=== PATIENT | male | born 1960 | race Caucasian/White ===

== ENCOUNTER 2017-06-19 16:55 | Emergency (ER) | payer MEDICAID ==
[~2017-06-19] VITALS: Ht 188 cm; Wt 127.0 kg
[~2017-06-19 16:55] MED LIST: AMLO10TA PO; GLUC-150 PO; HCTZ25T PO; IBUP-1986 PO; LISI40TA4 PO; METF500T4 PO; MULT-955 PO
[2017-06-19 17:34] LABS: BASOPHILS % (AUTO) 0.2 % (0-1); EOSINOPHILS # (AUTO) 0.4 X10'3 (0-0.9); HEMATOCRIT 41.1 % (42.0-52.0); HEMOGLOBIN 14.1 g/dl (14.0-17.9); LYMPHOCYTES # (AUTO) 1.2 X10'3 (1.1-4.8); LYMPHOCYTES % (AUTO) 13.3 % (21-51); MEAN CORPUSCULAR HEMOGLOBIN 29.7 PG (27.0-31.0); MEAN CORPUSCULAR HGB CONC 34.4 % (33.0-36.5); MEAN CORPUSCULAR VOLUME 86.4 FL (78-98); MONOCYTES # (AUTO) 0.7 X10'3 (0-0.9); MONOCYTES % (AUTO) 7.9 % (2-12); NEUTROPHILS # (AUTO) 6.8 X10'3 (1.8-7.7); NEUTROPHILS % (AUTO) 74.6 % (42-75); PLATELET COUNT 261 X10'3 (140-440); RED BLOOD COUNT 4.75 X10'6 (4.70-6.10); RED CELL DISTRIBUTION WIDTH 13.3 % (11.5-14.5); WHITE BLOOD COUNT 9.2 X10'3 (4.5-11.0)
[2017-06-19] MEDS ORDERED: HYDROcodone/acetaminophen 10/325mg tab PO ONE (17:35)
[2017-06-19 17:45] LABS: PARTIAL THROMBOPLASTIN TIME 26 SECONDS (22-32); PROTHROMBIN TIME 10.2 SECONDS (9.0-12.0)
[2017-06-19 17:51] LABS: ALANINE AMINOTRANSFERASE 41 U/L (12-78); ALBUMIN 3.6 G/DL (3.4-5.0); ALKALINE PHOSPHATASE 93 IU/L (46-116); ANION GAP 9 (8-16); ASPARTATE AMINO TRANSFERASE 28 U/L (10-37); BILIRUBIN,TOTAL 0.4 MG/DL (0.1-1.0); BLOOD UREA NITROGEN 23 MG/DL (7-18); BUN/CREATININE RATIO 23.7 (5.4-32.0); CALCIUM 9.1 MG/DL (8.5-10.1); CHLORIDE 105 MMOL/L (99-107); CREATININE 0.97 MG/DL (0.60-1.10); GLUCOSE 107 MG/DL (70-104); POTASSIUM 4.1 MMOL/L (3.5-5.1); SODIUM 142 MMOL/L (135-145); TOTAL CARBON DIOXIDE 28.3 MMOL/L (24-32); TOTAL PROTEIN 7.2 G/DL (6.4-8.2); eGFR 80 ML/MIN
[2017-06-19 18:50] VITALS: BP 140/85
[2017-06-19] MEDS ORDERED: HYDR-569 PO (19:19)
== END 2017-06-19 19:28 | disposition home or self-care (01) ==
LOC: ER 16:56
DX: S20.219A Contusion of unspecified front wall of thorax, initial encounter (principal); I10 Essential (primary) hypertension; Z86.14 Personal history of Methicillin resistant Staphylococcus aureus infection; Z88.0 Allergy status to penicillin; Z79.84 Long term (current) use of oral hypoglycemic drugs; Z79.899 Other long term (current) drug therapy; V49.9XXA Car occupant (driver) (passenger) injured in unspecified traffic accident, initial encounter; W22.11XA Striking against or struck by driver side automobile airbag, initial encounter; Y93.89 Activity, other specified; Y92.410 Unspecified street and highway as the place of occurrence of the external cause; Y99.8 Other external cause status
CPT/HCPCS: 36415; 71045; 71250; 74176; 80053; 84484; 85025; 85610; 85730; 93005; 99291

== ENCOUNTER 2018-12-05 18:14 | Emergency (ER) | payer MEDICAID, OTHER ==
[~2018-12-05] VITALS: Ht 188 cm; Wt 132.0 kg
[~2018-12-05 18:14] MED LIST changes: +HYDR-4383 PO; +METF-436 PO; -METF500T4 PO
[2018-12-05] MEDS ORDERED: normal saline 1000ML IV soln IVB ONE (21:15)
[2018-12-05 21:50] LABS: BASOPHILS % (AUTO) 0.1 % (0-1); EOSINOPHILS # (AUTO) 0.1 X10'3 (0-0.9); EOSINOPHILS % (AUTO) 0.9 % (0-6); HEMATOCRIT 34.1 % (42.0-52.0); HEMOGLOBIN 11.6 g/dl (14.0-17.9); LYMPHOCYTES % (AUTO) 8.7 % (21-51); MEAN CORPUSCULAR HEMOGLOBIN 29.9 PG (27.0-31.0); MEAN CORPUSCULAR HGB CONC 34.1 g/dL (33.0-36.5); MEAN CORPUSCULAR VOLUME 87.8 FL (78-98); MEAN PLATELET VOLUME 9.5 FL (7.4-10.4); MONOCYTES # (AUTO) 0.9 X10'3 (0-0.9); MONOCYTES % (AUTO) 7.4 % (2-12); NEUTROPHILS # (AUTO) 9.8 X10'3 (1.8-7.7); NEUTROPHILS % (AUTO) 82.9 % (42-75); RED BLOOD COUNT 3.88 X10'6 (4.70-6.10); RED CELL DISTRIBUTION WIDTH 13.9 % (11.5-14.5); WHITE BLOOD COUNT 11.8 X10'3 (4.5-11.0)
[2018-12-05 22:05] LABS: ALANINE AMINOTRANSFERASE 29 U/L (12-78); ALBUMIN 2.8 G/DL (3.4-5.0); ALBUMIN/GLOBULIN RATIO 0.8 (1.1-1.5); ALKALINE PHOSPHATASE 71 IU/L (46-116); ANION GAP 12 (8-16); ASPARTATE AMINO TRANSFERASE 22 U/L (10-37); BLOOD UREA NITROGEN 43 MG/DL (7-18); BUN/CREATININE RATIO 28.3 (5.4-32.0); CALCIUM 8.3 MG/DL (8.5-10.1); CHLORIDE 103 MMOL/L (99-107); CREATININE 1.52 MG/DL (0.60-1.10); GLUCOSE 122 MG/DL (70-104); PLATELET COUNT 95 X10'3 (140-440); SODIUM 138 MMOL/L (135-145); TOTAL CARBON DIOXIDE 22.6 MMOL/L (24-32); TOTAL PROTEIN 6.1 G/DL (6.4-8.2); eGFR 48 ML/MIN
[2018-12-05 22:10] LABS: POTASSIUM 2.9 MMOL/L (3.5-5.1)
[2018-12-05] MEDS ORDERED: potassium Cl 20 mEq SR tablet PO STA (22:16)
[2018-12-05] MEDS ORDERED: normal saline 1000ml 1,000 ML IVB ONE (22:18)
[2018-12-05] MEDS ORDERED: phenazopyridine 100mg tablet PO ONE (23:40)
[2018-12-05] MEDS ORDERED: CefTRIAXone 2gm/D5W 50ml 50 ML IV ONE (23:40)
[2018-12-06 00:11] LABS: BACTERIA,URINE FEW /HPF (Neg); CLARITY,URINE CLEAR (Clear); COLOR,URINE AMBER (Yellow); GLUCOSE, URINE NEGATIVE (Neg); KETONES,URINE TRACE mg/dl (Neg); LEUKOCYTE ESTERASE ,URINE MODERATE (Neg); MUCUS STRANDS NONE SEEN /LPF (Neg); NITRITES, URINE NEGATIVE (Neg); OCCULT BLOOD,URINE MODERATE (Neg); PH,URINE 5.5 (4.8-8.0); PROTEIN,URINE 30 mg/dl (Neg); RBC,URINE 0-2 /HPF (0-2); RENAL CELLS, URINE FEW /HPF; SQUAMOUS EPITHELIAL CELL,UR FEW /LPF (FEW); UA COLLECTION TYPE URINAL
--- NOTE | 2018-12-06 00:51 | NUR ---
AFTER 2 L FLUID, PT HAS 125 ML URINE IN BLADDER PER BLADDER SCANNER, WAS ABLE TO VOID APPROX 10 ML URINE
[2018-12-06] MEDS ORDERED: PHEN-786 PO (01:00)
[2018-12-06] MEDS ORDERED: FLO0.4C PO (01:00)
[2018-12-06] MEDS ORDERED: CEPH500C5 PO (01:00)
[2018-12-06 01:24] VITALS: BP 112/63
== END 2018-12-06 01:26 | disposition home or self-care (01) ==
LOC: ER 18:15
DX: N39.0 Urinary tract infection, site not specified (principal); I48.91 Unspecified atrial fibrillation; I10 Essential (primary) hypertension; Z86.14 Personal history of Methicillin resistant Staphylococcus aureus infection; Z98.890 Other specified postprocedural states; Z88.0 Allergy status to penicillin; Z79.2 Long term (current) use of antibiotics; Z79.84 Long term (current) use of oral hypoglycemic drugs; Z79.899 Other long term (current) drug therapy
CPT/HCPCS: 80053; 81001; 85025; 87077; 87088; 87186; 96365; 99284; J0696; J7030; 81003

== ENCOUNTER 2018-12-14 20:47 | Emergency (ER) | payer MEDICAID ==
[~2018-12-14] VITALS: Ht 188 cm; Wt 132.7 kg
[~2018-12-14 20:47] MED LIST changes: +CEPH500C5 PO; +FLO0.4C PO; +PHEN-786 PO
[2018-12-14 21:40] LABS: CLARITY,URINE SLIGHTLY CLOUDY (Clear); COLOR,URINE YELLOW (Yellow); GLUCOSE, URINE 100 mg/dl (Neg); KETONES,URINE TRACE mg/dl (Neg); LEUKOCYTE ESTERASE ,URINE NEGATIVE (Neg); OCCULT BLOOD,URINE LARGE (Neg); PROTEIN,URINE 100 mg/dl (Neg)
[2018-12-14 21:46] LABS: NITRITES, URINE NEGATIVE (Neg); UA COLLECTION TYPE CLN CATCH MIDSTREAM
[2018-12-14 21:47] LABS: BACTERIA,URINE FEW /HPF (Neg); RBC,URINE 50-100 /HPF (0-2); SQUAMOUS EPITHELIAL CELL,UR FEW /LPF (FEW); WBC,URINE 0-4 /HPF (0-4)
--- NOTE | 2018-12-14 22:35 | NUR ---
Dr. Morel at bedside to re-eval pt.
[2018-12-14] MEDS ORDERED: FLO0.4C PO (22:41)
[2018-12-14 22:56] VITALS: BP 142/71
== END 2018-12-14 22:53 | disposition home or self-care (01) ==
LOC: ER 20:48
DX: R31.9 Hematuria, unspecified (principal); R30.0 Dysuria; I48.91 Unspecified atrial fibrillation; I10 Essential (primary) hypertension; Z86.14 Personal history of Methicillin resistant Staphylococcus aureus infection; Z98.890 Other specified postprocedural states; Z88.0 Allergy status to penicillin; Z79.899 Other long term (current) drug therapy
CPT/HCPCS: 81001; 99284

== ENCOUNTER 2018-12-19 09:47 | Day surgery (SDC) | payer MEDICAID ==
[2018-12-17 12:07] LABS: BASOPHILS % (AUTO) 0.6 % (0-1); EOSINOPHILS # (AUTO) 0.1 X10'3 (0-0.9); EOSINOPHILS % (AUTO) 0.9 % (0-6); HEMATOCRIT 40.8 % (42.0-52.0); HEMOGLOBIN 13.8 g/dl (14.0-17.9); LYMPHOCYTES # (AUTO) 2.1 X10'3 (1.1-4.8); MEAN CORPUSCULAR HEMOGLOBIN 30.2 PG (27.0-31.0); MEAN CORPUSCULAR HGB CONC 33.8 g/dL (33.0-36.5); MEAN CORPUSCULAR VOLUME 89.3 FL (78-98); MEAN PLATELET VOLUME 8.4 FL (7.4-10.4); MONOCYTES # (AUTO) 0.6 X10'3 (0-0.9); MONOCYTES % (AUTO) 7.8 % (2-12); NEUTROPHILS % (AUTO) 63.7 % (42-75); PLATELET COUNT 437 X10'3 (140-440); RED BLOOD COUNT 4.57 X10'6 (4.70-6.10); RED CELL DISTRIBUTION WIDTH 14.1 % (11.5-14.5); WHITE BLOOD COUNT 7.8 X10'3 (4.5-11.0)
[2018-12-17 12:08] LABS: PARTIAL THROMBOPLASTIN TIME 31 SECONDS (22-32)
[2018-12-17 12:12] LABS: ALANINE AMINOTRANSFERASE 34 U/L (12-78); ALBUMIN 3.7 G/DL (3.4-5.0); ALBUMIN/GLOBULIN RATIO 0.9 (1.1-1.5); ALKALINE PHOSPHATASE 81 IU/L (46-116); ANION GAP 14 (8-16); ASPARTATE AMINO TRANSFERASE 19 U/L (10-37); BILIRUBIN,TOTAL 0.7 MG/DL (0.1-1.0); BLOOD UREA NITROGEN 13 MG/DL (7-18); BUN/CREATININE RATIO 13.1 (5.4-32.0); CALCIUM 9.4 MG/DL (8.5-10.1); CHLORIDE 105 MMOL/L (99-107); CREATININE 0.99 MG/DL (0.60-1.10); GLUCOSE 85 MG/DL (70-104); POTASSIUM 3.9 MMOL/L (3.5-5.1); SODIUM 142 MMOL/L (135-145); TOTAL CARBON DIOXIDE 23.2 MMOL/L (24-32); TOTAL PROTEIN 7.6 G/DL (6.4-8.2); eGFR 78 ML/MIN
[2018-12-19] VITALS (15 sets, daily range): BP systolic 97–181; BP diastolic 50–124
[~2018-12-19] VITALS: Ht 188 cm; Wt 132.5 kg
[2018-12-19] MEDS ORDERED: diphenhydrAMINE 25mg capsule PO PRN ×2 (10:20→10:55)
[2018-12-19] MEDS ORDERED: normal saline 1,000 ML IV SCH ×2 (10:20→10:55)
[2018-12-19] MEDS ORDERED: LORazepam 0.5 MG tablet PO PRN ×2 (10:20→10:55)
[2018-12-19] MEDS ORDERED: nitroGLYCERIN 0.4mg SUBLingual tab SL PRN (10:55)
[2018-12-19] MEDS ORDERED: fentaNYL/PF 50MCG/1 ML 2ML syringe ONE ×2 (12:30→13:36)
[2018-12-19] MEDS ORDERED: morphine 2 MG/ML inj. syringe ONE (12:32)
[2018-12-19] MEDS ORDERED: HYDROmorphone 1 mg/ml syringe ONE ×2 (12:35→12:44)
[2018-12-19] MEDS ORDERED: iohexol 350 MG/ML 50ML vial IV ONE ×2 (12:47→13:32)
[2018-12-19] MEDS ORDERED: nitroGLYCERIN-Tridil 50MG/D5W 250 ML IV ONE (12:54)
[2018-12-19] MEDS ORDERED: enalaprilat dihydrate 2.5mg/2ml vial IV ONE (12:55)
[2018-12-19] MEDS ORDERED: metoprolol tartrate 1mg/ml inj IV ONE (12:55)
[2018-12-19] MEDS ORDERED: proCHLORperazine 10 MG/2 ml inj ONE (12:58)
[2018-12-19] MEDS ORDERED: HYDROcodone/acetaminophen 5mg/325mg tablet PO PRN (13:30)
[2018-12-19] MEDS ORDERED: OXAZEpam 15mg capsule PO PRN (13:30)
[2018-12-19] MEDS ORDERED: ondansetron/PF 4mg/2ml inj IV PRN (13:30)
[2018-12-19] MEDS ORDERED: HYDROcodone/acetaminophen 10/325mg tab PO PRN (13:30)
[2018-12-19] MEDS ORDERED: proCHLORperazine 10 MG/2 ml inj IV PRN (13:30)
[2018-12-19] MEDS ORDERED: iohexol 350MG/ML 100ml bottle IV ONE (13:32)
[2018-12-19] MEDS ORDERED: LIDOcaine 1% (10mg/ml)w/preservative injection 20ml MDV ONE (13:33)
[2018-12-19] MEDS ORDERED: midazolam 2 mg/2 ml injection ONE (13:36)
[2018-12-19] MEDS ORDERED: HYDROmorphone 1 mg/ml syringe IV PRN (16:00)
[2019-01-07] MEDS ORDERED: CLIN150C2 PO (13:30)
[2019-01-07] MEDS ORDERED: MULT-1085 PO (13:30)
[2019-01-08] MEDS ORDERED: CEPH500C5 PO (10:24)
[2019-01-08] MEDS ORDERED: CLIN300C53 PO (10:28)
== END 2018-12-19 18:55 | disposition home or self-care (01) ==
LOC: SSTAY O 09:47
PROVIDERS: ATTEND Internal Medicine Cardiovascular Disease
DX: R94.39 Abnormal result of other cardiovascular function study (principal); I25.10 Atherosclerotic heart disease of native coronary artery without angina pectoris; I10 Essential (primary) hypertension; E78.5 Hyperlipidemia, unspecified; E11.9 Type 2 diabetes mellitus without complications; I48.20 Chronic atrial fibrillation, unspecified; E66.01 Morbid (severe) obesity due to excess calories; Z68.41 Body mass index [BMI] 40.0-44.9, adult; Z96.643 Presence of artificial hip joint, bilateral; Z96.653 Presence of artificial knee joint, bilateral; Z88.0 Allergy status to penicillin; Z79.84 Long term (current) use of oral hypoglycemic drugs; Z79.899 Other long term (current) drug therapy; Z87.442 Personal history of urinary calculi; Z87.440 Personal history of urinary (tract) infections; Z98.49 Cataract extraction status, unspecified eye; Z72.89 Other problems related to lifestyle; Z87.891 Personal history of nicotine dependence
CPT/HCPCS: 36415; 71046; 80053; 85025; 85610; 85730; 93459; 93567; 99152; 99153; C1769; J0780; J1170; J1644; J2001; J2250; J2270; J3010; J7030; Q0163; Q9967; 93458; A4620; A6258; C1760; J3490

== ENCOUNTER 2019-01-09 07:30 | Inpatient (IN) | payer MEDICAID ==
[2019-01-07 14:48] LABS: BASOPHILS % (AUTO) 0.5 % (0-1); EOSINOPHILS # (AUTO) 0.1 X10'3 (0-0.9); EOSINOPHILS % (AUTO) 1.2 % (0-6); LYMPHOCYTES # (AUTO) 1.8 X10'3 (1.1-4.8); LYMPHOCYTES % (AUTO) 26.6 % (21-51); MEAN CORPUSCULAR HEMOGLOBIN 30.8 PG (27.0-31.0); MEAN CORPUSCULAR HGB CONC 34.7 g/dL (33.0-36.5); MEAN CORPUSCULAR VOLUME 88.8 FL (78-98); MEAN PLATELET VOLUME 8.7 FL (7.4-10.4); MONOCYTES # (AUTO) 0.5 X10'3 (0-0.9); MONOCYTES % (AUTO) 7.2 % (2-12); NEUTROPHILS # (AUTO) 4.3 X10'3 (1.8-7.7); NEUTROPHILS % (AUTO) 64.5 % (42-75); PRE OP HEMATOCRIT 41.7 % (42.0-52.0); PRE OP HEMOGLOBIN 14.5 g/dL (14.0-17.9); PRE OP PLATELET COUNT 254 X10'3 (140-440); RED CELL DISTRIBUTION WIDTH 14.1 % (11.5-14.5)
[2019-01-07 14:58] LABS: PRE OP PROTIME 10.6 SECONDS (9.0-12.0)
[2019-01-07 14:59] LABS: ALBUMIN 3.7 G/DL (3.4-5.0); ALBUMIN/GLOBULIN RATIO 0.9 (1.1-1.5); ALKALINE PHOSPHATASE 84 IU/L (46-116); BLOOD UREA NITROGEN 19 MG/DL (7-18); BUN/CREATININE RATIO 22.9 (5.4-32.0); CALCIUM 9.4 MG/DL (8.5-10.1); CHLORIDE 106 MMOL/L (99-107); CREATININE 0.83 MG/DL (0.60-1.10); PRE OP ALT 23 U/L (30-65); PRE OP ANION GAP 14 (8-16); PRE OP AST 22 U/L (10-37); PRE OP BILIRUB, TOTAL 0.4 MG/DL (0.0-1.0); PRE OP GLUCOSE 84 MG/DL (70-104); PRE OP POTASSIUM 3.9 MMOL/L (3.4-5.1); PRE OP SODIUM 144 MMOL/L (135-145); TOTAL CARBON DIOXIDE 24.4 MMOL/L (24-32); TOTAL PROTEIN 7.6 G/DL (6.4-8.2); eGFR > 90 ML/MIN
[2019-01-07 15:07] LABS: HEMOGLOBIN A1C 5.3 % (4.5-6.2)
[2019-01-08 09:21] LABS: ABG BASE EXCESS -1.1 mmol/L (-2.0-3.0); ABG HCO3 22.5 mmol/L (22.0-26.0); ABG OXYGEN SATURATION 96.7 % (95-98); ABG PCO2 (T) 34.5 mmHg (35.0-45.0); ABG PH (T) 7.433 (7.350-7.450); ABG PO2 (T) 86.5 mmHg (83-108); ALLEN'S TEST Positive; FO2Hb 96.7 % (94-100); RESPIRATORY RATE (OBSERVED) 20 b/min; TOTAL HEMOGLOBIN 13.8 G/dl (14.0-17.9)
--- NOTE | 2019-01-08 11:15 | NUR ---
DR HYATT CALLED [facility] 01/08/19 TO GIVE VERBAL CLEARANCE FOR SURGERY. FRANCE AT DR COBB'S OFFICE AWARE.
[2019-01-09] VITALS (9 sets, daily range): BP systolic 101–151; BP diastolic 49–96
[~2019-01-09] VITALS: Ht 188 cm; Wt 137.0 kg
[2019-01-09] MEDS: insulin regular, human 100 UNIT in normal saline 100ml IV soln 99 ML IV SCH ×2 (06:00)
[~2019-01-09 07:30] MED LIST changes: -CEPH500C5 PO; +CLIN150C2 PO; -FLO0.4C PO; -GLUC-150 PO; -HYDR-4383 PO; +LIDOcaine 2% (20 mg/ml) 5ml cardiac syringe ONE; +LORazepam 2 mg/ml vial IV ONE; +MALTODEXTRIN/FRUCTOSE 0.68 KCAL/ML LIQUID 296ML BOTTLE PO ONE; -METF-436 PO; +MULT-1085 PO; -MULT-955 PO; -PHEN-786 PO; +ROPIVAcaine 0.5% (5mg/ml) 30ml vial ONE; +albumin (human) 25% 100 ML IV solution IV ONE; +aminocaproic acid 250 MG/1 ML inj. ONE; +calcium chloride 100 MG/1 ML inj IV ONE; +ceFAZolin/D5W- 1GM premix 50 ML IV ONE; +cefazolin/dext.iso 2gm/50ml 50 ML IV ONE; +famotidine 20mg tablet PO ONE; +gabapentin 400mg capsule PO ONE; +heparin 1,000 units/ml 10ml inj ONE; +heparin 10,000 units/1 ML INJ ONE; +magnesium sulf 1 GM/2 ML ONE; +methylPREDNISolone sod. succ. 500mg inj ONE; +metoprolol tartrate 12.5mg (1/2 tablet) PO ONE; +mupirocin 2% nasal ointment 1gm UD NS ONE; +phenylephrine 10mg/ml inj. ONE; +potassium Cl 2 mEq/ml inj IV ONE; +ringers solution, lacted 1,000 ML IV SCH; +sodium bicarbonate (8.4%) 1 mEq/ml syringe ONE; +vancomycin inj 1,500 MG in normal saline 300ml IV soln IV ONE
[2019-01-09 11:11] LABS: CLARITY,URINE CLEAR (Clear); COLOR,URINE YELLOW (Yellow); GLUCOSE, URINE NEGATIVE (Neg); KETONES,URINE NEGATIVE (Neg); LEUKOCYTE ESTERASE ,URINE TRACE (Neg); NITRITES, URINE NEGATIVE (Neg); OCCULT BLOOD,URINE NEGATIVE (Neg); PROTEIN,URINE NEGATIVE (Neg); UROBILINOGEN,URINE 0.2 E.U/dL (0.2-1.0)
[2019-01-09 11:25] LABS: UA COLLECTION TYPE CLN CATCH MIDSTREAM
[2019-01-09 11:26] LABS: BACTERIA,URINE 1+ /HPF (Neg); MUCUS STRANDS FEW /LPF (Neg); RBC,URINE 0-2 /HPF (0-2); SQUAMOUS EPITHELIAL CELL,UR MODERATE /LPF (FEW); WBC,URINE 0-4 /HPF (0-4)
[2019-01-09] MEDS ORDERED: LORazepam 2 mg/ml vial ONE (11:59)
[2019-01-09] MEDS ORDERED: nitroGLYCERIN in D5W 50mg/250ml (Tridil) infusion IV ONE (12:05)
[2019-01-09] MEDS ORDERED: protamine sulf. 10mg/ml inj. IV ONE (12:05)
[2019-01-09] MEDS ORDERED: amiodarone in dextrose, iso-osm 360mg/200ml bag IV ONE (12:05)
[2019-01-09] MEDS ORDERED: aminocaproic acid 250 MG/1 ML inj. ONE (12:05)
[2019-01-09] MEDS ORDERED: NORepinephrine bitartrate 8 MG in NS 250 ML BAG (32 mcg/ml) IV ONE (12:05)
[2019-01-09] MEDS ORDERED: isoflurane 100ml inhalation liquid IH ONE (12:05)
[2019-01-09] MEDS ORDERED: SUFENTANIL CITRATE 50 MCG/ML 2ml ampule IV ONE (12:06)
[2019-01-09] MEDS ORDERED: rocuronium 10mg/ml inj IV ONE ×3 (12:08→16:25)
[2019-01-09] MEDS ORDERED: papaverine 30 mg/ml 2ml inj. ONE (14:00)
[2019-01-09] MEDS ORDERED: heparin 10,000 units/1 ML INJ ONE (14:00)
[2019-01-09 14:01] LABS: ABG HCO3 VENOUS 22.4 mmol/L; ABG PCO2 VENOUS 33.2 mmHg; ABG PO2 VENOUS 411.4 mmHg; CL (ABG) 105 mmol/L (99-107); FCOHb VENOUS 0.5 %; FHHb VENOUS 0.4 %; FO2Hb VENOUS 99.1 %; GLUCOSE (ABG) 112 mg/dl (70-104); IONIZED CA (ABG) 1.15 mmol/L (1.03-1.32); K (ABG) 3.6 mmol/L (3.3-5.1); NA (ABG) 138 mmol/L (135-145); TOTAL HEMOGLOBIN 11.9 G/dl (14.0-17.9)
[2019-01-09 14:20] LABS: ABG BASE EXCESS 0.8 mmol/L (-2.0-3.0); ABG HCO3 24.2 mmol/L (22.0-26.0); ABG PCO2 34.4 mmHg (35.0-45.0); ABG PH 7.466 (7.350-7.450); ABG PO2 354.1 mmHg (60.0-100.0); CL (ABG) 104 mmol/L (99-107); FCOHb 0.3 % (0.5-1.5); FMetHb 0.3 % (0.3-1.12); FO2Hb 98.4 % (94-100); GLUCOSE (ABG) 121 mg/dl (70-104); IONIZED CA (ABG) 1.09 mmol/L (1.03-1.32); K (ABG) 4.4 mmol/L (3.3-5.1); NA (ABG) 137 mmol/L (135-145); TOTAL HEMOGLOBIN 9.9 G/dl (14.0-17.9)
[2019-01-09 14:36] LABS: ABG BASE EXCESS -1.6 mmol/L (-2.0-3.0); ABG HCO3 22.8 mmol/L (22.0-26.0); ABG OXYGEN SATURATION 99.3 % (95-98); ABG PCO2 36.8 mmHg (35.0-45.0); ABG PH 7.409 (7.350-7.450); ABG PO2 316.6 mmHg (60.0-100.0); CL (ABG) 104 mmol/L (99-107); FCOHb 0.2 % (0.5-1.5); FMetHb 0.3 % (0.3-1.12); FO2Hb 98.8 % (94-100); GLUCOSE (ABG) 119 mg/dl (70-104); IONIZED CA (ABG) 1.13 mmol/L (1.03-1.32); K (ABG) 4.7 mmol/L (3.3-5.1); NA (ABG) 138 mmol/L (135-145)
[2019-01-09 15:20] LABS: ABG BASE EXCESS 0.9 mmol/L (-2.0-3.0); ABG HCO3 25.9 mmol/L (22.0-26.0); ABG PCO2 43.1 mmHg (35.0-45.0); ABG PH 7.397 (7.350-7.450); ABG PO2 287.1 mmHg (60.0-100.0); CL (ABG) 104 mmol/L (99-107); FCOHb 0.2 % (0.5-1.5); FMetHb 0.4 % (0.3-1.12); FO2Hb 98.4 % (94-100); GLUCOSE (ABG) 133 mg/dl (70-104); IONIZED CA (ABG) 1.34 mmol/L (1.03-1.32); K (ABG) 4.4 mmol/L (3.3-5.1); NA (ABG) 136 mmol/L (135-145); TOTAL HEMOGLOBIN 9.5 G/dl (14.0-17.9)
[2019-01-09 16:05] LABS: ABG BASE EXCESS -1.4 mmol/L (-2.0-3.0); ABG HCO3 21.8 mmol/L (22.0-26.0); ABG OXYGEN SATURATION 98.9 % (95-98); ABG PCO2 31.5 mmHg (35.0-45.0); ABG PH 7.459 (7.350-7.450); ABG PO2 210.5 mmHg (60.0-100.0); CL (ABG) 105 mmol/L (99-107); FCOHb 0.3 % (0.5-1.5); FMetHb 0.4 % (0.3-1.12); FO2Hb 98.2 % (94-100); GLUCOSE (ABG) 118 mg/dl (70-104); IONIZED CA (ABG) 1.21 mmol/L (1.03-1.32); K (ABG) 3.8 mmol/L (3.3-5.1); NA (ABG) 137 mmol/L (135-145); TOTAL HEMOGLOBIN 10.3 G/dl (14.0-17.9)
[2019-01-09] MEDS ORDERED: normal saline 250ml IV soln 250 ML IV PRN (16:20)
[2019-01-09] MEDS ORDERED: dextrose 50%-water 50ml dispensing syringe IV PRN (16:20)
[2019-01-09] MEDS ORDERED: potassium Cl 20 mEq SR tablet PO PRN (16:20)
[2019-01-09] MEDS ORDERED: acetaminophen 325mg tablet PO PRN ×2 (16:20)
[2019-01-09] MEDS ORDERED: morphine 4 MG/ML inj SYRINge IV PRN (16:20)
[2019-01-09] MEDS ORDERED: ondansetron/PF 4mg/2ml inj IV PRN (16:20)
[2019-01-09] MEDS ORDERED: nitroGLYCERIN-Tridil 50MG/D5W 250 ML IV PRN (16:20)
[2019-01-09] MEDS ORDERED: metoclopramide 5 mg/ml inj IV PRN (16:20)
[2019-01-09] MEDS ORDERED: magnesium 2GM in 50ml NS 50 ML IV PRN (16:20)
[2019-01-09] MEDS ORDERED: niCARDipine-NS 40mg/200ml IVPB 200 ML IV PRN (16:20)
[2019-01-09] MEDS ORDERED: pantoprazole 40 MG vial IV ONE (16:20)
[2019-01-09] MEDS ORDERED: HYDROcodone/acetaminophen 10/325mg tab PO PRN ×2 (16:20)
[2019-01-09] MEDS ORDERED: magnesium 4gm in 100ml NS 100 ML IV PRN (16:20)
[2019-01-09] MEDS ORDERED: insulin regular, human inj. 100 UNITS in normal saline 100ml IV soln 100 ML IV SCH ×2 (16:20)
[2019-01-09] MEDS ORDERED: albumin (Human) 5% 250ml 250 ML IV PRN (16:20)
[2019-01-09] MEDS ORDERED: sodium phosphate inj. 15 MMOL in dextrose 5%-water 150 ML IV PRN (16:20)
[2019-01-09] MEDS ORDERED: sodium chloride 0.45% 1,000 ML IV SCH (16:20)
[2019-01-09] MEDS ORDERED: sodium phosphate inj. 30 MMOL in dextrose 5%-water 250 ML IV PRN (16:20)
[2019-01-09] MEDS ORDERED: DOPamine 400mg/D5W 250ml 250 ML IV PRN (16:20)
[2019-01-09] MEDS ORDERED: Neutra Phos packet PO PRN (16:20)
--- NOTE | 2019-01-09 16:30 | NUR ---
Received to room 2043, accompanied by MDs and surgical crew. Placed on ventilator, to phlebotomist lab assistant, arterial line and PA line pressure monitored. Chest tubes to suction at 20 cm. Smart cath to gravity drainage. Dressings are dry and intact. See assessment record. All vasoactive drugs are infusing via central line.
--- NOTE | 2019-01-09 16:45 | NUR ---
Cxr reviewed Hemodyn stable on low dose tridil and Nipride Min Chest tube output Lungs clear but diminished
--- NOTE | 2019-01-09 16:53 | NUR ---
Nutrition consult: Pt s/p CABG x 3 today. Pt would benefit from nutrition therapy education prior to discharge once stable. Will continue to follow. Addendum: 01/09/19 at [address] Amended: Links added.
[2019-01-09] MEDS ORDERED: propofol inj 20 ML IV ONE (16:54)
[2019-01-09 16:55] LABS: ABG BASE EXCESS -0.6 mmol/L (-2.0-3.0); ABG OXYGEN SATURATION 98.6 % (95-98); ABG PCO2 (T) 38.6 mmHg (35.0-45.0); ABG PH (T) 7.409 (7.350-7.450); ABG PO2 (T) 179.8 mmHg (83-108); FCOHb 0.3 % (0.5-1.5); FMetHb 0.2 % (0.3-1.12); FO2Hb 98.1 % (94-100); MINUTE VOLUME 13 L/min; PATIENT TEMPERATURE 36.6; PEEP 5 cm H2O; RESPIRATORY RATE 12 b/min; TIDAL VOLUME 750 mL; TOTAL HEMOGLOBIN 12.2 G/dl (14.0-17.9)
[2019-01-09 17:08] LABS: BASOPHILS % (AUTO) 0.1 % (0-1); EOSINOPHILS % (AUTO) 0.3 % (0-6); HEMATOCRIT 33.5 % (42.0-52.0); HEMOGLOBIN 11.3 g/dl (14.0-17.9); LYMPHOCYTES # (AUTO) 0.8 X10'3 (1.1-4.8); LYMPHOCYTES % (AUTO) 7.1 % (21-51); MEAN CORPUSCULAR HEMOGLOBIN 30.3 PG (27.0-31.0); MEAN CORPUSCULAR HGB CONC 33.8 g/dL (33.0-36.5); MEAN CORPUSCULAR VOLUME 89.7 FL (78-98); MEAN PLATELET VOLUME 8.1 FL (7.4-10.4); MONOCYTES # (AUTO) 0.5 X10'3 (0-0.9); MONOCYTES % (AUTO) 4.4 % (2-12); NEUTROPHILS # (AUTO) 9.9 X10'3 (1.8-7.7); NEUTROPHILS % (AUTO) 88.1 % (42-75); PLATELET COUNT 154 X10'3 (140-440); RED BLOOD COUNT 3.74 X10'6 (4.70-6.10); RED CELL DISTRIBUTION WIDTH 14.4 % (11.5-14.5); WHITE BLOOD COUNT 11.3 X10'3 (4.5-11.0)
[2019-01-09 17:17] LABS: PARTIAL THROMBOPLASTIN TIME 26 SECONDS (22-32)
[2019-01-09] MEDS: morphine 4 MG/ML inj SYRINge IV PRN ×4 (17:17→23:46)
[2019-01-09 17:18] LABS: ALANINE AMINOTRANSFERASE 23 U/L (12-78); ALBUMIN 3.1 G/DL (3.4-5.0); ALBUMIN/GLOBULIN RATIO 1.2 (1.1-1.5); ALKALINE PHOSPHATASE 62 IU/L (46-116); ANION GAP 7 (8-16); ASPARTATE AMINO TRANSFERASE 25 U/L (10-37); BILIRUBIN,TOTAL 0.8 MG/DL (0.1-1.0); BLOOD UREA NITROGEN 15 MG/DL (7-18); CALCIUM 8.7 MG/DL (8.5-10.1); CHLORIDE 110 MMOL/L (99-107); CREATININE 0.94 MG/DL (0.60-1.10); GLUCOSE 99 MG/DL (70-104); MAGNESIUM 2.8 MG/DL (1.5-2.4); PHOSPHORUS 2.5 MG/DL (2.3-4.5); POTASSIUM 3.8 MMOL/L (3.5-5.1); SODIUM 144 MMOL/L (135-145); TOTAL CARBON DIOXIDE 27.4 MMOL/L (24-32); TOTAL PROTEIN 5.7 G/DL (6.4-8.2); eGFR 83 ML/MIN
--- NOTE | 2019-01-09 17:30 | NUR ---
Assessment [facility] VSS Hemodyn stable on nipride and tridil Pt turned from side to side and reposit Med for pain pre turning laurie well
[2019-01-09] MEDS ORDERED: insulin Lispro (HumaLOG) vial - multi-dose SQ SCH (18:00)
--- NOTE | 2019-01-09 18:00 | NUR ---
Patient in room ICU 2043. I have received report from Carlene PEGUERO and had the opportunity to ask questions and assume patient care.
--- NOTE | 2019-01-09 18:00 | NUR ---
Problems reprioritized. Patient report given, questions answered & plan of care reviewed with Rosette moreland.
[2019-01-09] MEDS: docusate sod 100mg capsule PO SCH (20:00)
[2019-01-09] MEDS: mupirocin 2% nasal ointment 1gm UD NS SCH (20:00)
[2019-01-09] MEDS: vancomycin/NS 1 GM ADD-VANTAGE 250 ML IV SCH (20:20)
[2019-01-09] MEDS: gabapentin 300mg capsule PO SCH (20:21)
[2019-01-09] MEDS: amiodarone/D5 360MG/200ML BAG 200 ML IV SCH (21:10)
[2019-01-09] MEDS: potassium Cl 20mEq/100mL bag 100 ML IV PRN ×2 (21:37→23:18)
[2019-01-09] MEDS: cefazolin/dext.iso 2gm/50ml 50 ML IV SCH (23:33)
[2019-01-09 23:36] LABS: ABG BASE EXCESS -1.9 mmol/L (-2.0-3.0); ABG HCO3 22.3 mmol/L (22.0-26.0); ABG OXYGEN SATURATION 97.9 % (95-98); ABG PCO2 (T) 36.4 mmHg (35.0-45.0); ABG PH (T) 7.405 (7.350-7.450); FCOHb 0.3 % (0.5-1.5); FMetHb 0.1 % (0.3-1.12); FO2Hb 97.5 % (94-100); MINUTE VOLUME 9 L/min; PATIENT TEMPERATURE 37.2; PEEP 5 cm H2O; RESPIRATORY RATE (OBSERVED) 13 b/min; TOTAL HEMOGLOBIN 12.1 G/dl (14.0-17.9)
[2019-01-09 23:44] LABS: BASOPHILS % (AUTO) 0.1 % (0-1); EOSINOPHILS % (AUTO) 0 % (0-6); HEMATOCRIT 32.5 % (42.0-52.0); HEMOGLOBIN 11.2 g/dl (14.0-17.9); LYMPHOCYTES # (AUTO) 0.4 X10'3 (1.1-4.8); LYMPHOCYTES % (AUTO) 4.1 % (21-51); MEAN CORPUSCULAR HGB CONC 34.4 g/dL (33.0-36.5); MEAN CORPUSCULAR VOLUME 90.1 FL (78-98); MEAN PLATELET VOLUME 8.9 FL (7.4-10.4); MONOCYTES # (AUTO) 0.2 X10'3 (0-0.9); MONOCYTES % (AUTO) 2.5 % (2-12); NEUTROPHILS # (AUTO) 8.1 X10'3 (1.8-7.7); NEUTROPHILS % (AUTO) 93.3 % (42-75); PLATELET COUNT 141 X10'3 (140-440); RED BLOOD COUNT 3.61 X10'6 (4.70-6.10); RED CELL DISTRIBUTION WIDTH 14.3 % (11.5-14.5); WHITE BLOOD COUNT 8.7 X10'3 (4.5-11.0)
[2019-01-09 23:48] LABS: ANION GAP 7 (8-16); BLOOD UREA NITROGEN 17 MG/DL (7-18); BUN/CREATININE RATIO 17.7 (5.4-32.0); CALCIUM 8.6 MG/DL (8.5-10.1); CHLORIDE 110 MMOL/L (99-107); CREATININE 0.96 MG/DL (0.60-1.10); GLUCOSE 149 MG/DL (70-104); MAGNESIUM 2.3 MG/DL (1.5-2.4); PHOSPHORUS 3.9 MG/DL (2.3-4.5); POTASSIUM 4.4 MMOL/L (3.5-5.1); SODIUM 143 MMOL/L (135-145); eGFR 81 ML/MIN
[2019-01-10] VITALS (25 sets, daily range): BP systolic 98–141; BP diastolic 50–77
[2019-01-10] MEDS: potassium Cl 20mEq/100mL bag 100 ML IV PRN (00:41)
[2019-01-10] MEDS: amiodarone/D5 360MG/200ML BAG 200 ML IV SCH (02:50)
[2019-01-10 04:29] LABS: BASOPHILS % (AUTO) 0.1 % (0-1); EOSINOPHILS % (AUTO) 0 % (0-6); HEMATOCRIT 32.9 % (42.0-52.0); HEMOGLOBIN 11.3 g/dl (14.0-17.9); LYMPHOCYTES # (AUTO) 0.4 X10'3 (1.1-4.8); LYMPHOCYTES % (AUTO) 4.6 % (21-51); MEAN CORPUSCULAR HEMOGLOBIN 30.7 PG (27.0-31.0); MEAN CORPUSCULAR HGB CONC 34.4 g/dL (33.0-36.5); MEAN PLATELET VOLUME 8.8 FL (7.4-10.4); MONOCYTES # (AUTO) 0.3 X10'3 (0-0.9); MONOCYTES % (AUTO) 3.6 % (2-12); NEUTROPHILS # (AUTO) 8.4 X10'3 (1.8-7.7); NEUTROPHILS % (AUTO) 91.7 % (42-75); PLATELET COUNT 155 X10'3 (140-440); RED CELL DISTRIBUTION WIDTH 14.4 % (11.5-14.5); WHITE BLOOD COUNT 9.2 X10'3 (4.5-11.0)
[2019-01-10 04:38] LABS: PARTIAL THROMBOPLASTIN TIME 28 SECONDS (22-32)
[2019-01-10 05:04] LABS: ALANINE AMINOTRANSFERASE 21 U/L (12-78); ALKALINE PHOSPHATASE 61 IU/L (46-116); ANION GAP 7 (8-16); ASPARTATE AMINO TRANSFERASE 32 U/L (10-37); BILIRUBIN,TOTAL 0.3 MG/DL (0.1-1.0); BLOOD UREA NITROGEN 18 MG/DL (7-18); BUN/CREATININE RATIO 18.4 (5.4-32.0); CALCIUM 8.4 MG/DL (8.5-10.1); CHLORIDE 111 MMOL/L (99-107); CREATININE 0.98 MG/DL (0.60-1.10); GLUCOSE 133 MG/DL (70-104); MAGNESIUM 2.7 MG/DL (1.5-2.4); PHOSPHORUS 4.3 MG/DL (2.3-4.5); POTASSIUM 4.6 MMOL/L (3.5-5.1); SODIUM 143 MMOL/L (135-145); TOTAL PROTEIN 5.9 G/DL (6.4-8.2); eGFR 79 ML/MIN
[2019-01-10] MEDS: insulin regular, human 100 UNIT in normal saline 100ml IV soln 99 ML IV SCH ×2 (06:00)
--- NOTE | 2019-01-10 06:22 | NUR ---
Problems reprioritized. Patient report given, questions answered & plan of care reviewed with Shay PEGUERO.
[2019-01-10] MEDS: cefazolin/dext.iso 2gm/50ml 50 ML IV SCH ×2 (07:39→15:36)
[2019-01-10] MEDS: vancomycin/NS 1 GM ADD-VANTAGE 250 ML IV SCH ×2 (07:40→20:49)
[2019-01-10] MEDS: morphine 4 MG/ML inj SYRINge IV PRN (07:40)
[2019-01-10] MEDS ORDERED: aspirin 325mg tablet, delayed-release (Ecotrin) PO SCH ×2 (08:00)
[2019-01-10] MEDS: ketorolac trometh. 30mg/ml inj. IV SCH ×3 (08:22→20:49)
[2019-01-10] MEDS: gabapentin 300mg capsule PO SCH ×3 (08:22→20:52)
[2019-01-10] MEDS: metoprolol tartrate 12.5mg (1/2 tablet) PO SCH ×2 (08:24→20:00)
[2019-01-10] MEDS: amiodarone 200mg tablet PO SCH ×3 (08:25→20:52)
[2019-01-10] MEDS: multivitamins, therapeutics tablet PO SCH (08:25)
[2019-01-10] MEDS: atorvastatin 10mg tablet PO SCH (08:25)
[2019-01-10] MEDS: docusate sod 100mg capsule PO SCH ×2 (08:26→20:49)
[2019-01-10] MEDS: mupirocin 2% nasal ointment 1gm UD NS SCH ×2 (08:26→20:52)
[2019-01-10] MEDS: aspirin 81mg tablet.DR PO SCH (08:27)
--- NOTE | 2019-01-10 18:30 | NUR ---
Patient in room ICU 2043. I have received report from MARIELENA Day and had the opportunity to ask questions and assume patient care.
[2019-01-11] VITALS (15 sets, daily range): BP systolic 97–148; BP diastolic 55–94
[2019-01-11] MEDS: cefazolin/dext.iso 2gm/50ml 50 ML IV SCH ×2 (00:12→08:47)
[2019-01-11] MEDS: ketorolac trometh. 30mg/ml inj. IV SCH ×2 (02:00→08:48)
[2019-01-11 03:17] LABS: BASOPHILS % (AUTO) 0.1 % (0-1); EOSINOPHILS % (AUTO) 0.1 % (0-6); HEMOGLOBIN 10.5 g/dl (14.0-17.9); LYMPHOCYTES # (AUTO) 0.9 X10'3 (1.1-4.8); LYMPHOCYTES % (AUTO) 7.9 % (21-51); MEAN CORPUSCULAR HEMOGLOBIN 30.7 PG (27.0-31.0); MEAN CORPUSCULAR HGB CONC 33.7 g/dL (33.0-36.5); MEAN CORPUSCULAR VOLUME 90.9 FL (78-98); MEAN PLATELET VOLUME 9.1 FL (7.4-10.4); MONOCYTES # (AUTO) 0.7 X10'3 (0-0.9); MONOCYTES % (AUTO) 6.1 % (2-12); NEUTROPHILS % (AUTO) 85.8 % (42-75); PLATELET COUNT 137 X10'3 (140-440); RED BLOOD COUNT 3.41 X10'6 (4.70-6.10); RED CELL DISTRIBUTION WIDTH 14.4 % (11.5-14.5); WHITE BLOOD COUNT 11.7 X10'3 (4.5-11.0)
[2019-01-11 04:10] LABS: ALBUMIN 2.8 G/DL (3.4-5.0); ANION GAP 7 (8-16); BLOOD UREA NITROGEN 30 MG/DL (7-18); BUN/CREATININE RATIO 26.3 (5.4-32.0); CALCIUM 8.4 MG/DL (8.5-10.1); CHLORIDE 106 MMOL/L (99-107); CREATININE 1.14 MG/DL (0.60-1.10); GLUCOSE 125 MG/DL (70-104); MAGNESIUM 2.2 MG/DL (1.5-2.4); PHOSPHORUS 3.8 MG/DL (2.3-4.5); POTASSIUM 4.2 MMOL/L (3.5-5.1); SODIUM 140 MMOL/L (135-145); TOTAL CARBON DIOXIDE 27.1 MMOL/L (24-32); eGFR 66 ML/MIN
[2019-01-11] MEDS: insulin regular, human 100 UNIT in normal saline 100ml IV soln 99 ML IV SCH ×2 (06:00)
--- NOTE | 2019-01-11 06:39 | NUR ---
Problems reprioritized. Patient report given, questions answered & plan of care reviewed with MARIELENA Olivia.
[2019-01-11] MEDS: mupirocin 2% nasal ointment 1gm UD NS SCH (08:00)
[2019-01-11] MEDS: pantoprazole 40mg Tablet.DR PO SCH (08:37)
[2019-01-11] MEDS: amiodarone 200mg tablet PO SCH ×3 (08:37→20:29)
[2019-01-11] MEDS: metoprolol tartrate 12.5mg (1/2 tablet) PO SCH ×2 (08:38→19:39)
[2019-01-11] MEDS: atorvastatin 10mg tablet PO SCH (08:38)
[2019-01-11] MEDS: multivitamins, therapeutics tablet PO SCH (08:38)
[2019-01-11] MEDS: aspirin 81mg tablet.DR PO SCH (08:38)
[2019-01-11] MEDS: docusate sod 100mg capsule PO SCH ×2 (08:38→19:38)
[2019-01-11] MEDS: gabapentin 300mg capsule PO SCH ×2 (08:38→13:07)
[2019-01-11] MEDS ORDERED: potassium Cl 20 mEq SR tablet PO PRN (10:20)
[2019-01-11] MEDS ORDERED: potassium Cl 20mEq/100mL bag 100 ML IV PRN (10:20)
[2019-01-11] MEDS ORDERED: magnesium 4gm in 100ml NS 100 ML IV PRN (10:20)
--- NOTE | 2019-01-11 11:58 | NUR ---
Received report from Corwin in ICU, patient to go into 307 on [facility].
--- NOTE | 2019-01-11 12:36 | NUR ---
Arrived to unit at this time.
--- NOTE | 2019-01-11 13:11 | NUR ---
[facility].
[2019-01-11] MEDS: ketorolac tromethamine 15mg/ml inj. IV SCH ×2 (14:10→19:42)
--- NOTE | 2019-01-11 17:39 | NUR ---
Patient has "inverted penis". Discussed with patient difficulty of retracting it, patient states it's been that way for a while now. Asked patient if he had told his urologist, patient states he felt like they didn't listen to his complaint, states it feels like a rubber band is tied around the middle of his penis. Noted that the skin is edematous upon attempting to retract it. Patient states that it's been a while since he's been able to have sex with his . Listened to patient and made him aware that nursing staff would do what we could to give attention to this complaint and make MD aware.
--- NOTE | 2019-01-11 18:00 | NUR ---
Patient in room MED 307. I have received report from Loly PEGUERO and had the opportunity to ask questions and assume patient care.
--- NOTE | 2019-01-11 18:30 | NUR ---
Problems reprioritized. Patient report given, questions answered & plan of care reviewed with Roxy PEGUERO and Carrol PEGUERO.
[2019-01-11] MEDS: potassium Cl 20 mEq SR tablet PO SCH (19:38)
[2019-01-11] MEDS: magnesium Cl slow-release 64mg tablet PO SCH (19:38)
[2019-01-11] MEDS: mupirocin 2% ointment 22GM NS SCH (19:49)
[2019-01-11] MEDS: lisinopril 20mg tablet PO SCH (20:29)
[2019-01-12] MEDS: magnesium hydroxide 30ml (MOM) UD suspension PO PRN ×2 (01:23→07:59)
[2019-01-12] MEDS: ketorolac tromethamine 15mg/ml inj. IV SCH ×4 (01:44→20:29)
[2019-01-12 02:00] VITALS: BP 121/65
[2019-01-12 05:44] LABS: BASOPHILS % (AUTO) 0.1 % (0-1); EOSINOPHILS % (AUTO) 0.3 % (0-6); HEMATOCRIT 31.9 % (42.0-52.0); HEMOGLOBIN 10.9 g/dl (14.0-17.9); LYMPHOCYTES # (AUTO) 1.1 X10'3 (1.1-4.8); LYMPHOCYTES % (AUTO) 9.6 % (21-51); MEAN CORPUSCULAR HEMOGLOBIN 30.8 PG (27.0-31.0); MEAN CORPUSCULAR HGB CONC 34.3 g/dL (33.0-36.5); MEAN CORPUSCULAR VOLUME 89.9 FL (78-98); MEAN PLATELET VOLUME 9.5 FL (7.4-10.4); MONOCYTES % (AUTO) 8.7 % (2-12); NEUTROPHILS # (AUTO) 9.5 X10'3 (1.8-7.7); NEUTROPHILS % (AUTO) 81.3 % (42-75); PLATELET COUNT 146 X10'3 (140-440); RED BLOOD COUNT 3.54 X10'6 (4.70-6.10); RED CELL DISTRIBUTION WIDTH 14.3 % (11.5-14.5); WHITE BLOOD COUNT 11.7 X10'3 (4.5-11.0)
--- NOTE | 2019-01-12 06:22 | NUR ---
Problems reprioritized. Patient report given, questions answered & plan of care reviewed with Heydi PEGUERO.
[2019-01-12 06:30] VITALS: BP 132/81
--- NOTE | 2019-01-12 06:30 | NUR ---
Patient in room MED 307. I have received report from Taniya PEGUERO and had the opportunity to ask questions and assume patient care.
[2019-01-12 06:36] LABS: ALBUMIN 2.8 G/DL (3.4-5.0); BLOOD UREA NITROGEN 25 MG/DL (7-18); BUN/CREATININE RATIO 33.8 (5.4-32.0); CALCIUM 8.1 MG/DL (8.5-10.1); CREATININE 0.74 MG/DL (0.60-1.10); GLUCOSE 107 MG/DL (70-104); MAGNESIUM 1.9 MG/DL (1.5-2.4); TOTAL CARBON DIOXIDE 25.7 MMOL/L (24-32); eGFR > 90 ML/MIN
[2019-01-12 06:50] LABS: ANION GAP 6 (8-16); CHLORIDE 105 MMOL/L (99-107); POTASSIUM 3.8 MMOL/L (3.5-5.1); SODIUM 137 MMOL/L (135-145)
[2019-01-12] MEDS: docusate sod 100mg capsule PO SCH ×2 (07:56→20:28)
[2019-01-12] MEDS: metoprolol tartrate 12.5mg (1/2 tablet) PO SCH ×2 (07:56→20:28)
[2019-01-12] MEDS: aspirin 81mg tablet.DR PO SCH (07:56)
[2019-01-12] MEDS: potassium Cl 20 mEq SR tablet PO SCH ×2 (07:56→20:28)
[2019-01-12] MEDS: multivitamins, therapeutics tablet PO SCH (07:56)
[2019-01-12] MEDS: atorvastatin 10mg tablet PO SCH (07:56)
[2019-01-12] MEDS: mupirocin 2% ointment 22GM NS SCH (07:57)
[2019-01-12] MEDS: pantoprazole 40mg Tablet.DR PO SCH (07:57)
[2019-01-12] MEDS: amiodarone 200mg tablet PO SCH ×3 (07:57→20:28)
[2019-01-12] MEDS: magnesium Cl slow-release 64mg tablet PO SCH ×2 (07:57→20:26)
[2019-01-12] MEDS ORDERED: magnesium citrate 296ml oral solution PO ONE (09:30)
[2019-01-12 10:00] VITALS: BP 110/52
--- NOTE | 2019-01-12 13:18 | NUR ---
Initial: Pt/family seen by SUE for written/verbal CABG ed w/ RD contact information provided. Pt reports constipation post-op; LBM 01/09 receiving colace and MoM started today. MD is aware. PO 100% NCS diet at this time and declines additional proteins post-op. Will continue to monitor. Rec: 1. advance diet per MD to heart healthy 2. routine bowel care 3. wt per rx Addendum: 01/12/19 at [address] Amended: Links added.
[2019-01-12 15:00] VITALS: BP 118/67
[2019-01-12] MEDS ORDERED: mineral oil 133ml enema RC PRN (15:05)
[2019-01-12 18:00] VITALS: BP 137/72
--- NOTE | 2019-01-12 18:17 | NUR ---
Problems reprioritized. Patient report given, questions answered & plan of care reviewed with Kaylee PEGUERO.
--- NOTE | 2019-01-12 18:24 | NUR ---
Patient in room MED 307. I have received report from MARIELENA Soliz and had the opportunity to ask questions and assume patient care.
--- NOTE | 2019-01-12 19:17 | NUR ---
Patient received Enema on previous shift. Patient had bowel movement.
[2019-01-12] MEDS: lisinopril 20mg tablet PO SCH (20:28)
[2019-01-12 22:00] VITALS: BP 135/72
[2019-01-13 02:00] VITALS: BP 140/77
[2019-01-13] MEDS: ketorolac tromethamine 15mg/ml inj. IV SCH (02:09)
[2019-01-13 06:00] VITALS: BP 133/80
--- NOTE | 2019-01-13 06:00 | NUR ---
Problems reprioritized. Patient report given, questions answered & plan of care reviewed with MARIELENA Carney AND MARIELENA SCHAEFER.
--- NOTE | 2019-01-13 06:00 | NUR ---
Patient in room MED 307. I have received report from MARIELENA Page and had the opportunity to ask questions and assume patient care.
[2019-01-13 06:07] LABS: BASOPHILS % (AUTO) 0.2 % (0-1); EOSINOPHILS # (AUTO) 0.1 X10'3 (0-0.9); HEMATOCRIT 35.3 % (42.0-52.0); HEMOGLOBIN 12.1 g/dl (14.0-17.9); LYMPHOCYTES # (AUTO) 1.5 X10'3 (1.1-4.8); LYMPHOCYTES % (AUTO) 14.6 % (21-51); MEAN CORPUSCULAR HEMOGLOBIN 30.8 PG (27.0-31.0); MEAN CORPUSCULAR HGB CONC 34.1 g/dL (33.0-36.5); MEAN CORPUSCULAR VOLUME 90.3 FL (78-98); MEAN PLATELET VOLUME 9.1 FL (7.4-10.4); NEUTROPHILS # (AUTO) 7.4 X10'3 (1.8-7.7); NEUTROPHILS % (AUTO) 74.2 % (42-75); PLATELET COUNT 192 X10'3 (140-440); RED BLOOD COUNT 3.91 X10'6 (4.70-6.10); RED CELL DISTRIBUTION WIDTH 14.3 % (11.5-14.5)
--- NOTE | 2019-01-13 06:15 | NUR ---
Patient in room MED 307. I have received report from MARIELENA Escobar and had the opportunity to ask questions and assume patient care. Addendum: 01/13/19 at 0915 by Leyla Fraire RN Huma PEGUERO for report
[2019-01-13 06:38] LABS: ALBUMIN 2.9 G/DL (3.4-5.0); ANION GAP 4 (8-16); BLOOD UREA NITROGEN 21 MG/DL (7-18); BUN/CREATININE RATIO 26.3 (5.4-32.0); CALCIUM 8.5 MG/DL (8.5-10.1); CHLORIDE 106 MMOL/L (99-107); GLUCOSE 101 MG/DL (70-104); POTASSIUM 3.9 MMOL/L (3.5-5.1); SODIUM 140 MMOL/L (135-145); eGFR > 90 ML/MIN
[2019-01-13] MEDS: magnesium Cl slow-release 64mg tablet PO SCH ×2 (08:15→19:20)
[2019-01-13] MEDS: docusate sod 100mg capsule PO SCH ×2 (08:16→19:20)
[2019-01-13] MEDS: atorvastatin 10mg tablet PO SCH (08:16)
[2019-01-13] MEDS: amiodarone 200mg tablet PO SCH ×3 (08:16→20:55)
[2019-01-13] MEDS: multivitamins, therapeutics tablet PO SCH (08:16)
[2019-01-13] MEDS: aspirin 81mg tablet.DR PO SCH (08:16)
[2019-01-13] MEDS: pantoprazole 40mg Tablet.DR PO SCH (08:16)
[2019-01-13] MEDS: metoprolol tartrate 12.5mg (1/2 tablet) PO SCH ×2 (08:16→19:21)
[2019-01-13] MEDS: potassium Cl 20 mEq SR tablet PO SCH ×2 (08:17→19:20)
[2019-01-13 09:10] LABS: MAGNESIUM 1.9 MG/DL (1.5-2.4)
[2019-01-13 09:25] LABS: ACT @ 1.70 U 292 SEC (193-297); ACT @ 2.84 U 462 SEC (260-420); BASELINE ACT 141 SEC (101-148)
[2019-01-13 09:26] LABS: ACTIVATED CLOTTING TIME 131 SEC (101-148)
[2019-01-13 10:15] LABS: ABG BASE EXCESS -0.8 mmol/L (-2.0-3.0); ABG HCO3 22.1 mmol/L (22.0-26.0); ABG OXYGEN SATURATION 99.3 % (95-98); ABG PCO2 31.2 mmHg (35.0-45.0); ABG PH 7.469 (7.350-7.450); ABG PO2 369.1 mmHg (60.0-100.0); CL (ABG) 106 mmol/L (99-107); FCOHb 0.3 % (0.5-1.5); FMetHb 0.3 % (0.3-1.12); FO2Hb 98.7 % (94-100); GLUCOSE (ABG) 99 mg/dl (70-104); IONIZED CA (ABG) 1.16 mmol/L (1.03-1.32); K (ABG) 3.6 mmol/L (3.3-5.1); NA (ABG) 138 mmol/L (135-145); TOTAL HEMOGLOBIN 12.3 G/dl (14.0-17.9)
[2019-01-13 11:00] VITALS: BP 125/71
[2019-01-13 15:00] VITALS: BP 124/62
--- NOTE | 2019-01-13 15:45 | NUR ---
[place] documentation and med administration: I have reviewed and agree with all interventions, assessments performed and documented by Leyla PEGUERO.
[2019-01-13] MEDS: magnesium hydroxide 30ml (MOM) UD suspension PO PRN (16:08)
[2019-01-13 18:00] VITALS: BP 128/64
--- NOTE | 2019-01-13 18:00 | NUR ---
Patient in room MED 307. I have received report from MARIELENA Mayer and had the opportunity to ask questions and assume patient care.
--- NOTE | 2019-01-13 18:15 | NUR ---
Problems reprioritized. Patient report given, questions answered & plan of care reviewed with MARIELENA Page.
[2019-01-13] MEDS: lisinopril 20mg tablet PO SCH (20:55)
[2019-01-13 22:00] VITALS: BP 102/72
[2019-01-14 02:00] VITALS: BP 137/80
[2019-01-14 02:49] LABS: BASOPHILS % (AUTO) 0.3 % (0-1); EOSINOPHILS # (AUTO) 0.2 X10'3 (0-0.9); EOSINOPHILS % (AUTO) 1.7 % (0-6); HEMATOCRIT 32.8 % (42.0-52.0); HEMOGLOBIN 11.2 g/dl (14.0-17.9); LYMPHOCYTES # (AUTO) 1.5 X10'3 (1.1-4.8); MEAN CORPUSCULAR HEMOGLOBIN 30.7 PG (27.0-31.0); MEAN CORPUSCULAR HGB CONC 34.3 g/dL (33.0-36.5); MEAN CORPUSCULAR VOLUME 89.5 FL (78-98); MEAN PLATELET VOLUME 9.1 FL (7.4-10.4); MONOCYTES # (AUTO) 0.8 X10'3 (0-0.9); MONOCYTES % (AUTO) 8.9 % (2-12); NEUTROPHILS # (AUTO) 6.9 X10'3 (1.8-7.7); NEUTROPHILS % (AUTO) 73.1 % (42-75); PLATELET COUNT 185 X10'3 (140-440); RED BLOOD COUNT 3.66 X10'6 (4.70-6.10); RED CELL DISTRIBUTION WIDTH 14.1 % (11.5-14.5); WHITE BLOOD COUNT 9.4 X10'3 (4.5-11.0)
[2019-01-14 02:57] LABS: ALBUMIN 2.6 G/DL (3.4-5.0); ANION GAP 4 (8-16); BLOOD UREA NITROGEN 23 MG/DL (7-18); BUN/CREATININE RATIO 35.4 (5.4-32.0); CALCIUM 8.4 MG/DL (8.5-10.1); CHLORIDE 107 MMOL/L (99-107); CREATININE 0.65 MG/DL (0.60-1.10); GLUCOSE 104 MG/DL (70-104); SODIUM 139 MMOL/L (135-145); TOTAL CARBON DIOXIDE 27.6 MMOL/L (24-32); eGFR > 90 ML/MIN
[2019-01-14 03:14] LABS: MAGNESIUM 2.1 MG/DL (1.5-2.4)
[2019-01-14 06:00] VITALS: BP 132/71
--- NOTE | 2019-01-14 06:20 | NUR ---
Patient in room MED 307. I have received report from MARIELENA Page and had the opportunity to ask questions and assume patient care.
--- NOTE | 2019-01-14 06:22 | NUR ---
Problems reprioritized. Patient report given, questions answered & plan of care reviewed with MARIELENA Mccray and MARIELENA Rodney.
[2019-01-14] MEDS: pantoprazole 40mg Tablet.DR PO SCH (07:25)
[2019-01-14] MEDS: magnesium hydroxide 30ml (MOM) UD suspension PO PRN (07:25)
[2019-01-14] MEDS: potassium Cl 20 mEq SR tablet PO SCH ×2 (07:26→21:05)
[2019-01-14] MEDS: multivitamins, therapeutics tablet PO SCH (07:26)
[2019-01-14] MEDS: atorvastatin 10mg tablet PO SCH (07:26)
[2019-01-14] MEDS: magnesium Cl slow-release 64mg tablet PO SCH ×2 (07:26→21:05)
[2019-01-14] MEDS: amiodarone 200mg tablet PO SCH ×3 (07:28→21:05)
[2019-01-14] MEDS: metoprolol tartrate 12.5mg (1/2 tablet) PO SCH ×2 (07:28→21:04)
[2019-01-14] MEDS: docusate sod 100mg capsule PO SCH ×2 (07:28→21:04)
[2019-01-14] MEDS: aspirin 81mg tablet.DR PO SCH (07:28)
[2019-01-14] MEDS ORDERED: magnesium citrate 296ml oral solution PO ONE (08:50)
[2019-01-14] MEDS ORDERED: mineral oil 133ml enema RC PRN (08:50)
--- NOTE | 2019-01-14 09:00 | NUR ---
Dr. Baez and Tobi Jeffries present at this time. They have been informed of the patients abdominal pain and discomfort, as well as his need to have a BM. Patient states there is flatus present. MD also informed of the patients UA results from 01/08. Will continue to monitor patient.
[2019-01-14] MEDS: sennosides 8.6mg tablet PO SCH ×2 (09:29→21:04)
[2019-01-14 11:00] VITALS: BP 140/75
[2019-01-14 15:00] VITALS: BP 147/81
--- NOTE | 2019-01-14 17:12 | NUR ---
[place] documentation: I have reviewed and agree with all interventions, assessments performed and documented by Shazia PEGUERO. [place] Medication Administration: For this medication-pass time frame, all medication were reviewed, dispensed, administered and documented per hospital policy by Shazia PEGUERO.
[2019-01-14 18:00] VITALS: BP 157/82
--- NOTE | 2019-01-14 18:00 | NUR ---
Patient in room MED 307. I have received report from MARIELENA Mccray and MARIELENA Rodney and had the opportunity to ask questions and assume patient care.
--- NOTE | 2019-01-14 18:15 | NUR ---
Problems reprioritized. Patient report given, questions answered & plan of care reviewed with MARIELENA Yuen.
[2019-01-14] MEDS: lisinopril 20mg tablet PO SCH (21:04)
[2019-01-14 22:00] VITALS: BP 124/74
[2019-01-15 02:00] VITALS: BP 152/83
--- NOTE | 2019-01-15 06:10 | NUR ---
Problems reprioritized. Patient report given, questions answered & plan of care reviewed with MARIELENA Erickson.
--- NOTE | 2019-01-15 06:46 | NUR ---
Patient in room MED 307. I have received report from MARIELENA Kraus and had the opportunity to ask questions and assume patient care.
[2019-01-15 06:47] LABS: ALBUMIN 2.8 G/DL (3.4-5.0); ANION GAP 6 (8-16); BLOOD UREA NITROGEN 21 MG/DL (7-18); BUN/CREATININE RATIO 25.6 (5.4-32.0); CALCIUM 8.8 MG/DL (8.5-10.1); CHLORIDE 104 MMOL/L (99-107); CREATININE 0.82 MG/DL (0.60-1.10); GLUCOSE 104 MG/DL (70-104); SODIUM 139 MMOL/L (135-145); TOTAL CARBON DIOXIDE 28.7 MMOL/L (24-32); eGFR > 90 ML/MIN
[2019-01-15 07:29] LABS: POTASSIUM 4.3 MMOL/L (3.5-5.1)
[2019-01-15 08:00] VITALS: BP 144/78
[2019-01-15] MEDS: atorvastatin 10mg tablet PO SCH (08:16)
[2019-01-15] MEDS: pantoprazole 40mg Tablet.DR PO SCH (08:16)
[2019-01-15] MEDS: amiodarone 200mg tablet PO SCH ×2 (08:17→21:18)
[2019-01-15] MEDS: aspirin 81mg tablet.DR PO SCH (08:17)
[2019-01-15] MEDS: HYDROchlorothiazide 12.5mg capsule PO SCH (08:17)
[2019-01-15] MEDS: multivitamins, therapeutics tablet PO SCH (08:19)
[2019-01-15] MEDS: docusate sod 100mg capsule PO SCH ×2 (08:19→20:00)
[2019-01-15] MEDS: magnesium Cl slow-release 64mg tablet PO SCH ×2 (08:19→21:17)
[2019-01-15] MEDS: sennosides 8.6mg tablet PO SCH ×2 (08:20→20:00)
[2019-01-15] MEDS: potassium Cl 20 mEq SR tablet PO SCH ×2 (08:21→21:18)
[2019-01-15] MEDS: metoprolol tartrate 50mg tablet PO SCH ×2 (08:22→21:23)
[2019-01-15 11:00] VITALS: BP 123/68
[2019-01-15 15:00] VITALS: BP 132/69
--- NOTE | 2019-01-15 18:09 | NUR ---
Problems reprioritized. Patient report given, questions answered & plan of care reviewed with MARIELENA Donovan.
--- NOTE | 2019-01-15 18:11 | NUR ---
Patient in room MED 307. I have received report from Georgina PEGUERO and had the opportunity to ask questions and assume patient care. bedside report completed. assisted to BSC, POTATO LOADER at bedside. will continue to monitor.education provided for sternal precaution and fall risk.
[2019-01-15 18:20] VITALS: BP 124/67
[2019-01-15] MEDS: lisinopril 20mg tablet PO SCH (21:21)
[2019-01-15] MEDS: simethicone 80mg chew tab PO PRN (22:37)
[2019-01-15 22:50] VITALS: BP 123/63
[2019-01-16 02:52] VITALS: BP 140/66
[2019-01-16 05:22] LABS: ALBUMIN 2.6 G/DL (3.4-5.0); ANION GAP 8 (8-16); BLOOD UREA NITROGEN 18 MG/DL (7-18); BUN/CREATININE RATIO 22.5 (5.4-32.0); CALCIUM 8.4 MG/DL (8.5-10.1); CHLORIDE 102 MMOL/L (99-107); GLUCOSE 111 MG/DL (70-104); MAGNESIUM 1.7 MG/DL (1.5-2.4); POTASSIUM 3.4 MMOL/L (3.5-5.1); SODIUM 136 MMOL/L (135-145); eGFR > 90 ML/MIN
[2019-01-16 06:00] VITALS: BP 112/57
--- NOTE | 2019-01-16 06:14 | NUR ---
Problems reprioritized. Patient report given,Georgina PEGUERO questions answered & plan of care reviewed with . endoresed Magnesium and Potassium replacement to day RN
--- NOTE | 2019-01-16 06:31 | NUR ---
Patient in room MED 307. I have received report from MARIELENA Donovan and had the opportunity to ask questions and assume patient care.
[2019-01-16] MEDS: magnesium 2GM in 50ml NS 50 ML IV PRN ×3 (07:20→11:36)
[2019-01-16] MEDS: simethicone 80mg chew tab PO PRN ×2 (07:33→12:16)
[2019-01-16] MEDS: pantoprazole 40mg Tablet.DR PO SCH (07:49)
[2019-01-16] MEDS: HYDROchlorothiazide 12.5mg capsule PO SCH (07:49)
[2019-01-16] MEDS: magnesium Cl slow-release 64mg tablet PO SCH (07:49)
[2019-01-16] MEDS: multivitamins, therapeutics tablet PO SCH (07:50)
[2019-01-16 07:53] VITALS: BP_SYST 119
[2019-01-16] MEDS: metoprolol tartrate 50mg tablet PO SCH (07:53)
[2019-01-16] MEDS: atorvastatin 10mg tablet PO SCH (07:54)
[2019-01-16] MEDS: potassium Cl 20 mEq SR tablet PO SCH (07:54)
[2019-01-16] MEDS: sennosides 8.6mg tablet PO SCH (07:54)
[2019-01-16] MEDS: amiodarone 200mg tablet PO SCH (07:55)
[2019-01-16] MEDS: aspirin 81mg tablet.DR PO SCH (07:55)
[2019-01-16] MEDS: docusate sod 100mg capsule PO SCH (07:55)
[2019-01-16] MEDS ORDERED: potassium Cl 20 mEq SR tablet PO STA (11:05)
--- NOTE | 2019-01-16 13:18 | NUR ---
Problems reprioritized. Patient report given, questions answered & plan of care reviewed with Massimo Warren rn. PENNY dc'd from [facility],site clear,pt medicated with another dose of mylicon prior to transfer sent to [facility] with all belongings,packet given to [employer] cargo transport personnel
== END 2019-01-16 12:45 | DRG 166 ==
LOC: EDSTATUS 07:30 → PAS IN 08:56 → ICU 2S 15:09 → MED 3N 01-11 12:35
PROVIDERS: ADMIT Thoracic Surgery (Cardiothoracic Vascular Surgery); ATTEND Thoracic Surgery (Cardiothoracic Vascular Surgery)
PROC: 5A1221Z Performance of Cardiac Output, Continuous (ICD-10-PCS; 2019-01-09)
PROC: 06BQ4ZZ Excision of Left Saphenous Vein, Percutaneous Endoscopic Approach (ICD-10-PCS; 2019-01-09)
PROC: B24BZZ4 Ultrasonography of Heart with Aorta, Transesophageal (ICD-10-PCS; 2019-01-09)
PROC: 02L70CK Occlusion of Left Atrial Appendage with Extraluminal Device, Open Approach (ICD-10-PCS; 2019-01-09)
PROC: 0T7D8DZ Dilation of Urethra with Intraluminal Device, Via Natural or Artificial Opening Endoscopic (ICD-10-PCS; 2019-01-09)
PROC: 0T9D80Z Drainage of Urethra with Drainage Device, Via Natural or Artificial Opening Endoscopic (ICD-10-PCS; 2019-01-09)
PROC: 02HV33Z Insertion of Infusion Device into Superior Vena Cava, Percutaneous Approach (ICD-10-PCS; 2019-01-09)
PROC: 4A133B3 Monitoring of Arterial Pressure, Pulmonary, Percutaneous Approach (ICD-10-PCS; 2019-01-09)
PROC: 02HP32Z Insertion of Monitoring Device into Pulmonary Trunk, Percutaneous Approach (ICD-10-PCS; 2019-01-09)
PROC: 02100Z9 Bypass Coronary Artery, One Artery from Left Internal Mammary, Open Approach (ICD-10-PCS; principal; 2019-01-09 12:05)
PROC: 021209W Bypass Coronary Artery, Three Arteries from Aorta with Autologous Venous Tissue, Open Approach (ICD-10-PCS; 2019-01-09 12:05)
DX: I25.10 Atherosclerotic heart disease of native coronary artery without angina pectoris (principal); E66.01 Morbid (severe) obesity due to excess calories; E11.9 Type 2 diabetes mellitus without complications; I10 Essential (primary) hypertension; I48.20 Chronic atrial fibrillation, unspecified; K56.7 Ileus, unspecified; M16.0 Bilateral primary osteoarthritis of hip; N35.911 Unspecified urethral stricture, male, meatal; N48.1 Balanitis; Z79.84 Long term (current) use of oral hypoglycemic drugs; Z87.440 Personal history of urinary (tract) infections; Z87.442 Personal history of urinary calculi; Z88.0 Allergy status to penicillin; Z68.38 Body mass index [BMI] 38.0-38.9, adult; Z98.49 Cataract extraction status, unspecified eye; Z56.0 Unemployment, unspecified
CPT/HCPCS: 0232T; 36415; 36600; 71045; 71046; 74022; 74176; 80048; 80053; 81001; 82330; 82435; 82803; 82947; 82948; 83036; 83735; 84100; 84132; 84295; 85018; 85025; 85347; 85384; 85610; 85730; 86885; 86900; 86901; 86920; 87081; 87088; 93005; 93312; 93325; 93880; 93931; 93971; 94002; 94010; 94667; 94668; 94760; 97112; 97116; 97161; 97530; A4618; A6258; A6402; A6446; A6449; A7000; A7048; C1713; C1751; C1769; C9113; G0378; J0690; J1644; J1815; J1885; J2060; J2150; J2270; J2370; J2440; J2704; J2720; J2795; J2930; J3370; J3475; J3480; J3490; J7030; J7040; J7050; J7120; P9047

== ENCOUNTER 2019-01-18 15:43 | Inpatient (IN) | payer MEDICAID ==
[~2019-01-18] VITALS: Ht 188 cm; Wt 135.9 kg
[~2019-01-18 15:43] MED LIST changes: -LIDOcaine 2% (20 mg/ml) 5ml cardiac syringe ONE; -LORazepam 2 mg/ml vial IV ONE; -MALTODEXTRIN/FRUCTOSE 0.68 KCAL/ML LIQUID 296ML BOTTLE PO ONE; -ROPIVAcaine 0.5% (5mg/ml) 30ml vial ONE; -albumin (human) 25% 100 ML IV solution IV ONE; -aminocaproic acid 250 MG/1 ML inj. ONE; -calcium chloride 100 MG/1 ML inj IV ONE; -ceFAZolin/D5W- 1GM premix 50 ML IV ONE; -cefazolin/dext.iso 2gm/50ml 50 ML IV ONE; -famotidine 20mg tablet PO ONE; -gabapentin 400mg capsule PO ONE; -heparin 1,000 units/ml 10ml inj ONE; -heparin 10,000 units/1 ML INJ ONE; -magnesium sulf 1 GM/2 ML ONE; -methylPREDNISolone sod. succ. 500mg inj ONE; -metoprolol tartrate 12.5mg (1/2 tablet) PO ONE; -mupirocin 2% nasal ointment 1gm UD NS ONE; -phenylephrine 10mg/ml inj. ONE; -potassium Cl 2 mEq/ml inj IV ONE; -ringers solution, lacted 1,000 ML IV SCH; -sodium bicarbonate (8.4%) 1 mEq/ml syringe ONE; -vancomycin inj 1,500 MG in normal saline 300ml IV soln IV ONE
[2019-01-18] MEDS ORDERED: normal saline 1000ML IV soln IVB ONE ×2 (16:45→17:40)
[2019-01-18 16:52] LABS: BASOPHILS # (AUTO) 0.1 X10'3 (0-0.2); BASOPHILS % (AUTO) 0.3 % (0-1); EOSINOPHILS % (AUTO) 0 % (0-6); HEMATOCRIT 33.6 % (42.0-52.0); HEMOGLOBIN 11.4 g/dl (14.0-17.9); LYMPHOCYTES # (AUTO) 0.2 X10'3 (1.1-4.8); LYMPHOCYTES % (AUTO) 1.2 % (21-51); MEAN CORPUSCULAR HEMOGLOBIN 30.6 PG (27.0-31.0); MEAN CORPUSCULAR HGB CONC 33.9 g/dL (33.0-36.5); MEAN CORPUSCULAR VOLUME 90.5 FL (78-98); MEAN PLATELET VOLUME 8.8 FL (7.4-10.4); MONOCYTES # (AUTO) 0.8 X10'3 (0-0.9); MONOCYTES % (AUTO) 3.8 % (2-12); NEUTROPHILS # (AUTO) 19.1 X10'3 (1.8-7.7); NEUTROPHILS % (AUTO) 94.7 % (42-75); PLATELET COUNT 377 X10'3 (140-440); RED BLOOD COUNT 3.71 X10'6 (4.70-6.10); RED CELL DISTRIBUTION WIDTH 14.4 % (11.5-14.5); WHITE BLOOD COUNT 20.1 X10'3 (4.5-11.0)
--- NOTE | 2019-01-18 17:12 | NUR ---
Unable to void at this time,urinal within reach.
[2019-01-18 17:15] LABS: ALANINE AMINOTRANSFERASE 170 U/L (12-78); ALBUMIN 2.4 G/DL (3.4-5.0); ALBUMIN/GLOBULIN RATIO 0.6 (1.1-1.5); ALKALINE PHOSPHATASE 80 IU/L (46-116); ANION GAP 10 (8-16); ASPARTATE AMINO TRANSFERASE 162 U/L (10-37); BILIRUBIN,TOTAL 1.4 MG/DL (0.1-1.0); BLOOD UREA NITROGEN 64 MG/DL (7-18); BUN/CREATININE RATIO 14.5 (5.4-32.0); CALCIUM 8.9 MG/DL (8.5-10.1); CHLORIDE 97 MMOL/L (99-107); CREATININE 4.41 MG/DL (0.60-1.10); GLUCOSE 113 MG/DL (70-104); LIPASE < 50 U/L (73-393); POTASSIUM 4.2 MMOL/L (3.5-5.1); SODIUM 130 MMOL/L (135-145); TOTAL CARBON DIOXIDE 22.6 MMOL/L (24-32); TOTAL PROTEIN 6.5 G/DL (6.4-8.2); eGFR 14 ML/MIN
[2019-01-18] MEDS ORDERED: levoFLOXACIN-Levaquin 500mg/D5 100 ML IV ONE (17:40)
[2019-01-18] MEDS ORDERED: metroNIDAZOLE-Flagyl 500mg/NS 100 ML IV ONE (17:40)
--- NOTE | 2019-01-18 17:41 | NUR ---
patient reports feeling nauseas,Dr. Ellis made aware,family at bedside.
--- NOTE | 2019-01-18 17:49 | NUR ---
patient to CT.
[2019-01-18] MEDS ORDERED: ondansetron/PF 4mg/2ml inj IV ONE (17:55)
[2019-01-18 18:16] LABS: MAGNESIUM 2.8 MG/DL (1.5-2.4)
[2019-01-18] MEDS ORDERED: fentaNYL/PF 50MCG/1 ML 2ML syringe IV ONE ×2 (18:50→19:45)
[2019-01-18] MEDS ORDERED: normal saline 1000ML IV soln IV ONE (19:25)
[2019-01-18] MEDS ORDERED: clindamycin phosphate 150mg/ml inj. ONE (20:21)
[2019-01-18] MEDS ORDERED: gentamicin 40 MG/1 ML inj ONE (20:21)
[2019-01-18 20:25] LABS: ABG BASE EXCESS -10.1 mmol/L (-2.0-3.0); ABG OXYGEN SATURATION 88.1 % (95-98); ABG PCO2 (T) 35.7 mmHg (35.0-45.0); ABG PH (T) 7.269 (7.350-7.450); ABG PO2 (T) 60.5 mmHg (83-108); ALLEN'S TEST Positive; FCOHb 0.5 % (0.5-1.5); FLOW 3 L/min; FMetHb 0.2 % (0.3-1.12); FO2Hb 87.5 % (94-100); PATIENT TEMPERATURE 36.6; RESPIRATORY RATE (OBSERVED) 24 b/min; TOTAL HEMOGLOBIN 11.5 G/dl (14.0-17.9)
[2019-01-18] MEDS ORDERED: midazolam 2 mg/2 ml injection ONE (20:36)
[2019-01-18] MEDS ORDERED: fentaNYL /PF 50mcg/ml 5ml ampule ONE (20:36)
[2019-01-18] MEDS ORDERED: ipratropium/albuterol 3ml nebule NEB PRN (21:00)
[2019-01-18] MEDS ORDERED: LIDOcaine 2% (20mg/ml) 5ml vial ONE (21:08)
[2019-01-18] MEDS ORDERED: ePHEDrine 50MG/ML INJ. ONE (21:08)
[2019-01-18] MEDS ORDERED: phenylephrine 10mg/ml inj. ONE (21:08)
[2019-01-18] MEDS ORDERED: etomidate 2mg/ml inj. ONE (21:08)
[2019-01-18] MEDS ORDERED: rocuronium 10mg/ml inj IV ONE (21:08)
[2019-01-18 23:06] LABS: ABG BASE EXCESS -8.7 mmol/L (-2.0-3.0); ABG HCO3 16.4 mmol/L (22.0-26.0); ABG PCO2 (T) 32.7 mmHg (35.0-45.0); ABG PH (T) 7.319 (7.350-7.450); ABG PO2 (T) 119.6 mmHg (83-108); FCOHb 0.3 % (0.5-1.5); FMetHb 0.1 % (0.3-1.12); FO2Hb 97.6 % (94-100); PATIENT TEMPERATURE 37.1; TOTAL HEMOGLOBIN 10.9 G/dl (14.0-17.9)
[2019-01-18 23:06] LABS: ISTAT CREATININE 4.4 mg/dL (0.8-1.3); ISTAT HGB 9.2 g/dl (14.0-18.0); ISTAT IONIZED CALCIUM 1.09 mmol/L (1.03-1.32); ISTAT K 4.2 mmol/L (3.5-5.1)
[2019-01-18 23:54] VITALS: BP 129/35
--- NOTE | 2019-01-18 23:54 | NUR ---
Received from OR via BED accompanied by Anesthesiologist DR ARMENDARIZ and report given by Anesthesiologist. PT INTUBATED BAGGED BY DR ARMENDARIZ, RT HERE ATTACHED TO VENT, PT W/ABDOMINAL DRSG CDI, ALVINO W/S/S DRAINAGE, ROGERS CATHETER W/SCANT AMT OF DARK YELLOW URINE, CXR OBTAINED AND REVIEWED BY DR LANE AND DR ARMENDARIZ, CVL REPLACED BY DR ARMENDARIZ, CXR OBTAINED AND REVIEWED BY DR ARMENDARIZ, LINE W/GOOD PLACEMENT. PT BEGINING TO WAKE UP, ANXIOUS, RESTLESS, VERSED AND FENTANYL DRIPS STARTED. REPORT TO RECEIVING RN. Addendum: 01/19/19 at 0131 by Pilar Arteaga RN Amended: Links added.
[2019-01-18] MEDS ORDERED: Potassium Cl inj 20 MEQ in ringers solution, lacted 1,000 ML IV SCH (23:56)
[2019-01-19] VITALS (36 sets, daily range): BP systolic 99–145; BP diastolic 32–50
[2019-01-19] MEDS ORDERED: albumin (Human) 5% 250ml 500 ML IV ONE (00:09)
[2019-01-19] MEDS ORDERED: sevoflurane 250ml liquid IH ONE (00:22)
[2019-01-19] MEDS ORDERED: rocuronium 10mg/ml inj IV ONE (00:22)
[2019-01-19 00:25] LABS: OXYGEN SATURATION (MIXED VEN) 81.1 % (60-80); PO2 MIXED VENOUS (TEMP COR) 49.5 mmHg (35-46)
[2019-01-19] MEDS ORDERED: midazolam 100mg in NS 100ml 100 ML IV PRN (00:31)
[2019-01-19] MEDS ORDERED: FENTANYL-0.9 % NACL/PF 100 ML IV PRN (00:31)
[2019-01-19 00:35] LABS: ABG BASE EXCESS -10.3 mmol/L (-2.0-3.0); ABG OXYGEN SATURATION 97.9 % (95-98); ABG PH (T) 7.256 (7.350-7.450); ABG PO2 (T) 124.4 mmHg (83-108); FCOHb 0.3 % (0.5-1.5); FMetHb 0.1 % (0.3-1.12); FO2Hb 97.5 % (94-100); MINUTE VOLUME 12 L/min; PATIENT TEMPERATURE 37.1; PEEP 5 cm H2O; RESPIRATORY RATE 18 b/min; RESPIRATORY RATE (OBSERVED) 18 b/min; TIDAL VOLUME 650 mL; TOTAL HEMOGLOBIN 11.3 G/dl (14.0-17.9)
[2019-01-19] MEDS ORDERED: ondansetron/PF 4mg/2ml inj IV PRN (00:35)
[2019-01-19] MEDS ORDERED: ipratropium/albuterol 3ml nebule NEB PRN (00:35)
[2019-01-19] MEDS ORDERED: acetaminophen 650mg rectal suppository RC PRN (00:35)
[2019-01-19] MEDS ORDERED: acetaminophen 325mg tablet PO PRN (00:35)
[2019-01-19 00:59] LABS: ALBUMIN 2.3 G/DL (3.4-5.0); ANION GAP 12 (8-16); BLOOD UREA NITROGEN 62 MG/DL (7-18); BUN/CREATININE RATIO 15.4 (5.4-32.0); CALCIUM 7.4 MG/DL (8.5-10.1); CHLORIDE 104 MMOL/L (99-107); CREATININE 4.02 MG/DL (0.60-1.10); GLUCOSE 101 MG/DL (70-104); POTASSIUM 4.3 MMOL/L (3.5-5.1); SODIUM 134 MMOL/L (135-145); TOTAL CARBON DIOXIDE 17.9 MMOL/L (24-32); eGFR 15 ML/MIN
[2019-01-19 01:03] LABS: BASOPHILS % (AUTO) 0.2 % (0-1); EOSINOPHILS % (AUTO) 0 % (0-6); HEMATOCRIT 30.7 % (42.0-52.0); HEMOGLOBIN 10.5 g/dl (14.0-17.9); LYMPHOCYTES # (AUTO) 0.3 X10'3 (1.1-4.8); LYMPHOCYTES % (AUTO) 2.1 % (21-51); MEAN CORPUSCULAR HEMOGLOBIN 30.7 PG (27.0-31.0); MEAN CORPUSCULAR HGB CONC 34.2 g/dL (33.0-36.5); MEAN CORPUSCULAR VOLUME 89.8 FL (78-98); MEAN PLATELET VOLUME 8.5 FL (7.4-10.4); MONOCYTES # (AUTO) 0.5 X10'3 (0-0.9); MONOCYTES % (AUTO) 3.9 % (2-12); NEUTROPHILS % (AUTO) 93.8 % (42-75); PLATELET COUNT 326 X10'3 (140-440); RED BLOOD COUNT 3.42 X10'6 (4.70-6.10); RED CELL DISTRIBUTION WIDTH 14.7 % (11.5-14.5); WHITE BLOOD COUNT 11.7 X10'3 (4.5-11.0)
--- NOTE | 2019-01-19 01:24 | NUR ---
PT REMAINS SEDATED ON VENT, VSS, REPORT TO RECEIVING RN. Addendum: 01/19/19 at 0132 by Pilar Arteaga RN Amended: Links added.
[2019-01-19] MEDS ORDERED: DOPamine 400mg/D5W 250ml 250 ML IV ONE (01:44)
[2019-01-19] MEDS: NORepinephrine 8mg/ 250ml NS 250 ML IV SCH (01:45)
[2019-01-19] MEDS ORDERED: DOPamine 400mg/D5W 250ml 250 ML IV SCH (01:45)
[2019-01-19] MEDS ORDERED: sodium bicarbonate (8.4%) inj. 75 MEQ in dextrose 5% water 500ml 500 ML IV SCH (01:55)
--- NOTE | 2019-01-19 01:55 | NUR ---
Clari notified of current ABG per Dr. Bundy. Orders received.
[2019-01-19] MEDS: metroNIDAZOLE-Flagyl 500mg/NS 100 ML IV SCH ×4 (02:48→23:45)
[2019-01-19] MEDS ORDERED: albumin (Human) 5% 250ml 250 ML IV ONE (02:55)
[2019-01-19] MEDS ORDERED: ringers solution, lactated 500ml IV solution IV SCH (02:55)
[2019-01-19] MEDS ORDERED: albumin (Human) 5% 250ml 1,000 ML IV ONE (03:01)
[2019-01-19 03:40] LABS: ABG BASE EXCESS -8.1 mmol/L (-2.0-3.0); ABG HCO3 17.4 mmol/L (22.0-26.0); ABG OXYGEN SATURATION 95.8 % (95-98); ABG PCO2 (T) 35.3 mmHg (35.0-45.0); FCOHb 0.3 % (0.5-1.5); FMetHb 0.1 % (0.3-1.12); FO2Hb 95.4 % (94-100); MINUTE VOLUME 12 L/min; PATIENT TEMPERATURE 36.8; PEEP 5 cm H2O; RESPIRATORY RATE 18 b/min; RESPIRATORY RATE (OBSERVED) 18 b/min; TIDAL VOLUME 650 mL; TOTAL HEMOGLOBIN 10.6 G/dl (14.0-17.9)
--- NOTE | 2019-01-19 03:57 | NUR ---
late entry, spoke to Dr. Freitas regarding pts CVP of 9 after 500 ml of 5% albumin,and urine output of less then 10 cc post op, reviewed new orders from dr Packer for dopamine to be started at a fixed rate and the addition of bicarb. orders received to change primary IV fluids to LR at 125 ml/hr, bicarb drip at 50 ml hr and to give 1000 ml of 5% albumin.
[2019-01-19 05:16] LABS: ALANINE AMINOTRANSFERASE 77 U/L (12-78); ALBUMIN 2.5 G/DL (3.4-5.0); ALBUMIN/GLOBULIN RATIO 1.1 (1.1-1.5); ALKALINE PHOSPHATASE 42 IU/L (46-116); ANION GAP 10 (8-16); ASPARTATE AMINO TRANSFERASE 64 U/L (10-37); BILIRUBIN,TOTAL 1.8 MG/DL (0.1-1.0); BLOOD UREA NITROGEN 63 MG/DL (7-18); BUN/CREATININE RATIO 15.7 (5.4-32.0); CALCIUM 7.3 MG/DL (8.5-10.1); CHLORIDE 104 MMOL/L (99-107); CREATININE 4.02 MG/DL (0.60-1.10); GLUCOSE 101 MG/DL (70-104); MAGNESIUM 2.3 MG/DL (1.5-2.4); PHOSPHORUS 5.3 MG/DL (2.3-4.5); POTASSIUM 4.2 MMOL/L (3.5-5.1); SODIUM 134 MMOL/L (135-145); TOTAL PROTEIN 4.8 G/DL (6.4-8.2); eGFR 15 ML/MIN
[2019-01-19 05:25] LABS: BASOPHILS % (AUTO) 0 % (0-1); EOSINOPHILS % (AUTO) 0 % (0-6); HEMATOCRIT 27.3 % (42.0-52.0); HEMOGLOBIN 9.2 g/dl (14.0-17.9); LYMPHOCYTES # (AUTO) 0.2 X10'3 (1.1-4.8); LYMPHOCYTES % (AUTO) 2.4 % (21-51); MEAN CORPUSCULAR HEMOGLOBIN 30.4 PG (27.0-31.0); MEAN CORPUSCULAR HGB CONC 33.8 g/dL (33.0-36.5); MEAN PLATELET VOLUME 8.4 FL (7.4-10.4); MONOCYTES # (AUTO) 0.4 X10'3 (0-0.9); MONOCYTES % (AUTO) 4.1 % (2-12); NEUTROPHILS # (AUTO) 9.2 X10'3 (1.8-7.7); NEUTROPHILS % (AUTO) 93.5 % (42-75); PLATELET COUNT 263 X10'3 (140-440); RED BLOOD COUNT 3.03 X10'6 (4.70-6.10); RED CELL DISTRIBUTION WIDTH 14.5 % (11.5-14.5); WHITE BLOOD COUNT 9.8 X10'3 (4.5-11.0)
[2019-01-19] MEDS: ringers solution, lacted 1,000 ML IV SCH ×3 (06:48→20:11)
[2019-01-19] MEDS: albuterol 2.5 MG/3 ML nebule NEB SCH ×4 (06:58→19:18)
[2019-01-19] MEDS ORDERED: NORepinephrine 1 mg/ml inj IV ONE (08:00)
[2019-01-19] MEDS ORDERED: levoFLOXACIN-Levaquin 750MG/D5 150 ML IV SCH (08:00)
[2019-01-19] MEDS ORDERED: albumin (human) 25% 100 ML IV solution IV ONE (08:00)
[2019-01-19 10:15] LABS: OXYGEN SATURATION (MIXED VEN) 82.8 % (60-80); PO2 MIXED VENOUS (TEMP COR) 47.7 mmHg (35-46)
--- NOTE | 2019-01-19 10:51 | NUR ---
Initial: Pt s/p CT which showed a large amount of free intraperitoneal air, sent to OR for ex lap and found to have a perforated cecum and transverse colon per H&P. Pt now s/p cecal resection and partial transverse colectomy. Pt transferred to ICU post-op and remains intubated at this time. Likely no TF at this time given the nature of patient's recent surgery, however TF recommendations below for if prolonged intubation at to receive TF. Pt also admitted with [place] and hyponatremic, recently discharged from hospital s/p CABG. LB 01/17. Will continue to follow closely. Recommendations: 1) If prolonged intubation and to receive TF, continuous Vital High Protein with goal rate of 90 mL/hr 2) IF above, prealbumin q /; daily weights 3) Diet advancement to heart healthy CHO controlled as medically indicated once extubated Addendum: 01/19/19 at [address] Amended: Links added.
[2019-01-19] MEDS: FENTANYL-0.9 % NACL/PF 100 ML IV PRN ×2 (11:36→21:20)
[2019-01-19 12:26] LABS: BASOPHILS % (AUTO) 0.1 % (0-1); EOSINOPHILS % (AUTO) 0 % (0-6); HEMATOCRIT 28.2 % (42.0-52.0); HEMOGLOBIN 9.4 g/dl (14.0-17.9); LYMPHOCYTES # (AUTO) 0.2 X10'3 (1.1-4.8); MEAN CORPUSCULAR HEMOGLOBIN 29.8 PG (27.0-31.0); MEAN CORPUSCULAR HGB CONC 33.4 g/dL (33.0-36.5); MEAN CORPUSCULAR VOLUME 89.5 FL (78-98); MEAN PLATELET VOLUME 8.4 FL (7.4-10.4); MONOCYTES # (AUTO) 0.5 X10'3 (0-0.9); MONOCYTES % (AUTO) 4.4 % (2-12); NEUTROPHILS # (AUTO) 11.3 X10'3 (1.8-7.7); NEUTROPHILS % (AUTO) 93.5 % (42-75); PLATELET COUNT 327 X10'3 (140-440); RED BLOOD COUNT 3.15 X10'6 (4.70-6.10); RED CELL DISTRIBUTION WIDTH 14.4 % (11.5-14.5); WHITE BLOOD COUNT 12.1 X10'3 (4.5-11.0)
[2019-01-19 12:28] LABS: CLARITY,URINE CLOUDY (Clear); COLOR,URINE YELLOW (Yellow); GLUCOSE, URINE NEGATIVE (Neg); KETONES,URINE TRACE mg/dl (Neg); LEUKOCYTE ESTERASE ,URINE NEGATIVE (Neg); NITRITES, URINE NEGATIVE (Neg); OCCULT BLOOD,URINE MODERATE (Neg); PROTEIN,URINE 30 mg/dl (Neg); UROBILINOGEN,URINE 0.2 E.U/dL (0.2-1.0)
[2019-01-19 12:34] LABS: UA COLLECTION TYPE FOLEY CATH
[2019-01-19 12:38] LABS: RBC,URINE 0-2 /HPF (0-2)
[2019-01-19 12:39] LABS: AMORPHOUS URATES 2+; BACTERIA,URINE NONE SEEN /HPF (Neg); HYALINE CASTS 0-3 /LPF (NEGATIVE); MUCUS STRANDS NONE SEEN /LPF (Neg); SQUAMOUS EPITHELIAL CELL,UR FEW /LPF (FEW)
[2019-01-19 12:41] LABS: ALANINE AMINOTRANSFERASE 66 U/L (12-78); ALBUMIN 2.4 G/DL (3.4-5.0); ALKALINE PHOSPHATASE 44 IU/L (46-116); ANION GAP 12 (8-16); ASPARTATE AMINO TRANSFERASE 62 U/L (10-37); BILIRUBIN,TOTAL 1.8 MG/DL (0.1-1.0); BLOOD UREA NITROGEN 64 MG/DL (7-18); BUN/CREATININE RATIO 14.3 (5.4-32.0); CALCIUM 7.2 MG/DL (8.5-10.1); CHLORIDE 103 MMOL/L (99-107); CREATININE 4.47 MG/DL (0.60-1.10); GLUCOSE 101 MG/DL (70-104); MAGNESIUM 2.3 MG/DL (1.5-2.4); PHOSPHORUS 5.1 MG/DL (2.3-4.5); POTASSIUM 4.2 MMOL/L (3.5-5.1); SODIUM 134 MMOL/L (135-145); TOTAL CARBON DIOXIDE 19.5 MMOL/L (24-32); TOTAL PROTEIN 4.9 G/DL (6.4-8.2); eGFR 14 ML/MIN
[2019-01-19 12:41] LABS: SODIUM,URINE RANDOM < 15 MEQ/L; TOTAL PROTEIN,URINE RANDOM 247.6 MG/DL
[2019-01-19] MEDS ORDERED: albumin (human) 25% 100ml IV 200 ML IV ONE (13:23)
[2019-01-19] MEDS ORDERED: LISI-600 PO (13:59)
[2019-01-19] MEDS ORDERED: BISA10SU60 RC (14:05)
[2019-01-19] MEDS ORDERED: OMEP20CA11 PO (14:05)
[2019-01-19] MEDS ORDERED: METO25TA6 PO (14:05)
[2019-01-19] MEDS ORDERED: POTA10CA44 PO (14:05)
[2019-01-19] MEDS ORDERED: FURO-149 PO (14:05)
[2019-01-19] MEDS ORDERED: ATOR10TA70 PO (14:05)
[2019-01-19] MEDS ORDERED: DOCU-148 PO (14:05)
[2019-01-19] MEDS ORDERED: SENN-162 PO (14:05)
[2019-01-19] MEDS ORDERED: ASPI-416 PO (14:05)
[2019-01-19] MEDS: hydrocortisone sod succ/PF 100mg/2ml inj. IV SCH ×2 (14:35→20:20)
[2019-01-19] MEDS: albumin (human) 25% 100 ML IV solution IV SCH ×2 (14:50→23:40)
[2019-01-19 14:51] LABS: ABG BASE EXCESS -7.3 mmol/L (-2.0-3.0); ABG HCO3 16.5 mmol/L (22.0-26.0); ABG OXYGEN SATURATION 99.3 % (95-98); ABG PCO2 (T) 27.8 mmHg (35.0-45.0); ABG PH (T) 7.392 (7.350-7.450); FCOHb 0.3 % (0.5-1.5); FMetHb 0.2 % (0.3-1.12); FO2Hb 98.8 % (94-100); MINUTE VOLUME 16 L/min; PEEP 8 cm H2O; RESPIRATORY RATE 20 b/min; RESPIRATORY RATE (OBSERVED) 23 b/min; TIDAL VOLUME 650 mL
--- NOTE | 2019-01-19 18:15 | NUR ---
Requested blood bank laboratory technician makes available a bariatric bed for this patient to transfer onto after surgery tomorrow 01/20/2019. Jazmín blood bank laboratory technician will follow up with this request in the am.
[2019-01-19 19:48] LABS: BASOPHILS % (AUTO) 0 % (0-1); EOSINOPHILS % (AUTO) 0 % (0-6); HEMATOCRIT 23.5 % (42.0-52.0); HEMOGLOBIN 8.1 g/dl (14.0-17.9); LYMPHOCYTES # (AUTO) 0.2 X10'3 (1.1-4.8); LYMPHOCYTES % (AUTO) 1.9 % (21-51); MEAN CORPUSCULAR HEMOGLOBIN 30.5 PG (27.0-31.0); MEAN CORPUSCULAR HGB CONC 34.3 g/dL (33.0-36.5); MEAN CORPUSCULAR VOLUME 88.9 FL (78-98); MEAN PLATELET VOLUME 7.9 FL (7.4-10.4); MONOCYTES # (AUTO) 0.5 X10'3 (0-0.9); MONOCYTES % (AUTO) 5.7 % (2-12); NEUTROPHILS # (AUTO) 8.4 X10'3 (1.8-7.7); NEUTROPHILS % (AUTO) 92.4 % (42-75); PLATELET COUNT 255 X10'3 (140-440); RED BLOOD COUNT 2.65 X10'6 (4.70-6.10); RED CELL DISTRIBUTION WIDTH 14.7 % (11.5-14.5); WHITE BLOOD COUNT 9.1 X10'3 (4.5-11.0)
[2019-01-19 20:02] LABS: ALANINE AMINOTRANSFERASE 65 U/L (12-78); ALBUMIN 2.4 G/DL (3.4-5.0); ANION GAP 12 (8-16); ASPARTATE AMINO TRANSFERASE 66 U/L (10-37); BILIRUBIN,TOTAL 1.7 MG/DL (0.1-1.0); BLOOD UREA NITROGEN 67 MG/DL (7-18); BUN/CREATININE RATIO 14.2 (5.4-32.0); CALCIUM 7.5 MG/DL (8.5-10.1); CHLORIDE 104 MMOL/L (99-107); CREATININE 4.73 MG/DL (0.60-1.10); GLUCOSE 115 MG/DL (70-104); MAGNESIUM 2.3 MG/DL (1.5-2.4); PHOSPHORUS 4.8 MG/DL (2.3-4.5); POTASSIUM 3.9 MMOL/L (3.5-5.1); SODIUM 135 MMOL/L (135-145); TOTAL CARBON DIOXIDE 19.2 MMOL/L (24-32); TOTAL PROTEIN 4.8 G/DL (6.4-8.2); eGFR 13 ML/MIN
[2019-01-19 20:03] LABS: ALKALINE PHOSPHATASE 43 IU/L (46-116)
--- NOTE | 2019-01-19 21:44 | NUR ---
patient with continual hiccups for about 30 minutes now. startles patient each time. patient appears uncomfortable related to the continual disturbances. call to Catrachito Martinez NP to address. order given for 1 time dose demerol - see emar
[2019-01-19] MEDS ORDERED: meperidine/PF 25mg/ml syringe IV ONE (21:45)
[2019-01-20] VITALS (33 sets, daily range): BP systolic 111–166; BP diastolic 42–64
[2019-01-20] MEDS ORDERED: mineral oil/petrolatum ophthal oint EACHEYE SCH (02:00)
[2019-01-20 02:09] LABS: BASOPHILS % (AUTO) 0.1 % (0-1); EOSINOPHILS % (AUTO) 0 % (0-6); HEMOGLOBIN 7.4 g/dl (14.0-17.9); LYMPHOCYTES # (AUTO) 0.2 X10'3 (1.1-4.8); LYMPHOCYTES % (AUTO) 3.1 % (21-51); MEAN CORPUSCULAR HEMOGLOBIN 30.6 PG (27.0-31.0); MEAN CORPUSCULAR HGB CONC 34.5 g/dL (33.0-36.5); MEAN CORPUSCULAR VOLUME 88.6 FL (78-98); MEAN PLATELET VOLUME 8.1 FL (7.4-10.4); MONOCYTES # (AUTO) 0.4 X10'3 (0-0.9); MONOCYTES % (AUTO) 6.6 % (2-12); NEUTROPHILS # (AUTO) 5.9 X10'3 (1.8-7.7); NEUTROPHILS % (AUTO) 90.2 % (42-75); PLATELET COUNT 207 X10'3 (140-440); RED BLOOD COUNT 2.43 X10'6 (4.70-6.10); RED CELL DISTRIBUTION WIDTH 14.5 % (11.5-14.5); WHITE BLOOD COUNT 6.6 X10'3 (4.5-11.0)
[2019-01-20 02:16] LABS: HEMATOCRIT 21.6 % (42.0-52.0)
[2019-01-20 02:22] LABS: ALANINE AMINOTRANSFERASE 71 U/L (12-78); ALBUMIN 2.6 G/DL (3.4-5.0); ALBUMIN/GLOBULIN RATIO 1.1 (1.1-1.5); ALKALINE PHOSPHATASE 38 IU/L (46-116); ANION GAP 13 (8-16); ASPARTATE AMINO TRANSFERASE 65 U/L (10-37); BILIRUBIN,TOTAL 1.6 MG/DL (0.1-1.0); BLOOD UREA NITROGEN 70 MG/DL (7-18); BUN/CREATININE RATIO 14.6 (5.4-32.0); CALCIUM 7.6 MG/DL (8.5-10.1); CHLORIDE 104 MMOL/L (99-107); CREATININE 4.81 MG/DL (0.60-1.10); GLUCOSE 120 MG/DL (70-104); MAGNESIUM 2.4 MG/DL (1.5-2.4); POTASSIUM 3.7 MMOL/L (3.5-5.1); SODIUM 135 MMOL/L (135-145); TOTAL PROTEIN 4.9 G/DL (6.4-8.2); eGFR 13 ML/MIN
[2019-01-20] MEDS: midazolam 100mg in NS 100ml 100 ML IV PRN ×2 (02:26→23:36)
[2019-01-20] MEDS: mineral oil/petrolatum ophthal oint EACHEYE SCH ×4 (02:28→22:36)
[2019-01-20] MEDS: hydrocortisone sod succ/PF 100mg/2ml inj. IV SCH ×4 (02:28→22:37)
[2019-01-20 03:26] LABS: ABG BASE EXCESS -7.1 mmol/L (-2.0-3.0); ABG HCO3 16.8 mmol/L (22.0-26.0); ABG OXYGEN SATURATION 98.6 % (95-98); ABG PCO2 (T) 27.6 mmHg (35.0-45.0); ABG PH (T) 7.402 (7.350-7.450); ABG PO2 (T) 150.8 mmHg (83-108); FCOHb 0.3 % (0.5-1.5); FMetHb 0.1 % (0.3-1.12); FO2Hb 98.2 % (94-100); PATIENT TEMPERATURE 36.9; PEEP 8 cm H2O; RESPIRATORY RATE 20 b/min; RESPIRATORY RATE (OBSERVED) 20 b/min; TIDAL VOLUME 650 mL; TOTAL HEMOGLOBIN 8.1 G/dl (14.0-17.9)
[2019-01-20 03:37] LABS: PARTIAL THROMBOPLASTIN TIME 45 SECONDS (22-32)
[2019-01-20] MEDS: FENTANYL-0.9 % NACL/PF 100 ML IV PRN ×4 (04:26→23:33)
[2019-01-20] MEDS: ringers solution, lacted 1,000 ML IV SCH ×4 (05:43→23:53)
[2019-01-20] MEDS: albumin (human) 25% 100 ML IV solution IV SCH ×3 (07:40→23:37)
[2019-01-20] MEDS: metroNIDAZOLE-Flagyl 500mg/NS 100 ML IV SCH ×3 (07:48→23:37)
[2019-01-20] MEDS: pantoprazole 40 MG vial IV SCH (07:50)
[2019-01-20] MEDS: albuterol 2.5 MG/3 ML nebule NEB SCH ×4 (07:55→19:01)
[2019-01-20] MEDS ORDERED: levoFLOXACIN-Levaquin 500mg/D5 100 ML IV SCH (08:00)
[2019-01-20] MEDS: fluconazole-Diflucan 200mg/NS 100 ML IV SCH (11:09)
[2019-01-20 12:21] LABS: BASOPHILS % (AUTO) 0.1 % (0-1); EOSINOPHILS % (AUTO) 0 % (0-6); HEMATOCRIT 22.2 % (42.0-52.0); HEMOGLOBIN 7.6 g/dl (14.0-17.9); LYMPHOCYTES # (AUTO) 0.3 X10'3 (1.1-4.8); MEAN CORPUSCULAR HEMOGLOBIN 30.2 PG (27.0-31.0); MEAN CORPUSCULAR HGB CONC 34.1 g/dL (33.0-36.5); MEAN CORPUSCULAR VOLUME 88.6 FL (78-98); MONOCYTES # (AUTO) 0.3 X10'3 (0-0.9); MONOCYTES % (AUTO) 4.5 % (2-12); NEUTROPHILS # (AUTO) 6.7 X10'3 (1.8-7.7); NEUTROPHILS % (AUTO) 91.4 % (42-75); PLATELET COUNT 198 X10'3 (140-440); RED CELL DISTRIBUTION WIDTH 15.1 % (11.5-14.5); WHITE BLOOD COUNT 7.4 X10'3 (4.5-11.0)
[2019-01-20 12:34] LABS: ALANINE AMINOTRANSFERASE 53 U/L (12-78); ALBUMIN 2.8 G/DL (3.4-5.0); ALBUMIN/GLOBULIN RATIO 1.2 (1.1-1.5); ALKALINE PHOSPHATASE 44 IU/L (46-116); ANION GAP 11 (8-16); ASPARTATE AMINO TRANSFERASE 52 U/L (10-37); BILIRUBIN,TOTAL 1.8 MG/DL (0.1-1.0); BLOOD UREA NITROGEN 73 MG/DL (7-18); CALCIUM 7.8 MG/DL (8.5-10.1); CHLORIDE 105 MMOL/L (99-107); CREATININE 4.55 MG/DL (0.60-1.10); GLUCOSE 115 MG/DL (70-104); MAGNESIUM 2.4 MG/DL (1.5-2.4); PHOSPHORUS 5.1 MG/DL (2.3-4.5); POTASSIUM 3.6 MMOL/L (3.5-5.1); SODIUM 135 MMOL/L (135-145); TOTAL PROTEIN 5.1 G/DL (6.4-8.2); eGFR 13 ML/MIN
--- NOTE | 2019-01-20 15:30 | NUR ---
Dr. Freitas here to discuss plan for surgery with family. Received order to stop flotrac due to CVP and urine output improved. Will continue to monitor.
[2019-01-20] MEDS ORDERED: gentamicin 40 MG/1 ML inj ONE (15:48)
[2019-01-20] MEDS ORDERED: clindamycin phosphate 150mg/ml inj. ONE (15:48)
--- NOTE | 2019-01-20 16:14 | NUR ---
Markie consult, patient has low markie score of 12, has documented surgical wound with ALVINO drain to abdomen, has surgical wound to chest from CABG surgery on 01/09/19, left thigh surgical wound from SVG harvest. Patient is s/p exploratory lap with partial colectomy of transverse colon and cecum on 01/18, pending possible back to OR for wash out today per nurse. NPO at this time for possible OR. Addendum: 01/20/19 at [address] Amended: Links added.
[2019-01-20 17:57] LABS: BASOPHILS % (AUTO) 0 % (0-1); EOSINOPHILS % (AUTO) 0 % (0-6); HEMATOCRIT 23.9 % (42.0-52.0); HEMOGLOBIN 8.1 g/dl (14.0-17.9); LYMPHOCYTES # (AUTO) 0.2 X10'3 (1.1-4.8); MEAN CORPUSCULAR HEMOGLOBIN 29.9 PG (27.0-31.0); MEAN CORPUSCULAR VOLUME 87.9 FL (78-98); MEAN PLATELET VOLUME 8.5 FL (7.4-10.4); MONOCYTES # (AUTO) 0.5 X10'3 (0-0.9); MONOCYTES % (AUTO) 5.1 % (2-12); NEUTROPHILS # (AUTO) 8.8 X10'3 (1.8-7.7); NEUTROPHILS % (AUTO) 92.9 % (42-75); PLATELET COUNT 208 X10'3 (140-440); RED BLOOD COUNT 2.72 X10'6 (4.70-6.10); RED CELL DISTRIBUTION WIDTH 15.6 % (11.5-14.5); WHITE BLOOD COUNT 9.4 X10'3 (4.5-11.0)
[2019-01-20 18:17] LABS: ALANINE AMINOTRANSFERASE 53 U/L (12-78); ALBUMIN 2.9 G/DL (3.4-5.0); ALBUMIN/GLOBULIN RATIO 1.2 (1.1-1.5); ALKALINE PHOSPHATASE 46 IU/L (46-116); ANION GAP 13 (8-16); ASPARTATE AMINO TRANSFERASE 49 U/L (10-37); BILIRUBIN,TOTAL 1.9 MG/DL (0.1-1.0); BLOOD UREA NITROGEN 76 MG/DL (7-18); BUN/CREATININE RATIO 16.5 (5.4-32.0); CALCIUM 7.8 MG/DL (8.5-10.1); CHLORIDE 104 MMOL/L (99-107); GLUCOSE 117 MG/DL (70-104); MAGNESIUM 2.4 MG/DL (1.5-2.4); PHOSPHORUS 5.3 MG/DL (2.3-4.5); POTASSIUM 3.7 MMOL/L (3.5-5.1); SODIUM 135 MMOL/L (135-145); TOTAL CARBON DIOXIDE 18.1 MMOL/L (24-32); TOTAL PROTEIN 5.3 G/DL (6.4-8.2); eGFR 13 ML/MIN
--- NOTE | 2019-01-20 18:31 | NUR ---
Problems reprioritized. Patient report given, questions answered & plan of care reviewed with Damien PEGUERO.
--- NOTE | 2019-01-20 19:10 | NUR ---
Patient was packed up and transported to OR in ICU bed accompanied by anesthesia (bagging) and TRANSLATOR. VSS - Versed gtt 6 mg/hr, fentanyl 100 ug/hr are with patient down to OR. ALVINO and palmer empty upon leaving unit. Family was aware and updated of the events as they were visiting when team arrived.
[2019-01-20] MEDS ORDERED: rocuronium 10mg/ml inj IV ONE (19:25)
[2019-01-20] MEDS ORDERED: pancuronium br 1mg/ml inj IV ONE (19:53)
--- NOTE | 2019-01-20 21:50 | NUR ---
Patient returned from OR with RN and anesthesia MD. Patient is now on a bariatric bed. VSS but O2 sat low 90 's. Per anesthesia, patient was 100% sat in the OR on 100 % FiO2. When arrived to unit, placed back on vent setting pre- surgery. RT aware that sats are decreased, suctioned for small amount. Patient did have a bronc in OR. No distress however patient received paralytic in OR. 35 % FiO2 gives 90-91 % sat. ETT site unchanged. Will continue to monitor. VS increased. I increased the versed gtt to 6 mg/hr as patient arrived on unit was running at 3 mg/hr. See IV spreadsheet for titration of versed and fentanyl gtt for patient comfort. per report this is a new ALVINO. 70 ml call/bloody thin liquid drained upon arrival to unit. colostomy with a bag attached present. mid abd dressing CDI - no drainage. U/O 60 ml luis. Per anesthesia EBL was negligible and patient received 800 ml LR intra-op. FYI: Weight reading 122.1 kg on this bed. FYI this mornings weight measured 144.9 kg on the previous ICU patient occupied.
[2019-01-20 23:15] LABS: ABG BASE EXCESS -9.4 mmol/L (-2.0-3.0); ABG HCO3 17.3 mmol/L (22.0-26.0); ABG OXYGEN SATURATION 91.7 % (95-98); ABG PCO2 (T) 40.2 mmHg (35.0-45.0); ABG PH (T) 7.249 (7.350-7.450); ABG PO2 (T) 68.8 mmHg (83-108); FCOHb 0.2 % (0.5-1.5); FMetHb 0.1 % (0.3-1.12); FO2Hb 91.4 % (94-100); MINUTE VOLUME 9 L/min; PATIENT TEMPERATURE 36.3; PEEP 8 cm H2O; RESPIRATORY RATE 14 b/min; RESPIRATORY RATE (OBSERVED) 14 b/min; TIDAL VOLUME 550 mL; TOTAL HEMOGLOBIN 9.7 G/dl (14.0-17.9)
--- NOTE | 2019-01-20 23:30 | NUR ---
Dr Gao stopped in to see patient. updated accordingly - no issues other than low sat but that is improving - remains on 35 % FiO2
[2019-01-21] VITALS (25 sets, daily range): BP systolic 103–172; BP diastolic 47–86
[2019-01-21] MEDS: NORepinephrine 8mg/ 250ml NS 250 ML IV SCH (00:56)
[2019-01-21] MEDS: mineral oil/petrolatum ophthal oint EACHEYE SCH ×4 (01:39→20:57)
[2019-01-21] MEDS: hydrocortisone sod succ/PF 100mg/2ml inj. IV SCH ×4 (01:39→20:57)
[2019-01-21 03:18] LABS: BASOPHILS % (AUTO) 0 % (0-1); EOSINOPHILS % (AUTO) 0 % (0-6); HEMATOCRIT 24.9 % (42.0-52.0); HEMOGLOBIN 8.5 g/dl (14.0-17.9); LYMPHOCYTES # (AUTO) 0.3 X10'3 (1.1-4.8); LYMPHOCYTES % (AUTO) 2.3 % (21-51); MEAN CORPUSCULAR HGB CONC 34.2 g/dL (33.0-36.5); MEAN CORPUSCULAR VOLUME 87.7 FL (78-98); MEAN PLATELET VOLUME 8.3 FL (7.4-10.4); MONOCYTES # (AUTO) 0.6 X10'3 (0-0.9); MONOCYTES % (AUTO) 5.6 % (2-12); NEUTROPHILS # (AUTO) 10.3 X10'3 (1.8-7.7); NEUTROPHILS % (AUTO) 92.1 % (42-75); PLATELET COUNT 226 X10'3 (140-440); RED BLOOD COUNT 2.84 X10'6 (4.70-6.10); RED CELL DISTRIBUTION WIDTH 15.5 % (11.5-14.5); WHITE BLOOD COUNT 11.2 X10'3 (4.5-11.0)
[2019-01-21 03:26] LABS: ALANINE AMINOTRANSFERASE 50 U/L (12-78); ALBUMIN 3.4 G/DL (3.4-5.0); ALBUMIN/GLOBULIN RATIO 1.5 (1.1-1.5); ALKALINE PHOSPHATASE 45 IU/L (46-116); ANION GAP 12 (8-16); ASPARTATE AMINO TRANSFERASE 42 U/L (10-37); BILIRUBIN,TOTAL 1.8 MG/DL (0.1-1.0); BLOOD UREA NITROGEN 81 MG/DL (7-18); BUN/CREATININE RATIO 18.8 (5.4-32.0); CALCIUM 8.2 MG/DL (8.5-10.1); CHLORIDE 105 MMOL/L (99-107); GLUCOSE 142 MG/DL (70-104); MAGNESIUM 2.5 MG/DL (1.5-2.4); PHOSPHORUS 5.4 MG/DL (2.3-4.5); POTASSIUM 3.8 MMOL/L (3.5-5.1); SODIUM 136 MMOL/L (135-145); TOTAL CARBON DIOXIDE 19.5 MMOL/L (24-32); TOTAL PROTEIN 5.6 G/DL (6.4-8.2); eGFR 14 ML/MIN
[2019-01-21 03:30] LABS: ABG BASE EXCESS -9.1 mmol/L (-2.0-3.0); ABG HCO3 16.6 mmol/L (22.0-26.0); ABG OXYGEN SATURATION 95.2 % (95-98); ABG PCO2 (T) 33.4 mmHg (35.0-45.0); ABG PH (T) 7.308 (7.350-7.450); ABG PO2 (T) 80.1 mmHg (83-108); FCOHb 0.3 % (0.5-1.5); FMetHb 0.1 % (0.3-1.12); FO2Hb 94.8 % (94-100); MINUTE VOLUME 12 L/min; PATIENT TEMPERATURE 35.9; PEEP 8 cm H2O; RESPIRATORY RATE 18 b/min; RESPIRATORY RATE (OBSERVED) 18 b/min; TIDAL VOLUME 550 mL; TOTAL HEMOGLOBIN 9.8 G/dl (14.0-17.9)
[2019-01-21] MEDS: FENTANYL-0.9 % NACL/PF 100 ML IV PRN ×2 (06:25→20:14)
[2019-01-21] MEDS: albuterol 2.5 MG/3 ML nebule NEB SCH ×3 (07:20→16:06)
[2019-01-21] MEDS ORDERED: levoFLOXACIN-Levaquin 250mg/D5 50 ML IV SCH (08:00)
[2019-01-21] MEDS: pantoprazole 40 MG vial IV SCH (09:05)
[2019-01-21] MEDS: fluconazole-Diflucan 200mg/NS 100 ML IV SCH (09:06)
[2019-01-21] MEDS: metroNIDAZOLE-Flagyl 500mg/NS 100 ML IV SCH ×2 (10:18→16:40)
[2019-01-21] MEDS: albumin (human) 25% 100 ML IV solution IV SCH (10:24)
[2019-01-21] MEDS: ringers solution, lacted 1,000 ML IV SCH ×2 (10:24→13:45)
[2019-01-21] MEDS ORDERED: amiodarone 200mg tablet PO ONE (10:40)
[2019-01-21] MEDS ORDERED: amiodarone 150mg/dext, iso-os 100 ML IV ONE (10:50)
[2019-01-21] MEDS ORDERED: FLO0.4C PO (11:38)
[2019-01-21 11:48] LABS: BASOPHILS % (AUTO) 0.1 % (0-1); EOSINOPHILS % (AUTO) 0 % (0-6); HEMATOCRIT 25.9 % (42.0-52.0); HEMOGLOBIN 8.6 g/dl (14.0-17.9); LYMPHOCYTES # (AUTO) 0.2 X10'3 (1.1-4.8); LYMPHOCYTES % (AUTO) 1.7 % (21-51); MEAN CORPUSCULAR HEMOGLOBIN 29.1 PG (27.0-31.0); MEAN CORPUSCULAR HGB CONC 33.1 g/dL (33.0-36.5); MEAN CORPUSCULAR VOLUME 87.9 FL (78-98); MEAN PLATELET VOLUME 8.2 FL (7.4-10.4); MONOCYTES # (AUTO) 0.5 X10'3 (0-0.9); MONOCYTES % (AUTO) 4.2 % (2-12); NEUTROPHILS # (AUTO) 10.9 X10'3 (1.8-7.7); PLATELET COUNT 216 X10'3 (140-440); RED BLOOD COUNT 2.95 X10'6 (4.70-6.10); RED CELL DISTRIBUTION WIDTH 15.8 % (11.5-14.5); WHITE BLOOD COUNT 11.6 X10'3 (4.5-11.0)
[2019-01-21] MEDS: amiodarone/D5 360MG/200ML BAG 200 ML IV SCH ×2 (12:38→19:07)
[2019-01-21 13:41] LABS: ALANINE AMINOTRANSFERASE 46 U/L (12-78); ALBUMIN 3.2 G/DL (3.4-5.0); ALBUMIN/GLOBULIN RATIO 1.4 (1.1-1.5); ALKALINE PHOSPHATASE 45 IU/L (46-116); ANION GAP 12 (8-16); ASPARTATE AMINO TRANSFERASE 38 U/L (10-37); BILIRUBIN,TOTAL 1.5 MG/DL (0.1-1.0); BLOOD UREA NITROGEN 82 MG/DL (7-18); BUN/CREATININE RATIO 21.5 (5.4-32.0); CALCIUM 8.3 MG/DL (8.5-10.1); CHLORIDE 106 MMOL/L (99-107); CREATININE 3.82 MG/DL (0.60-1.10); GLUCOSE 132 MG/DL (70-104); MAGNESIUM 2.5 MG/DL (1.5-2.4); PHOSPHORUS 4.8 MG/DL (2.3-4.5); POTASSIUM 3.7 MMOL/L (3.5-5.1); SODIUM 138 MMOL/L (135-145); TOTAL PROTEIN 5.5 G/DL (6.4-8.2); eGFR 16 ML/MIN
--- NOTE | 2019-01-21 17:13 | NUR ---
TPN/TF consult. Patient is intubated and sedated still. A tube feeding diet order was already placed for trickle tube feeding at 10 ml/hr with Nepro carbsteady per MD. Patient is s/p bronchoscopy, repeat laparotomy, enterostomy, colostomy placement. Currently patient has absent bowel sounds, no flatus; noted that patient is receiving fentanyl, patient may benefit from a opiod agonist antagonist to relieve effect on intestines. patient has low maureen score of 12, has documented surgical wound with ALVINO drain to abdomen, has surgical wound to chest from CABG surgery on 01/09/19, left thigh surgical wound from SVG harvest. Patient is s/p exploratory lap with partial colectomy of transverse colon and cecum on 01/18. Recommendations: 1) Continue trickle tube feeding via OG tube using Nepro at 10 ml/hr, recs per MD 2) If prolonged intubation, to meet nutrition needs consider continuous TF using Vital High Protein with goal rate of 90 mL/hr 3) prealbumin q ; daily weights; TG q sunday and 4) When PICC line placed recommend 2:1 TPN using Clinimix non-E with goal rate of 117 ml/hr will provide total volume of 2808 ml, 1993 cals, 141 g protein, 2.39 mg/kg/min dextrose loading. 5) Separate 20% intralipids to run for 12 hours daily at 7 ml/hr to provide 17 grams of lipids. 6) Total cals provided by TPN and lipids is 2159 cals, d/w pharmacy and bedside RN that recs are available. 7) Patient may benefit from opoid agonist antagonist in view of receiving fentanyl Addendum: 01/21/19 at [address] Amended: Links added.
[2019-01-21] MEDS ORDERED: dexmedetomidin/NS 400mcg/100ml 100 ML IV SCH (18:00)
--- NOTE | 2019-01-21 18:24 | NUR ---
Problems reprioritized. Patient report given, questions answered & plan of care reviewed with Damien PEGUERO.
[2019-01-21] MEDS ORDERED: amiodarone 200mg tablet PO SCH (20:00)
[2019-01-21 21:36] LABS: BASOPHILS % (AUTO) 0.1 % (0-1); EOSINOPHILS % (AUTO) 0 % (0-6); HEMATOCRIT 25.8 % (42.0-52.0); HEMOGLOBIN 8.6 g/dl (14.0-17.9); LYMPHOCYTES # (AUTO) 0.2 X10'3 (1.1-4.8); LYMPHOCYTES % (AUTO) 1.9 % (21-51); MEAN CORPUSCULAR HEMOGLOBIN 29.6 PG (27.0-31.0); MEAN CORPUSCULAR HGB CONC 33.3 g/dL (33.0-36.5); MEAN CORPUSCULAR VOLUME 88.9 FL (78-98); MEAN PLATELET VOLUME 8.5 FL (7.4-10.4); MONOCYTES # (AUTO) 0.5 X10'3 (0-0.9); MONOCYTES % (AUTO) 4.5 % (2-12); NEUTROPHILS # (AUTO) 11.1 X10'3 (1.8-7.7); NEUTROPHILS % (AUTO) 93.5 % (42-75); PLATELET COUNT 219 X10'3 (140-440); RED CELL DISTRIBUTION WIDTH 15.5 % (11.5-14.5); WHITE BLOOD COUNT 11.8 X10'3 (4.5-11.0)
[2019-01-21 21:46] LABS: ALANINE AMINOTRANSFERASE 42 U/L (12-78); ALBUMIN 3.1 G/DL (3.4-5.0); ALBUMIN/GLOBULIN RATIO 1.3 (1.1-1.5); ALKALINE PHOSPHATASE 47 IU/L (46-116); ANION GAP 11 (8-16); ASPARTATE AMINO TRANSFERASE 35 U/L (10-37); BILIRUBIN,TOTAL 1.2 MG/DL (0.1-1.0); BLOOD UREA NITROGEN 83 MG/DL (7-18); BUN/CREATININE RATIO 22.8 (5.4-32.0); CALCIUM 8.3 MG/DL (8.5-10.1); CHLORIDE 107 MMOL/L (99-107); CREATININE 3.64 MG/DL (0.60-1.10); GLUCOSE 145 MG/DL (70-104); MAGNESIUM 2.5 MG/DL (1.5-2.4); PHOSPHORUS 4.2 MG/DL (2.3-4.5); POTASSIUM 3.6 MMOL/L (3.5-5.1); SODIUM 139 MMOL/L (135-145); TOTAL CARBON DIOXIDE 21.2 MMOL/L (24-32); TOTAL PROTEIN 5.4 G/DL (6.4-8.2); eGFR 17 ML/MIN
--- NOTE | 2019-01-21 23:36 | NUR ---
PATIENT WAS EXTREMELY RESTLESS AND AGITATED UPON START OF THE SHIFT. PATIENT DOES ANSWER QUESTIONS INTERMITTENTLY. PATIENT THOUGHT YEAR WAS 1987, HE COULD NOT REMEMBER THE NAME OF HIS DAUGHTER BUT HE WAS CORRECT IN TELLING ME WHAT CITY HE LIVES IN. PATIENT DENIES PAIN AT START OF SHIFT. HE IS NOT IN RESPIRATORY DISTRESS. HE IS CONSTANTLY MOVING AROUND THE BED AND VERY AGITATED PRECEDEX INCREASED TO THE MAX GOAL. SITTER AT BEDSIDE FOR SAFETY. RESTRAINTS ON PER ORDER FOR SAFETY. ONE MID-LINE TO r UPPER ARM - CDI AND PATENT. EDWIN WRAPPED TO MAINTAIN THIS MIDLINE. #22 RIGHT HAND D/C'D DUE TO PAIN AT THE SITE WHEN FLUSHED AND AL;SO REDDENED. MULTIPLE PRN MEDS GIVEN OVER THE PAST HOURS TO HELP WITH AGITATION. C/O OF BACK PAIN AROUND 2200 AND WAS GIVEN MORPHINE. CURRENTLY PATIENT IS RESTING COMFORTABLY WITH MINIMAL AGITATION/RESTLESSNESS/NO C/O PAIN. LABETOLOL GTT GOAL ORDER WAS UNATTAINABLE AT MAX GTT RATE (MAP 65 MMHG). I UPDATED TREVOR VIERA NP AT 1999 RE THIS PATIENT STATUS. NEW ORDER FOR HYDRALAZINE AND NEW PARAMETERS GIVEN FOR bp - SEE EMAR. PATIENT IS INCONTINENT OF URINE. PATIENT IS NOT ABLE TO LET STAFF KNOW WHEN HE NEEDS TO URINATE. ADULT DEPENDS ON. FULL BED/BATH NEAR 1999 DUE TO SATURATED BRIEF AND BEDDING WITH URINE. PATIENT HAS INTERMITTENT MOMENTS OF CALM. TONGUE AND INSIDE MOUTH EXTREMELY DRY. MOUTH CARE AND SWABS. I GAVE PATIENT ICE CHIPS WITH HOB NEAR 90 DEGREES. NO COUGHING. NO COMPLICATIONS AT ALL. PATIENT WAS VERY PLEASED WITH THE ICE CHIPS. GIVEN IN MODERATION AND ADDING TO I&O IN [employer]. SPEECH CONSULT FOR SWALLOW EVAL TOMORROW
[2019-01-22] VITALS (24 sets, daily range): BP systolic 105–143; BP diastolic 63–90
[2019-01-22] MEDS: albuterol 2.5 MG/3 ML nebule NEB SCH ×5 (01:40→19:24)
[2019-01-22] MEDS: metroNIDAZOLE-Flagyl 500mg/NS 100 ML IV SCH ×3 (01:41→15:14)
[2019-01-22] MEDS: mineral oil/petrolatum ophthal oint EACHEYE SCH ×4 (01:42→20:00)
[2019-01-22] MEDS: hydrocortisone sod succ/PF 100mg/2ml inj. IV SCH ×4 (01:42→20:08)
[2019-01-22 02:48] LABS: BASOPHILS % (AUTO) 0.2 % (0-1); EOSINOPHILS % (AUTO) 0 % (0-6); HEMATOCRIT 25.4 % (42.0-52.0); HEMOGLOBIN 8.6 g/dl (14.0-17.9); LYMPHOCYTES # (AUTO) 0.2 X10'3 (1.1-4.8); LYMPHOCYTES % (AUTO) 1.7 % (21-51); MEAN CORPUSCULAR HEMOGLOBIN 29.7 PG (27.0-31.0); MEAN CORPUSCULAR HGB CONC 33.7 g/dL (33.0-36.5); MEAN CORPUSCULAR VOLUME 88.1 FL (78-98); MEAN PLATELET VOLUME 8.8 FL (7.4-10.4); MONOCYTES # (AUTO) 0.5 X10'3 (0-0.9); MONOCYTES % (AUTO) 4.8 % (2-12); NEUTROPHILS # (AUTO) 10.3 X10'3 (1.8-7.7); NEUTROPHILS % (AUTO) 93.3 % (42-75); PLATELET COUNT 211 X10'3 (140-440); RED BLOOD COUNT 2.88 X10'6 (4.70-6.10); RED CELL DISTRIBUTION WIDTH 15.6 % (11.5-14.5)
[2019-01-22 03:01] LABS: ALANINE AMINOTRANSFERASE 34 U/L (12-78); ALBUMIN 2.8 G/DL (3.4-5.0); ALBUMIN/GLOBULIN RATIO 1.2 (1.1-1.5); ALKALINE PHOSPHATASE 47 IU/L (46-116); ANION GAP 11 (8-16); ASPARTATE AMINO TRANSFERASE 29 U/L (10-37); BILIRUBIN,TOTAL 1.1 MG/DL (0.1-1.0); BLOOD UREA NITROGEN 80 MG/DL (7-18); BUN/CREATININE RATIO 22.9 (5.4-32.0); CALCIUM 7.8 MG/DL (8.5-10.1); CHLORIDE 107 MMOL/L (99-107); CREATININE 3.49 MG/DL (0.60-1.10); GLUCOSE 147 MG/DL (70-104); MAGNESIUM 2.4 MG/DL (1.5-2.4); POTASSIUM 3.6 MMOL/L (3.5-5.1); SODIUM 140 MMOL/L (135-145); TOTAL CARBON DIOXIDE 22.1 MMOL/L (24-32); TOTAL PROTEIN 5.2 G/DL (6.4-8.2); eGFR 18 ML/MIN
--- NOTE | 2019-01-22 04:36 | NUR ---
PATIENT HAS DONE VERY WELL THROUGH THIS SHIFT. PATIENT IS AWAKE/DROWSY. OPENS EYES TO NAME. FOLLOWS COMMANDS APPROPRIATELY. DENIES PAIN. FULL BED AND BATH- PATIENT DOES WELL WITH TURNS. TOLERATING C-PAP ALL SHIFT. SXN FOR MINIMAL THIN WHITE SECRETIONS. NO COMPLICATIONS. NO DISTRESS/ANXIETY. TOLERATING TRICKLE FEED THUS FAR, NO C/O NAUSEA, U/O IS GREATER THAN 40 /HR. CLEAR SHANTELLE. ALVINO PUTS OUT 60-80 ML/HR DIAS SERO-SANGUANOUS. PATIENT GIVES THUMBS UP WHEN ASKED IF HE'S DOING OK. COOPERATIVE ALL PROCEDURES EXPLAINED. SUPPORT GIVEN Addendum: 01/22/19 at 0606 by Damien Ruby RN OSTOMY SITE CDI, STOMA WNL, MODERATE PASTEY BROWN STOOL IN COLLECTION BAG
[2019-01-22] MEDS: amiodarone/D5 360MG/200ML BAG 200 ML IV SCH ×5 (04:52→23:14)
[2019-01-22 05:01] LABS: ABG BASE EXCESS -5.5 mmol/L (-2.0-3.0); ABG HCO3 19.2 mmol/L (22.0-26.0); ABG OXYGEN SATURATION 95.9 % (95-98); ABG PCO2 (T) 33.9 mmHg (35.0-45.0); ABG PH (T) 7.369 (7.350-7.450); ABG PO2 (T) 85.5 mmHg (83-108); ALLEN'S TEST Positive; FCOHb 0.3 % (0.5-1.5); FO2Hb 95.6 % (94-100); MINUTE VOLUME 12 L/min; PATIENT TEMPERATURE 36.6; PEEP 5 cm H2O; RESPIRATORY RATE (OBSERVED) 12 b/min; TOTAL HEMOGLOBIN 9.9 G/dl (14.0-17.9)
[2019-01-22] MEDS: pantoprazole 40 MG vial IV SCH (07:48)
[2019-01-22] MEDS: cefTAZidime inj 2 GM in normal saline 100ml IV soln 100 ML IV SCH (07:49)
[2019-01-22] MEDS: FENTANYL-0.9 % NACL/PF 100 ML IV PRN (08:53)
[2019-01-22] MEDS ORDERED: acetaminophen 325mg/10.15ml oral unit dose solution NG PRN (11:17)
[2019-01-22 11:57] LABS: BASOPHILS % (AUTO) 0.3 % (0-1); EOSINOPHILS % (AUTO) 0 % (0-6); HEMOGLOBIN 9.2 g/dl (14.0-17.9); LYMPHOCYTES # (AUTO) 0.2 X10'3 (1.1-4.8); LYMPHOCYTES % (AUTO) 1.9 % (21-51); MEAN CORPUSCULAR HEMOGLOBIN 29.8 PG (27.0-31.0); MEAN CORPUSCULAR HGB CONC 33.9 g/dL (33.0-36.5); MEAN PLATELET VOLUME 8.5 FL (7.4-10.4); MONOCYTES # (AUTO) 0.6 X10'3 (0-0.9); MONOCYTES % (AUTO) 5.6 % (2-12); NEUTROPHILS # (AUTO) 10.7 X10'3 (1.8-7.7); NEUTROPHILS % (AUTO) 92.2 % (42-75); PLATELET COUNT 233 X10'3 (140-440); RED BLOOD COUNT 3.07 X10'6 (4.70-6.10); WHITE BLOOD COUNT 11.6 X10'3 (4.5-11.0)
[2019-01-22 12:11] LABS: ALANINE AMINOTRANSFERASE 41 U/L (12-78); ALBUMIN 2.8 G/DL (3.4-5.0); ALBUMIN/GLOBULIN RATIO 1.1 (1.1-1.5); ALKALINE PHOSPHATASE 48 IU/L (46-116); ANION GAP 9 (8-16); ASPARTATE AMINO TRANSFERASE 29 U/L (10-37); BLOOD UREA NITROGEN 81 MG/DL (7-18); CALCIUM 8.1 MG/DL (8.5-10.1); CHLORIDE 109 MMOL/L (99-107); CREATININE 3.11 MG/DL (0.60-1.10); GLUCOSE 143 MG/DL (70-104); MAGNESIUM 2.4 MG/DL (1.5-2.4); PHOSPHORUS 3.7 MG/DL (2.3-4.5); POTASSIUM 3.6 MMOL/L (3.5-5.1); SODIUM 141 MMOL/L (135-145); TOTAL PROTEIN 5.4 G/DL (6.4-8.2); eGFR 21 ML/MIN
--- NOTE | 2019-01-22 13:32 | NUR ---
TPN consult: Per RN PICC line has been advanced and is ready to be used. TPN recommendations were d/w pharmacy. Will monitor electrolytes and follow up tomorrow to assess the need for any changes in nutrition support recommendations. TPN/TF consult. Patient is intubated and sedated still. A tube feeding diet order was already placed for trickle tube feeding at 10 ml/hr with Nepro Carbsteady per MD. Patient is s/p bronchoscopy, repeat laparotomy, enterostomy, colostomy placement. Currently patient has absent bowel sounds, no flatus; noted that patient is receiving fentanyl, patient may benefit from a opiod agonist antagonist to relieve effect on intestines. patient has low Markie score of 12, has documented surgical wound with ALVINO drain to abdomen, has surgical wound to chest from CABG surgery on 01/09/19, left thigh surgical wound from SVG harvest. Patient is s/p exploratory lap with partial colectomy of transverse colon and cecum on 01/18. Recommendations: 1) Continue trickle tube feeding via OG tube using Nepro at 10 ml/hr, recs per MD 2) If prolonged intubation, to meet nutrition needs consider continuous TF using Vital High Protein with goal rate of 90 mL/hr 3) prealbumin q /; daily weights; TG q Sunday and 4) Continuous 2:1 TPN using Clinimix non-E with goal rate of 117 ml/hr will provide total volume of 2808 ml, 1993 cals, 141 g protein, 2.39 mg/kg/min dextrose loading. 5) Separate 20% intralipids to run for 12 hours daily at 7 ml/hr to provide 17 grams of lipids. 6) Total cals provided by TPN and lipids is 2159 cals, d/w pharmacy and bedside RN that recs are available. 7) Patient may benefit from opioid agonist antagonist in view of receiving fentanyl Addendum: 01/22/19 at [address] Amended: Links added.
[2019-01-22 14:02] LABS: BURR CELLS 1+; PLATELET ESTIMATE NORMAL
[2019-01-22] MEDS ORDERED: Trace element-5 inj. 1 ML in amino acid 5%/D15W 2,000 ML IV SCH (15:00)
[2019-01-22] MEDS: HYDROmorphone 1 mg/ml syringe IV PRN ×2 (18:10→22:58)
--- NOTE | 2019-01-22 18:30 | NUR ---
Patient in room ICU 2044. I have received report from Ranjana PEGUERO, and had the opportunity to ask questions and assume patient care.
--- NOTE | 2019-01-22 19:45 | NUR ---
PT resting with no s/s of distress noted at this time. VSS. PT receiving 2L O2 to NC, tolerating well O2 sat >95%. PT has NGT to RT nare with FT running @ 10ml/hr, no c/o nausea at this time. Smart in place draining to gravity. Drsg to midline ABD is intact. Bed is locked and low. Call light is within reach. Will continue to monitor.
[2019-01-22] MEDS: heparin, porcine 5000 units/ml vial SQ SCH (20:09)
[2019-01-22] MEDS: lactobacillus rhamnosus 10,000 MMU CELLS/CAPSULE PO SCH (20:09)
[2019-01-22] MEDS: fat emulsion IV bag 250 ML IV SCH (20:09)
[2019-01-22 21:05] LABS: BASOPHILS % (AUTO) 0.2 % (0-1); EOSINOPHILS % (AUTO) 0 % (0-6); HEMATOCRIT 28.2 % (42.0-52.0); HEMOGLOBIN 9.6 g/dl (14.0-17.9); LYMPHOCYTES # (AUTO) 0.2 X10'3 (1.1-4.8); LYMPHOCYTES % (AUTO) 2.2 % (21-51); MEAN CORPUSCULAR HEMOGLOBIN 29.9 PG (27.0-31.0); MEAN PLATELET VOLUME 8.6 FL (7.4-10.4); MONOCYTES # (AUTO) 0.7 X10'3 (0-0.9); MONOCYTES % (AUTO) 6.8 % (2-12); NEUTROPHILS # (AUTO) 9.5 X10'3 (1.8-7.7); NEUTROPHILS % (AUTO) 90.8 % (42-75); PLATELET COUNT 235 X10'3 (140-440); RED CELL DISTRIBUTION WIDTH 15.4 % (11.5-14.5); WHITE BLOOD COUNT 10.4 X10'3 (4.5-11.0)
[2019-01-22 21:17] LABS: ALANINE AMINOTRANSFERASE 39 U/L (12-78); ALBUMIN 2.7 G/DL (3.4-5.0); ALKALINE PHOSPHATASE 52 IU/L (46-116); ANION GAP 9 (8-16); ASPARTATE AMINO TRANSFERASE 27 U/L (10-37); BILIRUBIN,TOTAL 0.9 MG/DL (0.1-1.0); BLOOD UREA NITROGEN 85 MG/DL (7-18); BUN/CREATININE RATIO 30.5 (5.4-32.0); CALCIUM 8.1 MG/DL (8.5-10.1); CHLORIDE 110 MMOL/L (99-107); CREATININE 2.79 MG/DL (0.60-1.10); GLUCOSE 161 MG/DL (70-104); MAGNESIUM 2.4 MG/DL (1.5-2.4); PHOSPHORUS 3.5 MG/DL (2.3-4.5); POTASSIUM 3.5 MMOL/L (3.5-5.1); SODIUM 142 MMOL/L (135-145); TOTAL CARBON DIOXIDE 23.4 MMOL/L (24-32); TOTAL PROTEIN 5.3 G/DL (6.4-8.2); eGFR 24 ML/MIN
[2019-01-22] MEDS: ringers solution, lacted 1,000 ML IV SCH (22:56)
[2019-01-23] VITALS (24 sets, daily range): BP systolic 112–159; BP diastolic 76–92
[2019-01-23] MEDS: metroNIDAZOLE-Flagyl 500mg/NS 100 ML IV SCH ×3 (00:19→16:29)
--- NOTE | 2019-01-23 00:30 | NUR ---
PT resting with no s/s of distress noted at this time. VSS. Gastric residuals have increase at every check with TF running at 10ml/hr, Midnight check was greater than 300, 300ml replaced. PT has complained of slight nausea but does not wish to take any Zofran at this time. Bed is locked and low. Call light is within reach. Will continue to monitor.
[2019-01-23] MEDS: mineral oil/petrolatum ophthal oint EACHEYE SCH (02:00)
[2019-01-23] MEDS: hydrocortisone sod succ/PF 100mg/2ml inj. IV SCH ×4 (02:07→20:41)
[2019-01-23 02:45] LABS: BASOPHILS % (AUTO) 0.1 % (0-1); EOSINOPHILS % (AUTO) 0 % (0-6); HEMATOCRIT 27.8 % (42.0-52.0); HEMOGLOBIN 9.5 g/dl (14.0-17.9); LYMPHOCYTES # (AUTO) 0.3 X10'3 (1.1-4.8); LYMPHOCYTES % (AUTO) 2.3 % (21-51); MEAN CORPUSCULAR HEMOGLOBIN 30.4 PG (27.0-31.0); MEAN CORPUSCULAR HGB CONC 34.4 g/dL (33.0-36.5); MEAN CORPUSCULAR VOLUME 88.3 FL (78-98); MEAN PLATELET VOLUME 8.7 FL (7.4-10.4); MONOCYTES # (AUTO) 0.8 X10'3 (0-0.9); MONOCYTES % (AUTO) 7.4 % (2-12); NEUTROPHILS # (AUTO) 9.7 X10'3 (1.8-7.7); NEUTROPHILS % (AUTO) 90.2 % (42-75); PLATELET COUNT 245 X10'3 (140-440); RED BLOOD COUNT 3.14 X10'6 (4.70-6.10); RED CELL DISTRIBUTION WIDTH 15.7 % (11.5-14.5); WHITE BLOOD COUNT 10.7 X10'3 (4.5-11.0)
[2019-01-23 03:13] LABS: ALANINE AMINOTRANSFERASE 37 U/L (12-78); ALBUMIN 2.5 G/DL (3.4-5.0); ALKALINE PHOSPHATASE 50 IU/L (46-116); ANION GAP 10 (8-16); ASPARTATE AMINO TRANSFERASE 24 U/L (10-37); BILIRUBIN,TOTAL 0.8 MG/DL (0.1-1.0); BLOOD UREA NITROGEN 82 MG/DL (7-18); BUN/CREATININE RATIO 30.4 (5.4-32.0); CALCIUM 7.6 MG/DL (8.5-10.1); CHLORIDE 110 MMOL/L (99-107); GLUCOSE 150 MG/DL (70-104); MAGNESIUM 2.3 MG/DL (1.5-2.4); PHOSPHORUS 3.5 MG/DL (2.3-4.5); POTASSIUM 3.5 MMOL/L (3.5-5.1); SODIUM 143 MMOL/L (135-145); TOTAL CARBON DIOXIDE 23.4 MMOL/L (24-32); TOTAL PROTEIN 5.1 G/DL (6.4-8.2); eGFR 24 ML/MIN
--- NOTE | 2019-01-23 04:15 | NUR ---
PT c/o nausea, NGT has been to LIS since about 0100 and TF held. As of now a total of 900ml out of NGT. PT did c/o nausea and Zofran given. TF turned back on at ordered rate of 10ml/hr. TPN continues to run. Bed is locked and low. Call light is within reach. Will continue to monitor.
[2019-01-23] MEDS: HYDROmorphone 1 mg/ml syringe IV PRN ×4 (04:16→19:40)
[2019-01-23] MEDS: ondansetron/PF 4mg/2ml inj IV PRN ×2 (04:16→19:39)
[2019-01-23] MEDS: amiodarone/D5 360MG/200ML BAG 200 ML IV SCH ×4 (05:36→21:00)
--- NOTE | 2019-01-23 06:30 | NUR ---
Patient in room ICU 2044. I have received report from ely and had the opportunity to ask questions and assume patient care.
--- NOTE | 2019-01-23 06:47 | NUR ---
Problems reprioritized. Patient report given, questions answered & plan of care reviewed with Carlene PEGUERO.
[2019-01-23] MEDS: albuterol 2.5 MG/3 ML nebule NEB SCH ×4 (07:38→19:46)
--- NOTE | 2019-01-23 08:00 | NUR ---
pt sleepy, awakens easily- cooperative. denies pain, some nausea, not yet time for zofran. ngt residual- 100cc- reported to dr cox- ngt placed to lavon castillo dcd for now. hypo bs. colostomy with 200 cc soft brown stool.
[2019-01-23] MEDS: pantoprazole 40 MG vial IV SCH (08:33)
[2019-01-23] MEDS: heparin, porcine 5000 units/ml vial SQ SCH ×2 (08:33→20:42)
[2019-01-23] MEDS: MVI, adult No.4 with vit. K 10 ML in normal saline 500ml IV soln 500 ML IV SCH ×2 (08:33)
[2019-01-23] MEDS: cefTAZidime inj 2 GM in normal saline 100ml IV soln 100 ML IV SCH (08:33)
[2019-01-23] MEDS: lactobacillus rhamnosus 10,000 MMU CELLS/CAPSULE PO SCH ×2 (08:33→20:41)
[2019-01-23] MEDS: Trace element-5 inj. 1 ML in amino acid 5%/D15W 2,000 ML IV SCH ×2 (09:00→19:35)
--- NOTE | 2019-01-23 12:16 | NUR ---
update to dr fall.
--- NOTE | 2019-01-23 13:22 | NUR ---
OSTOMY FACTS: Almost everyone has know of, or met, businessmen, entertainers, athletes, and people from all walks of life who have an ostomy. Ostomates (a person that has an ostomy) can ski, ride horses, bowl, and get healthy exercise in countless ways. Your usual activities of daily living can be resumed as soon as you are able. Gradually you will be able to wear the clothes worn before surgery. With modern pouches, nothing is noticeable under your clothing. It may be difficult at first to believe that an intimate relationship can be possible when one's body has been disfigured by surgery. This is not true. Love, fortunately, is not easily destroyed when it is based on genuine appreciation of a person as a thinking, feeling, reacting human being. AN OSTOMY IS NOT AN IMPAIRMENT!! DEFINITIONS: 1.OSTOMY: An opening that is created by a surgical procedure. The opening is called a "stoma". 2.STOMA: A surgical opening in the abdomen (belly) where intestine is brought through the abdominal wall and connected at the skin level. A stoma is shiny, wet and at first is dark purple but eventually turns pink, similar to the inside lining of your mouth. 3.COLON: A portion of the large bowel. 4.COLOSTOMY: A fecal diversion with an opening, (stoma) created anywhere along the colon. Making a connection between the colon and the abdominal wall. 5.ILLEOSTOMY: A fecal diversion with an opening, (stoma) created in the small intestine. Making a connection between the small intestine and the abdominal wall. 6.UROSTOMY: A urinary diversion with the ureters connected to a segment of the small bowel and one end is brought out and connected to the abdominal wall, creating a stoma. SHAPES and SIZES: "The stoma is usually round or oval. "It is anywhere from a dime to half dollar in size. "A stoma reaches its permanent size 6-8 weeks after surgery. PRODUCTS: 1.POUCH or APPLIANCE: An external device to contain stool or urine output and protect the skin around the stoma. It can be a one piece pouch or two pieces (a pouch and a wafer). 2.BARRIER: Substance that is used to protect the skin around the stoma from drainage and adhesive. 3.SKIN PREP or SEALANT: Product applied to the skin to reduce injury from moisture, drainage, or repeated pouch removal. Available in spray or wipes. 4.CLOSURE or CLAMP: A device used to close the bottom of a drainable pouch. 5.BRIDGE or NABIL: A piece of plastic placed under a loop of bowel on the skins surface, to secure the bowel in place while the skin heals. POUCH CHANGE PROCEEDURE: 1.Assemble all the supplies "1 or 2 piece appliance "Ostomy paste (if needed) "Ostomy powder (if needed) "Skin prep wipes ( not recommended with coloplast products) "Moist wash cloth or cotton balls 2.Remove plastic center and paper backing from pouch. If pouch or wafer is not precut, use the sizing guide, or plastic backing from pouch to make a pattern. Do this by placing the paper over the stoma and trace it, or draw a pattern. Cut the wafer to fit and set it aside. 3.Remove old pouch by lifting up on tape while pressing skin down away from the tape. If there is a clip on your pouch, remove it and save it. 4.Clean skin or stoma with moistened wash cloth or cotton balls. Place a clean cotton ball over stoma hole to catch any drainage. Let skin dry. 5.For grooves or uneven areas in the skin- apply ostomy paste and sprinkle with ostomy powder, then gently shape the past so the area around the stoma is smooth and as flat as possible. Wipe off or blow away excess. Blot powder with skin prep wipe (DO NOT wipe powder). Let dry until no longer sticky. 6.For irritated or reddened skin- sprinkle ostomy powder on red or irritated area. Wipe off or blow away excess. Blot powder with skin prep wipe (DO NOT wipe powder). Let dry until no longer sticky. 7.Apply skin prep wipe to skin to which the pouch and tape will adhere. Let dry until no longer sticky. 8.If you have a one piece appliance- apply pouch so it is centered around the stoma. No skin should be exposed to stool. All skin should be covered by paste or pouch. 9.If you have a two piece appliance- Apply the wafer as described above, then snap or stick pouch onto wafer. Check to make sure wafer and pouch are securely connected. 10.Place clip on bottom of pouch. 11.Empty pouch when 1/3 full. OSTOMY SKIN CARE: "Good health care and nutrition are essential for healthy skin. "Usually a correct pouch size will prevent skin breakdown. "Use warm water and soap for skin cleansing. "Do not use creams or oil based products on skin around the stoma. This will prevent the appliance from sticking. "Use skin prep around the stoma. IT CAN TAKE 24 HOURS TO SEVERAL DAYS FOR SKIN TO HEAL. IF IT IS NOT RESOLVING, OR GETTING WORSE, CALL YOUR PRIMARY CARE DOCTOR. Addendum: 01/23/19 at 1324 by Inés Casey RN Amended: Links added.
--- NOTE | 2019-01-23 19:30 | NUR ---
PT resting with no s/s of distress noted at this time. VSS. PT on RA, tolerating well O2 sat >95%. PT has NGT to RT nare to LIS no c/o nausea at this time. Smart in place draining to gravity. Drsg to midline ABD is intact. Bed is locked and low. Call light is within reach. Will continue to monitor.
[2019-01-23] MEDS: fat emulsion IV bag 250 ML IV SCH (20:41)
--- NOTE | 2019-01-23 22:30 | NUR ---
PT resting with no s/s of distress noted at this time. VSS. Bed is locked and low. Call light is within reach. Will continue to monitor.
[2019-01-24] VITALS (24 sets, daily range): BP systolic 139–165; BP diastolic 80–102
[2019-01-24] MEDS: metroNIDAZOLE-Flagyl 500mg/NS 100 ML IV SCH ×4 (00:14→23:49)
[2019-01-24] MEDS: hydrocortisone sod succ/PF 100mg/2ml inj. IV SCH ×4 (01:41→20:17)
[2019-01-24] MEDS: ondansetron/PF 4mg/2ml inj IV PRN ×3 (01:41→16:58)
[2019-01-24] MEDS: HYDROmorphone 1 mg/ml syringe IV PRN ×4 (01:41→22:47)
[2019-01-24 02:54] LABS: BASOPHILS % (AUTO) 0 % (0-1); EOSINOPHILS % (AUTO) 0 % (0-6); HEMATOCRIT 29.9 % (42.0-52.0); HEMOGLOBIN 9.9 g/dl (14.0-17.9); LYMPHOCYTES # (AUTO) 0.3 X10'3 (1.1-4.8); LYMPHOCYTES % (AUTO) 2.4 % (21-51); MEAN CORPUSCULAR HEMOGLOBIN 29.5 PG (27.0-31.0); MEAN CORPUSCULAR HGB CONC 33.2 g/dL (33.0-36.5); MEAN CORPUSCULAR VOLUME 88.7 FL (78-98); MEAN PLATELET VOLUME 8.9 FL (7.4-10.4); MONOCYTES # (AUTO) 0.8 X10'3 (0-0.9); MONOCYTES % (AUTO) 6.4 % (2-12); NEUTROPHILS # (AUTO) 11.9 X10'3 (1.8-7.7); NEUTROPHILS % (AUTO) 91.2 % (42-75); PLATELET COUNT 238 X10'3 (140-440); RED BLOOD COUNT 3.37 X10'6 (4.70-6.10); RED CELL DISTRIBUTION WIDTH 15.5 % (11.5-14.5)
[2019-01-24 03:02] LABS: ALANINE AMINOTRANSFERASE 31 U/L (12-78); ALBUMIN 2.2 G/DL (3.4-5.0); ALBUMIN/GLOBULIN RATIO 0.8 (1.1-1.5); ALKALINE PHOSPHATASE 49 IU/L (46-116); ANION GAP 8 (8-16); ASPARTATE AMINO TRANSFERASE 18 U/L (10-37); BILIRUBIN,TOTAL 0.6 MG/DL (0.1-1.0); BLOOD UREA NITROGEN 89 MG/DL (7-18); BUN/CREATININE RATIO 45.2 (5.4-32.0); CALCIUM 7.7 MG/DL (8.5-10.1); CHLORIDE 112 MMOL/L (99-107); CREATININE 1.97 MG/DL (0.60-1.10); GLUCOSE 177 MG/DL (70-104); PHOSPHORUS 2.5 MG/DL (2.3-4.5); POTASSIUM 3.1 MMOL/L (3.5-5.1); SODIUM 144 MMOL/L (135-145); TOTAL CARBON DIOXIDE 23.7 MMOL/L (24-32); TOTAL PROTEIN 4.8 G/DL (6.4-8.2); eGFR 35 ML/MIN
--- NOTE | 2019-01-24 03:15 | NUR ---
PT resting with no s/s of distress noted at this time. VSS. Bed is locked and low. Call light is within reach. Will continue to monitor.
[2019-01-24 03:31] LABS: TOTAL CELLS COUNTED 100
[2019-01-24 03:32] LABS: ANISOCYTOSIS 1+; PLATELET ESTIMATE NORMAL
[2019-01-24 03:33] LABS: BURR CELLS FEW
[2019-01-24 03:34] LABS: GIANT PLATELET FEW
[2019-01-24] MEDS ORDERED: potassium Cl 20 mEq/100mL bag IV ONE ×2 (03:40→05:00)
[2019-01-24] MEDS ORDERED: potassium Cl 20mEq/100mL bag 100 ML IV ONE ×2 (03:45)
[2019-01-24] MEDS: amiodarone/D5 360MG/200ML BAG 200 ML IV SCH ×4 (05:10→15:57)
--- NOTE | 2019-01-24 06:44 | NUR ---
Problems reprioritized. Patient report given, questions answered & plan of care reviewed with Bronwyn and Art RN's.
--- NOTE | 2019-01-24 06:45 | NUR ---
Patient in room ICU 2044. I have received report from Rosmery PEGUERO and had the opportunity to ask questions and assume patient care.
[2019-01-24] MEDS: albuterol 2.5 MG/3 ML nebule NEB SCH ×4 (07:56→19:21)
[2019-01-24] MEDS: cefTAZidime inj 2 GM in normal saline 100ml IV soln 100 ML IV SCH (08:00)
[2019-01-24] MEDS: lactobacillus rhamnosus 10,000 MMU CELLS/CAPSULE PO SCH ×2 (08:00→20:17)
[2019-01-24] MEDS: heparin, porcine 5000 units/ml vial SQ SCH ×2 (08:46→20:18)
[2019-01-24] MEDS: pantoprazole 40 MG vial IV SCH (08:46)
[2019-01-24] MEDS ORDERED: dextrose ORAL solution 15 GM/59 ML bottle PO PRN ×2 (12:00)
[2019-01-24] MEDS ORDERED: dextrose 50%-water 50ml dispensing syringe IV PRN ×2 (12:00)
[2019-01-24] MEDS ORDERED: glucagon, human recombinant 1mg kit SUBCUT PRN (12:00)
[2019-01-24] MEDS: Trace element-5 inj. 1 ML in AA 5%/cal/electrolyte-TPN/D15W 2,000 ML IV SCH (12:08)
[2019-01-24] MEDS: MVI, adult No.4 with vit. K 10 ML in normal saline 500ml IV soln 500 ML IV SCH ×2 (12:15)
[2019-01-24] MEDS: methylnaltrexone br 12mg/0.6ml inj***SubQ only SQ SCH (12:15)
--- NOTE | 2019-01-24 13:15 | NUR ---
Reassessment: TPN is at goal rate. Phosphorus and Magnesium are WNL, Potassium is lower at 3.1; he is receiving multivitamins and will begin electrolyte TPN formula as discussed by pharmacy at rounds. Patient is extubated. Trickle tube feeding held since 01/23 d/t elevated gastric residuals, corpak is at suction. Discussed resuming tube feedings with MD at rounds, per MD patient will begin on Relistor and try restarting trickle feedings tomorrow. Patient passed swallow eval yesterday morning, ST recommends pureed food and thin liquids, patient's PO diet not started yesterday due to output from stomach, d/w RN possibility of starting PO diet versus TF.Triglyceride lab is pending. Met with patient and at bedside and discussed that his needs are currently being met with TPN, discussed that his PO intake since his CABG surgery on 01/09 has not been meeting needs. Will continue to follow. Recommendations: 1) Recommend to advance diet as medically indicated to Pureed diet with thin liquid per recs versus Resume trickle tube feeding 01/25 via OG tube using Nepro at 10 ml/hr, recs per MD. D/w RN. 2) prealbumin q /; daily weights; TG q Sunday and 3) Continuous 2:1 TPN using 07/24 Clinimix E with goal rate of 117 ml/hr will provide total volume of 2808 ml, 1993 cals, 141 g protein, 2.39 mg/kg/min dextrose loading. 4) Separate 20% intralipids to run for 12 hours daily at 7 ml/hr to provide 17 grams of lipids. 5) Total cals provided by TPN and lipids is 2159 cals, d/w pharmacy and bedside RN that recs are available. Addendum: 01/24/19 at [address] Amended: Links added.
--- NOTE | 2019-01-24 13:35 | NUR ---
Pt suction to NG turned off. Pt will be reevaluated in 4 hours for residuals in his stomach
--- NOTE | 2019-01-24 13:38 | NUR ---
Pt worked with PT
--- NOTE | 2019-01-24 13:59 | NUR ---
Pt sitting in chair after working with PT
--- NOTE | 2019-01-24 14:54 | NUR ---
I have reviewed and agree with all medications administered and interventions performed by [facility] Student([place])
[2019-01-24] MEDS: insulin regular, human vial - multi-dose SQ SCH ×2 (14:58→20:29)
--- NOTE | 2019-01-24 18:35 | NUR ---
Patient in room ICU 2044. I have received report from Bronwyn and Mo RN's, and had the opportunity to ask questions and assume patient care.
--- NOTE | 2019-01-24 19:45 | NUR ---
PT resting with no s/s of distress noted at this time. VSS. PT on RA, tolerating well O2 sat >95%. PT has NGT to RT nare that is clamped and with no c/o nausea at this time, residuals checked resulting in 40ml, PT requesting ice chips and will provide. Smart in place draining to gravity. Drsg to midline ABD is intact. Bed is locked and low. Call light is within reach. Will continue to monitor.
[2019-01-24] MEDS: fat emulsion IV bag 250 ML IV SCH (20:17)
[2019-01-24] MEDS: insulin glargine (Lantus) pen - multi-dose SQ SCH (20:30)
--- NOTE | 2019-01-24 23:00 | NUR ---
PT resting with no s/s of distress noted at this time. VSS. Bed is locked and low. Call light is within reach. Will continue to monitor.
[2019-01-24] MEDS: ringers solution, lacted 1,000 ML IV SCH (23:49)
[2019-01-25] VITALS (24 sets, daily range): BP systolic 139–176; BP diastolic 73–101
[2019-01-25] MEDS: hydrocortisone sod succ/PF 100mg/2ml inj. IV SCH ×4 (02:03→20:01)
[2019-01-25] MEDS: insulin regular, human vial - multi-dose SQ SCH ×2 (02:04→20:21)
[2019-01-25 02:27] LABS: BASOPHILS % (AUTO) 0.1 % (0-1); EOSINOPHILS % (AUTO) 0 % (0-6); HEMATOCRIT 28.9 % (42.0-52.0); HEMOGLOBIN 9.7 g/dl (14.0-17.9); LYMPHOCYTES # (AUTO) 0.4 X10'3 (1.1-4.8); LYMPHOCYTES % (AUTO) 2.1 % (21-51); MEAN CORPUSCULAR HEMOGLOBIN 29.8 PG (27.0-31.0); MEAN CORPUSCULAR HGB CONC 33.7 g/dL (33.0-36.5); MEAN CORPUSCULAR VOLUME 88.2 FL (78-98); MEAN PLATELET VOLUME 8.7 FL (7.4-10.4); MONOCYTES # (AUTO) 0.8 X10'3 (0-0.9); MONOCYTES % (AUTO) 4.5 % (2-12); NEUTROPHILS # (AUTO) 16.7 X10'3 (1.8-7.7); NEUTROPHILS % (AUTO) 93.3 % (42-75); PLATELET COUNT 221 X10'3 (140-440); RED BLOOD COUNT 3.27 X10'6 (4.70-6.10); RED CELL DISTRIBUTION WIDTH 15.6 % (11.5-14.5); WHITE BLOOD COUNT 17.9 X10'3 (4.5-11.0)
[2019-01-25 02:35] LABS: ALANINE AMINOTRANSFERASE 23 U/L (12-78); ALBUMIN 2.2 G/DL (3.4-5.0); ALBUMIN/GLOBULIN RATIO 0.8 (1.1-1.5); ALKALINE PHOSPHATASE 53 IU/L (46-116); ANION GAP 11 (8-16); ASPARTATE AMINO TRANSFERASE 15 U/L (10-37); BILIRUBIN,TOTAL 0.6 MG/DL (0.1-1.0); BLOOD UREA NITROGEN 84 MG/DL (7-18); BUN/CREATININE RATIO 49.1 (5.4-32.0); CHLORIDE 110 MMOL/L (99-107); CREATININE 1.71 MG/DL (0.60-1.10); GLUCOSE 165 MG/DL (70-104); MAGNESIUM 1.8 MG/DL (1.5-2.4); SODIUM 144 MMOL/L (135-145); TOTAL CARBON DIOXIDE 22.7 MMOL/L (24-32); TOTAL PROTEIN 4.8 G/DL (6.4-8.2); TRIGLYCERIDES 53 MG/DL (20-135); eGFR 41 ML/MIN
--- NOTE | 2019-01-25 03:00 | NUR ---
PT resting with no s/s of distress noted at this time. VSS. Bed is locked and low. Call light is within reach. Will continue to monitor.
[2019-01-25] MEDS: amiodarone/D5 360MG/200ML BAG 200 ML IV SCH ×4 (03:07→21:32)
[2019-01-25] MEDS: potassium Cl 20mEq/100mL bag 100 ML IV PRN ×6 (03:08→21:52)
[2019-01-25 04:04] LABS: ANISOCYTOSIS 1+; PLATELET ESTIMATE NORMAL; TOTAL CELLS COUNTED 100
[2019-01-25] MEDS: Trace element-5 inj. 1 ML in AA 5%/cal/electrolyte-TPN/D15W 2,000 ML IV SCH ×2 (05:07→22:01)
[2019-01-25] MEDS: ondansetron/PF 4mg/2ml inj IV PRN (05:19)
[2019-01-25] MEDS: HYDROmorphone 1 mg/ml syringe IV PRN ×3 (05:51→21:39)
--- NOTE | 2019-01-25 06:30 | NUR ---
Patient in room ICU 2044. I have received report from MARIELENA Botello and had the opportunity to ask questions and assume patient care.
--- NOTE | 2019-01-25 06:48 | NUR ---
Problems reprioritized. Patient report given, questions answered & plan of care reviewed with Shay PEGUERO.
[2019-01-25] MEDS: metroNIDAZOLE-Flagyl 500mg/NS 100 ML IV SCH ×2 (07:24→15:29)
[2019-01-25] MEDS: albuterol 2.5 MG/3 ML nebule NEB SCH ×5 (07:36→19:31)
[2019-01-25] MEDS: cefTAZidime inj 2 GM in normal saline 100ml IV soln 100 ML IV SCH (07:39)
[2019-01-25] MEDS: lactobacillus rhamnosus 10,000 MMU CELLS/CAPSULE PO SCH ×2 (07:40→20:01)
[2019-01-25] MEDS: pantoprazole 40 MG vial IV SCH (07:40)
[2019-01-25] MEDS: heparin, porcine 5000 units/ml vial SQ SCH ×2 (07:41→20:02)
[2019-01-25] MEDS: MVI, adult No.4 with vit. K 10 ML in normal saline 500ml IV soln 500 ML IV SCH ×2 (09:55)
[2019-01-25] MEDS: amLODIPine 5mg tablet PO SCH (10:36)
--- NOTE | 2019-01-25 10:43 | NUR ---
Reassessment 01/25: TPN continues at goal with no s/s refeeding. K low, now receiving electrolytes with PRN KCl replacement given first dose today per med list. TF has been d/c'ed and NG tube clamped at this time per RN notes. Pt with low residuals 40 mL. PO diet has been advanced to ice chips and sips with popsicles if pt tolerates. LBM 01/25, pt now receiving routine Relistor. Will continue to follow closely. Recommendations: 1) Advance diet as medically indicated to Pureed diet with thin liquid per ST recs 2) prealbumin q /; daily weights; TG q Sunday and 3) Continuous 2:1 TPN using 07/24 Clinimix E with goal rate of 117 ml/hr will provide total volume of 2808 ml, 1993 cals, 141 g protein, 2.39 mg/kg/min dextrose loading. 4) Separate 20% intralipids to run for 12 hours daily at 7 ml/hr to provide 17 grams of lipids. 5) Total cals provided by TPN and lipids is 2159 cals, d/w pharmacy and bedside RN that recs are available. Addendum: 01/25/19 at [address] Amended: Links added.
--- NOTE | 2019-01-25 18:30 | NUR ---
Patient in room ICU 2044. I have received report from MARIELENA Day and had the opportunity to ask questions and assume patient care.
--- NOTE | 2019-01-25 19:25 | NUR ---
Clarified with Ana Blankenship NP whether or not to continue hyperglycemic protocol. Patient was not covered during the day. JOINT CUTTER MACHINE wishes that the hyperglycemic management be continued. Will continue patient on level 2 as was previously.
[2019-01-25] MEDS: fat emulsion IV bag 250 ML IV SCH (20:01)
[2019-01-25] MEDS: insulin glargine (Lantus) pen - multi-dose SQ SCH (20:23)
[2019-01-26] VITALS (24 sets, daily range): BP systolic 126–156; BP diastolic 56–93
[2019-01-26] MEDS: metroNIDAZOLE-Flagyl 500mg/NS 100 ML IV SCH ×3 (00:10→15:35)
[2019-01-26] MEDS: hydrocortisone sod succ/PF 100mg/2ml inj. IV SCH ×4 (02:17→20:46)
[2019-01-26] MEDS: insulin regular, human vial - multi-dose SQ SCH ×4 (02:21→20:57)
[2019-01-26 03:02] LABS: BASOPHILS % (AUTO) 0.2 % (0-1); EOSINOPHILS % (AUTO) 0 % (0-6); HEMATOCRIT 29.2 % (42.0-52.0); HEMOGLOBIN 9.6 g/dl (14.0-17.9); LYMPHOCYTES # (AUTO) 0.4 X10'3 (1.1-4.8); LYMPHOCYTES % (AUTO) 2.2 % (21-51); MEAN CORPUSCULAR HEMOGLOBIN 29.3 PG (27.0-31.0); MEAN CORPUSCULAR VOLUME 88.9 FL (78-98); MEAN PLATELET VOLUME 8.7 FL (7.4-10.4); MONOCYTES # (AUTO) 0.9 X10'3 (0-0.9); MONOCYTES % (AUTO) 4.8 % (2-12); NEUTROPHILS # (AUTO) 17.7 X10'3 (1.8-7.7); NEUTROPHILS % (AUTO) 92.8 % (42-75); PLATELET COUNT 224 X10'3 (140-440); RED BLOOD COUNT 3.28 X10'6 (4.70-6.10); RED CELL DISTRIBUTION WIDTH 15.6 % (11.5-14.5)
[2019-01-26 03:10] LABS: GLUCOSE 163 MG/DL (70-104); POTASSIUM 3.4 MMOL/L (3.5-5.1); SODIUM 144 MMOL/L (135-145)
[2019-01-26 03:11] LABS: ALANINE AMINOTRANSFERASE 23 U/L (12-78); ALBUMIN 2.3 G/DL (3.4-5.0); ALKALINE PHOSPHATASE 54 IU/L (46-116); ANION GAP 9 (8-16); ASPARTATE AMINO TRANSFERASE 19 U/L (10-37); BILIRUBIN,TOTAL 0.5 MG/DL (0.1-1.0); BLOOD UREA NITROGEN 78 MG/DL (7-18); BUN/CREATININE RATIO 53.1 (5.4-32.0); CALCIUM 7.6 MG/DL (8.5-10.1); CHLORIDE 113 MMOL/L (99-107); CREATININE 1.47 MG/DL (0.60-1.10); MAGNESIUM 1.8 MG/DL (1.5-2.4); TOTAL CARBON DIOXIDE 22.3 MMOL/L (24-32); TOTAL PROTEIN 4.7 G/DL (6.4-8.2); eGFR 49 ML/MIN
[2019-01-26] MEDS: potassium Cl 20mEq/100mL bag 100 ML IV PRN ×2 (03:25→05:08)
[2019-01-26 04:30] LABS: ANISOCYTOSIS 1+; PLATELET ESTIMATE NORMAL; TOTAL CELLS COUNTED 100
[2019-01-26] MEDS: amiodarone/D5 360MG/200ML BAG 200 ML IV SCH ×3 (05:07→16:00)
--- NOTE | 2019-01-26 06:19 | NUR ---
Patient in room ICU 2044. I have received report from MARIELENA Pyle and had the opportunity to ask questions and assume patient care.
--- NOTE | 2019-01-26 06:22 | NUR ---
Problems reprioritized. Patient report given, questions answered & plan of care reviewed with MARIELENA Temple.
[2019-01-26] MEDS: HYDROmorphone 1 mg/ml syringe IV PRN ×2 (06:49→17:35)
[2019-01-26] MEDS: lactobacillus rhamnosus 10,000 MMU CELLS/CAPSULE PO SCH ×2 (07:21→20:46)
[2019-01-26] MEDS: amLODIPine 5mg tablet PO SCH (07:21)
[2019-01-26] MEDS: pantoprazole 40 MG vial IV SCH (07:21)
[2019-01-26] MEDS: heparin, porcine 5000 units/ml vial SQ SCH ×2 (07:22→20:47)
[2019-01-26] MEDS: cefTAZidime inj 2 GM in normal saline 100ml IV soln 100 ML IV SCH (07:23)
[2019-01-26] MEDS: albuterol 2.5 MG/3 ML nebule NEB SCH ×4 (07:36→19:10)
[2019-01-26] MEDS: methylnaltrexone br 12mg/0.6ml inj***SubQ only SQ SCH (07:57)
[2019-01-26] MEDS: MVI, adult No.4 with vit. K 10 ML in normal saline 500ml IV soln 500 ML IV SCH ×2 (10:02)
[2019-01-26] MEDS: ringers solution, lacted 1,000 ML IV SCH (10:03)
--- NOTE | 2019-01-26 14:57 | NUR ---
Malnutrition consult: Pt has normal strength, no edema/wounds. Wt hx fluctuated w/ fluid status and likely some error on bed scale ranging 121kg-144kg most recently. At this time pt does not meet minimum malnutrition criteria. Addendum: 01/26/19 at [address] Amended: Links added.
[2019-01-26] MEDS: Trace element-5 inj. 1 ML in AA 5%/cal/electrolyte-TPN/D15W 2,000 ML IV SCH (15:36)
--- NOTE | 2019-01-26 16:30 | NUR ---
R arm noted to have slight bruising below R PICC site and noted to appear larger than the L arm. Pt does not c/o pain. R arm with intact pulses, appropriate color, warm and dry. Called and notified GUILLERMINA Penny - ordered stat venous U/S of R arm to r/o DVT. Currently still using PICC for TPN and Amiodarone infusion.
--- NOTE | 2019-01-26 18:10 | NUR ---
Problems reprioritized. Patient report given, questions answered & plan of care reviewed with MARIELENA Pyle.
--- NOTE | 2019-01-26 18:18 | NUR ---
Patient in room ICU 2044. I have received report from Luba Clinton had the opportunity to ask questions and assume patient care.
[2019-01-26] MEDS: ondansetron/PF 4mg/2ml inj IV PRN (18:39)
[2019-01-26] MEDS: fat emulsion IV bag 250 ML IV SCH (20:46)
[2019-01-26] MEDS: insulin glargine (Lantus) pen - multi-dose SQ SCH (21:02)
[2019-01-27] VITALS (23 sets, daily range): BP systolic 119–155; BP diastolic 59–99
[2019-01-27] MEDS: metroNIDAZOLE-Flagyl 500mg/NS 100 ML IV SCH ×4 (00:21→23:07)
[2019-01-27] MEDS: HYDROmorphone 1 mg/ml syringe IV PRN ×2 (00:22→07:49)
[2019-01-27] MEDS: amiodarone/D5 360MG/200ML BAG 200 ML IV SCH ×2 (02:18→03:52)
[2019-01-27] MEDS: hydrocortisone sod succ/PF 100mg/2ml inj. IV SCH ×4 (02:18→20:37)
[2019-01-27] MEDS: insulin regular, human vial - multi-dose SQ SCH ×3 (02:21→14:43)
[2019-01-27 02:51] LABS: BASOPHILS % (AUTO) 0 % (0-1); EOSINOPHILS % (AUTO) 0 % (0-6); HEMATOCRIT 28.2 % (42.0-52.0); HEMOGLOBIN 9.3 g/dl (14.0-17.9); LYMPHOCYTES # (AUTO) 0.4 X10'3 (1.1-4.8); LYMPHOCYTES % (AUTO) 1.8 % (21-51); MEAN CORPUSCULAR HEMOGLOBIN 29.3 PG (27.0-31.0); MEAN CORPUSCULAR HGB CONC 33.1 g/dL (33.0-36.5); MEAN CORPUSCULAR VOLUME 88.5 FL (78-98); MEAN PLATELET VOLUME 8.8 FL (7.4-10.4); MONOCYTES # (AUTO) 0.9 X10'3 (0-0.9); NEUTROPHILS % (AUTO) 94.2 % (42-75); PLATELET COUNT 237 X10'3 (140-440); RED BLOOD COUNT 3.19 X10'6 (4.70-6.10); RED CELL DISTRIBUTION WIDTH 15.8 % (11.5-14.5); WHITE BLOOD COUNT 22.3 X10'3 (4.5-11.0)
[2019-01-27 03:02] LABS: ALANINE AMINOTRANSFERASE 22 U/L (12-78); ALBUMIN 2.2 G/DL (3.4-5.0); ALBUMIN/GLOBULIN RATIO 0.9 (1.1-1.5); ALKALINE PHOSPHATASE 58 IU/L (46-116); ANION GAP 7 (8-16); ASPARTATE AMINO TRANSFERASE 21 U/L (10-37); BILIRUBIN,TOTAL 0.5 MG/DL (0.1-1.0); BLOOD UREA NITROGEN 73 MG/DL (7-18); BUN/CREATININE RATIO 52.9 (5.4-32.0); CALCIUM 7.6 MG/DL (8.5-10.1); CHLORIDE 112 MMOL/L (99-107); CREATININE 1.38 MG/DL (0.60-1.10); GLUCOSE 172 MG/DL (70-104); MAGNESIUM 1.7 MG/DL (1.5-2.4); POTASSIUM 3.4 MMOL/L (3.5-5.1); SODIUM 142 MMOL/L (135-145); TOTAL CARBON DIOXIDE 22.7 MMOL/L (24-32); TOTAL PROTEIN 4.6 G/DL (6.4-8.2); eGFR 53 ML/MIN
[2019-01-27 03:47] LABS: ANISOCYTOSIS 1+; PLATELET ESTIMATE NORMAL; TOTAL CELLS COUNTED 100
[2019-01-27] MEDS ORDERED: Potassium Cl inj 40 MEQ in normal saline 250ml IV soln 250 ML IV ONE (03:50)
--- NOTE | 2019-01-27 06:21 | NUR ---
Problems reprioritized. Patient report given, questions answered & plan of care reviewed with MARIELENA Butcher.
[2019-01-27] MEDS: albuterol 2.5 MG/3 ML nebule NEB SCH ×4 (07:08→20:20)
[2019-01-27] MEDS: cefTAZidime inj 2 GM in normal saline 100ml IV soln 100 ML IV SCH (07:44)
[2019-01-27] MEDS: pantoprazole 40 MG vial IV SCH (07:44)
[2019-01-27] MEDS: lactobacillus rhamnosus 10,000 MMU CELLS/CAPSULE PO SCH ×2 (07:45→20:36)
[2019-01-27] MEDS: amLODIPine 5mg tablet PO SCH (07:46)
[2019-01-27] MEDS: heparin, porcine 5000 units/ml vial SQ SCH ×2 (07:47→20:37)
[2019-01-27] MEDS: Trace element-5 inj. 1 ML in AA 5%/cal/electrolyte-TPN/D15W 2,000 ML IV SCH (08:20)
[2019-01-27] MEDS: MVI, adult No.4 with vit. K 10 ML in normal saline 500ml IV soln 500 ML IV SCH ×2 (10:00)
[2019-01-27] MEDS: amiodarone 200mg tablet PO SCH ×2 (15:46→20:36)
[2019-01-27] MEDS: HYDROcodone/acetaminophen 10/325mg tab PO PRN ×2 (15:57→23:08)
[2019-01-27] MEDS: aspirin 81mg tablet.DR PO SCH (20:36)
[2019-01-27] MEDS: insulin glargine (Lantus) pen - multi-dose SQ SCH (21:00)
[2019-01-28] VITALS (14 sets, daily range): BP systolic 114–174; BP diastolic 61–94
[2019-01-28] MEDS: hydrocortisone sod succ/PF 100mg/2ml inj. IV SCH ×2 (02:31→08:03)
--- NOTE | 2019-01-28 06:35 | NUR ---
Problems reprioritized. Patient report given, questions answered & plan of care reviewed with Guadalupe PEGUERO.
[2019-01-28 07:13] LABS: BASOPHILS % (AUTO) 0.2 % (0-1); EOSINOPHILS % (AUTO) 0.1 % (0-6); HEMATOCRIT 28.6 % (42.0-52.0); HEMOGLOBIN 9.6 g/dl (14.0-17.9); LYMPHOCYTES # (AUTO) 0.7 X10'3 (1.1-4.8); LYMPHOCYTES % (AUTO) 3.2 % (21-51); MEAN CORPUSCULAR HEMOGLOBIN 29.5 PG (27.0-31.0); MEAN CORPUSCULAR HGB CONC 33.6 g/dL (33.0-36.5); MEAN CORPUSCULAR VOLUME 87.9 FL (78-98); MEAN PLATELET VOLUME 8.8 FL (7.4-10.4); MONOCYTES # (AUTO) 0.9 X10'3 (0-0.9); MONOCYTES % (AUTO) 4.2 % (2-12); NEUTROPHILS # (AUTO) 19.8 X10'3 (1.8-7.7); NEUTROPHILS % (AUTO) 92.3 % (42-75); PLATELET COUNT 256 X10'3 (140-440); RED BLOOD COUNT 3.25 X10'6 (4.70-6.10); WHITE BLOOD COUNT 21.4 X10'3 (4.5-11.0)
[2019-01-28 07:26] LABS: ANION GAP 9 (8-16); BILIRUBIN,TOTAL 0.6 MG/DL (0.1-1.0); BLOOD UREA NITROGEN 69 MG/DL (7-18); BUN/CREATININE RATIO 51.5 (5.4-32.0); CALCIUM 7.5 MG/DL (8.5-10.1); CHLORIDE 113 MMOL/L (99-107); CREATININE 1.34 MG/DL (0.60-1.10); GLUCOSE 96 MG/DL (70-104); MAGNESIUM 1.6 MG/DL (1.5-2.4); POTASSIUM 3.8 MMOL/L (3.5-5.1); SODIUM 143 MMOL/L (135-145); TOTAL CARBON DIOXIDE 21.1 MMOL/L (24-32); TOTAL PROTEIN 4.5 G/DL (6.4-8.2); eGFR 55 ML/MIN
[2019-01-28 07:27] LABS: ALANINE AMINOTRANSFERASE 23 U/L (12-78); ALBUMIN 2.1 G/DL (3.4-5.0); ALBUMIN/GLOBULIN RATIO 0.9 (1.1-1.5); ALKALINE PHOSPHATASE 63 IU/L (46-116); ASPARTATE AMINO TRANSFERASE 21 U/L (10-37)
[2019-01-28] MEDS: albuterol 2.5 MG/3 ML nebule NEB SCH ×4 (07:41→19:28)
[2019-01-28] MEDS: methylnaltrexone br 12mg/0.6ml inj***SubQ only SQ SCH (08:00)
[2019-01-28] MEDS: metroNIDAZOLE-Flagyl 500mg/NS 100 ML IV SCH ×3 (08:03→23:54)
[2019-01-28] MEDS: amiodarone 200mg tablet PO SCH ×2 (08:03→20:30)
[2019-01-28] MEDS: CefTRIAXone 2gm/D5W 50ml 50 ML IV SCH (08:03)
[2019-01-28] MEDS: lactobacillus rhamnosus 10,000 MMU CELLS/CAPSULE PO SCH ×2 (08:04→20:30)
[2019-01-28] MEDS: aspirin 81mg tablet.DR PO SCH (08:04)
[2019-01-28] MEDS: heparin, porcine 5000 units/ml vial SQ SCH ×3 (08:04→16:26)
[2019-01-28] MEDS: metoprolol tartrate 25mg tablet PO SCH ×2 (08:06→20:30)
[2019-01-28] MEDS: amLODIPine 5mg tablet PO SCH (08:27)
--- NOTE | 2019-01-28 10:04 | NUR ---
Patient in room ICU 2044. I have received report from merly perry and had the opportunity to ask questions and assume patient care.
[2019-01-28] MEDS ORDERED: bisacodyl 10mg suppository rectal RC PRN (11:05)
[2019-01-28] MEDS: MVI, adult No.4 with vit. K 10 ML in normal saline 500ml IV soln 500 ML IV SCH ×2 (11:07)
[2019-01-28] MEDS: multivitamins, therapeutics tablet PO SCH (11:38)
[2019-01-28] MEDS: potassium chloride 10mEq ER tablet PO SCH (11:39)
[2019-01-28] MEDS: HYDROchlorothiazide 12.5mg capsule PO SCH (11:39)
--- NOTE | 2019-01-28 13:30 | NUR ---
received pt into room 344a,assumed care,pt denies pain,oriented to environment
--- NOTE | 2019-01-28 16:52 | NUR ---
midline abd drsg last changed on 01/26. dressing approx 1/3 saturated with old ,marked drainage.Dressing very carefully removed with x2 retention red rubber sutures and shilpi intact island dressing replaced,dated and timed
--- NOTE | 2019-01-28 18:56 | NUR ---
Patient in room [facility]. I have received report from Georgina PEGUERO and had the opportunity to ask questions and assume patient care. Pt sitting up in bed eating dinner. No signs of distress, will continue to monitor.
[2019-01-28] MEDS ORDERED: lactobacillus rhamnosus 10,000 MMU CELLS/CAPSULE PO SCH (20:00)
[2019-01-28] MEDS: atorvastatin 10mg tablet PO SCH (20:29)
[2019-01-28] MEDS: magnesium Cl slow-release 64mg tablet PO SCH (20:29)
[2019-01-28] MEDS: docusate sod 100mg capsule PO SCH (20:30)
[2019-01-28] MEDS: HYDROcodone/acetaminophen 10/325mg tab PO PRN (20:53)
[2019-01-28] MEDS: insulin glargine (Lantus) pen - multi-dose SQ SCH (21:00)
--- NOTE | 2019-01-28 21:07 | NUR ---
Patient in room [facility]. I have received report from Georgina PEGUERO and had the opportunity to ask questions and assume patient care.
[2019-01-29] VITALS: BP 177/82
--- NOTE | 2019-01-29 06:28 | NUR ---
Problems reprioritized. Patient report given, questions answered & plan of care reviewed with Tereza PEGUERO.
[2019-01-29 06:30] VITALS: BP 124/76
--- NOTE | 2019-01-29 06:31 | NUR ---
Patient in room [facility]. I have received report from MARIELENA Max and had the opportunity to ask questions and assume patient care.
--- NOTE | 2019-01-29 06:32 | NUR ---
Problems reprioritized. Patient report given, questions answered & plan of care reviewed with Tereza PEGUERO.
--- NOTE | 2019-01-29 06:32 | NUR ---
Patient in room [facility]. I have received report from MARIELENA Max and had the opportunity to ask questions and assume patient care.
[2019-01-29] MEDS: albuterol 2.5 MG/3 ML nebule NEB SCH ×4 (07:09→19:17)
[2019-01-29] MEDS: metroNIDAZOLE-Flagyl 500mg/NS 100 ML IV SCH ×2 (07:23→16:00)
[2019-01-29] MEDS: heparin, porcine 5000 units/ml vial SQ SCH ×3 (07:24→16:05)
[2019-01-29] MEDS: lactobacillus rhamnosus 10,000 MMU CELLS/CAPSULE PO SCH ×2 (07:25→21:15)
[2019-01-29] MEDS: magnesium Cl slow-release 64mg tablet PO SCH ×2 (07:25→21:15)
[2019-01-29] MEDS: amLODIPine 5mg tablet PO SCH (07:25)
[2019-01-29] MEDS: aspirin 81mg tablet.DR PO SCH (07:25)
[2019-01-29] MEDS: sennosides 8.6mg tablet PO SCH (07:28)
[2019-01-29] MEDS: lisinopril 20mg tablet PO SCH (07:28)
[2019-01-29] MEDS: potassium chloride 10mEq ER tablet PO SCH (07:28)
[2019-01-29] MEDS: docusate sod 100mg capsule PO SCH ×2 (07:28→21:15)
[2019-01-29] MEDS: furosemide 40mg tablet PO SCH (07:29)
[2019-01-29] MEDS: pantoprazole 40mg Tablet.DR PO SCH (07:29)
[2019-01-29] MEDS: amiodarone 200mg tablet PO SCH ×2 (07:29→21:14)
[2019-01-29] MEDS: HYDROchlorothiazide 12.5mg capsule PO SCH (07:29)
[2019-01-29] MEDS: metoprolol tartrate 25mg tablet PO SCH ×2 (07:29→21:13)
[2019-01-29] MEDS: tamsulosin 0.4mg capsule PO SCH (07:29)
[2019-01-29] MEDS: multivitamins, therapeutics tablet PO SCH (07:29)
[2019-01-29] MEDS ORDERED: non-formulary drug (Amlodipine Besylate 1 TABLET) PO SCH (08:00)
[2019-01-29] MEDS ORDERED: ASPIRIN PO SCH (08:00)
[2019-01-29] MEDS: CefTRIAXone 2gm/D5W 50ml 50 ML IV SCH (09:01)
[2019-01-29] MEDS: MVI, adult No.4 with vit. K 10 ML in normal saline 500ml IV soln 500 ML IV SCH ×2 (09:47)
[2019-01-29 11:00] VITALS: BP 143/75
--- NOTE | 2019-01-29 16:02 | NUR ---
Reassessment: Patient no longer has TPN. His diet is advanced to regular. Eating about 50-75% of meals. Patient and his seen at bedside, pt endorses that his appetite is fair and was able to eat a good breakfast but had no appetite for lunch. Encouraged to eat protein first. Provided written colostomy education handout with verbal review, discussed foods that cause blockage, odor, discoloration of stools, increase output, and foods that decrease output. Given RD contact information. Will continue to follow. . Addendum: 01/29/19 at [address] Amended: Links added.
--- NOTE | 2019-01-29 18:11 | NUR ---
Student documentation: I have reviewed and agree with all interventions, assessments performed and documented by Bronwyn Hensley.
--- NOTE | 2019-01-29 18:43 | NUR ---
Problems reprioritized. Patient report given, questions answered & plan of care reviewed with MARIELENA Clark.
--- NOTE | 2019-01-29 18:57 | NUR ---
Patient in room [facility]. I have received report from MARIELENA Starks and had the opportunity to ask questions and assume patient care.
[2019-01-29 20:00] VITALS: BP 131/68
[2019-01-29] MEDS: insulin glargine (Lantus) pen - multi-dose SQ SCH (21:00)
[2019-01-29] MEDS: atorvastatin 10mg tablet PO SCH (21:14)
[2019-01-29] MEDS: HYDROcodone/acetaminophen 10/325mg tab PO PRN (23:36)
--- NOTE | 2019-01-29 23:55 | NUR ---
FC BAG REPLACED BECAUSE IT WAS LEAKING FROM COLLECTION DEVICE
[2019-01-30] VITALS: BP 157/74
[2019-01-30] MEDS: metroNIDAZOLE-Flagyl 500mg/NS 100 ML IV SCH ×3 (01:05→16:25)
[2019-01-30] MEDS: heparin, porcine 5000 units/ml vial SQ SCH ×3 (01:06→16:25)
[2019-01-30 04:48] LABS: BASOPHILS % (AUTO) 0.2 % (0-1); EOSINOPHILS # (AUTO) 0.2 X10'3 (0-0.9); EOSINOPHILS % (AUTO) 1.2 % (0-6); HEMATOCRIT 28.3 % (42.0-52.0); HEMOGLOBIN 9.5 g/dl (14.0-17.9); LYMPHOCYTES # (AUTO) 0.7 X10'3 (1.1-4.8); LYMPHOCYTES % (AUTO) 4.7 % (21-51); MEAN CORPUSCULAR HEMOGLOBIN 29.6 PG (27.0-31.0); MEAN CORPUSCULAR HGB CONC 33.5 g/dL (33.0-36.5); MEAN CORPUSCULAR VOLUME 88.3 FL (78-98); MONOCYTES # (AUTO) 0.8 X10'3 (0-0.9); MONOCYTES % (AUTO) 4.9 % (2-12); NEUTROPHILS # (AUTO) 14.2 X10'3 (1.8-7.7); PLATELET COUNT 263 X10'3 (140-440)
[2019-01-30 05:10] LABS: ALANINE AMINOTRANSFERASE 24 U/L (12-78); ALBUMIN/GLOBULIN RATIO 0.9 (1.1-1.5); ALKALINE PHOSPHATASE 66 IU/L (46-116); ANION GAP 8 (8-16); ASPARTATE AMINO TRANSFERASE 22 U/L (10-37); BILIRUBIN,TOTAL 0.6 MG/DL (0.1-1.0); BLOOD UREA NITROGEN 55 MG/DL (7-18); BUN/CREATININE RATIO 39.3 (5.4-32.0); CALCIUM 7.5 MG/DL (8.5-10.1); CHLORIDE 112 MMOL/L (99-107); GLUCOSE 107 MG/DL (70-104); POTASSIUM 3.1 MMOL/L (3.5-5.1); SODIUM 142 MMOL/L (135-145); TOTAL CARBON DIOXIDE 22.2 MMOL/L (24-32); TOTAL PROTEIN 4.2 G/DL (6.4-8.2); eGFR 52 ML/MIN
--- NOTE | 2019-01-30 06:33 | NUR ---
Problems reprioritized. Patient report given, questions answered & plan of care reviewed with MARIELENA Starks.
--- NOTE | 2019-01-30 06:35 | NUR ---
Patient in room [facility]. I have received report from MARIELENA Clark and had the opportunity to ask questions and assume patient care.
[2019-01-30] MEDS: albuterol 2.5 MG/3 ML nebule NEB SCH ×4 (07:00→18:39)
--- NOTE | 2019-01-30 07:02 | NUR ---
Patient in room [facility]. I have received report from MARIELENA Clark and had the opportunity to ask questions and assume patient care.
[2019-01-30] MEDS: aspirin 81mg tablet.DR PO SCH (07:56)
[2019-01-30] MEDS: docusate sod 100mg capsule PO SCH ×2 (07:56→20:05)
[2019-01-30] MEDS: sennosides 8.6mg tablet PO SCH (07:56)
[2019-01-30] MEDS: amLODIPine 5mg tablet PO SCH (07:56)
[2019-01-30] MEDS: metoprolol tartrate 25mg tablet PO SCH (07:57)
[2019-01-30] MEDS: lactobacillus rhamnosus 10,000 MMU CELLS/CAPSULE PO SCH ×2 (07:57→20:05)
[2019-01-30] MEDS: pantoprazole 40mg Tablet.DR PO SCH (07:57)
[2019-01-30] MEDS: magnesium Cl slow-release 64mg tablet PO SCH ×2 (07:57→20:05)
[2019-01-30] MEDS: furosemide 40mg tablet PO SCH (07:57)
[2019-01-30] MEDS: potassium chloride 10mEq ER tablet PO SCH (07:57)
[2019-01-30] MEDS: tamsulosin 0.4mg capsule PO SCH (07:58)
[2019-01-30] MEDS: lisinopril 20mg tablet PO SCH (07:58)
[2019-01-30] MEDS: amiodarone 200mg tablet PO SCH ×2 (07:58→20:05)
[2019-01-30] MEDS: HYDROchlorothiazide 12.5mg capsule PO SCH (07:58)
[2019-01-30] MEDS: multivitamins, therapeutics tablet PO SCH (07:58)
[2019-01-30] MEDS: CefTRIAXone 2gm/D5W 50ml 50 ML IV SCH (07:59)
[2019-01-30] MEDS: methylnaltrexone br 12mg/0.6ml inj***SubQ only SQ SCH (07:59)
[2019-01-30 08:00] VITALS: BP 124/68
[2019-01-30 11:00] VITALS: BP 129/68
--- NOTE | 2019-01-30 11:29 | NUR ---
Smart catheter D/Lino per MD order. 8mL NS withdrawn from interior balloon. Catheter removed intact and without incidence. Pt tolerated well.
--- NOTE | 2019-01-30 13:51 | NUR ---
Dr. Freitas rounded, family at bedside. stated pt is ok to go to rehab and to f/u w/ him in his office after discharge from rehab. Pt and family verbalized understanding.
[2019-01-30 14:12] VITALS: BP_SYST 100; BP_SYST 102; BP_SYST 95; BP_DIAS 41; BP_DIAS 51; BP_DIAS 52
[2019-01-30] MEDS ORDERED: normal saline 1000ml 1,000 ML IV ONE (14:40)
[2019-01-30] MEDS ORDERED: magnesium 4gm in 100ml NS 100 ML IV PRN (14:40)
[2019-01-30] MEDS ORDERED: magnesium Cl slow-release 64mg tablet PO PRN (14:40)
[2019-01-30] MEDS ORDERED: potassium CL 10mEq/100ml bag 100 ML IV PRN (14:40)
--- NOTE | 2019-01-30 14:55 | NUR ---
Dr. Castillo notified of patient BP of 95/41. Order for a 1L bolus of NS given.
[2019-01-30] MEDS: potassium Cl 20 mEq SR tablet PO PRN (14:59)
--- NOTE | 2019-01-30 15:37 | NUR ---
Problems reprioritized. Patient report given, questions answered & plan of care reviewed with MARIELENA Noyola.
[2019-01-30 16:30] VITALS: BP 128/67
--- NOTE | 2019-01-30 17:02 | NUR ---
AGREE WITH PHYSICAL ASSESSMENT DONE IN AM Addendum: 01/30/19 at 1703 by Jacey Pate RN Amended: Links added.
[2019-01-30 18:00] VITALS: BP 135/72
--- NOTE | 2019-01-30 18:23 | NUR ---
Problems reprioritized. Patient report given, questions answered & plan of care reviewed with PEDRO Graham RN.
--- NOTE | 2019-01-30 18:31 | NUR ---
Patient in room [facility]. I have received report from MARIELENA Noyola and had the opportunity to ask questions and assume patient care.
[2019-01-30] MEDS: atorvastatin 10mg tablet PO SCH (20:59)
[2019-01-30] MEDS: insulin glargine (Lantus) pen - multi-dose SQ SCH (21:00)
[2019-01-31] VITALS: BP 142/81
[2019-01-31] MEDS: heparin, porcine 5000 units/ml vial SQ SCH ×3 (00:37→17:08)
[2019-01-31] MEDS: metroNIDAZOLE-Flagyl 500mg/NS 100 ML IV SCH ×2 (00:37→09:39)
[2019-01-31] MEDS: HYDROcodone/acetaminophen 10/325mg tab PO PRN ×2 (01:15→13:16)
[2019-01-31] MEDS: potassium Cl 20 mEq SR tablet PO PRN ×4 (01:16→17:07)
--- NOTE | 2019-01-31 06:33 | NUR ---
Problems reprioritized. Patient report given, questions answered & plan of care reviewed with MARIELENA Slaughter's. Addendum: 01/31/19 at 0606 by Yuliya Dunham RN Amended: Links added.
[2019-01-31 07:00] VITALS: BP 121/77
[2019-01-31] MEDS: albuterol 2.5 MG/3 ML nebule NEB SCH ×4 (08:01→19:15)
[2019-01-31 09:00] VITALS: BP_SYST 117; BP_DIAS 52; BP_DIAS 63
[2019-01-31] MEDS: lactobacillus rhamnosus 10,000 MMU CELLS/CAPSULE PO SCH ×2 (09:39→20:25)
[2019-01-31] MEDS: docusate sod 100mg capsule PO SCH ×2 (09:39→20:25)
[2019-01-31] MEDS: tamsulosin 0.4mg capsule PO SCH (09:43)
[2019-01-31] MEDS: amiodarone 200mg tablet PO SCH ×2 (09:43→20:25)
[2019-01-31] MEDS: potassium chloride 10mEq ER tablet PO SCH (09:43)
[2019-01-31] MEDS: sennosides 8.6mg tablet PO SCH (09:43)
[2019-01-31] MEDS: magnesium Cl slow-release 64mg tablet PO SCH ×2 (09:43→20:25)
[2019-01-31] MEDS: pantoprazole 40mg Tablet.DR PO SCH (09:44)
[2019-01-31] MEDS: lisinopril 20mg tablet PO SCH (09:44)
[2019-01-31] MEDS: multivitamins, therapeutics tablet PO SCH (09:44)
[2019-01-31] MEDS: aspirin 81mg tablet.DR PO SCH (09:46)
[2019-01-31 11:00] VITALS: BP 117/63
[2019-01-31] MEDS: CefTRIAXone 2gm/D5W 50ml 50 ML IV SCH (11:15)
--- NOTE | 2019-01-31 12:36 | NUR ---
Reassessment: [place] resolving per MD notes. Pt continues on regular diet documented with 75-100% PO intake meeting nutrient needs. LBM 01/31 documented with 750 mL stool output yesterday per I&O which is appropriate for a new colostomy. No further nutrition intervention at this time. Will continue to follow. Recommendations: 1) continue regular diet 2) encourage PO intake 3) Routine bowel care 4) Weight per rx Addendum: 01/31/19 at [address] Amended: Links added.
[2019-01-31] MEDS: metroNIDAZOLE 500mg tablet PO SCH (17:05)
[2019-01-31 18:00] VITALS: BP 126/53
--- NOTE | 2019-01-31 18:25 | NUR ---
Patient in room [facility]. I have received report from MARIELENA VASQUEZ and had the opportunity to ask questions and assume patient care.
--- NOTE | 2019-01-31 18:25 | NUR ---
Patient in room [facility]. I have received report from MARIELENA Slaughter's and had the opportunity to ask questions and assume patient care. Addendum: 01/31/19 at 1826 by Yuliya Dunham RN Amended: Links added.
[2019-01-31 20:00] VITALS: BP 150/69
[2019-01-31] MEDS: atorvastatin 10mg tablet PO SCH (20:25)
[2019-01-31] MEDS: insulin glargine (Lantus) pen - multi-dose SQ SCH (21:00)
[2019-02-01] VITALS (7 sets, daily range): BP systolic 109–150; BP diastolic 55–76
[2019-02-01] MEDS: metroNIDAZOLE 500mg tablet PO SCH ×3 (00:19→16:31)
[2019-02-01] MEDS: HYDROcodone/acetaminophen 10/325mg tab PO PRN ×2 (00:19→11:41)
[2019-02-01] MEDS: heparin, porcine 5000 units/ml vial SQ SCH ×3 (00:19→16:32)
[2019-02-01] MEDS: potassium Cl 20 mEq SR tablet PO PRN (01:08)
--- NOTE | 2019-02-01 01:42 | NUR ---
pt refused sitting and standing VS Addendum: 02/01/19 at 0142 by Yuliya Dunham RN Amended: Links added.
[2019-02-01 05:40] LABS: MAGNESIUM 1.5 MG/DL (1.5-2.4); POTASSIUM 3.8 MMOL/L (3.5-5.1)
--- NOTE | 2019-02-01 06:28 | NUR ---
Patient in room [facility]. I have received report from Miryam Helton RN and had the opportunity to ask questions and assume patient care.
--- NOTE | 2019-02-01 06:29 | NUR ---
Problems reprioritized. Patient report given, questions answered & plan of care reviewed with MARIELENA Rodrigues.
[2019-02-01] MEDS: albuterol 2.5 MG/3 ML nebule NEB SCH ×4 (07:00→20:31)
--- NOTE | 2019-02-01 07:35 | NUR ---
checked daily BS at 0730 75
[2019-02-01] MEDS: aspirin 81mg tablet.DR PO SCH (08:22)
[2019-02-01] MEDS: CefTRIAXone 2gm/D5W 50ml 50 ML IV SCH (08:22)
[2019-02-01] MEDS: docusate sod 100mg capsule PO SCH ×2 (08:23→19:55)
[2019-02-01] MEDS: multivitamins, therapeutics tablet PO SCH (08:23)
[2019-02-01] MEDS: potassium chloride 10mEq ER tablet PO SCH (08:23)
[2019-02-01] MEDS: pantoprazole 40mg Tablet.DR PO SCH (08:23)
[2019-02-01] MEDS: tamsulosin 0.4mg capsule PO SCH (08:24)
[2019-02-01] MEDS: sennosides 8.6mg tablet PO SCH (08:24)
[2019-02-01] MEDS: lisinopril 20mg tablet PO SCH (08:24)
[2019-02-01] MEDS: lactobacillus rhamnosus 10,000 MMU CELLS/CAPSULE PO SCH ×2 (08:25→19:55)
[2019-02-01] MEDS: amiodarone 200mg tablet PO SCH ×2 (08:25→19:55)
[2019-02-01] MEDS: magnesium Cl slow-release 64mg tablet PO SCH ×2 (08:28→19:55)
[2019-02-01] MEDS: methylnaltrexone br 12mg/0.6ml inj***SubQ only SQ SCH (08:28)
[2019-02-01 10:07] LABS: BASOPHILS % (AUTO) 0.4 % (0-1); EOSINOPHILS # (AUTO) 0.4 X10'3 (0-0.9); HEMATOCRIT 26.2 % (42.0-52.0); HEMOGLOBIN 8.7 g/dl (14.0-17.9); LYMPHOCYTES # (AUTO) 1.1 X10'3 (1.1-4.8); LYMPHOCYTES % (AUTO) 9.3 % (21-51); MEAN CORPUSCULAR HEMOGLOBIN 29.8 PG (27.0-31.0); MEAN CORPUSCULAR HGB CONC 33.2 g/dL (33.0-36.5); MEAN CORPUSCULAR VOLUME 89.5 FL (78-98); MEAN PLATELET VOLUME 9.8 FL (7.4-10.4); MONOCYTES # (AUTO) 0.8 X10'3 (0-0.9); NEUTROPHILS # (AUTO) 9.5 X10'3 (1.8-7.7); NEUTROPHILS % (AUTO) 80.3 % (42-75); PLATELET COUNT 258 X10'3 (140-440); RED BLOOD COUNT 2.93 X10'6 (4.70-6.10); RED CELL DISTRIBUTION WIDTH 16.3 % (11.5-14.5); WHITE BLOOD COUNT 11.9 X10'3 (4.5-11.0)
[2019-02-01 10:12] LABS: ANION GAP 8 (8-16); CHLORIDE 112 MMOL/L (99-107); GLUCOSE 91 MG/DL (70-104); SODIUM 143 MMOL/L (135-145); TOTAL CARBON DIOXIDE 23.1 MMOL/L (24-32)
[2019-02-01 10:13] LABS: ALBUMIN 1.9 G/DL (3.4-5.0); BLOOD UREA NITROGEN 43 MG/DL (7-18); BUN/CREATININE RATIO 29.5 (5.4-32.0); CALCIUM 7.4 MG/DL (8.5-10.1); CREATININE 1.46 MG/DL (0.60-1.10); eGFR 50 ML/MIN
[2019-02-01 10:27] LABS: TOTAL CELLS COUNTED 100
[2019-02-01 10:29] LABS: PLATELET ESTIMATE NORMAL
--- NOTE | 2019-02-01 13:24 | NUR ---
Dressing on the midabdomen opened to assess. Charge nurse Argenis and myself looked at the wound. Midabdomen wound stapled and 2 retention sutures noted. I was advised by charge nurse to have Dr. Lynn look at the wound or confirm he really wanted the shilpi out. Charge nurse Argenis said she called OR spoke to Caitie to have Dr. Lynn call us back
--- NOTE | 2019-02-01 15:58 | NUR ---
When Dr. Lynn came back to the unit, I told him that the surgical wound has retention sutures. I asked him if he really wants us to to take the shilpi out, Dr. Lynn told me not to take the shilpi out at this time.
--- NOTE | 2019-02-01 16:04 | NUR ---
Pt c/o SCD machine not pumping well on RLE. New SCD pump applied.
--- NOTE | 2019-02-01 18:48 | NUR ---
Problems reprioritized. Patient report given, questions answered & plan of care reviewed with Miryam Helton RN.
--- NOTE | 2019-02-01 19:09 | NUR ---
Patient in room [facility]. I have received report from MARIELENA JOHNSON and had the opportunity to ask questions and assume patient care. Addendum: 02/01/19 at 1910 by Yuliya Dunham RN Amended: Links added.
[2019-02-01] MEDS: insulin glargine (Lantus) pen - multi-dose SQ SCH (21:00)
[2019-02-01] MEDS: atorvastatin 10mg tablet PO SCH (21:36)
[2019-02-02] VITALS (10 sets, daily range): BP systolic 107–138; BP diastolic 48–76
[2019-02-02] MEDS: metroNIDAZOLE 500mg tablet PO SCH ×3 (00:03→16:14)
[2019-02-02] MEDS: heparin, porcine 5000 units/ml vial SQ SCH ×3 (00:04→16:14)
[2019-02-02] MEDS: HYDROcodone/acetaminophen 10/325mg tab PO PRN (03:51)
[2019-02-02 05:28] LABS: BASOPHILS # (AUTO) 0.1 X10'3 (0-0.2); BASOPHILS % (AUTO) 0.7 % (0-1); EOSINOPHILS # (AUTO) 0.5 X10'3 (0-0.9); EOSINOPHILS % (AUTO) 4.3 % (0-6); HEMATOCRIT 25.8 % (42.0-52.0); HEMOGLOBIN 8.7 g/dl (14.0-17.9); LYMPHOCYTES # (AUTO) 0.9 X10'3 (1.1-4.8); LYMPHOCYTES % (AUTO) 8.2 % (21-51); MEAN CORPUSCULAR HEMOGLOBIN 30.3 PG (27.0-31.0); MEAN CORPUSCULAR HGB CONC 33.9 g/dL (33.0-36.5); MEAN CORPUSCULAR VOLUME 89.4 FL (78-98); MEAN PLATELET VOLUME 9.1 FL (7.4-10.4); MONOCYTES # (AUTO) 0.8 X10'3 (0-0.9); NEUTROPHILS # (AUTO) 8.3 X10'3 (1.8-7.7); NEUTROPHILS % (AUTO) 78.8 % (42-75); PLATELET COUNT 269 X10'3 (140-440); RED BLOOD COUNT 2.89 X10'6 (4.70-6.10); RED CELL DISTRIBUTION WIDTH 16.5 % (11.5-14.5); WHITE BLOOD COUNT 10.6 X10'3 (4.5-11.0)
[2019-02-02 05:58] LABS: ANION GAP 7 (8-16); BLOOD UREA NITROGEN 38 MG/DL (7-18); BUN/CREATININE RATIO 26.8 (5.4-32.0); CALCIUM 7.2 MG/DL (8.5-10.1); CHLORIDE 110 MMOL/L (99-107); CREATININE 1.42 MG/DL (0.60-1.10); GLUCOSE 91 MG/DL (70-104); MAGNESIUM 1.4 MG/DL (1.5-2.4); PHOSPHORUS 2.2 MG/DL (2.3-4.5); SODIUM 140 MMOL/L (135-145); TOTAL CARBON DIOXIDE 23.4 MMOL/L (24-32); eGFR 51 ML/MIN
--- NOTE | 2019-02-02 06:25 | NUR ---
Problems reprioritized. Patient report given, questions answered & plan of care reviewed with MARIELENA Mcelroy.
--- NOTE | 2019-02-02 06:32 | NUR ---
Patient in room [facility]. I have received report from Miryam Helton RN and had the opportunity to ask questions and assume patient care.
[2019-02-02] MEDS: albuterol 2.5 MG/3 ML nebule NEB SCH ×4 (07:05→19:43)
[2019-02-02] MEDS: docusate sod 100mg capsule PO SCH ×2 (07:50→20:16)
[2019-02-02] MEDS: sennosides 8.6mg tablet PO SCH (07:50)
[2019-02-02] MEDS: magnesium Cl slow-release 64mg tablet PO SCH ×2 (07:50→20:14)
[2019-02-02] MEDS: tamsulosin 0.4mg capsule PO SCH (07:50)
[2019-02-02] MEDS: pantoprazole 40mg Tablet.DR PO SCH (07:50)
[2019-02-02] MEDS: multivitamins, therapeutics tablet PO SCH (07:50)
[2019-02-02] MEDS: lactobacillus rhamnosus 10,000 MMU CELLS/CAPSULE PO SCH ×2 (07:50→20:15)
[2019-02-02] MEDS: potassium chloride 10mEq ER tablet PO SCH (07:51)
[2019-02-02] MEDS: amiodarone 200mg tablet PO SCH ×2 (07:51→20:15)
[2019-02-02] MEDS: CefTRIAXone 2gm/D5W 50ml 50 ML IV SCH (07:51)
[2019-02-02] MEDS: aspirin 81mg tablet.DR PO SCH (07:51)
[2019-02-02] MEDS ORDERED: lisinopril 20mg tablet PO SCH (08:00)
[2019-02-02] MEDS ORDERED: furosemide 40mg/4ml inj IV ONE (09:40)
--- NOTE | 2019-02-02 11:30 | NUR ---
Grazyna Penny POLYETHYLENE COMBINER seen patient, I notified her about positive orthostatic BP (i.e., BP dropped >20mmHg). Patient sitting on the bed, PT at bedside. Patient stated he is feeling lightheaded and legs are heavy. Grazyna talking to the PT at the moment about reassessing patient's ability to tolerate getting up.
[2019-02-02] MEDS ORDERED: metoprolol succinate 25mg (24-HOUR) SR. Tablet PO SCH (13:00)
--- NOTE | 2019-02-02 18:20 | NUR ---
Problems reprioritized. Patient report given, questions answered & plan of care reviewed with Pravin PEGUERO.
--- NOTE | 2019-02-02 18:37 | NUR ---
Patient in room [facility]. I have received report from YolaRN and MARIELENA Mcelroy and had the opportunity to ask questions and assume patient care.
--- NOTE | 2019-02-02 19:00 | NUR ---
Per Catrachito Puckett NP, NOC will not be replacing MAG/PHOS per protocol. Patient will continue scheduled medication of 128 mg Magnesium per provider order. Will continue to monitor labs closely.
[2019-02-02] MEDS: lisinopril 5mg tablet PO SCH (20:16)
[2019-02-02] MEDS: atorvastatin 10mg tablet PO SCH (20:17)
[2019-02-02] MEDS: insulin glargine (Lantus) pen - multi-dose SQ SCH (21:00)
[2019-02-03] MEDS: metroNIDAZOLE 500mg tablet PO SCH ×2 (00:11→07:45)
[2019-02-03] MEDS: HYDROcodone/acetaminophen 10/325mg tab PO PRN ×2 (00:11→23:45)
[2019-02-03] MEDS: heparin, porcine 5000 units/ml vial SQ SCH ×4 (00:12→23:44)
--- NOTE | 2019-02-03 03:14 | NUR ---
Patient refused orthostatic VS. Educated patient on importance of performing said orthostatics q12hr. Patient agreed to comply in AM.
[2019-02-03 05:20] LABS: BASOPHILS # (AUTO) 0.1 X10'3 (0-0.2); BASOPHILS % (AUTO) 1.1 % (0-1); EOSINOPHILS # (AUTO) 0.5 X10'3 (0-0.9); EOSINOPHILS % (AUTO) 5.9 % (0-6); HEMATOCRIT 25.4 % (42.0-52.0); HEMOGLOBIN 8.7 g/dl (14.0-17.9); LYMPHOCYTES % (AUTO) 10.8 % (21-51); MEAN CORPUSCULAR HEMOGLOBIN 30.5 PG (27.0-31.0); MEAN CORPUSCULAR HGB CONC 34.4 g/dL (33.0-36.5); MEAN CORPUSCULAR VOLUME 88.6 FL (78-98); MEAN PLATELET VOLUME 9.3 FL (7.4-10.4); MONOCYTES # (AUTO) 0.6 X10'3 (0-0.9); MONOCYTES % (AUTO) 6.4 % (2-12); NEUTROPHILS # (AUTO) 6.8 X10'3 (1.8-7.7); NEUTROPHILS % (AUTO) 75.8 % (42-75); PLATELET COUNT 258 X10'3 (140-440); RED BLOOD COUNT 2.86 X10'6 (4.70-6.10); RED CELL DISTRIBUTION WIDTH 16.6 % (11.5-14.5)
[2019-02-03 05:49] LABS: ANION GAP 9 (8-16); BLOOD UREA NITROGEN 34 MG/DL (7-18); CALCIUM 7.6 MG/DL (8.5-10.1); CHLORIDE 109 MMOL/L (99-107); CREATININE 1.48 MG/DL (0.60-1.10); GLUCOSE 90 MG/DL (70-104); MAGNESIUM 1.5 MG/DL (1.5-2.4); POTASSIUM 3.9 MMOL/L (3.5-5.1); SODIUM 142 MMOL/L (135-145); TOTAL CARBON DIOXIDE 23.8 MMOL/L (24-32); eGFR 49 ML/MIN
--- NOTE | 2019-02-03 06:08 | NUR ---
Problems reprioritized. Patient report given, questions answered & plan of care reviewed with MARIELENA Roberts and MARIELENA Dodd.
[2019-02-03] MEDS: albuterol 2.5 MG/3 ML nebule NEB SCH ×4 (07:30→20:06)
[2019-02-03] MEDS: pantoprazole 40mg Tablet.DR PO SCH (07:44)
[2019-02-03] MEDS: amiodarone 200mg tablet PO SCH ×2 (07:45→20:05)
[2019-02-03] MEDS: sennosides 8.6mg tablet PO SCH (07:45)
[2019-02-03] MEDS: multivitamins, therapeutics tablet PO SCH (07:45)
[2019-02-03] MEDS: lactobacillus rhamnosus 10,000 MMU CELLS/CAPSULE PO SCH ×2 (07:46→20:04)
[2019-02-03] MEDS: lisinopril 5mg tablet PO SCH (07:46)
[2019-02-03] MEDS: tamsulosin 0.4mg capsule PO SCH (07:46)
[2019-02-03] MEDS: docusate sod 100mg capsule PO SCH ×2 (07:46→20:05)
[2019-02-03] MEDS: aspirin 81mg tablet.DR PO SCH (07:47)
[2019-02-03] MEDS: CefTRIAXone 2gm/D5W 50ml 50 ML IV SCH (07:48)
[2019-02-03] MEDS: methylnaltrexone br 12mg/0.6ml inj***SubQ only SQ SCH (07:49)
[2019-02-03 08:00] VITALS: BP 124/59
--- NOTE | 2019-02-03 11:10 | NUR ---
Student documentation: I have reviewed and agree with all interventions, assessments performed and documented by Kourtney BOO from [facility]. Student Medication Administration: For this medication-pass time frame, all medication were reviewed, dispensed, administered and documented per hospital policy by Kourtney BOO from [facility].
[2019-02-03] MEDS: potassium chloride 10mEq ER tablet PO SCH ×3 (12:06→20:05)
[2019-02-03] MEDS: magnesium Cl slow-release 64mg tablet PO SCH ×2 (12:06→20:05)
[2019-02-03] MEDS: metoprolol tartrate 12.5mg (1/2 tablet) PO SCH (13:23)
--- NOTE | 2019-02-03 17:09 | NUR ---
Orthostatics documentation under PT notes Addendum: 02/03/19 at 1710 by Ju Geller RN Amended: Links added.
--- NOTE | 2019-02-03 18:39 | NUR ---
Patient in room [facility]. I have received report from MARIELENA Roberts and had the opportunity to ask questions and assume patient care. Addendum: 02/03/19 at 1841 by Tiffany Messer RN Amended: Links added.
[2019-02-03 19:40] VITALS: BP 119/64
[2019-02-03] MEDS: atorvastatin 10mg tablet PO SCH (20:04)
[2019-02-03] MEDS: furosemide 40mg tablet PO SCH (20:05)
--- NOTE | 2019-02-03 20:17 | NUR ---
Dr. Lynn rounded on pt. No new order received.
[2019-02-03] MEDS: insulin glargine (Lantus) pen - multi-dose SQ SCH (21:00)
[2019-02-03 23:52] VITALS: BP 126/77
[2019-02-04 04:31] LABS: BASOPHILS # (AUTO) 0.1 X10'3 (0-0.2); BASOPHILS % (AUTO) 0.9 % (0-1); EOSINOPHILS # (AUTO) 0.5 X10'3 (0-0.9); EOSINOPHILS % (AUTO) 5.5 % (0-6); HEMATOCRIT 28.4 % (42.0-52.0); HEMOGLOBIN 9.5 g/dl (14.0-17.9); LYMPHOCYTES # (AUTO) 1.1 X10'3 (1.1-4.8); LYMPHOCYTES % (AUTO) 11.8 % (21-51); MEAN CORPUSCULAR HEMOGLOBIN 29.9 PG (27.0-31.0); MEAN CORPUSCULAR HGB CONC 33.3 g/dL (33.0-36.5); MEAN CORPUSCULAR VOLUME 89.9 FL (78-98); MEAN PLATELET VOLUME 8.8 FL (7.4-10.4); MONOCYTES # (AUTO) 0.7 X10'3 (0-0.9); MONOCYTES % (AUTO) 7.5 % (2-12); NEUTROPHILS # (AUTO) 6.6 X10'3 (1.8-7.7); NEUTROPHILS % (AUTO) 74.3 % (42-75); PLATELET COUNT 244 X10'3 (140-440); RED BLOOD COUNT 3.17 X10'6 (4.70-6.10); RED CELL DISTRIBUTION WIDTH 16.8 % (11.5-14.5); WHITE BLOOD COUNT 8.9 X10'3 (4.5-11.0)
[2019-02-04 04:48] LABS: ALBUMIN 2.1 G/DL (3.4-5.0); ANION GAP 8 (8-16); BLOOD UREA NITROGEN 31 MG/DL (7-18); BUN/CREATININE RATIO 20.1 (5.4-32.0); CALCIUM 7.8 MG/DL (8.5-10.1); CHLORIDE 108 MMOL/L (99-107); CREATININE 1.54 MG/DL (0.60-1.10); GLUCOSE 92 MG/DL (70-104); MAGNESIUM 1.4 MG/DL (1.5-2.4); SODIUM 140 MMOL/L (135-145); TOTAL CARBON DIOXIDE 24.2 MMOL/L (24-32); eGFR 47 ML/MIN
[2019-02-04 07:00] VITALS: BP 114/66
[2019-02-04] MEDS: albuterol 2.5 MG/3 ML nebule NEB SCH ×2 (07:00→11:00)
[2019-02-04] MEDS: metoprolol tartrate 12.5mg (1/2 tablet) PO SCH (07:22)
[2019-02-04] MEDS: sennosides 8.6mg tablet PO SCH (07:22)
[2019-02-04] MEDS: magnesium Cl slow-release 64mg tablet PO SCH (07:23)
[2019-02-04] MEDS: amiodarone 200mg tablet PO SCH (07:23)
[2019-02-04] MEDS: potassium chloride 10mEq ER tablet PO SCH (07:23)
[2019-02-04] MEDS: lactobacillus rhamnosus 10,000 MMU CELLS/CAPSULE PO SCH (07:24)
[2019-02-04] MEDS: heparin, porcine 5000 units/ml vial SQ SCH (07:24)
[2019-02-04] MEDS: docusate sod 100mg capsule PO SCH (07:24)
[2019-02-04] MEDS: multivitamins, therapeutics tablet PO SCH (07:24)
[2019-02-04] MEDS: pantoprazole 40mg Tablet.DR PO SCH (07:25)
[2019-02-04] MEDS: tamsulosin 0.4mg capsule PO SCH (07:25)
[2019-02-04] MEDS: furosemide 40mg tablet PO SCH (07:25)
[2019-02-04] MEDS: aspirin 81mg tablet.DR PO SCH (07:25)
--- NOTE | 2019-02-04 08:55 | NUR ---
Reassessment: Pt continues on regular diet with 75-100% PO intake meeting nutrient needs. LBM 02/03 with 350 mL stool output per I&O. WOC following for wound care. No nutrition intervention warranted at this time. Will continue to follow. Recommendations: 1) continue regular diet 2) encourage PO intake 3) Routine bowel care 4) Weight per rx Addendum: 02/04/19 at [address] Amended: Links added.
[2019-02-04] MEDS: HYDROcodone/acetaminophen 10/325mg tab PO PRN (10:34)
--- NOTE | 2019-02-04 10:50 | NUR ---
Julia with wound care will bring up ostomy supplies so that we can send with patient to [facility].
[2019-02-04] MEDS ORDERED: MAGN64TA10 PO (10:57)
[2019-02-04] MEDS ORDERED: LANTUS SQ (10:57)
[2019-02-04] MEDS ORDERED: HYDR-4353 PO (10:57)
[2019-02-04] MEDS ORDERED: IPRA3AMP9 NEB (10:57)
[2019-02-04] MEDS ORDERED: POTA10TA19 PO (10:57)
[2019-02-04] MEDS ORDERED: INSU100V30 SQ (10:57)
[2019-02-04] MEDS ORDERED: HEPA500017 SQ (10:57)
[2019-02-04] MEDS ORDERED: FURO40TA4 PO (10:57)
[2019-02-04] MEDS ORDERED: AMIO200T61 PO (10:57)
[2019-02-04] MEDS ORDERED: METO25TA6 PO (10:57)
[2019-02-04] MEDS ORDERED: ALBU2.5V7 NEB (10:57)
[2019-02-04 11:00] VITALS: BP 129/78
--- NOTE | 2019-02-04 11:45 | NUR ---
Saccral wound documented, has been present for approximately one month per patient and spouse.
--- NOTE | 2019-02-04 12:54 | NUR ---
report to [facility] given to Susu SAMPSON at 1245, and given the opportunity to ask questions regarding the transfer of care.
--- NOTE | 2019-02-04 12:56 | NUR ---
Patient IV removed, patient transferred via [facility] via wheel chair to [facility]. IV dc'd cannula intact. Patient alert and oriented, patient at bedside, patient states has all his belongings.
== END 2019-02-04 12:47 | DRG 710 ==
LOC: ER 15:43 → ICU 2S 01-19 00:31 → SUR 3N 01-28 13:20
PROVIDERS: ADMIT Internal Medicine Critical Care Medicine; ATTEND Internal Medicine Critical Care Medicine
PROC: 0DBL0ZZ Excision of Transverse Colon, Open Approach (ICD-10-PCS; 2019-01-18)
PROC: 0DTH0ZZ Resection of Cecum, Open Approach (ICD-10-PCS; 2019-01-18)
PROC: BW210ZZ Computerized Tomography (CT Scan) of Abdomen and Pelvis using High Osmolar Contrast (ICD-10-PCS; 2019-01-18)
PROC: BW03ZZZ Plain Radiography of Chest (ICD-10-PCS; 2019-01-18)
PROC: 5A1945Z Respiratory Ventilation, 24-96 Consecutive Hours (ICD-10-PCS; 2019-01-18)
PROC: 0BH17EZ Insertion of Endotracheal Airway into Trachea, Via Natural or Artificial Opening (ICD-10-PCS; 2019-01-18)
PROC: 0D1L0Z4 Bypass Transverse Colon to Cutaneous, Open Approach (ICD-10-PCS; 2019-01-20)
PROC: 0BJ08ZZ Inspection of Tracheobronchial Tree, Via Natural or Artificial Opening Endoscopic (ICD-10-PCS; principal; 2019-01-20 19:04)
PROC: 02HV33Z Insertion of Infusion Device into Superior Vena Cava, Percutaneous Approach (ICD-10-PCS; 2019-01-21)
PROC: B548ZZA Ultrasonography of Superior Vena Cava, Guidance (ICD-10-PCS; 2019-01-21)
PROC: 3E04328 Introduction of Oxazolidinones into Central Vein, Percutaneous Approach (ICD-10-PCS; 2019-01-21)
DX: A41.51 Sepsis due to Escherichia coli [E. coli] (principal); J96.90 Respiratory failure, unspecified, unspecified whether with hypoxia or hypercapnia; K63.1 Perforation of intestine (nontraumatic); E66.01 Morbid (severe) obesity due to excess calories; E11.9 Type 2 diabetes mellitus without complications; E87.1 Hypo-osmolality and hyponatremia; I10 Essential (primary) hypertension; I25.10 Atherosclerotic heart disease of native coronary artery without angina pectoris; I48.0 Paroxysmal atrial fibrillation; I82.619 Acute embolism and thrombosis of superficial veins of unspecified upper extremity; K56.600 Partial intestinal obstruction, unspecified as to cause; N17.9 Acute kidney failure, unspecified; R65.20 Severe sepsis without septic shock; Z68.41 Body mass index [BMI] 40.0-44.9, adult; Z79.4 Long term (current) use of insulin; Z79.899 Other long term (current) drug therapy; Z86.14 Personal history of Methicillin resistant Staphylococcus aureus infection; Z88.0 Allergy status to penicillin; Z88.1 Allergy status to other antibiotic agents; Z95.1 Presence of aortocoronary bypass graft
CPT/HCPCS: 36415; 36569; 36600; 71045; 74176; 76937; 80047; 80048; 80053; 81001; 82570; 82803; 82810; 82948; 83605; 83690; 83735; 83880; 84100; 84132; 84145; 84156; 84300; 84439; 84443; 84478; 84540; 85018; 85025; 85610; 85730; 86885; 86900; 86901; 86920; 87040; 87070; 87075; 87076; 87077; 87081; 87088; 87102; 87186; 92508; 92616; 93005; 93971; 94002; 94003; 94640; 94668; 94760; 96361; 96365; 96375; 96376; 97110; 97112; 97116; 97161; 97530; 97535; 99291; A4215; A4340; A4421; A4618; A6253; A6402; A6407; A6446; A6449; A7000; C1758; C9113; G0378; J0282; J0696; J0713; J1170; J1265; J1450; J1580; J1644; J1720; J1815; J1940; J1956; J2001; J2175; J2212; J2250; J2370; J2405; J3010; J3480; J3490; J7030; J7040; J7050; J7120; P9016; P9045; P9047

== ENCOUNTER 2019-05-26 09:45 | Outpatient (CLI) | payer MEDICAID ==
[~2019-05-26 09:45] MED LIST changes: -AMLO10TA PO; +APIX5TAB3 PO; +ATOR10TA70 PO; -CLIN150C2 PO; -HCTZ25T PO; -IBUP-1986 PO; +LACT1CAP26 PO; -LISI40TA4 PO; +PANT40TA4 PO; +POTA10CA44 PO
== END 2019-05-26 13:21 | disposition home or self-care (01) ==
LOC: WOUND CARE 09:45 → EDSTATUS 10:00 → WOUND CARE 13:21
PROVIDERS: ATTEND Surgery
DX: T81.89XA Other complications of procedures, not elsewhere classified, initial encounter (principal); I12.9 Hypertensive chronic kidney disease with stage 1 through stage 4 chronic kidney disease, or unspecified chronic kidney disease; N18.9 Chronic kidney disease, unspecified; I25.10 Atherosclerotic heart disease of native coronary artery without angina pectoris; I48.91 Unspecified atrial fibrillation; M19.90 Unspecified osteoarthritis, unspecified site; K21.0 Gastro-esophageal reflux disease with esophagitis; E66.01 Morbid (severe) obesity due to excess calories; H26.9 Unspecified cataract; Z86.14 Personal history of Methicillin resistant Staphylococcus aureus infection; Z95.1 Presence of aortocoronary bypass graft; Z68.36 Body mass index [BMI] 36.0-36.9, adult; Y92.89 Other specified places as the place of occurrence of the external cause; Y83.8 Other surgical procedures as the cause of abnormal reaction of the patient, or of later complication, without mention of misadventure at the time of the procedure
CPT/HCPCS: 97606

== ENCOUNTER 2019-05-27 09:45 | Outpatient (CLI) | payer MEDICAID | END 2019-05-27 12:30 | disposition home or self-care (01) | LOC: WOUND CARE 09:45 → EDSTATUS 10:30 → WOUND CARE 12:30 | PROVIDERS: ATTEND Nurse Practitioner Family | DX: T81.89XD Other complications of procedures, not elsewhere classified, subsequent encounter (principal); L98.492 Non-pressure chronic ulcer of skin of other sites with fat layer exposed; I12.9 Hypertensive chronic kidney disease with stage 1 through stage 4 chronic kidney disease, or unspecified chronic kidney disease; N18.9 Chronic kidney disease, unspecified; I25.10 Atherosclerotic heart disease of native coronary artery without angina pectoris; I48.91 Unspecified atrial fibrillation; M19.90 Unspecified osteoarthritis, unspecified site; K21.0 Gastro-esophageal reflux disease with esophagitis; E66.01 Morbid (severe) obesity due to excess calories; H26.9 Unspecified cataract; Z86.14 Personal history of Methicillin resistant Staphylococcus aureus infection; Z95.1 Presence of aortocoronary bypass graft; Z68.36 Body mass index [BMI] 36.0-36.9, adult; Y83.8 Other surgical procedures as the cause of abnormal reaction of the patient, or of later complication, without mention of misadventure at the time of the procedure | CPT/HCPCS: 97605 ==

== ENCOUNTER 2019-05-29 10:00 | Day surgery (SDC) | payer MEDICAID ==
[2019-05-29] MEDS ORDERED: LIDOcaine 2% 5ml jelly ONE (10:41)
--- NOTE | 2019-05-29 16:57 | NUR ---
patient called in to say that he would run out of eliquis by sunday06/02/2019 dr morocho notified, ordered further 30 day supply for patient. Eliquis 5mg BID called into [facility] [address]. Patient notified that this was done. spoke also with Louise PEGUERO at [facility] with regards all of this. Encouraged her to speak with patient about establishing PCP with their facility.
== END 2019-05-29 12:06 | disposition home or self-care (01) ==
LOC: WOUND CARE 10:00
PROVIDERS: ATTEND Surgery
DX: T81.89XD Other complications of procedures, not elsewhere classified, subsequent encounter (principal); L98.492 Non-pressure chronic ulcer of skin of other sites with fat layer exposed; I12.9 Hypertensive chronic kidney disease with stage 1 through stage 4 chronic kidney disease, or unspecified chronic kidney disease; N18.9 Chronic kidney disease, unspecified; I25.10 Atherosclerotic heart disease of native coronary artery without angina pectoris; I48.91 Unspecified atrial fibrillation; M19.90 Unspecified osteoarthritis, unspecified site; K21.0 Gastro-esophageal reflux disease with esophagitis; E66.01 Morbid (severe) obesity due to excess calories; H26.9 Unspecified cataract; Z86.14 Personal history of Methicillin resistant Staphylococcus aureus infection; Z95.1 Presence of aortocoronary bypass graft; Z68.36 Body mass index [BMI] 36.0-36.9, adult; Y83.8 Other surgical procedures as the cause of abnormal reaction of the patient, or of later complication, without mention of misadventure at the time of the procedure
CPT/HCPCS: 11042; 97606

== ENCOUNTER 2019-06-03 10:50 | Day surgery (SDC) | payer MEDICAID ==
[2019-06-03] MEDS ORDERED: LIDOcaine 2% 5ml jelly ONE (11:25)
== END 2019-06-03 12:49 | disposition home or self-care (01) ==
LOC: WOUND CARE 10:50
PROVIDERS: ATTEND Nurse Practitioner Family
DX: T81.89XD Other complications of procedures, not elsewhere classified, subsequent encounter (principal); L98.492 Non-pressure chronic ulcer of skin of other sites with fat layer exposed; I12.9 Hypertensive chronic kidney disease with stage 1 through stage 4 chronic kidney disease, or unspecified chronic kidney disease; N18.9 Chronic kidney disease, unspecified; I25.10 Atherosclerotic heart disease of native coronary artery without angina pectoris; I48.91 Unspecified atrial fibrillation; M19.90 Unspecified osteoarthritis, unspecified site; K21.0 Gastro-esophageal reflux disease with esophagitis; E66.01 Morbid (severe) obesity due to excess calories; H26.9 Unspecified cataract; Z86.14 Personal history of Methicillin resistant Staphylococcus aureus infection; Z95.1 Presence of aortocoronary bypass graft; Z68.36 Body mass index [BMI] 36.0-36.9, adult; Y83.8 Other surgical procedures as the cause of abnormal reaction of the patient, or of later complication, without mention of misadventure at the time of the procedure
CPT/HCPCS: 11042; 97606

== ENCOUNTER 2019-06-06 10:16 | Day surgery (SDC) | payer MEDICAID ==
[2019-06-06] MEDS ORDERED: LIDOcaine 2% 5ml jelly ONE (10:44)
== END 2019-06-06 12:17 | disposition home or self-care (01) ==
LOC: WOUND CARE 10:16
PROVIDERS: ATTEND Surgery
DX: T81.89XA Other complications of procedures, not elsewhere classified, initial encounter (principal); L98.492 Non-pressure chronic ulcer of skin of other sites with fat layer exposed; I12.9 Hypertensive chronic kidney disease with stage 1 through stage 4 chronic kidney disease, or unspecified chronic kidney disease; N18.9 Chronic kidney disease, unspecified; I25.10 Atherosclerotic heart disease of native coronary artery without angina pectoris; I48.91 Unspecified atrial fibrillation; M19.90 Unspecified osteoarthritis, unspecified site; K21.0 Gastro-esophageal reflux disease with esophagitis; E66.01 Morbid (severe) obesity due to excess calories; H26.9 Unspecified cataract; Z86.14 Personal history of Methicillin resistant Staphylococcus aureus infection; Z95.1 Presence of aortocoronary bypass graft; Z68.36 Body mass index [BMI] 36.0-36.9, adult; Y92.89 Other specified places as the place of occurrence of the external cause; Y83.8 Other surgical procedures as the cause of abnormal reaction of the patient, or of later complication, without mention of misadventure at the time of the procedure
CPT/HCPCS: 11042; 11045; 97606

== ENCOUNTER 2019-06-10 10:50 | Day surgery (SDC) | payer MEDICAID ==
[2019-06-10] MEDS ORDERED: LIDOcaine 2% 5ml jelly ONE ×2 (11:38)
== END 2019-06-10 12:47 | disposition home or self-care (01) ==
LOC: WOUND CARE 10:50
PROVIDERS: ATTEND Nurse Practitioner Family
DX: T81.89XD Other complications of procedures, not elsewhere classified, subsequent encounter (principal); L98.492 Non-pressure chronic ulcer of skin of other sites with fat layer exposed; I12.9 Hypertensive chronic kidney disease with stage 1 through stage 4 chronic kidney disease, or unspecified chronic kidney disease; N18.9 Chronic kidney disease, unspecified; I25.10 Atherosclerotic heart disease of native coronary artery without angina pectoris; I48.91 Unspecified atrial fibrillation; M19.90 Unspecified osteoarthritis, unspecified site; K21.0 Gastro-esophageal reflux disease with esophagitis; E66.01 Morbid (severe) obesity due to excess calories; H26.9 Unspecified cataract; Z86.14 Personal history of Methicillin resistant Staphylococcus aureus infection; Z95.1 Presence of aortocoronary bypass graft; Z68.36 Body mass index [BMI] 36.0-36.9, adult; Y83.8 Other surgical procedures as the cause of abnormal reaction of the patient, or of later complication, without mention of misadventure at the time of the procedure
CPT/HCPCS: 97597; 97598

== ENCOUNTER 2019-07-28 09:55 | Day surgery (SDC) | payer MEDICAID ==
[2019-07-28] MEDS ORDERED: LIDOcaine 2% 5ml jelly ONE (10:23)
== END 2019-07-28 11:42 | disposition home or self-care (01) ==
LOC: WOUND CARE 09:55
PROVIDERS: ATTEND Nurse Practitioner
DX: T81.89XD Other complications of procedures, not elsewhere classified, subsequent encounter (principal); L98.492 Non-pressure chronic ulcer of skin of other sites with fat layer exposed; I12.9 Hypertensive chronic kidney disease with stage 1 through stage 4 chronic kidney disease, or unspecified chronic kidney disease; N18.9 Chronic kidney disease, unspecified; I25.10 Atherosclerotic heart disease of native coronary artery without angina pectoris; I48.91 Unspecified atrial fibrillation; M19.90 Unspecified osteoarthritis, unspecified site; K21.0 Gastro-esophageal reflux disease with esophagitis; E66.01 Morbid (severe) obesity due to excess calories; H26.9 Unspecified cataract; Z86.14 Personal history of Methicillin resistant Staphylococcus aureus infection; Z95.1 Presence of aortocoronary bypass graft; Z68.36 Body mass index [BMI] 36.0-36.9, adult; Y83.8 Other surgical procedures as the cause of abnormal reaction of the patient, or of later complication, without mention of misadventure at the time of the procedure
CPT/HCPCS: 97597

== ENCOUNTER 2019-08-06 10:10 | Day surgery (SDC) | payer MEDICAID | END 2019-08-06 11:27 | disposition home or self-care (01) | LOC: WOUND CARE 10:10 | PROVIDERS: ATTEND Nurse Practitioner | DX: T81.89XD Other complications of procedures, not elsewhere classified, subsequent encounter (principal); L98.492 Non-pressure chronic ulcer of skin of other sites with fat layer exposed; L89.892 Pressure ulcer of other site, stage 2; L02.413 Cutaneous abscess of right upper limb; I12.9 Hypertensive chronic kidney disease with stage 1 through stage 4 chronic kidney disease, or unspecified chronic kidney disease; N18.9 Chronic kidney disease, unspecified; I25.10 Atherosclerotic heart disease of native coronary artery without angina pectoris; I48.91 Unspecified atrial fibrillation; M19.90 Unspecified osteoarthritis, unspecified site; K21.0 Gastro-esophageal reflux disease with esophagitis; E66.01 Morbid (severe) obesity due to excess calories; H26.9 Unspecified cataract; Z86.14 Personal history of Methicillin resistant Staphylococcus aureus infection; Z95.1 Presence of aortocoronary bypass graft; Z68.36 Body mass index [BMI] 36.0-36.9, adult; Y83.8 Other surgical procedures as the cause of abnormal reaction of the patient, or of later complication, without mention of misadventure at the time of the procedure | CPT/HCPCS: 97597 ==

== ENCOUNTER 2019-08-13 10:25 | Day surgery (SDC) | payer MEDICAID ==
[2019-08-13] MEDS ORDERED: LIDOcaine 2% 5ml jelly ONE (10:50)
== END 2019-08-13 11:10 | disposition home or self-care (01) ==
LOC: WOUND CARE 10:25
PROVIDERS: ATTEND Nurse Practitioner
DX: T81.89XD Other complications of procedures, not elsewhere classified, subsequent encounter (principal); L98.492 Non-pressure chronic ulcer of skin of other sites with fat layer exposed; I12.9 Hypertensive chronic kidney disease with stage 1 through stage 4 chronic kidney disease, or unspecified chronic kidney disease; N18.9 Chronic kidney disease, unspecified; I25.10 Atherosclerotic heart disease of native coronary artery without angina pectoris; I48.91 Unspecified atrial fibrillation; M19.90 Unspecified osteoarthritis, unspecified site; K21.0 Gastro-esophageal reflux disease with esophagitis; E66.01 Morbid (severe) obesity due to excess calories; H26.9 Unspecified cataract; Z86.14 Personal history of Methicillin resistant Staphylococcus aureus infection; Z95.1 Presence of aortocoronary bypass graft; Z68.36 Body mass index [BMI] 36.0-36.9, adult; Y83.8 Other surgical procedures as the cause of abnormal reaction of the patient, or of later complication, without mention of misadventure at the time of the procedure
CPT/HCPCS: 97597

== ENCOUNTER 2019-08-20 10:20 | Day surgery (SDC) | payer MEDICAID ==
[2019-08-20] MEDS ORDERED: LIDOcaine 2% 5ml jelly ONE (10:41)
== END 2019-08-20 11:25 | disposition home or self-care (01) ==
LOC: WOUND CARE 10:20
PROVIDERS: ATTEND Nurse Practitioner
DX: T81.89XD Other complications of procedures, not elsewhere classified, subsequent encounter (principal); L98.492 Non-pressure chronic ulcer of skin of other sites with fat layer exposed; I12.9 Hypertensive chronic kidney disease with stage 1 through stage 4 chronic kidney disease, or unspecified chronic kidney disease; N18.9 Chronic kidney disease, unspecified; I25.10 Atherosclerotic heart disease of native coronary artery without angina pectoris; I48.91 Unspecified atrial fibrillation; M19.90 Unspecified osteoarthritis, unspecified site; K21.0 Gastro-esophageal reflux disease with esophagitis; E66.01 Morbid (severe) obesity due to excess calories; H26.9 Unspecified cataract; Z86.14 Personal history of Methicillin resistant Staphylococcus aureus infection; Z95.1 Presence of aortocoronary bypass graft; Z68.36 Body mass index [BMI] 36.0-36.9, adult; Y83.8 Other surgical procedures as the cause of abnormal reaction of the patient, or of later complication, without mention of misadventure at the time of the procedure
CPT/HCPCS: 97597

== ENCOUNTER 2019-08-27 10:35 | Day surgery (SDC) | payer MEDICAID | END 2019-08-27 11:32 | disposition home or self-care (01) | LOC: WOUND CARE 10:35 | PROVIDERS: ATTEND Nurse Practitioner | DX: T81.89XD Other complications of procedures, not elsewhere classified, subsequent encounter (principal); L98.492 Non-pressure chronic ulcer of skin of other sites with fat layer exposed; I12.9 Hypertensive chronic kidney disease with stage 1 through stage 4 chronic kidney disease, or unspecified chronic kidney disease; N18.9 Chronic kidney disease, unspecified; I25.10 Atherosclerotic heart disease of native coronary artery without angina pectoris; I48.91 Unspecified atrial fibrillation; M19.90 Unspecified osteoarthritis, unspecified site; K21.0 Gastro-esophageal reflux disease with esophagitis; E66.01 Morbid (severe) obesity due to excess calories; H26.9 Unspecified cataract; Z86.14 Personal history of Methicillin resistant Staphylococcus aureus infection; Z95.1 Presence of aortocoronary bypass graft; Z68.36 Body mass index [BMI] 36.0-36.9, adult; Y83.8 Other surgical procedures as the cause of abnormal reaction of the patient, or of later complication, without mention of misadventure at the time of the procedure | CPT/HCPCS: 97597 ==

== ENCOUNTER 2019-09-03 10:25 | Outpatient (CLI) | payer MEDICAID ==
[2019-09-03] MEDS ORDERED: LIDOcaine 2% 5ml jelly ONE (10:52)
== END 2019-09-03 11:05 | disposition home or self-care (01) ==
LOC: WOUND CARE 10:25 → EDSTATUS 10:40 → WOUND CARE 11:05
PROVIDERS: ATTEND Nurse Practitioner
DX: T81.89XD Other complications of procedures, not elsewhere classified, subsequent encounter (principal); L98.492 Non-pressure chronic ulcer of skin of other sites with fat layer exposed; I12.9 Hypertensive chronic kidney disease with stage 1 through stage 4 chronic kidney disease, or unspecified chronic kidney disease; N18.9 Chronic kidney disease, unspecified; I25.10 Atherosclerotic heart disease of native coronary artery without angina pectoris; I48.91 Unspecified atrial fibrillation; M19.90 Unspecified osteoarthritis, unspecified site; K21.0 Gastro-esophageal reflux disease with esophagitis; E66.01 Morbid (severe) obesity due to excess calories; H26.9 Unspecified cataract; Z86.14 Personal history of Methicillin resistant Staphylococcus aureus infection; Z95.1 Presence of aortocoronary bypass graft; Z68.36 Body mass index [BMI] 36.0-36.9, adult; Y83.8 Other surgical procedures as the cause of abnormal reaction of the patient, or of later complication, without mention of misadventure at the time of the procedure
CPT/HCPCS: G0463

== ENCOUNTER 2019-12-16 05:19 | Day surgery (SDC) | payer MEDICARE, MEDICAID ==
--- NOTE | 2019-12-08 11:30 | NUR ---
PT HAS NUMEROUS SMALL OPEN RED SORES, SOME WITH SCABES, ON LOWER EXTREMITIES. DR CHUA SAW THEM TODAY AND INSTRUCTED PT TO PUT NEOSPORIN OINT AND BANDADES ON THEM, AND HOPEFULLY THEY'LL BE BETTER BY SURG. NURSE INSTRUCTED PT TO BE CAREFUL AND WEAR LONG PANTS
[2019-12-08 12:43] LABS: CLARITY,URINE SLIGHTLY CLOUDY (Clear); COLOR,URINE YELLOW (Yellow); GLUCOSE, URINE NEGATIVE (Neg); KETONES,URINE NEGATIVE (Neg); LEUKOCYTE ESTERASE ,URINE NEGATIVE (Neg); NITRITES, URINE NEGATIVE (Neg); OCCULT BLOOD,URINE TRACE-INTACT (Neg); PROTEIN,URINE NEGATIVE (Neg); UROBILINOGEN,URINE 0.2 E.U/dL (0.2-1.0)
[2019-12-08 12:44] LABS: UA COLLECTION TYPE CLN CATCH MIDSTREAM
[2019-12-08 12:46] LABS: BASOPHILS % (AUTO) 0.4 % (0-1); EOSINOPHILS # (AUTO) 0.1 X10'3 (0-0.9); EOSINOPHILS % (AUTO) 1.3 % (0-6); LYMPHOCYTES # (AUTO) 1.4 X10'3 (1.1-4.8); MEAN CORPUSCULAR HEMOGLOBIN 27.9 PG (27.0-31.0); MEAN CORPUSCULAR HGB CONC 32.9 g/dL (33.0-36.5); MONOCYTES # (AUTO) 0.4 X10'3 (0-0.9); MONOCYTES % (AUTO) 7.6 % (2-12); NEUTROPHILS # (AUTO) 3.8 X10'3 (1.8-7.7); NEUTROPHILS % (AUTO) 66.7 % (42-75); PRE OP HEMATOCRIT 37.8 % (42.0-52.0); PRE OP HEMOGLOBIN 12.4 g/dL (14.0-17.9); PRE OP PLATELET COUNT 238 X10'3 (140-440); RED BLOOD COUNT 4.44 X10'6 (4.70-6.10); RED CELL DISTRIBUTION WIDTH 16.8 % (11.5-14.5)
[2019-12-08 12:53] LABS: BACTERIA,URINE NONE SEEN /HPF (Neg); MUCUS STRANDS NONE SEEN /LPF (Neg); RBC,URINE 0-2 /HPF (0-2); SQUAMOUS EPITHELIAL CELL,UR MODERATE /LPF (FEW); WBC,URINE 0-4 /HPF (0-4)
[2019-12-08 13:01] LABS: PRE OP INR 1.1 INR; PRE OP PROTIME 11.2 SECONDS (9.0-12.0)
[2019-12-08 13:10] LABS: ALBUMIN 3.7 G/DL (3.4-5.0); ALKALINE PHOSPHATASE 98 IU/L (46-116); BLOOD UREA NITROGEN 30 MG/DL (7-18); BUN/CREATININE RATIO 20.8 (5.4-32.0); CALCIUM 9.4 MG/DL (8.5-10.1); CHLORIDE 105 MMOL/L (99-107); CREATININE 1.44 MG/DL (0.60-1.10); PRE OP ALT 26 U/L (30-65); PRE OP ANION GAP 7 (8-16); PRE OP AST 23 U/L (10-37); PRE OP BILIRUB, TOTAL 0.6 MG/DL (0.0-1.0); PRE OP GLUCOSE 94 MG/DL (70-104); PRE OP SODIUM 140 MMOL/L (135-145); TOTAL CARBON DIOXIDE 27.7 MMOL/L (24-32); TOTAL PROTEIN 7.3 G/DL (6.4-8.2); eGFR 50 ML/MIN
[~2019-12-16] VITALS: Ht 185.4 cm; Wt 125.6 kg
[2019-12-16] VITALS (23 sets, daily range): BP systolic 113–154; BP diastolic 65–105
[~2019-12-16 05:19] MED LIST changes: +AMLO5TAB PO; -ATOR10TA70 PO; -LACT1CAP26 PO; +METO-395 PO; -MULT-1085 PO; -PANT40TA4 PO; +PANT40TA54 PO; -POTA10CA44 PO; +ringers solution, lacted 1,000 ML IV SCH
[2019-12-16] MEDS ORDERED: gabapentin 300mg capsule PO ONE (05:30)
[2019-12-16] MEDS ORDERED: ceFAZolin inj. 3,000 MG in normal saline 100ml IV soln 100 ML IV ONE (05:30)
[2019-12-16] MEDS ORDERED: vancomycin 1,500 MG in NS 300ml IV soln IV ONE (05:30)
[2019-12-16] MEDS ORDERED: acetaminophen 325mg tablet PO ONE (05:30)
[2019-12-16] MEDS ORDERED: metoclopramide 5 mg/ml inj IV ONE (05:30)
[2019-12-16] MEDS ORDERED: DOCUMENT DATE & TIME OF BETA-BLOCKER PO ONE (05:30)
[2019-12-16] MEDS ORDERED: celeCOXIB 100mg capsule PO ONE (05:30)
[2019-12-16] MEDS ORDERED: oxyCODONE SR 10mg (sust. release) tab -2 tabs (20mg) PO ONE (05:30)
[2019-12-16] MEDS ORDERED: famotidine 20mg tablet PO ONE (05:30)
[2019-12-16] MEDS ORDERED: TRANEXAMIC ACID 1 GM IN NACL,ISO-OS 100 ML IV ONE (06:00)
[2019-12-16] MEDS ORDERED: cefazolin/dext.iso 2gm/50ml 50 ML IV ONE (06:00)
[2019-12-16] MEDS ORDERED: fentaNYL/PF 50MCG/1 ML 2ML syringe ONE (06:52)
[2019-12-16] MEDS ORDERED: MIDAZolam 1mg/ml 10ml vial ONE ×2 (06:52→07:30)
[2019-12-16 06:54] LABS: PARTIAL THROMBOPLASTIN TIME 32 SECONDS (22-32)
[2019-12-16] MEDS ORDERED: vancomycin 1,000mg inj ONE (06:54)
[2019-12-16] MEDS ORDERED: morphine 4 MG/ML inj SYRINge IV PRN (07:00)
[2019-12-16] MEDS ORDERED: hydrALAZINE 20mg/ml inj. IV PRN (07:00)
[2019-12-16] MEDS ORDERED: ringers solution, lacted 1,000 ML IV SCH (07:00)
[2019-12-16] MEDS ORDERED: ondansetron/PF 4mg/2ml inj IV PRN ×2 (07:00→07:05)
[2019-12-16] MEDS ORDERED: fentaNYL/PF 50MCG/1 ML 2ML syringe IV PRN ×2 (07:00)
[2019-12-16] MEDS ORDERED: labetalol 20mg/4ml (5mg/ml) syringe IV PRN (07:00)
[2019-12-16] MEDS ORDERED: morphine 2 MG/ML inj. syringe IV PRN (07:00)
[2019-12-16] MEDS ORDERED: ROPIVAcaine 0.2% (10 MG/5 ML) BOLUS INJECTION ADDCANAL PRN (07:00)
[2019-12-16] MEDS ORDERED: magnesium hydroxide 30ml (MOM) UD suspension PO PRN (07:05)
[2019-12-16] MEDS ORDERED: bisacodyl 10mg suppository rectal RC PRN (07:05)
[2019-12-16] MEDS ORDERED: diphenhydrAMINE 25mg capsule PO PRN ×2 (07:05)
[2019-12-16] MEDS ORDERED: acetaminophen 325mg tablet PO PRN (07:05)
[2019-12-16] MEDS ORDERED: oxyCODONE/APAP 10/325mg tablet PO PRN (07:05)
[2019-12-16] MEDS ORDERED: dexamethasone sod phosphate 4mg/ml inj. ONE (07:30)
[2019-12-16] MEDS ORDERED: ROPIVAcaine 0.5% (5mg/ml) 30ml vial ONE (07:30)
[2019-12-16] MEDS ORDERED: ROPIVAcaine inj 250 MG, CloNIDine/PF inj 80 MCG, epiNEPHrine inj 0.5 MG in normal salin... IU ONE (07:30)
--- NOTE | 2019-12-16 09:19 | NUR ---
Received from OR via BED, accompanied by Anesthesiologist DR YORK and report given by Anesthesiologist. PT DROWSY, NO S/S OF DISTRESS/DISCOMFORT, RIGHT KNEE W/DRSG CDI, LEG WRAP, ICE PACK, SUMANTH DRAIN W/GREEN LIGHT ILLUMINATION. Addendum: 12/16/19 at 0950 by Pilar Arteaga RN Amended: Links added.
[2019-12-16] MEDS ORDERED: HYDROmorphone 1 mg/ml syringe IV PRN (10:30)
[2019-12-16] MEDS ORDERED: HYDROmorphone inj. 0.5 MG/0.5 ML DISP.SYRIN IV PRN (10:30)
[2019-12-16] MEDS: ROPIVAcaine 0.2%/PF PUMP/bolus 550 ML ADDCANAL SCH (10:57)
--- NOTE | 2019-12-16 11:29 | NUR ---
Report called to receiving nurse. PT REMAINS DROWSY BUT IS APPROPRIATE, PT CAN WIGGLE HIS FEET AND HAS SENSATION TO BOTH LEGS, Transferred via BED, CRUTCHES AND 1 BELONGINGS BAG SENT W/PT TO ROOM 4015A, BLL, CALL LIGHT GIVEN, SIDE RAILS UP X 2, RECEIVING RN NOTIFIED OF PTS ARRIVAL. Special Issues communicated to receiving nurse. YES. Addendum: 12/16/19 at 1202 by Pilar Arteaga RN Amended: Links added.
[2019-12-16] MEDS ORDERED: tranexamic acid inj. 1,250 MG in normal saline 100ml IV soln 100 ML IV ONE (12:30)
[2019-12-16] MEDS: potassium cl 20mEq in 1/2 NS 1,000 ML IV SCH ×2 (13:18→23:33)
[2019-12-16] MEDS: gabapentin 300mg capsule PO SCH ×2 (13:28→20:25)
[2019-12-16] MEDS: oxyCODONE/APAP 10/325mg tablet PO PRN ×2 (15:47→20:24)
[2019-12-16] MEDS ORDERED: ceFAZolin 1GM/D5W- ADD-VANTAGE 50 ML IV SCH (16:00)
[2019-12-16] MEDS ORDERED: cefazolin/dext.iso 2gm/100ml 100 ML IV SCH (16:00)
[2019-12-16] MEDS: ceFAZolin inj. 3,000 MG in normal saline 100ml IV soln 100 ML IV SCH ×2 (16:39→23:33)
[2019-12-16] MEDS: pantoprazole 40mg Tablet.DR PO SCH (16:46)
--- NOTE | 2019-12-16 18:12 | NUR ---
Problems reprioritized. Patient report given, questions answered & plan of care reviewed with MARIELENA Valencia.
[2019-12-16] MEDS ORDERED: VANCOMYCIN 1,500MG inj. 1,500 MG in normal saline 500ml IV soln 300 ML IV SCH ×4 (20:00)
[2019-12-16] MEDS: metoprolol succinate 25mg (24-HOUR) SR. Tablet PO SCH (20:26)
[2019-12-16] MEDS: ascorbic acid 500mg tablet PO SCH (20:26)
[2019-12-16] MEDS: apixaban 5mg tablet PO SCH (20:26)
[2019-12-16] MEDS: amLODIPine 5mg tablet PO SCH (20:26)
[2019-12-16] MEDS ORDERED: sennosides 8.6mg tablet PO SCH (21:00)
[2019-12-17 02:00] VITALS: BP 141/90
[2019-12-17] MEDS: potassium cl 20mEq in 1/2 NS 1,000 ML IV SCH ×2 (03:30→11:30)
[2019-12-17] MEDS: oxyCODONE/APAP 10/325mg tablet PO PRN ×2 (04:51→09:17)
[2019-12-17 06:00] VITALS: BP 158/79
--- NOTE | 2019-12-17 06:30 | NUR ---
Problems reprioritized. Patient report given, questions answered & plan of care reviewed with MARIELENA ASHFORD.
--- NOTE | 2019-12-17 06:38 | NUR ---
Patient in room [facility] 4015A. I have received report from MARIELENA BOOGIE and had the opportunity to ask questions and assume patient care.
[2019-12-17 06:46] LABS: BASOPHILS % (AUTO) 0.4 % (0-1); EOSINOPHILS # (AUTO) 0.1 X10'3 (0-0.9); EOSINOPHILS % (AUTO) 0.6 % (0-6); HEMATOCRIT 32.3 % (42.0-52.0); LYMPHOCYTES # (AUTO) 1.3 X10'3 (1.1-4.8); LYMPHOCYTES % (AUTO) 15.5 % (21-51); MEAN CORPUSCULAR HEMOGLOBIN 29.1 PG (27.0-31.0); MEAN CORPUSCULAR HGB CONC 33.9 g/dL (33.0-36.5); MEAN CORPUSCULAR VOLUME 85.6 FL (78-98); MEAN PLATELET VOLUME 8.2 FL (7.4-10.4); MONOCYTES # (AUTO) 0.8 X10'3 (0-0.9); MONOCYTES % (AUTO) 9.6 % (2-12); NEUTROPHILS # (AUTO) 6.3 X10'3 (1.8-7.7); NEUTROPHILS % (AUTO) 73.9 % (42-75); PLATELET COUNT 178 X10'3 (140-440); RED BLOOD COUNT 3.77 X10'6 (4.70-6.10); RED CELL DISTRIBUTION WIDTH 16.4 % (11.5-14.5); WHITE BLOOD COUNT 8.5 X10'3 (4.5-11.0)
[2019-12-17 07:08] LABS: ANION GAP 8 (8-16); CHLORIDE 106 MMOL/L (99-107); POTASSIUM 3.9 MMOL/L (3.5-5.1); SODIUM 138 MMOL/L (135-145); TOTAL CARBON DIOXIDE 24.4 MMOL/L (24-32)
[2019-12-17] MEDS ORDERED: multivitamins, therapeutics tablet PO SCH (08:00)
[2019-12-17] MEDS: pantoprazole 40mg Tablet.DR PO SCH (08:18)
[2019-12-17] MEDS: ascorbic acid 500mg tablet PO SCH (08:18)
[2019-12-17] MEDS: apixaban 5mg tablet PO SCH (08:18)
[2019-12-17] MEDS: gabapentin 300mg capsule PO SCH (08:18)
[2019-12-17] MEDS: metoprolol succinate 25mg (24-HOUR) SR. Tablet PO SCH (08:20)
[2019-12-17] MEDS: amLODIPine 5mg tablet PO SCH (08:20)
[2019-12-17 10:00] VITALS: BP 133/75
[2019-12-17] MEDS: ROPIVAcaine 0.2%/PF PUMP/bolus 550 ML ADDCANAL SCH (12:42)
--- NOTE | 2019-12-17 12:42 | NUR ---
DC INSTRUCTIONS GIVEN TO PT, QUESTIONS ANSWERED. TELE MONITOR REMOVED, IV REMOVED, CANULA INTACT. PT WAS ASSISTED IN DRESSING, BELONGINGS GATHERED AND WAS WHEELED TO PRIVATE VEHICLE IN STABLE CONDITION
[2019-12-17] MEDS ORDERED: celeCOXIB 100mg capsule PO SCH (20:00)
== END 2019-12-17 12:40 | disposition home or self-care (01) ==
LOC: PAS 05:19 → ORTHO 4S 07:01 → UNDOADMOB 07:01 → PAS 12-17 12:40 → UNDODISOB 12-17 12:40
PROVIDERS: ATTEND Orthopaedic Surgery
DX: M17.11 Unilateral primary osteoarthritis, right knee (principal); G89.18 Other acute postprocedural pain; I25.10 Atherosclerotic heart disease of native coronary artery without angina pectoris; I10 Essential (primary) hypertension; I48.91 Unspecified atrial fibrillation; M16.0 Bilateral primary osteoarthritis of hip; E66.01 Morbid (severe) obesity due to excess calories; Z68.36 Body mass index [BMI] 36.0-36.9, adult; Z79.899 Other long term (current) drug therapy; Z79.01 Long term (current) use of anticoagulants; Z20.828 Contact with and (suspected) exposure to other viral communicable diseases; Z72.89 Other problems related to lifestyle; Z88.0 Allergy status to penicillin; Z98.890 Other specified postprocedural states; Z95.5 Presence of coronary angioplasty implant and graft; Z93.3 Colostomy status; Z86.14 Personal history of Methicillin resistant Staphylococcus aureus infection; Z82.49 Family history of ischemic heart disease and other diseases of the circulatory system
CPT/HCPCS: 27447; 36415; 64448; 71046; 73560; 76942; 80051; 80053; 81001; 82948; 85025; 85610; 85730; 86885; 86900; 86901; 87081; 87635; 97110; 97116; 97161; A6454; C1713; C1776; J0690; J1100; J2250; J2765; J2795; J3010; J3370; J7040; J7120; A4215; A6449; A7000; J3480

== ENCOUNTER 2019-12-23 11:04 | Emergency (ER) | payer MEDICARE, MEDICAID ==
[~2019-12-23] VITALS: Ht 188 cm; Wt 172.7 kg
[~2019-12-23 11:04] MED LIST changes: -ringers solution, lacted 1,000 ML IV SCH
[2019-12-23] MEDS ORDERED: morphine 4 MG/ML inj SYRINge IV ONE (12:10)
[2019-12-23] MEDS ORDERED: ondansetron/PF 4mg/2ml inj IV ONE (12:10)
[2019-12-23 12:58] LABS: BASOPHILS % (AUTO) 0.4 % (0-1); EOSINOPHILS % (AUTO) 0.1 % (0-6); HEMATOCRIT 31.8 % (42.0-52.0); HEMOGLOBIN 10.5 g/dl (14.0-17.9); LYMPHOCYTES # (AUTO) 0.3 X10'3 (1.1-4.8); LYMPHOCYTES % (AUTO) 4.9 % (21-51); MEAN CORPUSCULAR HEMOGLOBIN 28.3 PG (27.0-31.0); MEAN CORPUSCULAR VOLUME 85.6 FL (78-98); MEAN PLATELET VOLUME 7.5 FL (7.4-10.4); MONOCYTES # (AUTO) 0.5 X10'3 (0-0.9); MONOCYTES % (AUTO) 6.9 % (2-12); NEUTROPHILS # (AUTO) 5.9 X10'3 (1.8-7.7); NEUTROPHILS % (AUTO) 87.7 % (42-75); PLATELET COUNT 358 X10'3 (140-440); RED BLOOD COUNT 3.72 X10'6 (4.70-6.10); RED CELL DISTRIBUTION WIDTH 15.9 % (11.5-14.5); WHITE BLOOD COUNT 6.7 X10'3 (4.5-11.0)
[2019-12-23] MEDS ORDERED: iohexol 300mg/ml 100ml inj. ONE (13:07)
[2019-12-23 13:10] LABS: ALANINE AMINOTRANSFERASE 39 U/L (12-78); ALBUMIN 3.4 G/DL (3.4-5.0); ALBUMIN/GLOBULIN RATIO 0.8 (1.1-1.5); ALKALINE PHOSPHATASE 118 IU/L (46-116); ANION GAP 11 (8-16); ASPARTATE AMINO TRANSFERASE 30 U/L (10-37); BLOOD UREA NITROGEN 32 MG/DL (7-18); BUN/CREATININE RATIO 22.1 (5.4-32.0); CALCIUM 9.4 MG/DL (8.5-10.1); CHLORIDE 104 MMOL/L (99-107); CREATININE 1.45 MG/DL (0.60-1.10); GLUCOSE 137 MG/DL (70-104); POTASSIUM 3.5 MMOL/L (3.5-5.1); SODIUM 137 MMOL/L (135-145); TOTAL PROTEIN 7.9 G/DL (6.4-8.2); eGFR 50 ML/MIN
[2019-12-23] MEDS ORDERED: metroNIDAZOLE-Flagyl 500mg/NS 100 ML IV STA (14:03)
[2019-12-23] MEDS ORDERED: normal saline 1000ML IV soln IVB ONE (14:05)
[2019-12-23] MEDS ORDERED: METR250T37 PO (14:44)
[2019-12-23] MEDS ORDERED: SULF1TAB49 PO (14:44)
[2019-12-23] MEDS ORDERED: L. R1CAP4 PO (14:44)
[2019-12-23] MEDS ORDERED: sulfmethoxaz/trimethoprim inj 10 ML in dextrose 5%-water 240 ML IV ONE ×2 (14:50→20:00)
--- NOTE | 2019-12-23 15:01 | NUR ---
clarified and confirmed with pharmacist for flagyl and bactrium compatability as per pharmacist jessi its compatable.
[2019-12-23] MEDS ORDERED: AMLO10TA13 PO (15:20)
[2019-12-23] MEDS ORDERED: METO25TA6 PO (15:20)
[2019-12-23] MEDS ORDERED: CELE-85 PO (15:20)
[2019-12-23] MEDS ORDERED: GABA300C PO (15:20)
[2019-12-23] MEDS ORDERED: DULO30CA52 PO (15:20)
[2019-12-23] MEDS ORDERED: SENN-263 PO (15:20)
[2019-12-23] MEDS ORDERED: APIX5TAB3 PO (15:21)
[2019-12-23 16:34] VITALS: BP 130/84
== END 2019-12-23 16:16 | disposition home or self-care (01) ==
LOC: ER 11:05 → CANBEDREQ 15:10 → ER 16:16
DX: K52.89 Other specified noninfective gastroenteritis and colitis (principal); R10.84 Generalized abdominal pain; R22.41 Localized swelling, mass and lump, right lower limb; R11.2 Nausea with vomiting, unspecified; R19.7 Diarrhea, unspecified; I48.91 Unspecified atrial fibrillation; I25.10 Atherosclerotic heart disease of native coronary artery without angina pectoris; I10 Essential (primary) hypertension; Z96.651 Presence of right artificial knee joint; Z86.14 Personal history of Methicillin resistant Staphylococcus aureus infection; Z98.890 Other specified postprocedural states; Z72.89 Other problems related to lifestyle; Z88.0 Allergy status to penicillin; Z79.899 Other long term (current) drug therapy
CPT/HCPCS: 36415; 74177; 80053; 85025; 93971; 96365; 96366; 96368; 96375; 99285; J2270; J2405; J3490; J7030; J7060; Q9967

== ENCOUNTER 2020-02-22 22:14 | Emergency (ER) | payer MEDICARE, MEDICAID ==
[~2020-02-22] VITALS: Ht 188 cm; Wt 116.5 kg
[~2020-02-22 22:14] MED LIST changes: +AMLO10TA13 PO; -AMLO5TAB PO; +CELE-85 PO; +DULO30CA52 PO; +GABA300C PO; -METO-395 PO; +METO25TA6 PO; -PANT40TA54 PO; +SENN-263 PO
[2020-02-22 22:38] LABS: BASOPHILS # (AUTO) 0.1 X10'3 (0-0.2); BASOPHILS % (AUTO) 0.8 % (0-1); EOSINOPHILS # (AUTO) 0.3 X10'3 (0-0.9); EOSINOPHILS % (AUTO) 4.1 % (0-6); HEMATOCRIT 38.5 % (42.0-52.0); HEMOGLOBIN 12.7 g/dl (14.0-17.9); LYMPHOCYTES # (AUTO) 1.8 X10'3 (1.1-4.8); LYMPHOCYTES % (AUTO) 23.9 % (21-51); MEAN CORPUSCULAR HEMOGLOBIN 27.5 PG (27.0-31.0); MEAN CORPUSCULAR HGB CONC 32.9 g/dL (33.0-36.5); MEAN CORPUSCULAR VOLUME 83.7 FL (78-98); MEAN PLATELET VOLUME 7.5 FL (7.4-10.4); MONOCYTES # (AUTO) 0.7 X10'3 (0-0.9); MONOCYTES % (AUTO) 8.6 % (2-12); NEUTROPHILS # (AUTO) 4.8 X10'3 (1.8-7.7); NEUTROPHILS % (AUTO) 62.6 % (42-75); PLATELET COUNT 287 X10'3 (140-440); RED CELL DISTRIBUTION WIDTH 15.8 % (11.5-14.5); WHITE BLOOD COUNT 7.7 X10'3 (4.5-11.0)
[2020-02-22 22:43] LABS: CLARITY,URINE CLEAR (Clear); COLOR,URINE YELLOW (Yellow); GLUCOSE, URINE NEGATIVE (Neg); KETONES,URINE TRACE mg/dl (Neg); LEUKOCYTE ESTERASE ,URINE SMALL (Neg); NITRITES, URINE NEGATIVE (Neg); OCCULT BLOOD,URINE NEGATIVE (Neg); PROTEIN,URINE NEGATIVE (Neg); UROBILINOGEN,URINE 0.2 E.U/dL (0.2-1.0)
[2020-02-22 22:44] LABS: UA COLLECTION TYPE CLN CATCH MIDSTREAM
[2020-02-22 22:52] LABS: ALANINE AMINOTRANSFERASE 25 U/L (12-78); ALBUMIN 3.8 G/DL (3.4-5.0); ALBUMIN/GLOBULIN RATIO 0.9 (1.1-1.5); ALKALINE PHOSPHATASE 128 IU/L (46-116); ANION GAP 9 (8-16); ASPARTATE AMINO TRANSFERASE 18 U/L (10-37); BILIRUBIN,TOTAL 0.4 MG/DL (0.1-1.0); BLOOD UREA NITROGEN 27 MG/DL (7-18); BUN/CREATININE RATIO 17.5 (5.4-32.0); CALCIUM 9.1 MG/DL (8.5-10.1); CHLORIDE 108 MMOL/L (99-107); CREATININE 1.54 MG/DL (0.60-1.10); GLUCOSE 97 MG/DL (70-104); LIPASE 162 U/L (73-393); SODIUM 142 MMOL/L (135-145); TOTAL CARBON DIOXIDE 25.4 MMOL/L (24-32); TOTAL PROTEIN 8.2 G/DL (6.4-8.2); eGFR 47 ML/MIN
[2020-02-22] MEDS ORDERED: iohexol 300mg/ml 100ml inj. ONE (23:06)
[2020-02-22 23:10] LABS: BACTERIA,URINE FEW /HPF (Neg); CAL OXALATE CRYSTALS FEW /HPF (NEGATIVE); MUCUS STRANDS NONE SEEN /LPF (Neg); RBC,URINE 0-2 /HPF (0-2); SQUAMOUS EPITHELIAL CELL,UR FEW /LPF (FEW)
[2020-02-23] MEDS ORDERED: ondansetron/PF 4mg/2ml inj IV ONE ×2 (00:10→01:10)
[2020-02-23 01:37] LABS: TROPONIN I < 0.04 NG/ML (0.0-0.05)
[2020-02-23] MEDS ORDERED: HYDROcodone/acetaminophen 10/325mg tab PO ONE (01:45)
[2020-02-23] MEDS ORDERED: diphenhydrAMINE 50 mg/ml inj IV ONE (02:15)
[2020-02-23] MEDS ORDERED: metoclopramide 5 mg/ml inj IV ONE (02:15)
[2020-02-23] MEDS ORDERED: ONDA4TAB12 PO (05:42)
[2020-02-23 06:00] VITALS: BP 114/67
== END 2020-02-23 06:01 | disposition home or self-care (01) ==
LOC: ER 22:14
DX: R10.84 Generalized abdominal pain (principal); R11.2 Nausea with vomiting, unspecified; I48.91 Unspecified atrial fibrillation; I10 Essential (primary) hypertension; I25.10 Atherosclerotic heart disease of native coronary artery without angina pectoris; Z86.14 Personal history of Methicillin resistant Staphylococcus aureus infection; Z95.1 Presence of aortocoronary bypass graft; Z98.890 Other specified postprocedural states; Z72.89 Other problems related to lifestyle; Z89.511 Acquired absence of right leg below knee; Z88.0 Allergy status to penicillin; Z79.899 Other long term (current) drug therapy
CPT/HCPCS: 36415; 74177; 80053; 81001; 83690; 84484; 85025; 87088; 93005; 96374; 96375; 96376; 99285; J1200; J2405; J2765; Q9967

== ENCOUNTER 2020-04-20 05:18 | Day surgery (SDC) | payer MEDICARE, MEDICAID ==
[2020-04-13 12:57] LABS: BASOPHILS % (AUTO) 0.4 % (0-1); EOSINOPHILS # (AUTO) 0.1 X10'3 (0-0.9); EOSINOPHILS % (AUTO) 1.4 % (0-6); LYMPHOCYTES # (AUTO) 1.3 X10'3 (1.1-4.8); LYMPHOCYTES % (AUTO) 18.6 % (21-51); MEAN CORPUSCULAR HEMOGLOBIN 27.8 PG (27.0-31.0); MEAN CORPUSCULAR HGB CONC 33.5 g/dL (33.0-36.5); MEAN PLATELET VOLUME 8.2 FL (7.4-10.4); MONOCYTES # (AUTO) 0.7 X10'3 (0-0.9); MONOCYTES % (AUTO) 9.2 % (2-12); NEUTROPHILS % (AUTO) 70.4 % (42-75); PRE OP HEMATOCRIT 38.4 % (42.0-52.0); PRE OP HEMOGLOBIN 12.9 g/dL (14.0-17.9); PRE OP PLATELET COUNT 210 X10'3 (140-440); RED BLOOD COUNT 4.63 X10'6 (4.70-6.10); RED CELL DISTRIBUTION WIDTH 17.7 % (11.5-14.5)
[2020-04-13 13:11] LABS: ALBUMIN 3.8 G/DL (3.4-5.0); ALKALINE PHOSPHATASE 106 IU/L (46-116); BLOOD UREA NITROGEN 24 MG/DL (7-18); BUN/CREATININE RATIO 17.5 (5.4-32.0); CALCIUM 9.5 MG/DL (8.5-10.1); CHLORIDE 105 MMOL/L (99-107); CREATININE 1.37 MG/DL (0.60-1.10); PRE OP ALT 21 U/L (30-65); PRE OP ANION GAP 7 (8-16); PRE OP AST 17 U/L (10-37); PRE OP BILIRUB, TOTAL 0.7 MG/DL (0.0-1.0); PRE OP GLUCOSE 92 MG/DL (70-104); PRE OP SODIUM 141 MMOL/L (135-145); TOTAL CARBON DIOXIDE 28.7 MMOL/L (24-32); TOTAL PROTEIN 7.6 G/DL (6.4-8.2); eGFR 53 ML/MIN
[~2020-04-20] VITALS: Ht 188 cm; Wt 134.5 kg
[2020-04-20] VITALS (23 sets, daily range): BP systolic 107–146; BP diastolic 54–87
[~2020-04-20 05:18] MED LIST changes: -CELE-85 PO; -DULO30CA52 PO; -GABA300C PO; +LACT1CAP26 PO; +MULT-1249 PO; +PANT-47 PO; -SENN-263 PO
[2020-04-20] MEDS ORDERED: gabapentin 300mg capsule PO ONE (05:30)
[2020-04-20] MEDS ORDERED: metoclopramide 5 mg/ml inj IV ONE (05:30)
[2020-04-20] MEDS ORDERED: DOCUMENT DATE & TIME OF BETA-BLOCKER PO ONE (05:30)
[2020-04-20] MEDS ORDERED: tranexamic acid 1gm/0.7% sal. 100 ML IV ONE (05:30)
[2020-04-20] MEDS ORDERED: celeCOXIB 100mg capsule PO ONE (05:30)
[2020-04-20] MEDS ORDERED: acetaminophen 325mg tablet PO ONE (05:30)
[2020-04-20] MEDS ORDERED: ceFAZolin inj. 3,000 MG in normal saline 100ml IV soln 100 ML IV ONE (05:30)
[2020-04-20] MEDS ORDERED: oxyCODONE SR 10mg (sust. release) tab -2 tabs (20mg) PO ONE (05:30)
[2020-04-20] MEDS ORDERED: vancomycin 1,500 MG in NS 300ml IV soln IV ONE (05:30)
[2020-04-20] MEDS ORDERED: famotidine 20mg tablet PO ONE (05:30)
[2020-04-20] MEDS ORDERED: LIDOcaine 1% (10mg/ml) 2ml vial ONE (06:02)
[2020-04-20] MEDS: ringers solution, lacted 1,000 ML IV SCH ×3 (06:17→11:35)
[2020-04-20] MEDS ORDERED: ondansetron/PF 4mg/2ml inj IV PRN ×2 (06:30→08:35)
[2020-04-20] MEDS ORDERED: magnesium hydroxide 30ml (MOM) UD suspension PO PRN (06:30)
[2020-04-20] MEDS ORDERED: HYDROmorphone inj. 0.5 MG/0.5 ML DISP.SYRIN IV PRN (06:30)
[2020-04-20] MEDS ORDERED: bisacodyl 10mg suppository rectal RC PRN (06:30)
[2020-04-20] MEDS ORDERED: diphenhydrAMINE 25mg capsule PO PRN ×2 (06:30)
[2020-04-20] MEDS ORDERED: HYDROcodone/acetaminophen 10/325mg tab PO PRN (06:30)
[2020-04-20] MEDS ORDERED: HYDROmorphone 1 mg/ml syringe IV PRN (06:30)
[2020-04-20] MEDS ORDERED: acetaminophen 325mg tablet PO PRN (06:30)
[2020-04-20] MEDS ORDERED: vancomycin 1,000mg inj ONE (06:56)
[2020-04-20] MEDS ORDERED: ROPIVAcaine inj 250 MG, CloNIDine/PF inj 80 MCG, epiNEPHrine inj 0.5 MG in normal salin... IV ONE (07:00)
[2020-04-20] MEDS ORDERED: midazolam 2 mg/2 ml injection ONE (07:12)
[2020-04-20] MEDS ORDERED: fentaNYL /PF 50mcg/ml 5ml ampule ONE (07:12)
[2020-04-20] MEDS ORDERED: sevoflurane 250ml liquid IH ONE (07:14)
[2020-04-20 07:35] LABS: PARTIAL THROMBOPLASTIN TIME 31 SECONDS (22-32)
[2020-04-20] MEDS: gabapentin 300mg capsule PO SCH ×3 (08:00→21:07)
[2020-04-20] MEDS ORDERED: meperidine/PF 25mg/ml syringe IV PRN ×3 (08:35)
[2020-04-20] MEDS ORDERED: proCHLORperazine 10 MG/2 ml inj IV PRN (08:35)
[2020-04-20] MEDS ORDERED: ringers solution, lacted 1,000 ML IV SCH (08:35)
[2020-04-20] MEDS ORDERED: morphine 2 MG/ML inj. syringe IV PRN (08:35)
[2020-04-20] MEDS ORDERED: rocuronium 10mg/ml inj IV ONE (08:37)
[2020-04-20] MEDS ORDERED: ePHEDrine 50MG/ML INJ. ONE (08:37)
[2020-04-20] MEDS ORDERED: dexamethasone sod phosphate 4mg/ml inj. ONE (08:37)
[2020-04-20] MEDS ORDERED: LIDOcaine 2% (20mg/ml) 5ml vial ONE (08:37)
[2020-04-20] MEDS ORDERED: ondansetron/PF 4mg/2ml inj ONE (08:37)
[2020-04-20] MEDS ORDERED: propofol inj 20 ML IV ONE (08:37)
[2020-04-20] MEDS ORDERED: glycopyrrolate 0.2mg/ml inj ONE (08:37)
[2020-04-20] MEDS ORDERED: neostigmine methylsulfate 1 MG/ML 10ml vial ONE (08:37)
[2020-04-20] MEDS: morphine 4 MG/ML inj SYRINge IV PRN ×2 (09:26→09:40)
--- NOTE | 2020-04-20 09:50 | NUR ---
ADMITTED TO PACU FROM OR ACCOMPANIED BY ANESTHESIA. INTIAL PHYSICAL ASSESSMENT DONE AND RECORDED. REPORT RECEIVED FROM ANESTHESIA.
[2020-04-20] MEDS: HYDROcodone/acetaminophen 10/325mg tab PO PRN ×3 (10:08→22:04)
--- NOTE | 2020-04-20 10:20 | NUR ---
Patient in room [facility]. I have received report from PATRIC PEGUERO and had the opportunity to ask questions and assume patient care.
--- NOTE | 2020-04-20 10:30 | NUR ---
PACU DISCHARGE CRITERIA MET, REPORT GIVEN TO FLOOR. DENIES PAIN OR DISCOMFORT, TRANSFERRED TO ROOM IN STABLE GOOD CONDITION.
[2020-04-20] MEDS: CLINDAMYCIN/D5W 900mg/50ml 50 ML IV SCH ×2 (11:39→16:53)
[2020-04-20] MEDS: ascorbic acid 500mg tablet PO SCH ×2 (11:39→21:07)
[2020-04-20] MEDS ORDERED: tranexamic acid 1gm/0.7% sal. 1,000 ML IV ONE (13:00)
[2020-04-20] MEDS: potassium cl 20mEq in 1/2 NS 1,000 ML IV SCH ×3 (13:38→22:30)
--- NOTE | 2020-04-20 14:17 | NUR ---
PATIENT REPOSITIONED TO AND SAT UP FOR WORK WITH PHYSICAL THERAPY, DRESSING WAS SATURATED WITH DARK RED BLOOD, ATTEMPTED TO NOTIFY PHYSICIAN BUT DID NOT REACH AT THIS TIME. WILL ATTEMPTED TO CALL PHYSICIAN AGAIN BUT PATIENT VITALS ARE STABLE AT THIS TIME.
--- NOTE | 2020-04-20 16:07 | NUR ---
SUMANTH DRESSING SATURATED, SPOKE WITH MD AND DRESSING WAS CHANGED AT THIS TIME. AREA CLEANED WITH ANTIMICROBIAL CLEANSER, SKIN PREP AROUND THE AREA, SUMANTH DRESSING APPLIED WITH DRAP OVER SITE.
--- NOTE | 2020-04-20 18:20 | NUR ---
Problems reprioritized. Patient report given, questions answered & plan of care reviewed with CARRIE PEGUERO.
[2020-04-20] MEDS ORDERED: sennosides 8.6mg tablet PO SCH (21:00)
--- NOTE | 2020-04-20 21:28 | NUR ---
pt denied needs for pian meds at this time. "i'll wait for now"
[2020-04-21] MEDS: potassium cl 20mEq in 1/2 NS 1,000 ML IV SCH ×2 (01:19→02:16)
[2020-04-21] MEDS: CLINDAMYCIN/D5W 900mg/50ml 50 ML IV SCH (02:09)
[2020-04-21] MEDS: HYDROcodone/acetaminophen 10/325mg tab PO PRN ×2 (02:14→05:58)
[2020-04-21 04:00] VITALS: BP 107/65
--- NOTE | 2020-04-21 06:00 | NUR ---
reported to days. noted pt ready to work with PT. no further drainage on dressing.
--- NOTE | 2020-04-21 06:35 | NUR ---
Patient in room [facility] 357. I have received report from KOLE PEGUERO and had the opportunity to ask questions and assume patient care.
[2020-04-21 07:10] LABS: BASOPHILS % (AUTO) 0.3 % (0-1); EOSINOPHILS % (AUTO) 0.2 % (0-6); HEMATOCRIT 32.6 % (42.0-52.0); HEMOGLOBIN 10.8 g/dl (14.0-17.9); LYMPHOCYTES # (AUTO) 1.1 X10'3 (1.1-4.8); LYMPHOCYTES % (AUTO) 13.2 % (21-51); MEAN CORPUSCULAR HEMOGLOBIN 27.5 PG (27.0-31.0); MEAN CORPUSCULAR VOLUME 83.3 FL (78-98); MEAN PLATELET VOLUME 8.1 FL (7.4-10.4); MONOCYTES # (AUTO) 0.7 X10'3 (0-0.9); MONOCYTES % (AUTO) 8.5 % (2-12); NEUTROPHILS # (AUTO) 6.3 X10'3 (1.8-7.7); NEUTROPHILS % (AUTO) 77.8 % (42-75); PLATELET COUNT 222 X10'3 (140-440); RED BLOOD COUNT 3.92 X10'6 (4.70-6.10); RED CELL DISTRIBUTION WIDTH 16.7 % (11.5-14.5); WHITE BLOOD COUNT 8.1 X10'3 (4.5-11.0)
[2020-04-21 07:57] LABS: ANION GAP 8 (8-16); CHLORIDE 106 MMOL/L (99-107); SODIUM 140 MMOL/L (135-145); TOTAL CARBON DIOXIDE 25.9 MMOL/L (24-32)
[2020-04-21 08:00] VITALS: BP 136/77
[2020-04-21] MEDS: ascorbic acid 500mg tablet PO SCH (09:52)
[2020-04-21] MEDS: gabapentin 300mg capsule PO SCH (09:54)
--- NOTE | 2020-04-21 10:58 | NUR ---
CASE MANAGEMENT DISCHARGE FOLLOW UP: T/c to pt, no answer, left message requesting callback. Addendum: 04/21/20 at 1222 by Yanelis North RN 1211 Received return call from patient. He wants to know if this is the pharmacy. When told this is [facility], pt states thanks and hung up. [place] woman in background state "why don't you ask her" before call was terminated. 1212 Pt called again. States that his prescriptions were sent to the wrong pharmacy, wants to know if they can be sent to [facility] in [place]. Advised that because Rx were not written by doctor from this facility this nurse is unable to do so and to call prescribing MD to place Rx order at new pharmacy. Per pt request, [facility] in [place] now set as default preferred pharmacy. Pt states that pain is controlled at 5/10 while awake, states that it is only an issue when he tries to sleep, will discuss with MD. Denies CP, SOB, fever, s/sx of infection. Verbalizes understanding of s/sx requiring emergent assistance/notification of MD. Verbalizes compliance with MD instructions, states no questions. Verbalizes understanding of medications. Pt has f/u appt set with surgeon. States no further needs/concerns at this time.
[2020-04-21 11:00] VITALS: BP 111/54
--- NOTE | 2020-04-21 12:41 | NUR ---
PATIENT DISCHARGED AT THIS TIME. PATIENT IV TAKEN OUT AT DISCHARGE CANULA WHOLE AND INTACT, PATIENT EXPRESSED VERBAL UNDERSTANDING OF ALL TEACHING AT TIME OF DISCHARGE. PATIENT LEFT WITH ALL OF HIS BELONGINGS AT THIS TIME. PATIENT LEFT IN PRIVATE VEHICLE AND WILL FOLLOW UP IN 2 WEEKS.
[2020-04-21] MEDS ORDERED: celeCOXIB 100mg capsule PO SCH (20:00)
== END 2020-04-21 12:04 | disposition home or self-care (01) ==
LOC: PAS 05:18 → SUR 3N 06:28 → PAS 04-21 11:17 → SUR 3N 04-21 11:17 → PAS 04-21 12:04
PROVIDERS: ATTEND Orthopaedic Surgery
DX: M16.12 Unilateral primary osteoarthritis, left hip (principal); I10 Essential (primary) hypertension; I48.91 Unspecified atrial fibrillation; Z88.0 Allergy status to penicillin; Z95.5 Presence of coronary angioplasty implant and graft; Z96.651 Presence of right artificial knee joint; Z98.890 Other specified postprocedural states; Z79.899 Other long term (current) drug therapy; Z93.3 Colostomy status; Z20.822 Contact with and (suspected) exposure to COVID-19
CPT/HCPCS: 27130; 36415; 72170; 80051; 80053; 82948; 85025; 85610; 85730; 86885; 86900; 86901; 87081; 87635; 93005; 97110; 97116; 97161; 97530; C1776; J0171; J0690; J0735; J1100; J2001; J2250; J2270; J2405; J2704; J2710; J2765; J3010; J3370; J7040; Q0163; A4618; A7000; G0378; J2795; J3480; J3490; J7120

== ENCOUNTER 2020-08-10 05:32 | Day surgery (SDC) | payer MEDICARE, MEDICAID ==
[2020-08-04 12:44] LABS: BASOPHILS % (AUTO) 0.5 % (0-1); EOSINOPHILS # (AUTO) 0.1 X10'3 (0-0.9); EOSINOPHILS % (AUTO) 1.7 % (0-6); LYMPHOCYTES # (AUTO) 1.4 X10'3 (1.1-4.8); LYMPHOCYTES % (AUTO) 22.1 % (21-51); MEAN CORPUSCULAR HEMOGLOBIN 28.3 PG (27.0-31.0); MEAN CORPUSCULAR HGB CONC 32.8 g/dL (33.0-36.5); MEAN CORPUSCULAR VOLUME 86.2 FL (78-98); MEAN PLATELET VOLUME 8.3 FL (7.4-10.4); MONOCYTES # (AUTO) 0.5 X10'3 (0-0.9); MONOCYTES % (AUTO) 8.4 % (2-12); NEUTROPHILS # (AUTO) 4.1 X10'3 (1.8-7.7); NEUTROPHILS % (AUTO) 67.3 % (42-75); PRE OP HEMATOCRIT 41.1 % (42.0-52.0); PRE OP HEMOGLOBIN 13.5 g/dL (14.0-17.9); PRE OP PLATELET COUNT 213 X10'3 (140-440); RED BLOOD COUNT 4.76 X10'6 (4.70-6.10); RED CELL DISTRIBUTION WIDTH 15.2 % (11.5-14.5)
[2020-08-04 12:54] LABS: PRE OP INR 1.1 INR; PRE OP PROTIME 11.6 SECONDS (9.0-12.0)
[2020-08-04 12:55] LABS: ALBUMIN 3.6 G/DL (3.4-5.0); ALKALINE PHOSPHATASE 110 IU/L (46-116); BLOOD UREA NITROGEN 33 MG/DL (7-18); BUN/CREATININE RATIO 24.6 (5.4-32.0); CALCIUM 8.9 MG/DL (8.5-10.1); CHLORIDE 108 MMOL/L (99-107); CREATININE 1.34 MG/DL (0.60-1.10); PRE OP ALT 23 U/L (30-65); PRE OP ANION GAP 10 (8-16); PRE OP AST 29 U/L (10-37); PRE OP BILIRUB, TOTAL 0.5 MG/DL (0.0-1.0); PRE OP GLUCOSE 113 MG/DL (70-104); PRE OP POTASSIUM 4.1 MMOL/L (3.4-5.1); PRE OP SODIUM 143 MMOL/L (135-145); TOTAL CARBON DIOXIDE 25.5 MMOL/L (24-32); TOTAL PROTEIN 7.1 G/DL (6.4-8.2); eGFR 55 ML/MIN
[~2020-08-10] VITALS: Ht 188 cm; Wt 140.6 kg
[2020-08-10] VITALS (20 sets, daily range): BP systolic 97–150; BP diastolic 35–87
[~2020-08-10 05:32] MED LIST changes: +CELE200C PO; +DOCUMENT DATE & TIME OF BETA-BLOCKER PO ONE; -LACT1CAP26 PO; +LOP25T PO; -METO25TA6 PO; -MULT-1249 PO; +acetaminophen 325mg tablet PO ONE; +ceFAZolin 2gm in dextrose, iso 50 ML IV ONE; +ceFAZolin/D5W- 1GM premix 50 ML IV ONE; +celeCOXIB 100mg capsule PO ONE; +famotidine 20mg tablet PO ONE; +gabapentin 300mg capsule PO ONE; +metoclopramide 5 mg/ml inj IV ONE; +oxyCODONE SR 10mg (sust. release) tab -2 tabs (20mg) PO ONE; +ringers solution, lacted 1,000 ML IV SCH; +tranexamic acid 1gm/0.7% sal. 100 ML IV ONE; +vancomycin 1,500 MG in NS 300ml IV soln IV ONE
[2020-08-10] MEDS ORDERED: HYDROmorphone 1 mg/ml syringe IV PRN (06:00)
[2020-08-10] MEDS ORDERED: HYDROcodone/acetaminophen 10/325mg tab PO PRN (06:00)
[2020-08-10] MEDS ORDERED: acetaminophen 325mg tablet PO PRN (06:00)
[2020-08-10] MEDS: potassium cl 20mEq in 1/2 NS 1,000 ML IV SCH ×3 (06:00→20:31)
[2020-08-10] MEDS ORDERED: ondansetron/PF 4mg/2ml inj IV PRN ×2 (06:00→07:30)
[2020-08-10] MEDS ORDERED: HYDROmorphone inj. 0.5 MG/0.5 ML DISP.SYRIN IV PRN (06:00)
[2020-08-10] MEDS ORDERED: diphenhydrAMINE 25mg capsule PO PRN ×2 (06:00)
[2020-08-10] MEDS ORDERED: magnesium hydroxide 30ml (MOM) UD suspension PO PRN (06:00)
[2020-08-10] MEDS ORDERED: bisacodyl 10mg suppository rectal RC PRN (06:00)
[2020-08-10] MEDS ORDERED: vancomycin 1,000mg inj ONE (06:40)
[2020-08-10] MEDS ORDERED: cloNIDine hcl/PF 100mcg/ml inj ONE (06:40)
[2020-08-10] MEDS ORDERED: ketorolac trometh. 30mg/ml inj. ONE (06:40)
[2020-08-10] MEDS ORDERED: ROPIVAcaine 0.5% (5mg/ml) 30ml vial ONE (06:40)
[2020-08-10] MEDS ORDERED: fentaNYL/PF 50MCG/1 ML 2ML syringe ONE (06:53)
[2020-08-10] MEDS ORDERED: MIDAZolam 1mg/ml 10ml vial ONE (06:53)
[2020-08-10] MEDS ORDERED: epiNEPHrine 1 mg/ml inj ONE (07:25)
[2020-08-10] MEDS ORDERED: hydrALAZINE 20mg/ml inj. IV PRN (07:30)
[2020-08-10] MEDS ORDERED: fentaNYL/PF 50MCG/1 ML 2ML syringe IV PRN ×2 (07:30)
[2020-08-10] MEDS ORDERED: enalaprilat dihydrate 2.5mg/2ml vial IV PRN (07:30)
[2020-08-10] MEDS ORDERED: morphine 4 MG/ML inj SYRINge IV PRN (07:30)
[2020-08-10] MEDS ORDERED: ringers solution, lacted 1,000 ML IV SCH (07:30)
[2020-08-10] MEDS ORDERED: morphine 2 MG/ML inj. syringe IV PRN (07:30)
[2020-08-10] MEDS ORDERED: oxyCODONE SR 10mg (sust. release) tab PO ONE (07:35)
[2020-08-10] MEDS ORDERED: ROPIVAcaine 0.5% (5mg/ml) 30ml vial IJ ONE ×2 (07:45)
[2020-08-10] MEDS ORDERED: epiNEPHrine 1 mg/ml inj IM ONE (07:46)
[2020-08-10] MEDS ORDERED: cloNIDine hcl/PF 100mcg/ml inj IJ ONE (07:46)
[2020-08-10] MEDS: metoprolol tartrate 25mg tablet PO SCH ×2 (08:00→20:15)
--- NOTE | 2020-08-10 08:45 | NUR ---
ADMITTED TO PACU FROM OR ACCOMPANIED BY ANESTHESIA. INTIAL PHYSICAL ASSESSMENT DONE AND RECORDED. REPORT RECEIVED FROM ANESTHESIA.
[2020-08-10] MEDS ORDERED: tranexamic acid 1gm/0.7% sal. 100 ML IV ONE (10:00)
--- NOTE | 2020-08-10 10:15 | NUR ---
PACU DISCHARGE CRITERIA MET, REPORT GIVEN TO FLOOR. DENIES PAIN OR DISCOMFORT. PT IS STABLE AND ADEQUATELY RECOVERED FROM ANESTHESIA. PT HAS STABLE AIRWAY PATENCY, RESPIRATORY FUNCTION TO INCLUDE RESPIRATORY RATE AND O2 SAT. HEART RATE, BLOOD PRESSURE STABLE AND HYDRATION ADEQUATE. MENTAL STATUS IS APPROPRIATE. PAIN AND NAUSEA CONTROLLED. REFER TO PACU SPREADSHEET FOR VITAL SIGNS.
[2020-08-10] MEDS: cefazolin/dext.iso 2gm/50ml 50 ML IV SCH ×2 (15:17→16:00)
[2020-08-10] MEDS: gabapentin 300mg capsule PO SCH ×2 (15:30→20:14)
[2020-08-10] MEDS: HYDROcodone/acetaminophen 10/325mg tab PO PRN ×2 (15:35→20:07)
[2020-08-10] MEDS ORDERED: cefazolin/dext.iso 2gm/100ml 100 ML IV SCH (16:00)
[2020-08-10] MEDS ORDERED: vancomycin inj 2,000 MG in normal saline 500ml IV soln 500 ML IV ONE (19:00)
[2020-08-10] MEDS: apixaban 2.5mg tablet PO SCH (20:15)
[2020-08-10] MEDS: amLODIPine 5mg tablet PO SCH (20:15)
[2020-08-10] MEDS ORDERED: sennosides 8.6mg tablet PO SCH (21:00)
[2020-08-11] MEDS ORDERED: cefazolin/dext.iso 2gm/50ml 50 ML IV ONE
[2020-08-11] MEDS: HYDROcodone/acetaminophen 10/325mg tab PO PRN ×3 (00:16→11:57)
[2020-08-11 02:00] VITALS: BP 126/67
[2020-08-11] MEDS: potassium cl 20mEq in 1/2 NS 1,000 ML IV SCH (02:31)
[2020-08-11 06:00] VITALS: BP 136/74
[2020-08-11 06:19] LABS: BASOPHILS % (AUTO) 0.4 % (0-1); EOSINOPHILS # (AUTO) 0.2 X10'3 (0-0.9); EOSINOPHILS % (AUTO) 3.2 % (0-6); HEMATOCRIT 29.6 % (42.0-52.0); HEMOGLOBIN 9.8 g/dl (14.0-17.9); LYMPHOCYTES # (AUTO) 1.3 X10'3 (1.1-4.8); LYMPHOCYTES % (AUTO) 18.5 % (21-51); MEAN CORPUSCULAR HEMOGLOBIN 29.2 PG (27.0-31.0); MEAN CORPUSCULAR HGB CONC 33.2 g/dL (33.0-36.5); MEAN PLATELET VOLUME 8.4 FL (7.4-10.4); MONOCYTES # (AUTO) 0.7 X10'3 (0-0.9); MONOCYTES % (AUTO) 9.8 % (2-12); NEUTROPHILS # (AUTO) 4.7 X10'3 (1.8-7.7); NEUTROPHILS % (AUTO) 68.1 % (42-75); PLATELET COUNT 137 X10'3 (140-440); RED BLOOD COUNT 3.36 X10'6 (4.70-6.10); RED CELL DISTRIBUTION WIDTH 15.2 % (11.5-14.5)
[2020-08-11 06:37] LABS: ANION GAP 9 (8-16); CHLORIDE 107 MMOL/L (99-107); POTASSIUM 4.3 MMOL/L (3.5-5.1); SODIUM 140 MMOL/L (135-145); TOTAL CARBON DIOXIDE 23.6 MMOL/L (24-32)
--- NOTE | 2020-08-11 06:43 | NUR ---
08/11/20 0230 MEDICATION ASSESSMENT NOT DONE. PET FOOD DEBONER NOTIFIED
--- NOTE | 2020-08-11 06:44 | NUR ---
Patient in room [facility]TH[facility] 4014. I have received report from MICHELLE PEGUERO and had the opportunity to ask questions and assume patient care.
[2020-08-11] MEDS: gabapentin 300mg capsule PO SCH ×2 (07:54→12:02)
[2020-08-11] MEDS: amLODIPine 5mg tablet PO SCH (07:54)
[2020-08-11] MEDS: metoprolol tartrate 25mg tablet PO SCH (07:54)
[2020-08-11] MEDS: apixaban 2.5mg tablet PO SCH (07:54)
[2020-08-11] MEDS ORDERED: pantoprazole 40mg Tablet.DR PO SCH (08:00)
[2020-08-11 10:47] VITALS: BP 130/70
--- NOTE | 2020-08-11 13:42 | NUR ---
pt discharged in private vehicle with daughter at 1335. Belongings sent with pt. all questions/ concerns answered and addressed. IV removed, tip intact, pressure bandage applied. Pt discharged in stable condition
[2020-08-11] MEDS ORDERED: celeCOXIB 100mg capsule PO SCH (20:00)
== END 2020-08-11 13:35 | disposition home or self-care (01) ==
LOC: PAS 05:32 → ORTHO 4S 06:00 → PAS 08-11 13:35
PROVIDERS: ATTEND Orthopaedic Surgery
DX: M16.11 Unilateral primary osteoarthritis, right hip (principal); Z79.899 Other long term (current) drug therapy; Z79.01 Long term (current) use of anticoagulants; M25.551 Pain in right hip; Z95.1 Presence of aortocoronary bypass graft; K21.9 Gastro-esophageal reflux disease without esophagitis; I10 Essential (primary) hypertension; I48.91 Unspecified atrial fibrillation
CPT/HCPCS: 27130; 36415; 72170; 80051; 80053; 82948; 85025; 85610; 85730; 86885; 86900; 86901; 87081; 97110; 97116; 97161; 97530; C1776; J0171; J0690; J0735; J1885; J2250; J2765; J3010; J3370; J7040; J7120; A4215; A7000; G0378; J2795; J3480

== ENCOUNTER → 2021-08-23 | Day surgery (SDC) | payer MEDICARE, MEDICAID ==
[2021-08-17 17:38] LABS: BASOPHILS % (AUTO) 0.6 % (0-1); EOSINOPHILS # (AUTO) 0.2 X10'3 (0-0.9); EOSINOPHILS % (AUTO) 3.1 % (0-6); LYMPHOCYTES # (AUTO) 1.2 X10'3 (1.1-4.8); LYMPHOCYTES % (AUTO) 19.5 % (21-51); MEAN CORPUSCULAR HEMOGLOBIN 30.7 PG (27.0-31.0); MEAN CORPUSCULAR HGB CONC 33.9 g/dL (33.0-36.5); MEAN CORPUSCULAR VOLUME 90.6 FL (78-98); MEAN PLATELET VOLUME 8.6 FL (7.4-10.4); MONOCYTES # (AUTO) 0.7 X10'3 (0-0.9); MONOCYTES % (AUTO) 10.5 % (2-12); NEUTROPHILS # (AUTO) 4.2 X10'3 (1.8-7.7); NEUTROPHILS % (AUTO) 66.3 % (42-75); PRE OP HEMATOCRIT 43.3 % (42.0-52.0); PRE OP HEMOGLOBIN 14.7 g/dL (14.0-17.9); PRE OP PLATELET COUNT 214 X10'3 (140-440); RED BLOOD COUNT 4.78 X10'6 (4.70-6.10); RED CELL DISTRIBUTION WIDTH 14.2 % (11.5-14.5)
[2021-08-17 18:04] LABS: ALBUMIN 3.8 G/DL (3.4-5.0); ALBUMIN/GLOBULIN RATIO 1.1 (1.1-1.5); ALKALINE PHOSPHATASE 83 IU/L (46-116); BLOOD UREA NITROGEN 26 MG/DL (7-18); BUN/CREATININE RATIO 17.9 (5.4-32.0); CALCIUM 8.7 MG/DL (8.5-10.1); CHLORIDE 107 MMOL/L (99-107); CREATININE 1.45 MG/DL (0.60-1.10); PRE OP ALT 36 U/L (30-65); PRE OP ANION GAP 10 (8-16); PRE OP AST 34 U/L (10-37); PRE OP BILIRUB, TOTAL 0.6 MG/DL (0.0-1.0); PRE OP GLUCOSE 94 MG/DL (70-104); PRE OP POTASSIUM 4.3 MMOL/L (3.4-5.1); PRE OP SODIUM 142 MMOL/L (135-145); TOTAL CARBON DIOXIDE 25.4 MMOL/L (24-32); TOTAL PROTEIN 7.3 G/DL (6.4-8.2); eGFR 50 ML/MIN
[~2021-08-23] VITALS: Ht 188 cm; Wt 149.7 kg
[~2021-08-23] MED LIST changes: -CELE200C PO; -DOCUMENT DATE & TIME OF BETA-BLOCKER PO ONE; +HYDROmorphone 1 mg/ml syringe IV PRN; +HYDROmorphone inj. 0.5 MG/0.5 ML DISP.SYRIN IV PRN; +IRON; +LACT1TAB11 PO; +ROPIVAcaine 0.5% (5mg/ml) 30ml vial ONE; +VITAMIN D3; +acetaminophen 325mg tablet PO PRN; +amLODIPine 5mg tablet PO SCH; +apixaban 2.5mg tablet PO SCH; +apixaban 5mg tablet PO SCH; +ascorbic acid 500mg tablet PO SCH; +bisacodyl 10mg suppository rectal RC PRN; -ceFAZolin 2gm in dextrose, iso 50 ML IV ONE; +ceFAZolin inj. 3,000 MG in normal saline 100ml IV soln 100 ML IV ONE; -ceFAZolin/D5W- 1GM premix 50 ML IV ONE; +ceFAZolin/D5W- 1GM premix 50 ML IV SCH; +cefazolin/dext.iso 2gm/100ml 100 ML IV SCH; +celeCOXIB 100mg capsule PO SCH; +cloNIDine hcl/PF 100mcg/ml inj ONE; +diphenhydrAMINE 25mg capsule PO PRN; +epiNEPHrine 1 mg/ml inj ONE; +gabapentin 300mg capsule PO SCH; +ketorolac trometh. 30mg/ml inj. ONE; +magnesium hydroxide 30ml (MOM) UD suspension PO PRN; +metoprolol tartrate 25mg tablet PO SCH; +multivitamins, therapeutics tablet PO SCH; +naloxone 0.4 mg/ml inj IV PRN; +ondansetron/PF 4mg/2ml inj IV PRN; +oxyCODONE/APAP 10/325mg tablet PO PRN; +pantoprazole 40mg Tablet.DR PO SCH; +potassium cl 20mEq in 1/2 NS 1,000 ML IV SCH; +sennosides 8.6mg tablet PO SCH; -tranexamic acid 1gm/0.7% sal. 100 ML IV ONE; +tranexamic acid inj. 1,000 MG in normal saline 100ml IV soln 90 ML IV ONE; +tranexamic acid inj. 1,500 MG in normal saline 100ml IV soln 85 ML IV ONE; +vancomycin 1,000mg inj ONE; +vancomycin inj 1,750 MG in normal saline 500ml IV soln 350 ML IV ONE
--- NOTE | 2021-08-23 09:00 | NUR ---
PATIENT PREPARED FOR SURGERY,UPON EXAMINING THE PATIENTS LEFT LEG, THERE WAS NOTED TO HAVE A RED ANGRY ABRASION AND ALSO MULTIPLE SMALLER ABRASIONS ON THE LEFT ESPINOZA AREA. DR CHUA NOTIFIED AND AFTER HE SAW THE PATIENT HE CANCELLED THE SURGERY RISK AND BENEFITS EXPLAINED TO PATIENT AND HIS , SUGGESTION MADE TO GET ESPINOZA GUARDS. DR CHUA DISCUSSED IN DETAIL THE POSSIBILITIES OF INFECTION AND PATIENT WILL BE RESCHEDULED IN A FEW WEEKS AFTER WOUNDS ARE HEALED
== END | disposition home or self-care (01) ==
LOC: PAS 08:01
PROVIDERS: ATTEND Orthopaedic Surgery
DX: M17.12 Unilateral primary osteoarthritis, left knee (principal); Z53.8 Procedure and treatment not carried out for other reasons; S80.812A Abrasion, left lower leg, initial encounter; X58.XXXA Exposure to other specified factors, initial encounter; Y93.89 Activity, other specified; Y92.89 Other specified places as the place of occurrence of the external cause; Y99.8 Other external cause status
CPT/HCPCS: 36415; 80053; 85025; 86885; 86900; 86901; 87081; J0690; J3370; J3490; J7040; J7120; J0171; J0735; J1885; J2795

== ENCOUNTER 2021-10-04 07:35 | Inpatient (IN) | payer MEDICARE, MEDICAID ==
[2021-09-29 10:42] LABS: BASOPHILS % (AUTO) 0.6 % (0-1); EOSINOPHILS # (AUTO) 0.2 X10'3 (0-0.9); EOSINOPHILS % (AUTO) 3.6 % (0-6); LYMPHOCYTES # (AUTO) 1.3 X10'3 (1.1-4.8); LYMPHOCYTES % (AUTO) 19.7 % (21-51); MEAN CORPUSCULAR HEMOGLOBIN 30.8 PG (27.0-31.0); MEAN CORPUSCULAR HGB CONC 33.7 g/dL (33.0-36.5); MEAN CORPUSCULAR VOLUME 91.2 FL (78-98); MEAN PLATELET VOLUME 8.3 FL (7.4-10.4); MONOCYTES # (AUTO) 0.6 X10'3 (0-0.9); NEUTROPHILS # (AUTO) 4.3 X10'3 (1.8-7.7); NEUTROPHILS % (AUTO) 67.1 % (42-75); PRE OP HEMATOCRIT 45.3 % (42.0-52.0); PRE OP HEMOGLOBIN 15.3 g/dL (14.0-17.9); PRE OP PLATELET COUNT 210 X10'3 (140-440); RED BLOOD COUNT 4.97 X10'6 (4.70-6.10); RED CELL DISTRIBUTION WIDTH 13.8 % (11.5-14.5)
[2021-09-29 10:49] LABS: ALBUMIN 3.8 G/DL (3.4-5.0); ALKALINE PHOSPHATASE 84 IU/L (46-116); BLOOD UREA NITROGEN 27 MG/DL (7-18); BUN/CREATININE RATIO 20.6 (5.4-32.0); CALCIUM 8.8 MG/DL (8.5-10.1); CHLORIDE 106 MMOL/L (99-107); CREATININE 1.31 MG/DL (0.60-1.10); PRE OP ALT 47 U/L (30-65); PRE OP ANION GAP 9 (8-16); PRE OP AST 33 U/L (10-37); PRE OP BILIRUB, TOTAL 0.8 MG/DL (0.0-1.0); PRE OP GLUCOSE 105 MG/DL (70-104); PRE OP POTASSIUM 4.4 MMOL/L (3.4-5.1); PRE OP SODIUM 141 MMOL/L (135-145); TOTAL PROTEIN 7.6 G/DL (6.4-8.2); eGFR 56 ML/MIN
[2021-10-04] VITALS (17 sets, daily range): BP systolic 134–164; BP diastolic 75–108
[~2021-10-04] VITALS: Ht 188 cm; Wt 151.4 kg
[~2021-10-04 07:35] MED LIST changes: +DOCUMENT DATE & TIME OF BETA-BLOCKER PO ONE; -HYDROmorphone 1 mg/ml syringe IV PRN; -HYDROmorphone inj. 0.5 MG/0.5 ML DISP.SYRIN IV PRN; -ROPIVAcaine 0.5% (5mg/ml) 30ml vial ONE; -acetaminophen 325mg tablet PO PRN; -amLODIPine 5mg tablet PO SCH; -apixaban 2.5mg tablet PO SCH; -apixaban 5mg tablet PO SCH; -ascorbic acid 500mg tablet PO SCH; -bisacodyl 10mg suppository rectal RC PRN; -ceFAZolin/D5W- 1GM premix 50 ML IV SCH; -cefazolin/dext.iso 2gm/100ml 100 ML IV SCH; -celeCOXIB 100mg capsule PO SCH; -cloNIDine hcl/PF 100mcg/ml inj ONE; -diphenhydrAMINE 25mg capsule PO PRN; -epiNEPHrine 1 mg/ml inj ONE; -gabapentin 300mg capsule PO SCH; -ketorolac trometh. 30mg/ml inj. ONE; -magnesium hydroxide 30ml (MOM) UD suspension PO PRN; -metoprolol tartrate 25mg tablet PO SCH; -multivitamins, therapeutics tablet PO SCH; -naloxone 0.4 mg/ml inj IV PRN; -ondansetron/PF 4mg/2ml inj IV PRN; -oxyCODONE/APAP 10/325mg tablet PO PRN; -pantoprazole 40mg Tablet.DR PO SCH; -potassium cl 20mEq in 1/2 NS 1,000 ML IV SCH; -ringers solution, lacted 1,000 ML IV SCH; -sennosides 8.6mg tablet PO SCH; +tranexamic acid inj. 1,000 MG in 0.7% saline 100 ML PMX IV ONE; -tranexamic acid inj. 1,000 MG in normal saline 100ml IV soln 90 ML IV ONE; -tranexamic acid inj. 1,500 MG in normal saline 100ml IV soln 85 ML IV ONE; -vancomycin 1,000mg inj ONE; -vancomycin inj 1,750 MG in normal saline 500ml IV soln 350 ML IV ONE
[2021-10-04] MEDS: ringers solution, lacted 1,000 ML IV SCH ×3 (08:10→15:35)
[2021-10-04] MEDS ORDERED: CefTRIAXone 2gm/D5W 50ml BAG 50 ML IV ONE (08:25)
[2021-10-04] MEDS ORDERED: ROPIVAcaine 0.5% (5mg/ml) 30ml vial ONE ×2 (09:22→10:12)
[2021-10-04] MEDS ORDERED: cloNIDine hcl/PF 100mcg/ml inj ONE (10:12)
[2021-10-04] MEDS ORDERED: epiNEPHrine 1 mg/ml inj ONE (10:12)
[2021-10-04] MEDS ORDERED: vancomycin 1,000mg inj ONE (10:12)
[2021-10-04] MEDS ORDERED: ketorolac trometh. 30mg/ml inj. ONE (10:12)
[2021-10-04] MEDS ORDERED: hydrALAZINE 20mg/ml inj. IV ONE ×2 (10:35→12:26)
[2021-10-04] MEDS ORDERED: sevoflurane 250ml liquid IH ONE (10:35)
[2021-10-04] MEDS ORDERED: fentaNYL/PF 50MCG/1 ML 2ML syringe ONE ×2 (10:36→11:10)
[2021-10-04] MEDS ORDERED: MIDAZolam 1 MG/ML 5ML VIAL ONE (10:37)
[2021-10-04] MEDS ORDERED: proCHLORperazine 10 MG/2 ml inj IV PRN (11:45)
[2021-10-04] MEDS ORDERED: morphine 4 MG/ML inj SYRINge IV PRN (11:45)
[2021-10-04] MEDS ORDERED: ondansetron/PF 4mg/2ml inj IV PRN ×2 (11:45→13:55)
[2021-10-04] MEDS ORDERED: ROPIVAcaine 0.2%/PF PUMP/bolus 545 ML ADDCANAL SCH (11:45)
[2021-10-04] MEDS ORDERED: ringers solution, lacted 1,000 ML IV SCH (11:45)
[2021-10-04] MEDS ORDERED: ROPIVAcaine 0.2% (10 MG/5 ML) BOLUS INJECTION ADDCANAL PRN (11:45)
[2021-10-04] MEDS ORDERED: meperidine/PF 25mg/ml syringe IV PRN ×2 (11:45)
[2021-10-04] MEDS ORDERED: morphine 2 MG/ML inj. syringe IV PRN (11:45)
[2021-10-04] MEDS ORDERED: rocuronium 10mg/ml inj IV ONE (11:52)
[2021-10-04] MEDS ORDERED: neostigmine methylsulfate 1 MG/ML 10ml vial ONE ×2 (11:52→12:18)
[2021-10-04] MEDS ORDERED: glycopyrrolate 0.2mg/ml inj ONE ×3 (11:52→13:02)
[2021-10-04] MEDS ORDERED: LIDOcaine 2% (20mg/ml) 5ml vial ONE (11:52)
[2021-10-04] MEDS ORDERED: propofol inj 20 ML IV ONE (11:52)
[2021-10-04] MEDS ORDERED: dexamethasone sod phosphate 4mg/ml inj. ONE (11:52)
[2021-10-04] MEDS ORDERED: ondansetron/PF 4mg/2ml inj ONE (11:52)
[2021-10-04] MEDS ORDERED: ePHEDrine 50MG/ML INJ. ONE (12:18)
[2021-10-04] MEDS ORDERED: meperidine/PF 25mg/ml syringe ONE (12:34)
[2021-10-04] MEDS: meperidine/PF 25mg/ml syringe IV PRN ×2 (13:15→13:23)
[2021-10-04] MEDS ORDERED: HYDROmorphone inj. 0.5 MG/0.5 ML DISP.SYRIN IV PRN (13:55)
[2021-10-04] MEDS ORDERED: HYDROmorphone 1 mg/ml syringe IV PRN (13:55)
[2021-10-04] MEDS ORDERED: magnesium hydroxide 30ml (MOM) UD suspension PO PRN (13:55)
[2021-10-04] MEDS ORDERED: diphenhydrAMINE 25mg capsule PO PRN ×2 (13:55)
[2021-10-04] MEDS ORDERED: bisacodyl 10mg suppository rectal RC PRN (13:55)
[2021-10-04] MEDS ORDERED: acetaminophen 325mg tablet PO PRN (13:55)
[2021-10-04] MEDS ORDERED: oxyCODONE/APAP 10/325mg tablet PO PRN (13:55)
[2021-10-04] MEDS ORDERED: naloxone 0.4 mg/ml inj IV PRN (13:55)
--- NOTE | 2021-10-04 13:55 | NUR ---
LEFT KNEE WRAP WITH SUMANTH DRESSING CDI W/ ON Q BALL AT 6ML/HR BOLUS GIVEN PATIENT C/O PAIN ON ARRIVAL, SCD ON, 18G LUE, V/S WNL, NEUROVASCULAR CHECKS INTACT PATIENT A&OX4, PATIENT TAKEN TO 4022A WITH ALL BELONGINGS AND HOOKED UP TO MONITORS IN ROOM AND REPORT GIVEN TO RN WHO HAS TAKEN OVER PATIENT CARE.
--- NOTE | 2021-10-04 14:17 | NUR ---
Patient in room . I have received report from gagandeep moreland and had the opportunity to ask questions and assume patient care.
[2021-10-04] MEDS ORDERED: ceFAZolin/D5W- 1GM premix 50 ML IV SCH (16:00)
[2021-10-04] MEDS ORDERED: cefazolin/dext.iso 2gm/100ml 100 ML IV SCH (16:00)
[2021-10-04] MEDS ORDERED: TRANEXAMIC ACID IV ONE (16:05)
[2021-10-04] MEDS ORDERED: NORMAL SALINE IV ONE (16:05)
--- NOTE | 2021-10-04 17:03 | NUR ---
PER PHARMACIST, THEY ARE WORKING ON CHANGING THE ANTIBIOTIC DUE TO DOSING. WILL FIX TO GIVE TONIGHT.
--- NOTE | 2021-10-04 17:05 | NUR ---
PHARMACIST WILL BE TALKING TO THE DR ABOUT THE PTS REACTION TO [place]EN[place] TP POSSIBLE CHANGE IT. THAT IS WHY THE MEDICATION WAS NOT GIVEN
[2021-10-04] MEDS: potassium cl 20mEq in 1/2 NS 1,000 ML IV SCH ×2 (18:18→21:55)
[2021-10-04] MEDS: ceFAZolin inj. 3,000 MG in normal saline 100ml IV soln 100 ML IV SCH (18:18)
[2021-10-04] MEDS: oxyCODONE/APAP 10/325mg tablet PO PRN ×2 (18:26→22:44)
--- NOTE | 2021-10-04 18:48 | NUR ---
Problems reprioritized. Patient report given, questions answered & plan of care reviewed with gill garland rn.
--- NOTE | 2021-10-04 18:50 | NUR ---
Patient in room ORTH[facility] 4022. I have received report from EMMIE PEGUERO and had the opportunity to ask questions and assume patient care.
[2021-10-04] MEDS ORDERED: vancomycin inj 1,750 MG in normal saline 500ml IV soln 350 ML IV ONE (21:00)
[2021-10-04] MEDS ORDERED: sennosides 8.6mg tablet PO SCH (21:00)
[2021-10-04] MEDS: ascorbic acid 500mg tablet PO SCH (21:32)
[2021-10-04] MEDS: gabapentin 300mg capsule PO SCH (21:32)
[2021-10-05 02:00] VITALS: BP 149/76
[2021-10-05] MEDS: ceFAZolin inj. 3,000 MG in normal saline 100ml IV soln 100 ML IV SCH (02:45)
[2021-10-05] MEDS: potassium cl 20mEq in 1/2 NS 1,000 ML IV SCH (05:57)
[2021-10-05] MEDS: oxyCODONE/APAP 10/325mg tablet PO PRN (05:57)
[2021-10-05 06:00] VITALS: BP 133/74
--- NOTE | 2021-10-05 06:30 | NUR ---
Problems reprioritized. Patient report given, questions answered & plan of care reviewed with TERRELL PEGUERO.
[2021-10-05 07:11] LABS: BASOPHILS % (AUTO) 0.2 % (0-1); EOSINOPHILS % (AUTO) 0.1 % (0-6); HEMATOCRIT 39.4 % (42.0-52.0); HEMOGLOBIN 13.3 g/dl (14.0-17.9); LYMPHOCYTES # (AUTO) 1.7 X10'3 (1.1-4.8); LYMPHOCYTES % (AUTO) 13.7 % (21-51); MEAN CORPUSCULAR HEMOGLOBIN 30.9 PG (27.0-31.0); MEAN CORPUSCULAR HGB CONC 33.8 g/dL (33.0-36.5); MEAN CORPUSCULAR VOLUME 91.4 FL (78-98); MEAN PLATELET VOLUME 8.6 FL (7.4-10.4); MONOCYTES % (AUTO) 7.7 % (2-12); NEUTROPHILS # (AUTO) 9.9 X10'3 (1.8-7.7); NEUTROPHILS % (AUTO) 78.3 % (42-75); PLATELET COUNT 179 X10'3 (140-440); RED BLOOD COUNT 4.31 X10'6 (4.70-6.10); RED CELL DISTRIBUTION WIDTH 13.5 % (11.5-14.5); WHITE BLOOD COUNT 12.7 X10'3 (4.5-11.0)
[2021-10-05 07:33] LABS: ANION GAP 14 (8-16); CHLORIDE 105 MMOL/L (99-107); POTASSIUM 4.7 MMOL/L (3.5-5.1); SODIUM 138 MMOL/L (135-145); TOTAL CARBON DIOXIDE 19.4 MMOL/L (24-32)
[2021-10-05] MEDS ORDERED: multivitamins, therapeutics tablet PO SCH (08:00)
[2021-10-05] MEDS: gabapentin 300mg capsule PO SCH (08:15)
[2021-10-05] MEDS: ascorbic acid 500mg tablet PO SCH (08:15)
--- NOTE | 2021-10-05 11:55 | NUR ---
Joint surgery consult: Pt s/p L TKA this admit per EMR. Pt seen by SUE for written/verbal high protein ed w/ RD contact information provided. SUE encouraged pt to contact dietitian's office if further questions/concerns. Addendum: 10/05/21 at [address] Amended: Links added.
[2021-10-05] MEDS ORDERED: celeCOXIB 100mg capsule PO SCH (20:00)
== END 2021-10-05 10:05 | disposition home or self-care (01) | DRG 470 ==
LOC: PAS 07:35 → ORTHO 4S 13:58
PROVIDERS: ADMIT Orthopaedic Surgery; ATTEND Orthopaedic Surgery
PROC: 0SRD0J9 Replacement of Left Knee Joint with Synthetic Substitute, Cemented, Open Approach (ICD-10-PCS; principal; 2021-10-04 10:35)
DX: M17.12 Unilateral primary osteoarthritis, left knee (principal); Z79.01 Long term (current) use of anticoagulants; Z79.899 Other long term (current) drug therapy
CPT/HCPCS: 36415; 73560; 80051; 80053; 82948; 85025; 86885; 86900; 86901; 87081; 97110; 97116; 97161; 97530; A4215; A7000; C1713; C1776; G0378; J0171; J0360; J0690; J0696; J0735; J1100; J1170; J1885; J2175; J2250; J2405; J2704; J2710; J2765; J2795; J3010; J3370; J3480; J3490; J7040; J7120

== ENCOUNTER 2022-06-23 16:35 | Emergency (ER) | payer MEDICARE, MEDICAID ==
[~2022-06-23] VITALS: Ht 188 cm; Wt 136.6 kg
[~2022-06-23 16:35] MED LIST changes: -DOCUMENT DATE & TIME OF BETA-BLOCKER PO ONE; -LACT1TAB11 PO; +POTA-82 PO; -acetaminophen 325mg tablet PO ONE; -ceFAZolin inj. 3,000 MG in normal saline 100ml IV soln 100 ML IV ONE; -celeCOXIB 100mg capsule PO ONE; -famotidine 20mg tablet PO ONE; -gabapentin 300mg capsule PO ONE; -metoclopramide 5 mg/ml inj IV ONE; -oxyCODONE SR 10mg (sust. release) tab -2 tabs (20mg) PO ONE; -tranexamic acid inj. 1,000 MG in 0.7% saline 100 ML PMX IV ONE; -vancomycin 1,500 MG in NS 300ml IV soln IV ONE
[2022-06-23 16:46] VITALS: BP 173/90
[2022-06-23 17:10] LABS: BASOPHILS % (AUTO) 0.5 % (0-1); EOSINOPHILS # (AUTO) 0.2 X10'3 (0-0.9); HEMATOCRIT 43.3 % (42.0-52.0); HEMOGLOBIN 14.3 g/dl (14.0-17.9); LYMPHOCYTES # (AUTO) 1.9 X10'3 (1.1-4.8); LYMPHOCYTES % (AUTO) 23.8 % (21-51); MEAN CORPUSCULAR HEMOGLOBIN 29.4 PG (27.0-31.0); MEAN CORPUSCULAR HGB CONC 33.1 g/dL (33.0-36.5); MEAN CORPUSCULAR VOLUME 88.9 FL (78-98); MEAN PLATELET VOLUME 7.9 FL (7.4-10.4); MONOCYTES # (AUTO) 0.8 X10'3 (0-0.9); MONOCYTES % (AUTO) 9.4 % (2-12); NEUTROPHILS % (AUTO) 63.3 % (42-75); PLATELET COUNT 237 X10'3 (140-440); RED BLOOD COUNT 4.87 X10'6 (4.70-6.10); RED CELL DISTRIBUTION WIDTH 15.9 % (11.5-14.5)
[2022-06-23 17:25] LABS: ALANINE AMINOTRANSFERASE 45 U/L (12-78); ALBUMIN 3.9 G/DL (3.4-5.0); ALBUMIN/GLOBULIN RATIO 1.1 (1.1-1.5); ALKALINE PHOSPHATASE 84 IU/L (46-116); ANION GAP 10 (8-16); ASPARTATE AMINO TRANSFERASE 41 U/L (10-37); BILIRUBIN,TOTAL 0.4 MG/DL (0.1-1.0); BLOOD UREA NITROGEN 29 MG/DL (7-18); BUN/CREATININE RATIO 22.3 (10.0-20.0); CALCIUM 8.9 MG/DL (8.5-10.1); CHLORIDE 104 MMOL/L (99-107); GLUCOSE 93 MG/DL (70-104); POTASSIUM 4.4 MMOL/L (3.5-5.1); SODIUM 138 MMOL/L (135-145); TOTAL CARBON DIOXIDE 24.2 MMOL/L (24-32); TOTAL PROTEIN 7.6 G/DL (6.4-8.2); eGFR 56 ML/MIN
== END 2022-06-23 19:01 | disposition home or self-care (01) ==
LOC: ER 16:36
DX: M79.605 Pain in left leg (principal); R60.0 Localized edema; I11.0 Hypertensive heart disease with heart failure; Z86.14 Personal history of Methicillin resistant Staphylococcus aureus infection; Z88.0 Allergy status to penicillin; Z88.2 Allergy status to sulfonamides; Z79.899 Other long term (current) drug therapy; Z79.1 Long term (current) use of non-steroidal anti-inflammatories (NSAID); Z79.2 Long term (current) use of antibiotics
CPT/HCPCS: 36415; 80053; 85025; 93971; 99284

== ENCOUNTER 2024-02-09 11:35 | Inpatient (IN) | payer MEDICAID, MEDICARE ==
[2024-02-09] VITALS (7 sets, daily range): BP systolic 88–132; BP diastolic 41–70; PULSE 106–141; RESP 15–28; O2SAT 93–97
[~2024-02-09] VITALS: Ht 188 cm; Wt 153.0 kg
[~2024-02-09 11:35] MED LIST changes: +POTA-366 PO; -POTA-82 PO
[2024-02-09 12:13] LABS: BASOPHILS % (AUTO) 0.2 % (0-1); EOSINOPHILS # (AUTO) 0.2 X10'3 (0-0.9); EOSINOPHILS % (AUTO) 1.7 % (0-6); HEMATOCRIT 40.5 % (42.0-52.0); HEMOGLOBIN 13.7 g/dl (14.0-17.9); LYMPHOCYTES # (AUTO) 0.3 X10'3 (1.1-4.8); MEAN CORPUSCULAR HEMOGLOBIN 31.8 PG (27.0-31.0); MEAN CORPUSCULAR HGB CONC 33.7 g/dL (33.0-36.5); MEAN CORPUSCULAR VOLUME 94.2 FL (78-98); MEAN PLATELET VOLUME 10.4 FL (7.4-10.4); MONOCYTES # (AUTO) 0.1 X10'3 (0-0.9); MONOCYTES % (AUTO) 0.7 % (2-12); NEUTROPHILS # (AUTO) 12.1 X10'3 (1.8-7.7); NEUTROPHILS % (AUTO) 95.4 % (42-75); PLATELET COUNT 213 X10'3 (140-440); RED CELL DISTRIBUTION WIDTH 14.9 % (11.5-14.5); WHITE BLOOD COUNT 12.7 X10'3 (4.5-11.0)
[2024-02-09 12:23] LABS: ALANINE AMINOTRANSFERASE 128 U/L (12-78); ALBUMIN 2.3 G/DL (3.4-5.0); ALBUMIN/GLOBULIN RATIO 0.5 (1.1-1.5); ALKALINE PHOSPHATASE 72 IU/L (46-116); ANION GAP 19 (8-16); ASPARTATE AMINO TRANSFERASE 192 U/L (10-37); BILIRUBIN,TOTAL 3.7 MG/DL (0.1-1.0); BLOOD UREA NITROGEN 97 MG/DL (7-18); BUN/CREATININE RATIO 15.3 (10.0-20.0); CALCIUM 8.4 MG/DL (8.5-10.1); CHLORIDE 89 MMOL/L (99-107); CREATININE 6.33 MG/DL (0.60-1.10); GLUCOSE 82 MG/DL (70-104); POTASSIUM 3.4 MMOL/L (3.5-5.1); SODIUM 125 MMOL/L (135-145); TOTAL CARBON DIOXIDE 17.4 MMOL/L (24-32); TOTAL PROTEIN 6.8 G/DL (6.4-8.2); eCRCL 14 ML/MIN; eGFR 9 ML/MIN
[2024-02-09 12:27] LABS: PLATELET ESTIMATE NORMAL; TOTAL CELLS COUNTED 100; TOXIC VACUOLATION 2+
[2024-02-09 12:29] LABS: BURR CELLS 1+; ROULEAUX 1+
[2024-02-09 12:52] LABS: PRO BRAIN NATRIURETIC PEPTIDE > 30000 PG/ML (0-125)
[2024-02-09] MEDS: ipratropium/albuterol 3ml nebule NEB PRN (13:35)
[2024-02-09] MEDS: diltiazem 5mg/ml 5ml inj. IV ONE (13:35)
[2024-02-09] MEDS ORDERED: HYDR12.55 PO (13:44)
[2024-02-09] MEDS: normal saline 1000ml 1,000 ML IV ONE (14:20)
[2024-02-09] MEDS: piperacillin/tazo 3.375gm/50ml 50 ML IV ONE (14:49)
[2024-02-09 15:12] LABS: ABG BASE EXCESS -6.9 mmol/L (-2.0-3.0); ABG HCO3 16.8 mmol/L (21.0-28.0); ABG OXYGEN SATURATION 95.1 % (94.0-98.0); ABG PCO2 (T) 29.1 mmHg (35.0-48.0); ABG PH (T) 7.378 (7.350-7.450); ABG PO2 (T) 77.9 mmHg (83.0-108.0); ALLEN'S TEST Modified; FCOHb 0.5 % (0.5-1.5); FHHb 4.9 % (0.0-5.0); FMetHb 0.3 % (0.0-1.5); FO2Hb 94.3 % (94.0-98.0); MODE ROOM AIR; TOTAL HEMOGLOBIN 14.4 G/dl (13.5-17.5)
[2024-02-09] MEDS: NORepinephrine 8mg/ 250ml NS 250 ML IV SCH (17:50)
[2024-02-09] MEDS: ringers solution, lacted 1,000 ML IV ONE ×2 (17:52→23:18)
[2024-02-09] MEDS: ringers solution, lacted 1,000 ML IV SCH ×2 (17:52→21:05)
[2024-02-09 18:20] LABS: CREATINE KINASE 719 U/L (39-308); PHOSPHORUS 3.9 MG/DL (2.3-4.5)
[2024-02-09] MEDS ORDERED: magnesium Cl slow-release 64mg tablet PO PRN (18:50)
[2024-02-09] MEDS ORDERED: magnesium sulf-water 2g/50mL 50 ML IV PRN (18:50)
[2024-02-09] MEDS ORDERED: acetaminophen 325mg tablet PO PRN (18:50)
[2024-02-09] MEDS ORDERED: potassium Cl 40MEQ/1/2NS 520ml 520 ML IV PRN (18:50)
[2024-02-09] MEDS ORDERED: potassium Cl 20 mEq SR tablet PO PRN ×2 (18:50)
[2024-02-09] MEDS ORDERED: ondansetron/PF 4mg/2ml inj IV PRN (18:50)
[2024-02-09] MEDS ORDERED: mag hydrox/Alum hydrox/simeth 30ml oral suspension PO PRN (18:50)
[2024-02-09] MEDS ORDERED: magnesium hydroxide 30ml (MOM) UD suspension PO PRN (18:50)
[2024-02-09] MEDS ORDERED: magnesium sulf-water 4G/100mL 100 ML IV PRN (18:50)
[2024-02-09] MEDS: K and/or MAG REPLACEMENT MC SCH (20:00)
[2024-02-09] MEDS: amiodarone 150mg/dext, iso-os 100 ML IV ONE (20:09)
[2024-02-09] MEDS: docusate sod 100mg capsule PO SCH (20:18)
[2024-02-09] MEDS: amiodarone/D5 360MG/200ML BAG 200 ML IV SCH (20:18)
[2024-02-09] MEDS: apixaban 5mg tablet PO SCH (20:18)
[2024-02-09] MEDS: levoFLOXACIN-Levaquin 750MG/D5 150 ML IV STA (20:23)
[2024-02-09] MEDS: dextrose 50%-water 50ml dispensing syringe IV ONE (20:53)
[2024-02-09] MEDS: clindamycin-Cleocin 900mg/D5W 50 ML IV SCH (21:01)
[2024-02-09 21:07] LABS: BASOPHILS % (AUTO) 0.1 % (0-1); EOSINOPHILS # (AUTO) 0.4 X10'3 (0-0.9); EOSINOPHILS % (AUTO) 2.8 % (0-6); HEMATOCRIT 39.2 % (42.0-52.0); LYMPHOCYTES # (AUTO) 0.3 X10'3 (1.1-4.8); LYMPHOCYTES % (AUTO) 2.5 % (21-51); MEAN CORPUSCULAR HEMOGLOBIN 31.4 PG (27.0-31.0); MEAN CORPUSCULAR HGB CONC 33.3 g/dL (33.0-36.5); MEAN CORPUSCULAR VOLUME 94.2 FL (78-98); MEAN PLATELET VOLUME 10.3 FL (7.4-10.4); MONOCYTES # (AUTO) 0.1 X10'3 (0-0.9); MONOCYTES % (AUTO) 0.8 % (2-12); NEUTROPHILS # (AUTO) 12.1 X10'3 (1.8-7.7); NEUTROPHILS % (AUTO) 93.8 % (42-75); PLATELET COUNT 154 X10'3 (140-440); RED BLOOD COUNT 4.16 X10'6 (4.70-6.10); RED CELL DISTRIBUTION WIDTH 15.2 % (11.5-14.5); WHITE BLOOD COUNT 12.9 X10'3 (4.5-11.0)
[2024-02-09 21:23] LABS: ALANINE AMINOTRANSFERASE 144 U/L (12-78); ALBUMIN/GLOBULIN RATIO 0.5 (1.1-1.5); ALKALINE PHOSPHATASE 55 IU/L (46-116); ANION GAP 15 (8-16); ASPARTATE AMINO TRANSFERASE 249 U/L (10-37); BILIRUBIN,TOTAL 3.5 MG/DL (0.1-1.0); BLOOD UREA NITROGEN 108 MG/DL (7-18); BUN/CREATININE RATIO 15.1 (10.0-20.0); CALCIUM 7.5 MG/DL (8.5-10.1); CHLORIDE 90 MMOL/L (99-107); CREATININE 7.13 MG/DL (0.60-1.10); GLUCOSE 70 MG/DL (70-104); POTASSIUM 3.7 MMOL/L (3.5-5.1); SODIUM 128 MMOL/L (135-145); TOTAL CARBON DIOXIDE 22.8 MMOL/L (24-32); eCRCL 12 ML/MIN; eGFR 8 ML/MIN
[2024-02-09 21:25] LABS: MAGNESIUM 2.4 MG/DL (1.5-2.4); PHOSPHORUS 6.1 MG/DL (2.3-4.5)
[2024-02-09] MEDS ORDERED: DEXTROSE 15 GM of carb/4 tabs (each vial/BOTTLE has 4 tablets) PO PRN ×2 (22:45)
[2024-02-09] MEDS ORDERED: glucagon, human recombinant 1mg kit SUBCUT PRN (22:45)
[2024-02-09] MEDS ORDERED: dextrose 50%-water 50ml dispensing syringe IV PRN ×2 (22:45)
[2024-02-10] VITALS (26 sets, daily range): BP systolic 77–126; BP diastolic 29–69; PULSE 90–107; RESP 21–43; O2SAT 90–96
[2024-02-10 02:33] LABS: BASOPHILS % (AUTO) 0.1 % (0-1); EOSINOPHILS # (AUTO) 0.3 X10'3 (0-0.9); EOSINOPHILS % (AUTO) 2.6 % (0-6); HEMATOCRIT 36.2 % (42.0-52.0); HEMOGLOBIN 12.3 g/dl (14.0-17.9); LYMPHOCYTES # (AUTO) 0.3 X10'3 (1.1-4.8); LYMPHOCYTES % (AUTO) 2.4 % (21-51); MEAN CORPUSCULAR HEMOGLOBIN 31.7 PG (27.0-31.0); MEAN CORPUSCULAR HGB CONC 34.1 g/dL (33.0-36.5); MEAN CORPUSCULAR VOLUME 93.2 FL (78-98); MONOCYTES # (AUTO) 0.2 X10'3 (0-0.9); MONOCYTES % (AUTO) 1.3 % (2-12); NEUTROPHILS # (AUTO) 12.1 X10'3 (1.8-7.7); NEUTROPHILS % (AUTO) 93.6 % (42-75); PLATELET COUNT 132 X10'3 (140-440); RED BLOOD COUNT 3.88 X10'6 (4.70-6.10); RED CELL DISTRIBUTION WIDTH 15.3 % (11.5-14.5); WHITE BLOOD COUNT 12.9 X10'3 (4.5-11.0)
[2024-02-10 02:47] LABS: ALANINE AMINOTRANSFERASE 125 U/L (12-78); ALBUMIN 1.8 G/DL (3.4-5.0); ALBUMIN/GLOBULIN RATIO 0.5 (1.1-1.5); ALKALINE PHOSPHATASE 50 IU/L (46-116); ANION GAP 16 (8-16); ASPARTATE AMINO TRANSFERASE 209 U/L (10-37); BILIRUBIN,TOTAL 3.4 MG/DL (0.1-1.0); BLOOD UREA NITROGEN 111 MG/DL (7-18); CALCIUM 7.2 MG/DL (8.5-10.1); CHLORIDE 90 MMOL/L (99-107); CREATININE 6.94 MG/DL (0.60-1.10); GLUCOSE 85 MG/DL (70-104); MAGNESIUM 2.3 MG/DL (1.5-2.4); PHOSPHORUS 6.7 MG/DL (2.3-4.5); POTASSIUM 3.5 MMOL/L (3.5-5.1); SODIUM 127 MMOL/L (135-145); TOTAL CARBON DIOXIDE 20.8 MMOL/L (24-32); TOTAL PROTEIN 5.5 G/DL (6.4-8.2); eCRCL 13 ML/MIN; eGFR 8 ML/MIN
[2024-02-10] MEDS ORDERED: AMLO-708 PO (06:58)
[2024-02-10] MEDS: levoFLOXACIN-Levaquin 750MG/D5 150 ML IV SCH (07:28)
[2024-02-10] MEDS: midodrine 5mg tablet PO SCH (07:29)
[2024-02-10] MEDS: furosemide 10 MG/1 ML 10ml inj IV ONE (09:10)
[2024-02-10] MEDS ORDERED: VANCOmycin 1250MG/NS 250ml Bag 250 ML IV ONE (09:25)
[2024-02-10 09:55] LABS: BILIRUBIN,URINE MODERATE (Neg); CLARITY,URINE CLOUDY (Clear); COLOR,URINE BROWN (Yellow); GLUCOSE, URINE NEGATIVE (Neg); KETONES,URINE TRACE mg/dl (Neg); LEUKOCYTE ESTERASE ,URINE SMALL (Neg); NITRITES, URINE NEGATIVE (Neg); OCCULT BLOOD,URINE LARGE (Neg); PROTEIN,URINE >=300 mg/dl (Neg)
[2024-02-10 10:03] LABS: UA COLLECTION TYPE FOLEY CATH
[2024-02-10 10:05] LABS: BACTERIA,URINE NONE SEEN /HPF (Neg); MUCUS STRANDS NONE SEEN /LPF (Neg); RBC,URINE TNTC /HPF (0-2); SQUAMOUS EPITHELIAL CELL,UR FEW /LPF (FEW); TRANSITIONAL EPI CELLS,URINE FEW /HPF
[2024-02-10 10:06] LABS: AMORPHOUS URATES 1+
[2024-02-10] MEDS: VANCOMYCIN 2GM/400ML H20 (PEG) 400 ML IV ONE (10:21)
[2024-02-10] MEDS ORDERED: VANCOMYCIN 1GM 200ML H20 (PEG) 200 ML IV PRN (10:25)
[2024-02-10 10:32] LABS: TOTAL PROTEIN,URINE RANDOM 346.1 MG/DL
[2024-02-10] MEDS ORDERED: diatr meglu/diatrizoate 30ml oral sol.-(3 dose) bottle ONE ×2 (10:34→10:42)
[2024-02-10 11:20] LABS: CREATINE KINASE 948 U/L (39-308); FREE T4 (FREE THYROXINE) 1.31 NG/DL (0.73-1.40); PHOSPHORUS 7.4 MG/DL (2.3-4.5); THYROID STIMULATING HORMONE 0.47 ulU/ml (0.34-4.50)
[2024-02-10] MEDS: albumin (Human) 5% 250ml 250 ML IV SCH (11:30)
[2024-02-10] MEDS: albumin (human) 25% 100ml IV 400 ML IV ONE (12:07)
[2024-02-10] MEDS: LIDOcaine 1% (10mg/ml) 2ml vial ONE (14:15)
[2024-02-10] MEDS: heparin 1,000 units/ml 10ml inj HE ONE ×2 (15:33→15:34)
[2024-02-10 16:28] LABS: ALANINE AMINOTRANSFERASE 105 U/L (12-78); ALBUMIN 2.9 G/DL (3.4-5.0); ALBUMIN/GLOBULIN RATIO 0.8 (1.1-1.5); ALKALINE PHOSPHATASE 52 IU/L (46-116); ANION GAP 19 (8-16); ASPARTATE AMINO TRANSFERASE 136 U/L (10-37); BLOOD UREA NITROGEN 116 MG/DL (7-18); BUN/CREATININE RATIO 16.6 (10.0-20.0); CALCIUM 7.2 MG/DL (8.5-10.1); CHLORIDE 89 MMOL/L (99-107); GLUCOSE 88 MG/DL (70-104); POTASSIUM 3.6 MMOL/L (3.5-5.1); SODIUM 128 MMOL/L (135-145); TOTAL CARBON DIOXIDE 20.3 MMOL/L (24-32); TOTAL PROTEIN 6.4 G/DL (6.4-8.2); eCRCL 13 ML/MIN; eGFR 8 ML/MIN
[2024-02-11] VITALS (38 sets, daily range): BP systolic 94–138; BP diastolic 27–73; PULSE 83–111; RESP 16–39; TEMP 97.2; O2SAT 90–99
[2024-02-11 01:08] LABS: BASOPHILS % (AUTO) 0.2 % (0-1); EOSINOPHILS # (AUTO) 0.1 X10'3 (0-0.9); EOSINOPHILS % (AUTO) 0.6 % (0-6); HEMATOCRIT 32.9 % (42.0-52.0); HEMOGLOBIN 11.1 g/dl (14.0-17.9); LYMPHOCYTES # (AUTO) 0.3 X10'3 (1.1-4.8); LYMPHOCYTES % (AUTO) 1.9 % (21-51); MEAN CORPUSCULAR HEMOGLOBIN 31.4 PG (27.0-31.0); MEAN CORPUSCULAR HGB CONC 33.8 g/dL (33.0-36.5); MEAN CORPUSCULAR VOLUME 92.8 FL (78-98); MEAN PLATELET VOLUME 9.7 FL (7.4-10.4); MONOCYTES # (AUTO) 0.2 X10'3 (0-0.9); MONOCYTES % (AUTO) 1.4 % (2-12); NEUTROPHILS # (AUTO) 12.7 X10'3 (1.8-7.7); NEUTROPHILS % (AUTO) 95.9 % (42-75); PLATELET COUNT 108 X10'3 (140-440); RED BLOOD COUNT 3.55 X10'6 (4.70-6.10); RED CELL DISTRIBUTION WIDTH 15.5 % (11.5-14.5); WHITE BLOOD COUNT 13.3 X10'3 (4.5-11.0)
[2024-02-11 01:26] LABS: ALANINE AMINOTRANSFERASE 93 U/L (12-78); ALBUMIN 2.9 G/DL (3.4-5.0); ALBUMIN/GLOBULIN RATIO 0.9 (1.1-1.5); ALKALINE PHOSPHATASE 58 IU/L (46-116); ANION GAP 20 (8-16); ASPARTATE AMINO TRANSFERASE 106 U/L (10-37); BILIRUBIN,TOTAL 4.1 MG/DL (0.1-1.0); BLOOD UREA NITROGEN 122 MG/DL (7-18); BUN/CREATININE RATIO 17.1 (10.0-20.0); CHLORIDE 89 MMOL/L (99-107); CREATININE 7.13 MG/DL (0.60-1.10); GLUCOSE 88 MG/DL (70-104); MAGNESIUM 2.5 MG/DL (1.5-2.4); PHOSPHORUS 7.1 MG/DL (2.3-4.5); POTASSIUM 3.6 MMOL/L (3.5-5.1); SODIUM 128 MMOL/L (135-145); TOTAL CARBON DIOXIDE 19.3 MMOL/L (24-32); TOTAL PROTEIN 6.3 G/DL (6.4-8.2); eCRCL 12 ML/MIN; eGFR 8 ML/MIN
[2024-02-11] MEDS: NORepinephrine 8mg/ 250ml NS 250 ML IV SCH (10:33)
[2024-02-11 11:33] LABS: ALANINE AMINOTRANSFERASE 81 U/L (12-78); ALBUMIN/GLOBULIN RATIO 0.9 (1.1-1.5); ALKALINE PHOSPHATASE 62 IU/L (46-116); ANION GAP 19 (8-16); ASPARTATE AMINO TRANSFERASE 80 U/L (10-37); BILIRUBIN,TOTAL 4.1 MG/DL (0.1-1.0); BLOOD UREA NITROGEN 130 MG/DL (7-18); BUN/CREATININE RATIO 18.4 (10.0-20.0); CALCIUM 6.9 MG/DL (8.5-10.1); CHLORIDE 89 MMOL/L (99-107); CREATININE 7.08 MG/DL (0.60-1.10); GLUCOSE 119 MG/DL (70-104); POTASSIUM 3.4 MMOL/L (3.5-5.1); SODIUM 128 MMOL/L (135-145); TOTAL CARBON DIOXIDE 19.6 MMOL/L (24-32); TOTAL PROTEIN 6.4 G/DL (6.4-8.2); eCRCL 13 ML/MIN; eGFR 8 ML/MIN
[2024-02-11] MEDS: pantoprazole 40 MG vial IV SCH (11:38)
[2024-02-11] MEDS: EPOETIN ALFA-EPBX 20,000 UNIT/ML 1 ML MDV IV ONE (12:15)
[2024-02-11 15:00] LABS: ABG BASE EXCESS -10.9 mmol/L (-2.0-3.0); ABG HCO3 15.8 mmol/L (21.0-28.0); ABG OXYGEN SATURATION 96.8 % (94.0-98.0); ABG PCO2 (T) 36.4 mmHg (35.0-48.0); ABG PO2 (T) 91.9 mmHg (83.0-108.0); ALLEN'S TEST POSITIVE; FCOHb 0.3 % (0.5-1.5); FHHb 3.2 % (0.0-5.0); FLOW 3 L/min; FMetHb 0.1 % (0.0-1.5); FO2Hb 96.4 % (94.0-98.0); MODE NC; PATIENT TEMPERATURE 36.2; TOTAL HEMOGLOBIN 12.4 G/dl (13.5-17.5)
[2024-02-11] MEDS: mannitol 12.5gm/50mL VIAL IV ONE (18:25)
[2024-02-11] MEDS: heparin 1,000 units/ml 10ml inj HE ONE ×2 (18:28→18:30)
[2024-02-11] MEDS: heparin 1,000 units/ml 10ml inj IV ONE (18:30)
[2024-02-11] MEDS: heparin 1,000unit/ml 10ml vial 10 ML IV ONE (18:30)
[2024-02-12] VITALS (41 sets, daily range): BP systolic 94–131; BP diastolic 39–77; PULSE 84–127; RESP 17–30; TEMP 97.9; O2SAT 94–100
[2024-02-12 03:05] LABS: BASOPHILS % (AUTO) 0.2 % (0-1); EOSINOPHILS % (AUTO) 0.1 % (0-6); HEMATOCRIT 33.9 % (42.0-52.0); HEMOGLOBIN 11.3 g/dl (14.0-17.9); LYMPHOCYTES # (AUTO) 0.3 X10'3 (1.1-4.8); LYMPHOCYTES % (AUTO) 1.8 % (21-51); MEAN CORPUSCULAR HEMOGLOBIN 30.9 PG (27.0-31.0); MEAN CORPUSCULAR HGB CONC 33.5 g/dL (33.0-36.5); MEAN CORPUSCULAR VOLUME 92.3 FL (78-98); MEAN PLATELET VOLUME 9.5 FL (7.4-10.4); MONOCYTES # (AUTO) 0.3 X10'3 (0-0.9); NEUTROPHILS # (AUTO) 14.8 X10'3 (1.8-7.7); NEUTROPHILS % (AUTO) 95.9 % (42-75); PLATELET COUNT 134 X10'3 (140-440); RED BLOOD COUNT 3.67 X10'6 (4.70-6.10); RED CELL DISTRIBUTION WIDTH 15.6 % (11.5-14.5); WHITE BLOOD COUNT 15.5 X10'3 (4.5-11.0)
[2024-02-12 03:28] LABS: ALANINE AMINOTRANSFERASE 67 U/L (12-78); ALBUMIN 2.6 G/DL (3.4-5.0); ALBUMIN/GLOBULIN RATIO 0.7 (1.1-1.5); ALKALINE PHOSPHATASE 83 IU/L (46-116); ANION GAP 16 (8-16); ASPARTATE AMINO TRANSFERASE 59 U/L (10-37); BLOOD UREA NITROGEN 105 MG/DL (7-18); BUN/CREATININE RATIO 17.5 (10.0-20.0); CALCIUM 7.3 MG/DL (8.5-10.1); CHLORIDE 94 MMOL/L (99-107); GLUCOSE 116 MG/DL (70-104); MAGNESIUM 2.3 MG/DL (1.5-2.4); PHOSPHORUS 4.4 MG/DL (2.3-4.5); POTASSIUM 3.2 MMOL/L (3.5-5.1); SODIUM 131 MMOL/L (135-145); TOTAL CARBON DIOXIDE 21.2 MMOL/L (24-32); TOTAL PROTEIN 6.1 G/DL (6.4-8.2); eCRCL 15 ML/MIN; eGFR 10 ML/MIN
[2024-02-12 04:01] LABS: TOTAL CELLS COUNTED 100
[2024-02-12] MEDS ORDERED: albumin (human) 25% 100ml IV 100 ML IV PRN (08:00)
[2024-02-12] MEDS: levoFLOXACIN-Levaquin 500mg/D5 100 ML IV SCH (08:38)
[2024-02-12 09:44] LABS: ABG BASE EXCESS -5.2 mmol/L (-2.0-3.0); ABG HCO3 20.7 mmol/L (21.0-28.0); ABG OXYGEN SATURATION 94.3 % (94.0-98.0); ABG PCO2 (T) 40.7 mmHg (35.0-48.0); ABG PH (T) 7.322 (7.350-7.450); ABG PO2 (T) 70.9 mmHg (83.0-108.0); ALLEN'S TEST POSITIVE; FCOHb 0.6 % (0.5-1.5); FHHb 5.6 % (0.0-5.0); FLOW 2 L/min; FMetHb 0.3 % (0.0-1.5); FO2Hb 93.5 % (94.0-98.0); MODE NASAL CANNULA; PATIENT TEMPERATURE 36.6; TOTAL HEMOGLOBIN 12.7 G/dl (13.5-17.5)
[2024-02-12] MEDS ORDERED: VANCOMYCIN 1GM 200ML H20 (PEG) 200 ML IV SCH (10:00)
[2024-02-12] MEDS: heparin 1,000 units/ml 10ml inj HE ONE ×2 (10:03)
[2024-02-12] MEDS: heparin 1,000 units/ml 10ml inj IV ONE (10:04)
[2024-02-12] MEDS: heparin 1,000unit/ml 10ml vial 10 ML IV ONE (10:05)
[2024-02-12] MEDS: EPOETIN ALFA-EPBX 20,000 UNIT/ML 1 ML MDV IV ONE (10:23)
[2024-02-12] MEDS ORDERED: metoclopramide 5 mg/ml inj IV PRN (11:30)
[2024-02-12] MEDS ORDERED: DAPTOmycin inj. 500 MG in normal saline 100ml IV soln 100 ML IV SCH (12:00)
[2024-02-12] MEDS: metoclopramide 5 mg/ml inj IV SCH (12:42)
[2024-02-12] MEDS: NUT.TX.IMP.RENAL FXN,LAC-REDUC (Nepro) 237 ML VANILLA PO SCH (14:10)
[2024-02-12] MEDS: linezolid 600mg tablet PO SCH (19:56)
[2024-02-13] VITALS (43 sets, daily range): BP systolic 14–126; BP diastolic 34–77; PULSE 79–104; RESP 17–26; TEMP 98.5–98.6; O2SAT 92–100
[2024-02-13 02:45] LABS: BASOPHILS % (AUTO) 0.1 % (0-1); EOSINOPHILS # (AUTO) 0.1 X10'3 (0-0.9); EOSINOPHILS % (AUTO) 0.4 % (0-6); HEMATOCRIT 34.7 % (42.0-52.0); HEMOGLOBIN 11.8 g/dl (14.0-17.9); LYMPHOCYTES # (AUTO) 0.5 X10'3 (1.1-4.8); LYMPHOCYTES % (AUTO) 3.3 % (21-51); MEAN CORPUSCULAR HEMOGLOBIN 31.2 PG (27.0-31.0); MEAN CORPUSCULAR HGB CONC 34.1 g/dL (33.0-36.5); MEAN CORPUSCULAR VOLUME 91.5 FL (78-98); MEAN PLATELET VOLUME 9.5 FL (7.4-10.4); MONOCYTES # (AUTO) 0.5 X10'3 (0-0.9); NEUTROPHILS # (AUTO) 14.4 X10'3 (1.8-7.7); NEUTROPHILS % (AUTO) 93.2 % (42-75); PLATELET COUNT 154 X10'3 (140-440); RED BLOOD COUNT 3.79 X10'6 (4.70-6.10); RED CELL DISTRIBUTION WIDTH 15.9 % (11.5-14.5); WHITE BLOOD COUNT 15.4 X10'3 (4.5-11.0)
[2024-02-13 03:05] LABS: ALANINE AMINOTRANSFERASE 49 U/L (12-78); ALBUMIN 2.1 G/DL (3.4-5.0); ALBUMIN/GLOBULIN RATIO 0.6 (1.1-1.5); ALKALINE PHOSPHATASE 92 IU/L (46-116); ANION GAP 15 (8-16); ASPARTATE AMINO TRANSFERASE 37 U/L (10-37); BILIRUBIN,TOTAL 2.5 MG/DL (0.1-1.0); BLOOD UREA NITROGEN 104 MG/DL (7-18); CALCIUM 7.5 MG/DL (8.5-10.1); CHLORIDE 99 MMOL/L (99-107); CREATININE 5.48 MG/DL (0.60-1.10); GLUCOSE 133 MG/DL (70-104); MAGNESIUM 2.3 MG/DL (1.5-2.4); PHOSPHORUS 3.6 MG/DL (2.3-4.5); POTASSIUM 3.2 MMOL/L (3.5-5.1); SODIUM 137 MMOL/L (135-145); TOTAL CARBON DIOXIDE 23.2 MMOL/L (24-32); TOTAL PROTEIN 5.8 G/DL (6.4-8.2); eCRCL 16 ML/MIN; eGFR 11 ML/MIN
[2024-02-13] MEDS: ceFAZolin/D5W- 1GM premix 50 ML IV SCH (08:28)
[2024-02-13] MEDS: amiodarone 200mg tablet PO SCH (11:35)
[2024-02-13] MEDS ORDERED: amiodarone 200mg tablet PO SCH (12:00)
[2024-02-13] MEDS: heparin 1,000 units/ml 10ml inj IV ONE (14:04)
[2024-02-13] MEDS: heparin 1,000unit/ml 10ml vial 10 ML IV ONE (14:05)
[2024-02-13] MEDS: heparin 1,000 units/ml 10ml inj HE ONE ×2 (14:05)
[2024-02-13] MEDS: EPOETIN ALFA-EPBX 20,000 UNIT/ML 1 ML MDV IV ONE (14:06)
[2024-02-14] VITALS (27 sets, daily range): BP systolic 94–126; BP diastolic 39–64; PULSE 58–108; RESP 16–27; O2SAT 81–99
[2024-02-14 02:54] LABS: BASOPHILS % (AUTO) 0.2 % (0-1); EOSINOPHILS # (AUTO) 0.1 X10'3 (0-0.9); EOSINOPHILS % (AUTO) 0.4 % (0-6); HEMATOCRIT 35.4 % (42.0-52.0); HEMOGLOBIN 12.2 g/dl (14.0-17.9); LYMPHOCYTES # (AUTO) 0.6 X10'3 (1.1-4.8); LYMPHOCYTES % (AUTO) 3.7 % (21-51); MEAN CORPUSCULAR HEMOGLOBIN 31.1 PG (27.0-31.0); MEAN CORPUSCULAR HGB CONC 34.4 g/dL (33.0-36.5); MEAN CORPUSCULAR VOLUME 90.5 FL (78-98); MEAN PLATELET VOLUME 8.7 FL (7.4-10.4); MONOCYTES # (AUTO) 0.5 X10'3 (0-0.9); NEUTROPHILS # (AUTO) 16.1 X10'3 (1.8-7.7); NEUTROPHILS % (AUTO) 92.7 % (42-75); PLATELET COUNT 162 X10'3 (140-440); RED BLOOD COUNT 3.91 X10'6 (4.70-6.10); RED CELL DISTRIBUTION WIDTH 16.3 % (11.5-14.5); WHITE BLOOD COUNT 17.4 X10'3 (4.5-11.0)
[2024-02-14 03:11] LABS: ALANINE AMINOTRANSFERASE 46 U/L (12-78); ALBUMIN/GLOBULIN RATIO 0.5 (1.1-1.5); ALKALINE PHOSPHATASE 116 IU/L (46-116); ANION GAP 13 (8-16); ASPARTATE AMINO TRANSFERASE 36 U/L (10-37); BILIRUBIN,TOTAL 2.2 MG/DL (0.1-1.0); BLOOD UREA NITROGEN 92 MG/DL (7-18); CALCIUM 8.1 MG/DL (8.5-10.1); CHLORIDE 102 MMOL/L (99-107); CREATININE 4.39 MG/DL (0.60-1.10); GLUCOSE 104 MG/DL (70-104); PHOSPHORUS 3.7 MG/DL (2.3-4.5); POTASSIUM 3.2 MMOL/L (3.5-5.1); SODIUM 137 MMOL/L (135-145); TOTAL CARBON DIOXIDE 22.5 MMOL/L (24-32); eCRCL 20 ML/MIN; eGFR 14 ML/MIN
[2024-02-14 03:13] LABS: TOTAL CELLS COUNTED 100
[2024-02-14 05:25] LABS: HBSAG SCREEN Negative (Negative); HEP B CORE AB, TOT Negative (Negative); HEP B SURF AB Non Reactive (.)
[2024-02-14 20:09] LABS: ALBUMIN 1.8 G/DL (3.4-5.0); ANION GAP 12 (8-16); BLOOD UREA NITROGEN 110 MG/DL (7-18); BUN/CREATININE RATIO 22.8 (10.0-20.0); CALCIUM 8.2 MG/DL (8.5-10.1); CHLORIDE 103 MMOL/L (99-107); CREATININE 4.83 MG/DL (0.60-1.10); GLUCOSE 122 MG/DL (70-104); MAGNESIUM 2.2 MG/DL (1.5-2.4); PHOSPHORUS 5.2 MG/DL (2.3-4.5); POTASSIUM 3.4 MMOL/L (3.5-5.1); SODIUM 137 MMOL/L (135-145); TOTAL CARBON DIOXIDE 21.6 MMOL/L (24-32); eCRCL 18 ML/MIN; eGFR 12 ML/MIN
[2024-02-15] VITALS (37 sets, daily range): BP systolic 94–142; BP diastolic 46–76; PULSE 61–80; RESP 17–25; TEMP 96.8–97.3; O2SAT 86–100
[2024-02-15 02:25] LABS: BASOPHILS % (AUTO) 0.1 % (0-1); EOSINOPHILS # (AUTO) 0.1 X10'3 (0-0.9); EOSINOPHILS % (AUTO) 0.5 % (0-6); HEMATOCRIT 33.2 % (42.0-52.0); HEMOGLOBIN 11.4 g/dl (14.0-17.9); LYMPHOCYTES # (AUTO) 0.6 X10'3 (1.1-4.8); LYMPHOCYTES % (AUTO) 4.6 % (21-51); MEAN CORPUSCULAR HEMOGLOBIN 31.4 PG (27.0-31.0); MEAN CORPUSCULAR HGB CONC 34.2 g/dL (33.0-36.5); MEAN CORPUSCULAR VOLUME 91.7 FL (78-98); MEAN PLATELET VOLUME 8.6 FL (7.4-10.4); MONOCYTES # (AUTO) 0.4 X10'3 (0-0.9); MONOCYTES % (AUTO) 3.2 % (2-12); NEUTROPHILS # (AUTO) 11.8 X10'3 (1.8-7.7); NEUTROPHILS % (AUTO) 91.6 % (42-75); PLATELET COUNT 148 X10'3 (140-440); RED BLOOD COUNT 3.62 X10'6 (4.70-6.10); RED CELL DISTRIBUTION WIDTH 16.1 % (11.5-14.5); WHITE BLOOD COUNT 12.9 X10'3 (4.5-11.0)
[2024-02-15 02:43] LABS: ALBUMIN 1.7 G/DL (3.4-5.0); ANION GAP 14 (8-16); BLOOD UREA NITROGEN 117 MG/DL (7-18); BUN/CREATININE RATIO 24.1 (10.0-20.0); CALCIUM 7.8 MG/DL (8.5-10.1); CHLORIDE 103 MMOL/L (99-107); CREATININE 4.86 MG/DL (0.60-1.10); GLUCOSE 119 MG/DL (70-104); MAGNESIUM 2.2 MG/DL (1.5-2.4); PHOSPHORUS 5.5 MG/DL (2.3-4.5); POTASSIUM 3.5 MMOL/L (3.5-5.1); SODIUM 140 MMOL/L (135-145); TOTAL CARBON DIOXIDE 23.3 MMOL/L (24-32); eCRCL 18 ML/MIN; eGFR 12 ML/MIN
[2024-02-15 03:05] LABS: TOTAL CELLS COUNTED 100
[2024-02-15] MEDS: acetaminophen 325mg tablet PO PRN (08:17)
[2024-02-15] MEDS ORDERED: midazolam 1 mg/ML 2ml injection ONE (11:03)
[2024-02-15] MEDS ORDERED: fentaNYL/PF 50MCG/1 ML 2ML syringe ONE ×2 (11:03→12:12)
[2024-02-15] MEDS ORDERED: heparin 1,000unit/ml 10ml vial 10 ML ONE (11:04)
[2024-02-15] MEDS ORDERED: LIDOcaine 1% (10mg/ml)w/preservative inj. 20ml MDV ONE (11:04)
[2024-02-15] MEDS ORDERED: LIDOcaine 1% W/epiNEPHrine 1:100,000 20ml vial ONE (12:26)
[2024-02-15] MEDS: heparin 1,000 units/ml 10ml inj IV ONE (15:05)
[2024-02-15] MEDS: heparin 1,000unit/ml 10ml vial 10 ML IV ONE (15:06)
[2024-02-15] MEDS: heparin 1,000 units/ml 10ml inj HE ONE ×2 (15:07)
[2024-02-16] VITALS (9 sets, daily range): BP systolic 102–139; BP diastolic 48–79; PULSE 70–77; RESP 14–20; TEMP 97.2–97.8; O2SAT 97–99
[2024-02-16 07:44] LABS: BASOPHILS % (AUTO) 0.3 % (0-1); EOSINOPHILS # (AUTO) 0.1 X10'3 (0-0.9); EOSINOPHILS % (AUTO) 0.4 % (0-6); HEMATOCRIT 33.5 % (42.0-52.0); HEMOGLOBIN 11.5 g/dl (14.0-17.9); LYMPHOCYTES # (AUTO) 0.7 X10'3 (1.1-4.8); LYMPHOCYTES % (AUTO) 3.8 % (21-51); MEAN CORPUSCULAR HEMOGLOBIN 31.3 PG (27.0-31.0); MEAN CORPUSCULAR HGB CONC 34.4 g/dL (33.0-36.5); MEAN CORPUSCULAR VOLUME 91.1 FL (78-98); MEAN PLATELET VOLUME 8.6 FL (7.4-10.4); MONOCYTES # (AUTO) 0.7 X10'3 (0-0.9); MONOCYTES % (AUTO) 4.2 % (2-12); NEUTROPHILS # (AUTO) 16.5 X10'3 (1.8-7.7); NEUTROPHILS % (AUTO) 91.3 % (42-75); PLATELET COUNT 185 X10'3 (140-440); RED BLOOD COUNT 3.68 X10'6 (4.70-6.10); RED CELL DISTRIBUTION WIDTH 15.9 % (11.5-14.5); WHITE BLOOD COUNT 18.1 X10'3 (4.5-11.0)
[2024-02-16 08:24] LABS: ANISOCYTOSIS 1+; PLATELET ESTIMATE NORMAL; TOTAL CELLS COUNTED 100
[2024-02-16 08:28] LABS: ALANINE AMINOTRANSFERASE 26 U/L (12-78); ALBUMIN 1.8 G/DL (3.4-5.0); ALBUMIN/GLOBULIN RATIO 0.4 (1.1-1.5); ALKALINE PHOSPHATASE 128 IU/L (46-116); ANION GAP 12 (8-16); ASPARTATE AMINO TRANSFERASE 40 U/L (10-37); BILIRUBIN,TOTAL 1.7 MG/DL (0.1-1.0); BLOOD UREA NITROGEN 100 MG/DL (7-18); BUN/CREATININE RATIO 25.5 (10.0-20.0); CALCIUM 7.8 MG/DL (8.5-10.1); CHLORIDE 105 MMOL/L (99-107); CREATININE 3.92 MG/DL (0.60-1.10); GLUCOSE 109 MG/DL (70-104); PHOSPHORUS 5.2 MG/DL (2.3-4.5); POTASSIUM 3.9 MMOL/L (3.5-5.1); SODIUM 141 MMOL/L (135-145); TOTAL CARBON DIOXIDE 23.7 MMOL/L (24-32); TOTAL PROTEIN 6.2 G/DL (6.4-8.2); eCRCL 23 ML/MIN; eGFR 16 ML/MIN
[2024-02-16] MEDS ORDERED: VANCOMYCIN LEVEL IV ONE (09:30)
[2024-02-17] VITALS (12 sets, daily range): BP systolic 90–125; BP diastolic 25–52; PULSE 65–81; RESP 9–24; TEMP 96.9–98.8; O2SAT 94–100
[2024-02-17 09:52] LABS: BASOPHILS % (AUTO) 0.1 % (0-1); EOSINOPHILS # (AUTO) 0.1 X10'3 (0-0.9); EOSINOPHILS % (AUTO) 0.8 % (0-6); HEMATOCRIT 34.8 % (42.0-52.0); HEMOGLOBIN 11.6 g/dl (14.0-17.9); LYMPHOCYTES # (AUTO) 0.9 X10'3 (1.1-4.8); LYMPHOCYTES % (AUTO) 5.1 % (21-51); MEAN CORPUSCULAR HEMOGLOBIN 30.5 PG (27.0-31.0); MEAN CORPUSCULAR HGB CONC 33.3 g/dL (33.0-36.5); MEAN CORPUSCULAR VOLUME 91.7 FL (78-98); MONOCYTES # (AUTO) 0.7 X10'3 (0-0.9); MONOCYTES % (AUTO) 4.2 % (2-12); NEUTROPHILS # (AUTO) 15.5 X10'3 (1.8-7.7); NEUTROPHILS % (AUTO) 89.8 % (42-75); PLATELET COUNT 222 X10'3 (140-440); RED CELL DISTRIBUTION WIDTH 16.1 % (11.5-14.5); WHITE BLOOD COUNT 17.2 X10'3 (4.5-11.0)
[2024-02-17 10:18] LABS: ALANINE AMINOTRANSFERASE 30 U/L (12-78); ALBUMIN 1.7 G/DL (3.4-5.0); ALBUMIN/GLOBULIN RATIO 0.4 (1.1-1.5); ALKALINE PHOSPHATASE 124 IU/L (46-116); ANION GAP 12 (8-16); ASPARTATE AMINO TRANSFERASE 39 U/L (10-37); BILIRUBIN,TOTAL 1.2 MG/DL (0.1-1.0); BLOOD UREA NITROGEN 126 MG/DL (7-18); BUN/CREATININE RATIO 32.1 (10.0-20.0); CALCIUM 8.3 MG/DL (8.5-10.1); CHLORIDE 106 MMOL/L (99-107); CREATININE 3.93 MG/DL (0.60-1.10); GLUCOSE 99 MG/DL (70-104); MAGNESIUM 2.3 MG/DL (1.5-2.4); PHOSPHORUS 6.2 MG/DL (2.3-4.5); POTASSIUM 3.7 MMOL/L (3.5-5.1); SODIUM 141 MMOL/L (135-145); TOTAL CARBON DIOXIDE 22.9 MMOL/L (24-32); TOTAL PROTEIN 6.2 G/DL (6.4-8.2); eCRCL 23 ML/MIN; eGFR 16 ML/MIN
[2024-02-17 10:30] LABS: ANISOCYTOSIS 1+; PLATELET ESTIMATE NORMAL; TOTAL CELLS COUNTED 100
[2024-02-17] MEDS ORDERED: HYDROmorphone inj. 0.5 MG/0.5 ML DISP.SYRIN IV PRN (17:05)
[2024-02-17] MEDS ORDERED: HYDROcodone/acetaminophen 5mg/325mg tablet PO PRN (17:05)
[2024-02-17] MEDS: HYDROcodone/acetaminophen 10/325mg tab PO PRN (21:01)
[2024-02-18] VITALS (8 sets, daily range): BP systolic 101–138; BP diastolic 49–74; PULSE 70–77; RESP 12–22; TEMP 96.5–97.2; O2SAT 95–98
[2024-02-18 06:55] LABS: BASOPHILS % (AUTO) 0.2 % (0-1); EOSINOPHILS # (AUTO) 0.1 X10'3 (0-0.9); EOSINOPHILS % (AUTO) 0.4 % (0-6); HEMATOCRIT 35.3 % (42.0-52.0); HEMOGLOBIN 11.9 g/dl (14.0-17.9); LYMPHOCYTES # (AUTO) 0.9 X10'3 (1.1-4.8); LYMPHOCYTES % (AUTO) 5.3 % (21-51); MEAN CORPUSCULAR HEMOGLOBIN 30.7 PG (27.0-31.0); MEAN CORPUSCULAR HGB CONC 33.6 g/dL (33.0-36.5); MEAN CORPUSCULAR VOLUME 91.6 FL (78-98); MEAN PLATELET VOLUME 8.2 FL (7.4-10.4); MONOCYTES # (AUTO) 0.8 X10'3 (0-0.9); MONOCYTES % (AUTO) 4.9 % (2-12); NEUTROPHILS # (AUTO) 15.1 X10'3 (1.8-7.7); NEUTROPHILS % (AUTO) 89.2 % (42-75); PLATELET COUNT 245 X10'3 (140-440); RED BLOOD COUNT 3.86 X10'6 (4.70-6.10); RED CELL DISTRIBUTION WIDTH 15.8 % (11.5-14.5); WHITE BLOOD COUNT 16.9 X10'3 (4.5-11.0)
[2024-02-18 07:03] LABS: ALANINE AMINOTRANSFERASE 42 U/L (12-78); ALBUMIN 1.6 G/DL (3.4-5.0); ALBUMIN/GLOBULIN RATIO 0.3 (1.1-1.5); ALKALINE PHOSPHATASE 148 IU/L (46-116); ANION GAP 12 (8-16); ASPARTATE AMINO TRANSFERASE 78 U/L (10-37); BILIRUBIN,TOTAL 1.3 MG/DL (0.1-1.0); BLOOD UREA NITROGEN 139 MG/DL (7-18); BUN/CREATININE RATIO 34.9 (10.0-20.0); CALCIUM 8.2 MG/DL (8.5-10.1); CHLORIDE 108 MMOL/L (99-107); CREATININE 3.98 MG/DL (0.60-1.10); GLUCOSE 99 MG/DL (70-104); MAGNESIUM 2.1 MG/DL (1.5-2.4); PHOSPHORUS 6.5 MG/DL (2.3-4.5); POTASSIUM 3.8 MMOL/L (3.5-5.1); SODIUM 144 MMOL/L (135-145); TOTAL CARBON DIOXIDE 23.7 MMOL/L (24-32); TOTAL PROTEIN 6.4 G/DL (6.4-8.2); eCRCL 22 ML/MIN; eGFR 15 ML/MIN
[2024-02-18] MEDS ORDERED: albumin (human) 25% 100ml IV 100 ML IV PRN (08:00)
[2024-02-18] MEDS: heparin 1,000 units/ml 10ml inj HE ONE ×4 (15:41→15:44)
[2024-02-18] MEDS: heparin 1,000 units/ml 10ml inj IV ONE ×2 (15:41→15:42)
[2024-02-18] MEDS: heparin 1,000unit/ml 10ml vial 10 ML IV ONE ×2 (15:42)
[2024-02-18] MEDS: EPOETIN ALFA-EPBX 20,000 UNIT/ML 1 ML MDV IV ONE (15:43)
[2024-02-19] VITALS (10 sets, daily range): BP systolic 91–123; BP diastolic 40–64; PULSE 70–78; RESP 14–20; TEMP 97.2–98.6; O2SAT 95–100
[2024-02-19] MEDS: morphine 4 MG/ML inj SYRINge IV PRN (00:34)
[2024-02-19 03:48] LABS: BASOPHILS # (AUTO) 0.1 X10'3 (0-0.2); BASOPHILS % (AUTO) 0.7 % (0-1); EOSINOPHILS # (AUTO) 0.1 X10'3 (0-0.9); EOSINOPHILS % (AUTO) 0.5 % (0-6); HEMATOCRIT 34.4 % (42.0-52.0); HEMOGLOBIN 11.3 g/dl (14.0-17.9); LYMPHOCYTES % (AUTO) 7.2 % (21-51); MEAN CORPUSCULAR HEMOGLOBIN 30.2 PG (27.0-31.0); MEAN CORPUSCULAR HGB CONC 32.8 g/dL (33.0-36.5); MEAN PLATELET VOLUME 8.1 FL (7.4-10.4); MONOCYTES # (AUTO) 0.9 X10'3 (0-0.9); MONOCYTES % (AUTO) 6.3 % (2-12); NEUTROPHILS # (AUTO) 12.4 X10'3 (1.8-7.7); NEUTROPHILS % (AUTO) 85.3 % (42-75); PLATELET COUNT 272 X10'3 (140-440); RED BLOOD COUNT 3.74 X10'6 (4.70-6.10); RED CELL DISTRIBUTION WIDTH 15.8 % (11.5-14.5); WHITE BLOOD COUNT 14.5 X10'3 (4.5-11.0)
[2024-02-19 04:02] LABS: ALANINE AMINOTRANSFERASE 41 U/L (12-78); ALBUMIN 1.5 G/DL (3.4-5.0); ALBUMIN/GLOBULIN RATIO 0.3 (1.1-1.5); ALKALINE PHOSPHATASE 146 IU/L (46-116); ANION GAP 7 (8-16); ASPARTATE AMINO TRANSFERASE 72 U/L (10-37); BILIRUBIN,TOTAL 1.2 MG/DL (0.1-1.0); BLOOD UREA NITROGEN 93 MG/DL (7-18); CALCIUM 7.9 MG/DL (8.5-10.1); CHLORIDE 109 MMOL/L (99-107); CREATININE 2.82 MG/DL (0.60-1.10); GLUCOSE 88 MG/DL (70-104); MAGNESIUM 1.9 MG/DL (1.5-2.4); PHOSPHORUS 5.1 MG/DL (2.3-4.5); SODIUM 142 MMOL/L (135-145); TOTAL CARBON DIOXIDE 25.9 MMOL/L (24-32); TOTAL PROTEIN 6.4 G/DL (6.4-8.2); eCRCL 32 ML/MIN; eGFR 23 ML/MIN
[2024-02-19 04:07] LABS: POTASSIUM 4.2 MMOL/L (3.5-5.1)
[2024-02-20] VITALS (23 sets, daily range): BP systolic 68–132; BP diastolic 37–88; PULSE 61–110; RESP 15–20; TEMP 97.1–98.6; O2SAT 74–98
[2024-02-20 06:44] LABS: BASOPHILS # (AUTO) 0.1 X10'3 (0-0.2); BASOPHILS % (AUTO) 0.6 % (0-1); EOSINOPHILS # (AUTO) 0.1 X10'3 (0-0.9); EOSINOPHILS % (AUTO) 0.5 % (0-6); HEMATOCRIT 31.7 % (42.0-52.0); HEMOGLOBIN 10.3 g/dl (14.0-17.9); LYMPHOCYTES # (AUTO) 1.3 X10'3 (1.1-4.8); LYMPHOCYTES % (AUTO) 9.7 % (21-51); MEAN CORPUSCULAR HEMOGLOBIN 30.2 PG (27.0-31.0); MEAN CORPUSCULAR HGB CONC 32.6 g/dL (33.0-36.5); MEAN CORPUSCULAR VOLUME 92.8 FL (78-98); MEAN PLATELET VOLUME 7.8 FL (7.4-10.4); MONOCYTES # (AUTO) 0.9 X10'3 (0-0.9); MONOCYTES % (AUTO) 6.5 % (2-12); NEUTROPHILS # (AUTO) 11.3 X10'3 (1.8-7.7); NEUTROPHILS % (AUTO) 82.7 % (42-75); PLATELET COUNT 249 X10'3 (140-440); RED BLOOD COUNT 3.42 X10'6 (4.70-6.10); RED CELL DISTRIBUTION WIDTH 15.2 % (11.5-14.5); WHITE BLOOD COUNT 13.6 X10'3 (4.5-11.0)
[2024-02-20 06:56] LABS: ALANINE AMINOTRANSFERASE 35 U/L (12-78); ALBUMIN 1.4 G/DL (3.4-5.0); ALBUMIN/GLOBULIN RATIO 0.3 (1.1-1.5); ALKALINE PHOSPHATASE 132 IU/L (46-116); ANION GAP 8 (8-16); ASPARTATE AMINO TRANSFERASE 56 U/L (10-37); BILIRUBIN,TOTAL 1.3 MG/DL (0.1-1.0); BLOOD UREA NITROGEN 107 MG/DL (7-18); CALCIUM 7.9 MG/DL (8.5-10.1); CHLORIDE 109 MMOL/L (99-107); CREATININE 3.15 MG/DL (0.60-1.10); GLUCOSE 80 MG/DL (70-104); MAGNESIUM 1.9 MG/DL (1.5-2.4); POTASSIUM 4.2 MMOL/L (3.5-5.1); SODIUM 143 MMOL/L (135-145); TOTAL PROTEIN 6.4 G/DL (6.4-8.2); eCRCL 28 ML/MIN; eGFR 20 ML/MIN
[2024-02-20] MEDS ORDERED: albumin (human) 25% 100ml IV 100 ML IV PRN (08:55)
[2024-02-20] MEDS ORDERED: heparin 1,000 units/ml 10ml inj IV ONE (11:10)
[2024-02-20] MEDS ORDERED: heparin 1,000unit/ml 10ml vial 10 ML IV ONE (11:10)
[2024-02-20] MEDS ORDERED: heparin 1,000 units/ml 10ml inj HE ONE ×2 (11:15)
[2024-02-20] MEDS: EPOETIN ALFA-EPBX 20,000 UNIT/ML 1 ML MDV IV ONE (14:27)
[2024-02-20] MEDS: heparin 1,000 units/ml 10ml inj HE ONE ×2 (14:29→14:30)
[2024-02-20] MEDS: heparin 1,000unit/ml 10ml vial 10 ML IV ONE (14:31)
[2024-02-20] MEDS: heparin 1,000 units/ml 10ml inj IV ONE (14:31)
[2024-02-20 17:16] LABS: APPEARANCE,SYNOVIAL FLUID CLOUDY; COLOR,SYNOVIAL FLUID RED
[2024-02-20 17:17] LABS: LYMPHOCYTES,SYNOVIAL FLUID 1 % (0-75); MONOCYTES,SYNOVIAL FLUID 4 % (0-0); NEUTROPHILS,SYNOVIAL FLUID 95 % (0-25); SYN RBC 157500 /CU MM (0); SYN WBC 57500 /CU MM (0-200)
[2024-02-21 02:00] VITALS: BP 139/69; PULSE 79; RESP 20; TEMP 98; O2SAT 97
[2024-02-21 06:00] VITALS: BP 126/59; PULSE 80; RESP 22; TEMP 98.3; O2SAT 95
[2024-02-21 08:30] LABS: BASOPHILS # (AUTO) 0.1 X10'3 (0-0.2); BASOPHILS % (AUTO) 0.8 % (0-1); EOSINOPHILS # (AUTO) 0.1 X10'3 (0-0.9); EOSINOPHILS % (AUTO) 0.7 % (0-6); HEMATOCRIT 34.1 % (42.0-52.0); HEMOGLOBIN 11.4 g/dl (14.0-17.9); LYMPHOCYTES # (AUTO) 1.1 X10'3 (1.1-4.8); LYMPHOCYTES % (AUTO) 10.3 % (21-51); MEAN CORPUSCULAR HEMOGLOBIN 30.9 PG (27.0-31.0); MEAN CORPUSCULAR HGB CONC 33.3 g/dL (33.0-36.5); MEAN CORPUSCULAR VOLUME 92.7 FL (78-98); MONOCYTES # (AUTO) 1.1 X10'3 (0-0.9); MONOCYTES % (AUTO) 9.5 % (2-12); NEUTROPHILS # (AUTO) 8.7 X10'3 (1.8-7.7); NEUTROPHILS % (AUTO) 78.7 % (42-75); PLATELET COUNT 279 X10'3 (140-440); RED BLOOD COUNT 3.68 X10'6 (4.70-6.10); RED CELL DISTRIBUTION WIDTH 15.2 % (11.5-14.5); WHITE BLOOD COUNT 11.1 X10'3 (4.5-11.0)
[2024-02-21 08:44] LABS: ALANINE AMINOTRANSFERASE 41 U/L (12-78); ALBUMIN 1.5 G/DL (3.4-5.0); ALBUMIN/GLOBULIN RATIO 0.3 (1.1-1.5); ALKALINE PHOSPHATASE 163 IU/L (46-116); ANION GAP 4 (8-16); ASPARTATE AMINO TRANSFERASE 65 U/L (10-37); BILIRUBIN,TOTAL 1.3 MG/DL (0.1-1.0); BLOOD UREA NITROGEN 82 MG/DL (7-18); BUN/CREATININE RATIO 29.3 (10.0-20.0); CALCIUM 7.8 MG/DL (8.5-10.1); CHLORIDE 107 MMOL/L (99-107); GLUCOSE 94 MG/DL (70-104); POTASSIUM 4.3 MMOL/L (3.5-5.1); SODIUM 138 MMOL/L (135-145); TOTAL CARBON DIOXIDE 27.2 MMOL/L (24-32); TOTAL PROTEIN 7.1 G/DL (6.4-8.2); eCRCL 32 ML/MIN; eGFR 23 ML/MIN
[2024-02-21 11:00] VITALS: BP 149/90; PULSE 72; RESP 21; TEMP 98.1; O2SAT 99
[2024-02-21 15:00] VITALS: BP 127/66; PULSE 67; RESP 19; TEMP 98; O2SAT 94
[2024-02-21 22:00] VITALS: BP 146/78; PULSE 66; RESP 19; TEMP 98; O2SAT 100
[2024-02-22] VITALS (36 sets, daily range): BP systolic 110–190; BP diastolic 36–161; PULSE 70–91; RESP 12–22; TEMP 97–98; O2SAT 95–100
[2024-02-22 04:52] LABS: BASOPHILS # (AUTO) 0.1 X10'3 (0-0.2); BASOPHILS % (AUTO) 0.9 % (0-1); EOSINOPHILS # (AUTO) 0.1 X10'3 (0-0.9); EOSINOPHILS % (AUTO) 1.2 % (0-6); HEMATOCRIT 30.2 % (42.0-52.0); HEMOGLOBIN 10.4 g/dl (14.0-17.9); LYMPHOCYTES # (AUTO) 1.2 X10'3 (1.1-4.8); LYMPHOCYTES % (AUTO) 13.4 % (21-51); MEAN CORPUSCULAR HEMOGLOBIN 31.6 PG (27.0-31.0); MEAN CORPUSCULAR HGB CONC 34.5 g/dL (33.0-36.5); MEAN CORPUSCULAR VOLUME 91.6 FL (78-98); MEAN PLATELET VOLUME 7.7 FL (7.4-10.4); MONOCYTES # (AUTO) 0.8 X10'3 (0-0.9); MONOCYTES % (AUTO) 9.1 % (2-12); NEUTROPHILS # (AUTO) 6.9 X10'3 (1.8-7.7); NEUTROPHILS % (AUTO) 75.4 % (42-75); PLATELET COUNT 294 X10'3 (140-440); RED CELL DISTRIBUTION WIDTH 14.9 % (11.5-14.5); WHITE BLOOD COUNT 9.2 X10'3 (4.5-11.0)
[2024-02-22 05:09] LABS: ALANINE AMINOTRANSFERASE 41 U/L (12-78); ALBUMIN 1.5 G/DL (3.4-5.0); ALBUMIN/GLOBULIN RATIO 0.3 (1.1-1.5); ALKALINE PHOSPHATASE 157 IU/L (46-116); ANION GAP 6 (8-16); ASPARTATE AMINO TRANSFERASE 62 U/L (10-37); BILIRUBIN,TOTAL 1.1 MG/DL (0.1-1.0); BLOOD UREA NITROGEN 88 MG/DL (7-18); BUN/CREATININE RATIO 28.9 (10.0-20.0); CALCIUM 8.1 MG/DL (8.5-10.1); CHLORIDE 106 MMOL/L (99-107); CREATININE 3.05 MG/DL (0.60-1.10); GLUCOSE 91 MG/DL (70-104); POTASSIUM 4.4 MMOL/L (3.5-5.1); SODIUM 139 MMOL/L (135-145); TOTAL CARBON DIOXIDE 27.2 MMOL/L (24-32); TOTAL PROTEIN 7.3 G/DL (6.4-8.2); eCRCL 29 ML/MIN; eGFR 21 ML/MIN
[2024-02-22] MEDS ORDERED: albumin (human) 25% 100ml IV 100 ML IV PRN (08:00)
[2024-02-22] MEDS ORDERED: epiNEPHrine 1 mg/ml inj ONE (10:03)
[2024-02-22] MEDS ORDERED: cloNIDine hcl/PF 100mcg/ml inj ONE (10:03)
[2024-02-22] MEDS ORDERED: vancomycin 1,000mg inj ONE ×2 (10:03→12:02)
[2024-02-22] MEDS ORDERED: ROPIVAcaine 0.5% (5mg/ml) 30ml vial ONE (10:03)
[2024-02-22] MEDS ORDERED: ketorolac trometh 30MG/ML vial 30 MG/ML VIAL ONE (10:03)
[2024-02-22] MEDS ORDERED: gentamicin 40 MG/1 ML inj ONE (12:02)
[2024-02-22] MEDS ORDERED: sevoflurane 250ml liquid IH ONE (12:22)
[2024-02-22] MEDS ORDERED: sugammadex 200mg/2ml injection IV ONE ×2 (12:26→12:29)
[2024-02-22] MEDS ORDERED: fentaNYL/PF 50MCG/1 ML 2ML syringe ONE ×3 (12:42→14:16)
[2024-02-22] MEDS ORDERED: tobramycin sulfate 1.2gm vial ONE (12:54)
[2024-02-22] MEDS: tranexamic acid 1gm/0.7% sal. 100 ML IV ONE (12:56)
[2024-02-22] MEDS ORDERED: etomidate 2mg/ml inj. ONE (13:00)
[2024-02-22] MEDS ORDERED: ceFAZolin 1000mg inj ONE ×3 (13:00)
[2024-02-22] MEDS ORDERED: rocuronium 10mg/ml inj IV ONE (13:00)
[2024-02-22] MEDS: normal saline 1000ml 1,000 ML IV ONE (14:05)
[2024-02-22] MEDS ORDERED: ondansetron/PF 4mg/2ml inj IV PRN (14:05)
[2024-02-22] MEDS ORDERED: labetalol 20mg/4ml (5mg/ml) syringe IV ONE (14:27)
[2024-02-22] MEDS: fentaNYL/PF 50MCG/1 ML 2ML syringe IV PRN ×2 (15:25→17:05)
[2024-02-22] MEDS: HYDROmorphone/PF 0.2 MG/ML SYRINGE IV PRN (15:45)
[2024-02-22] MEDS ORDERED: naloxone 0.4 mg/ml inj IV PRN (17:00)
[2024-02-22] MEDS: HYDROmorph/NS 0.2 mg/ml PCA 100 ML IV SCH (17:21)
[2024-02-23] VITALS (15 sets, daily range): BP systolic 100–130; BP diastolic 55–78; PULSE 68–95; RESP 14–20; TEMP 97.4–98.2; O2SAT 90–99
[2024-02-23 05:08] LABS: BASOPHILS # (AUTO) 0.1 X10'3 (0-0.2); BASOPHILS % (AUTO) 0.7 % (0-1); EOSINOPHILS # (AUTO) 0.1 X10'3 (0-0.9); EOSINOPHILS % (AUTO) 0.7 % (0-6); HEMATOCRIT 26.8 % (42.0-52.0); HEMOGLOBIN 9.1 g/dl (14.0-17.9); LYMPHOCYTES # (AUTO) 0.9 X10'3 (1.1-4.8); LYMPHOCYTES % (AUTO) 10.9 % (21-51); MEAN CORPUSCULAR HEMOGLOBIN 31.1 PG (27.0-31.0); MEAN CORPUSCULAR HGB CONC 33.8 g/dL (33.0-36.5); MEAN CORPUSCULAR VOLUME 91.8 FL (78-98); MEAN PLATELET VOLUME 7.7 FL (7.4-10.4); MONOCYTES % (AUTO) 12.3 % (2-12); NEUTROPHILS # (AUTO) 6.2 X10'3 (1.8-7.7); NEUTROPHILS % (AUTO) 75.4 % (42-75); PLATELET COUNT 281 X10'3 (140-440); RED BLOOD COUNT 2.92 X10'6 (4.70-6.10); RED CELL DISTRIBUTION WIDTH 15.1 % (11.5-14.5); WHITE BLOOD COUNT 8.2 X10'3 (4.5-11.0)
[2024-02-23 05:23] LABS: ALANINE AMINOTRANSFERASE 21 U/L (12-78); ALBUMIN 1.3 G/DL (3.4-5.0); ALBUMIN/GLOBULIN RATIO 0.2 (1.1-1.5); ALKALINE PHOSPHATASE 113 IU/L (46-116); ANION GAP 8 (8-16); ASPARTATE AMINO TRANSFERASE 33 U/L (10-37); BILIRUBIN,TOTAL 1.7 MG/DL (0.1-1.0); BLOOD UREA NITROGEN 97 MG/DL (7-18); BUN/CREATININE RATIO 29.5 (10.0-20.0); CALCIUM 7.7 MG/DL (8.5-10.1); CHLORIDE 106 MMOL/L (99-107); CREATININE 3.29 MG/DL (0.60-1.10); GLUCOSE 88 MG/DL (70-104); POTASSIUM 5.5 MMOL/L (3.5-5.1); SODIUM 137 MMOL/L (135-145); TOTAL CARBON DIOXIDE 23.1 MMOL/L (24-32); TOTAL PROTEIN 6.8 G/DL (6.4-8.2); URIC ACID 7.8 MG/DL (3.5-7.2); eCRCL 27 ML/MIN; eGFR 19 ML/MIN
[2024-02-23] MEDS: PATIROMER CALCIUM SORBITEX 8.4 GM POWD.PACK PO ONE ×2 (07:30→21:22)
[2024-02-23] MEDS: furosemide 40mg/4ml inj IV ONE (13:36)
[2024-02-23] MEDS: EPOETIN ALFA-EPBX 20,000 UNIT/ML 1 ML MDV IV ONE (19:30)
[2024-02-23] MEDS: heparin 1,000 units/ml 10ml inj IV ONE (20:00)
[2024-02-23] MEDS: heparin 1,000 units/ml 10ml inj HE ONE ×2 (20:00)
[2024-02-23] MEDS: heparin 1,000unit/ml 10ml vial 10 ML IV ONE (20:00)
[2024-02-24] VITALS (8 sets, daily range): BP systolic 101–150; BP diastolic 52–68; PULSE 64–80; RESP 14–18; TEMP 97.6–98.2; O2SAT 95–100
[2024-02-24] MEDS: PCA WASTE DOCUMENTATION 1 MG ML MC SCH (03:03)
[2024-02-24 06:57] LABS: BASOPHILS # (AUTO) 0.1 X10'3 (0-0.2); BASOPHILS % (AUTO) 0.8 % (0-1); EOSINOPHILS # (AUTO) 0.1 X10'3 (0-0.9); EOSINOPHILS % (AUTO) 1.1 % (0-6); HEMOGLOBIN 8.1 g/dl (14.0-17.9); LYMPHOCYTES # (AUTO) 0.7 X10'3 (1.1-4.8); LYMPHOCYTES % (AUTO) 10.7 % (21-51); MEAN CORPUSCULAR HEMOGLOBIN 31.3 PG (27.0-31.0); MEAN CORPUSCULAR HGB CONC 33.6 g/dL (33.0-36.5); MEAN PLATELET VOLUME 7.7 FL (7.4-10.4); MONOCYTES % (AUTO) 14.7 % (2-12); NEUTROPHILS % (AUTO) 72.7 % (42-75); PLATELET COUNT 239 X10'3 (140-440); RED BLOOD COUNT 2.58 X10'6 (4.70-6.10); RED CELL DISTRIBUTION WIDTH 14.8 % (11.5-14.5); WHITE BLOOD COUNT 6.9 X10'3 (4.5-11.0)
[2024-02-24 07:27] LABS: ALANINE AMINOTRANSFERASE 14 U/L (12-78); ALBUMIN 1.4 G/DL (3.4-5.0); ALBUMIN/GLOBULIN RATIO 0.2 (1.1-1.5); ALKALINE PHOSPHATASE 139 IU/L (46-116); ANION GAP 6 (8-16); ASPARTATE AMINO TRANSFERASE 41 U/L (10-37); BILIRUBIN,TOTAL 1.1 MG/DL (0.1-1.0); BLOOD UREA NITROGEN 62 MG/DL (7-18); BUN/CREATININE RATIO 22.5 (10.0-20.0); C-REACTIVE PROTEIN 22.05 MG/DL (0.0-0.5); CALCIUM 7.7 MG/DL (8.5-10.1); CHLORIDE 105 MMOL/L (99-107); CREATININE 2.76 MG/DL (0.60-1.10); GLUCOSE 104 MG/DL (70-104); POTASSIUM 4.7 MMOL/L (3.5-5.1); SODIUM 137 MMOL/L (135-145); TOTAL CARBON DIOXIDE 26.4 MMOL/L (24-32); TOTAL PROTEIN 7.2 G/DL (6.4-8.2); eCRCL 32 ML/MIN; eGFR 23 ML/MIN
[2024-02-24] MEDS: furosemide 40mg/4ml inj IV SCH (12:14)
[2024-02-25] VITALS (14 sets, daily range): BP systolic 106–142; BP diastolic 2–78; PULSE 58–85; RESP 12–18; TEMP 97–97.9; O2SAT 92–100
[2024-02-25 07:34] LABS: BASOPHILS % (AUTO) 0.5 % (0-1); EOSINOPHILS # (AUTO) 0.1 X10'3 (0-0.9); EOSINOPHILS % (AUTO) 1.5 % (0-6); HEMATOCRIT 25.1 % (42.0-52.0); HEMOGLOBIN 8.2 g/dl (14.0-17.9); LYMPHOCYTES # (AUTO) 0.7 X10'3 (1.1-4.8); LYMPHOCYTES % (AUTO) 11.6 % (21-51); MEAN CORPUSCULAR HEMOGLOBIN 30.9 PG (27.0-31.0); MEAN CORPUSCULAR HGB CONC 32.7 g/dL (33.0-36.5); MEAN CORPUSCULAR VOLUME 94.5 FL (78-98); MEAN PLATELET VOLUME 8.2 FL (7.4-10.4); MONOCYTES # (AUTO) 0.8 X10'3 (0-0.9); MONOCYTES % (AUTO) 13.1 % (2-12); NEUTROPHILS # (AUTO) 4.5 X10'3 (1.8-7.7); NEUTROPHILS % (AUTO) 73.3 % (42-75); PLATELET COUNT 280 X10'3 (140-440); RED BLOOD COUNT 2.65 X10'6 (4.70-6.10); RED CELL DISTRIBUTION WIDTH 14.7 % (11.5-14.5); WHITE BLOOD COUNT 6.2 X10'3 (4.5-11.0)
[2024-02-25 07:40] LABS: ALANINE AMINOTRANSFERASE 10 U/L (12-78); ALBUMIN 1.4 G/DL (3.4-5.0); ALBUMIN/GLOBULIN RATIO 0.2 (1.1-1.5); ALKALINE PHOSPHATASE 141 IU/L (46-116); ANION GAP 8 (8-16); ASPARTATE AMINO TRANSFERASE 40 U/L (10-37); BILIRUBIN,TOTAL 0.9 MG/DL (0.1-1.0); BLOOD UREA NITROGEN 74 MG/DL (7-18); BUN/CREATININE RATIO 23.5 (10.0-20.0); CHLORIDE 104 MMOL/L (99-107); CREATININE 3.15 MG/DL (0.60-1.10); GLUCOSE 96 MG/DL (70-104); POTASSIUM 4.1 MMOL/L (3.5-5.1); SODIUM 136 MMOL/L (135-145); TOTAL CARBON DIOXIDE 24.5 MMOL/L (24-32); TOTAL PROTEIN 7.4 G/DL (6.4-8.2); eCRCL 28 ML/MIN; eGFR 20 ML/MIN
[2024-02-25] MEDS ORDERED: normal saline 1000ml 100 ML IV PRN (12:35)
[2024-02-25] MEDS: ceFAZolin/D5W- 1GM premix 50 ML IV SCH (16:00)
[2024-02-25] MEDS: heparin 1,000 units/ml 10ml inj HE ONE ×2 (18:37→18:38)
[2024-02-25] MEDS: EPOETIN ALFA-EPBX 20,000 UNIT/ML 1 ML MDV IV ONE (18:41)
[2024-02-26] VITALS (9 sets, daily range): BP systolic 97–129; BP diastolic 40–62; PULSE 72–91; RESP 10–22; TEMP 97–97.7; O2SAT 95–99
[2024-02-26 07:02] LABS: ALANINE AMINOTRANSFERASE 27 U/L (12-78); ALBUMIN 1.5 G/DL (3.4-5.0); ALBUMIN/GLOBULIN RATIO 0.2 (1.1-1.5); ALKALINE PHOSPHATASE 165 IU/L (46-116); ANION GAP 4 (8-16); ASPARTATE AMINO TRANSFERASE 66 U/L (10-37); BASOPHILS # (AUTO) 0.1 X10'3 (0-0.2); BILIRUBIN,TOTAL 0.8 MG/DL (0.1-1.0); BLOOD UREA NITROGEN 43 MG/DL (7-18); BUN/CREATININE RATIO 18.4 (10.0-20.0); CHLORIDE 105 MMOL/L (99-107); CREATININE 2.34 MG/DL (0.60-1.10); EOSINOPHILS # (AUTO) 0.1 X10'3 (0-0.9); EOSINOPHILS % (AUTO) 2.8 % (0-6); GLUCOSE 91 MG/DL (70-104); HEMATOCRIT 24.9 % (42.0-52.0); HEMOGLOBIN 8.5 g/dl (14.0-17.9); LYMPHOCYTES # (AUTO) 0.8 X10'3 (1.1-4.8); LYMPHOCYTES % (AUTO) 15.1 % (21-51); MEAN CORPUSCULAR HEMOGLOBIN 31.2 PG (27.0-31.0); MEAN CORPUSCULAR VOLUME 91.9 FL (78-98); MEAN PLATELET VOLUME 7.6 FL (7.4-10.4); MONOCYTES # (AUTO) 0.8 X10'3 (0-0.9); MONOCYTES % (AUTO) 15.2 % (2-12); NEUTROPHILS # (AUTO) 3.4 X10'3 (1.8-7.7); NEUTROPHILS % (AUTO) 65.9 % (42-75); PLATELET COUNT 313 X10'3 (140-440); POTASSIUM 3.8 MMOL/L (3.5-5.1); RED BLOOD COUNT 2.71 X10'6 (4.70-6.10); RED CELL DISTRIBUTION WIDTH 14.5 % (11.5-14.5); SODIUM 138 MMOL/L (135-145); TOTAL CARBON DIOXIDE 28.6 MMOL/L (24-32); TOTAL PROTEIN 7.9 G/DL (6.4-8.2); WHITE BLOOD COUNT 5.2 X10'3 (4.5-11.0); eCRCL 38 ML/MIN; eGFR 28 ML/MIN
[2024-02-26 15:00] LABS: FREE T4 (FREE THYROXINE) 1.05 NG/DL (0.73-1.40); PHOSPHORUS 4.1 MG/DL (2.3-4.5); THYROID STIMULATING HORMONE 4.05 ulU/ml (0.34-4.50)
[2024-02-26 15:14] LABS: ABG BASE EXCESS 0.5 mmol/L (-2.0-3.0); ABG HCO3 23.9 mmol/L (21.0-28.0); ABG PCO2 (T) 33.4 mmHg (35.0-48.0); ABG PH (T) 7.472 (7.350-7.450); ABG PO2 (T) 65.6 mmHg (83.0-108.0); ALLEN'S TEST POSITIVE; FCOHb 0.4 % (0.5-1.5); FMetHb 0.3 % (0.0-1.5); FO2Hb 93.3 % (94.0-98.0); MODE ROOM AIR; PATIENT TEMPERATURE 36.8
[2024-02-27] VITALS (11 sets, daily range): BP systolic 105–128; BP diastolic 56–79; PULSE 68–93; RESP 13–24; TEMP 97–98.1; O2SAT 94–100
[2024-02-27] MEDS: HYDROmorphone 1 mg/ml syringe IV PRN (03:18)
[2024-02-27 06:26] LABS: BASOPHILS % (AUTO) 0.7 % (0-1); EOSINOPHILS # (AUTO) 0.1 X10'3 (0-0.9); HEMATOCRIT 23.5 % (42.0-52.0); HEMOGLOBIN 8.1 g/dl (14.0-17.9); LYMPHOCYTES # (AUTO) 0.8 X10'3 (1.1-4.8); LYMPHOCYTES % (AUTO) 12.8 % (21-51); MEAN CORPUSCULAR HEMOGLOBIN 31.8 PG (27.0-31.0); MEAN CORPUSCULAR HGB CONC 34.3 g/dL (33.0-36.5); MEAN CORPUSCULAR VOLUME 92.6 FL (78-98); MEAN PLATELET VOLUME 7.7 FL (7.4-10.4); MONOCYTES # (AUTO) 1.2 X10'3 (0-0.9); MONOCYTES % (AUTO) 19.3 % (2-12); NEUTROPHILS % (AUTO) 65.2 % (42-75); PLATELET COUNT 314 X10'3 (140-440); RED BLOOD COUNT 2.54 X10'6 (4.70-6.10); RED CELL DISTRIBUTION WIDTH 14.5 % (11.5-14.5); WHITE BLOOD COUNT 6.2 X10'3 (4.5-11.0)
[2024-02-27 06:44] LABS: ALANINE AMINOTRANSFERASE 24 U/L (12-78); ALBUMIN 1.5 G/DL (3.4-5.0); ALBUMIN/GLOBULIN RATIO 0.2 (1.1-1.5); ALKALINE PHOSPHATASE 156 IU/L (46-116); ANION GAP 7 (8-16); ASPARTATE AMINO TRANSFERASE 61 U/L (10-37); BILIRUBIN,TOTAL 0.8 MG/DL (0.1-1.0); BLOOD UREA NITROGEN 54 MG/DL (7-18); BUN/CREATININE RATIO 18.5 (10.0-20.0); CALCIUM 8.2 MG/DL (8.5-10.1); CHLORIDE 103 MMOL/L (99-107); CREATININE 2.92 MG/DL (0.60-1.10); GLUCOSE 98 MG/DL (70-104); POTASSIUM 3.5 MMOL/L (3.5-5.1); SODIUM 138 MMOL/L (135-145); TOTAL CARBON DIOXIDE 27.8 MMOL/L (24-32); TOTAL PROTEIN 7.8 G/DL (6.4-8.2); eCRCL 31 ML/MIN; eGFR 22 ML/MIN
[2024-02-27 07:11] LABS: PLATELET ESTIMATE NORMAL; TOTAL CELLS COUNTED 100
[2024-02-27] MEDS: amiodarone 200mg tablet PO SCH (09:45)
[2024-02-27 22:22] LABS: UREA NITROGEN 24HR,URINE 8.3 GM/24HR (7-20)
[2024-02-28 02:00] VITALS: BP 118/86; PULSE 70; RESP 18; TEMP 97.4; O2SAT 90
[2024-02-28 04:04] VITALS: PULSE 72; O2SAT 95
[2024-02-28 06:00] VITALS: BP 111/55; PULSE 70; RESP 18; TEMP 97.9; O2SAT 96
[2024-02-28 06:00] LABS: HEMATOCRIT 23.4 % (42.0-52.0); HEMOGLOBIN 7.9 g/dl (14.0-17.9); MEAN PLATELET VOLUME 7.9 FL (7.4-10.4); MONOCYTES # (AUTO) 1.1 X10'3 (0-0.9); NEUTROPHILS # (AUTO) 3.8 X10'3 (1.8-7.7); RED CELL DISTRIBUTION WIDTH 14.2 % (11.5-14.5)
[2024-02-28 06:03] LABS: BASOPHILS % (AUTO) 0.7 % (0-1); EOSINOPHILS # (AUTO) 0.3 X10'3 (0-0.9); EOSINOPHILS % (AUTO) 4.2 % (0-6); LYMPHOCYTES # (AUTO) 0.8 X10'3 (1.1-4.8); LYMPHOCYTES % (AUTO) 13.6 % (21-51); MEAN CORPUSCULAR HEMOGLOBIN 31.2 PG (27.0-31.0); MEAN CORPUSCULAR HGB CONC 33.7 g/dL (33.0-36.5); MEAN CORPUSCULAR VOLUME 92.5 FL (78-98); MONOCYTES % (AUTO) 18.6 % (2-12); NEUTROPHILS % (AUTO) 62.9 % (42-75); PLATELET COUNT 323 X10'3 (140-440); RED BLOOD COUNT 2.54 X10'6 (4.70-6.10); WHITE BLOOD COUNT 6.1 X10'3 (4.5-11.0)
[2024-02-28 06:38] LABS: ALANINE AMINOTRANSFERASE 17 U/L (12-78); ALBUMIN 1.5 G/DL (3.4-5.0); ALBUMIN/GLOBULIN RATIO 0.2 (1.1-1.5); ALKALINE PHOSPHATASE 143 IU/L (46-116); ANION GAP 10 (8-16); ASPARTATE AMINO TRANSFERASE 58 U/L (10-37); BILIRUBIN,TOTAL 0.7 MG/DL (0.1-1.0); BLOOD UREA NITROGEN 61 MG/DL (7-18); BUN/CREATININE RATIO 20.6 (10.0-20.0); CALCIUM 8.5 MG/DL (8.5-10.1); CHLORIDE 102 MMOL/L (99-107); CREATININE 2.96 MG/DL (0.60-1.10); GLUCOSE 95 MG/DL (70-104); POTASSIUM 3.4 MMOL/L (3.5-5.1); SODIUM 137 MMOL/L (135-145); TOTAL CARBON DIOXIDE 24.9 MMOL/L (24-32); TOTAL PROTEIN 7.9 G/DL (6.4-8.2); eCRCL 30 ML/MIN; eGFR 22 ML/MIN
[2024-02-28 08:00] VITALS: RESP 17; O2SAT 97
[2024-02-28 11:00] VITALS: BP 111/69; PULSE 70; RESP 14; TEMP 97.8; O2SAT 96
[2024-02-28] MEDS ORDERED: potassium Cl 20 mEq SR tablet PO PRN ×2 (14:25)
[2024-02-28] MEDS ORDERED: potassium Cl 40MEQ/1/2NS 520ml 520 ML IV PRN (14:25)
[2024-02-29] MEDS ORDERED: ceFAZolin/D5W- 1GM premix 50 ML IV SCH (08:00)
[2024-04-25] MEDS ORDERED: CARB15DR2 LEFTEYE (07:44)
[2024-04-25] MEDS ORDERED: FURO-149 PO (07:44)
[2024-04-25] MEDS ORDERED: ACET-890 PO (07:44)
[2024-04-25] MEDS ORDERED: CEPH500C2 PO (07:44)
[2024-04-25] MEDS ORDERED: HYDR-3965 PO (07:44)
[2024-04-25] MEDS ORDERED: ONDA-103 PO (07:44)
[2024-04-25] MEDS ORDERED: HYDR-3973 PO (07:44)
[2024-04-25] MEDS ORDERED: AMIO200T27 PO (07:44)
[2024-04-25] MEDS ORDERED: POLY17PO59 PO (07:44)
[2024-04-25] MEDS ORDERED: IRON1CAP4 PO (07:44)
[2024-04-25] MEDS ORDERED: DOCU100C40 PO (07:44)
[2024-04-25] MEDS ORDERED: MELA3CAP2 PO (07:44)
[2024-04-25] MEDS ORDERED: EMOL250L2 TOP (07:44)
[2024-04-25] MEDS ORDERED: MAG355OR18 PO (07:44)
== END 2024-02-28 16:52 | DRG 466 ==
LOC: ER 11:36 → CICU 2S 19:00 → PCU 3S 02-15 21:30
PROVIDERS: ADMIT Internal Medicine Critical Care Medicine; ATTEND Internal Medicine Critical Care Medicine
PROC: 02HV33Z Insertion of Infusion Device into Superior Vena Cava, Percutaneous Approach (ICD-10-PCS; 2024-02-09)
PROC: B548ZZA Ultrasonography of Superior Vena Cava, Guidance (ICD-10-PCS; 2024-02-09)
PROC: 5A1D70Z Performance of Urinary Filtration, Intermittent, Less than 6 Hours Per Day (ICD-10-PCS; 2024-02-11)
PROC: 5A1D70Z Performance of Urinary Filtration, Intermittent, Less than 6 Hours Per Day (ICD-10-PCS; 2024-02-12)
PROC: 5A09357 Assistance with Respiratory Ventilation, Less than 24 Consecutive Hours, Continuous Positive Airway Pressure (ICD-10-PCS; 2024-02-12)
PROC: 5A1D70Z Performance of Urinary Filtration, Intermittent, Less than 6 Hours Per Day (ICD-10-PCS; 2024-02-13)
PROC: 5A09357 Assistance with Respiratory Ventilation, Less than 24 Consecutive Hours, Continuous Positive Airway Pressure (ICD-10-PCS; 2024-02-13)
PROC: 5A09357 Assistance with Respiratory Ventilation, Less than 24 Consecutive Hours, Continuous Positive Airway Pressure (ICD-10-PCS; 2024-02-14)
PROC: 0JH63XZ Insertion of Tunneled Vascular Access Device into Chest Subcutaneous Tissue and Fascia, Percutaneous Approach (ICD-10-PCS; 2024-02-15)
PROC: 02HV33Z Insertion of Infusion Device into Superior Vena Cava, Percutaneous Approach (ICD-10-PCS; 2024-02-15)
PROC: B5181ZA Fluoroscopy of Superior Vena Cava using Low Osmolar Contrast, Guidance (ICD-10-PCS; 2024-02-15)
PROC: 5A1D70Z Performance of Urinary Filtration, Intermittent, Less than 6 Hours Per Day (ICD-10-PCS; 2024-02-15)
PROC: 0S9D3ZZ Drainage of Left Knee Joint, Percutaneous Approach (ICD-10-PCS; principal; 2024-02-20)
PROC: 5A1D70Z Performance of Urinary Filtration, Intermittent, Less than 6 Hours Per Day (ICD-10-PCS; 2024-02-20)
PROC: 0SPD0JZ Removal of Synthetic Substitute from Left Knee Joint, Open Approach (ICD-10-PCS; 2024-02-22)
PROC: 0SRD0J9 Replacement of Left Knee Joint with Synthetic Substitute, Cemented, Open Approach (ICD-10-PCS; 2024-02-22)
PROC: 5A1D70Z Performance of Urinary Filtration, Intermittent, Less than 6 Hours Per Day (ICD-10-PCS; 2024-02-23)
PROC: 5A1D70Z Performance of Urinary Filtration, Intermittent, Less than 6 Hours Per Day (ICD-10-PCS; 2024-02-25)
DX: T84.54XA Infection and inflammatory reaction due to internal left knee prosthesis, initial encounter (principal); A40.1 Sepsis due to streptococcus, group B; J96.01 Acute respiratory failure with hypoxia; R65.21 Severe sepsis with septic shock; N17.9 Acute kidney failure, unspecified; E87.1 Hypo-osmolality and hyponatremia; L03.116 Cellulitis of left lower limb; I50.22 Chronic systolic (congestive) heart failure; G47.30 Sleep apnea, unspecified; I25.10 Atherosclerotic heart disease of native coronary artery without angina pectoris; Z96.651 Presence of right artificial knee joint; Z96.643 Presence of artificial hip joint, bilateral; I48.91 Unspecified atrial fibrillation; E87.6 Hypokalemia; M25.462 Effusion, left knee; K21.9 Gastro-esophageal reflux disease without esophagitis; X58.XXXA Exposure to other specified factors, initial encounter; E66.01 Morbid (severe) obesity due to excess calories; I11.0 Hypertensive heart disease with heart failure; Y83.8 Other surgical procedures as the cause of abnormal reaction of the patient, or of later complication, without mention of misadventure at the time of the procedure; Y92.89 Other specified places as the place of occurrence of the external cause; Z88.1 Allergy status to other antibiotic agents; Z88.0 Allergy status to penicillin; Z88.2 Allergy status to sulfonamides; Z79.01 Long term (current) use of anticoagulants; Z79.899 Other long term (current) drug therapy; Z95.1 Presence of aortocoronary bypass graft; Z93.3 Colostomy status; Z82.49 Family history of ischemic heart disease and other diseases of the circulatory system
CPT/HCPCS: 36415; 36600; 71045; 71250; 73030; 73560; 73564; 74018; 74176; 76770; 80048; 80053; 81001; 82140; 82550; 82570; 82803; 82948; 83605; 83735; 83880; 84100; 84133; 84145; 84156; 84300; 84439; 84443; 84484; 84540; 84550; 84560; 85007; 85018; 85025; 85651; 86140; 86704; 86706; 87040; 87070; 87075; 87077; 87081; 87186; 87324; 87340; 87449; 87502; 87503; 87811; 89051; 92508; 92616; 93005; 93306; 93971; 94640; 94660; 94760; 97110; 97161; 97164; 97530; 97535; 99291; 99292; A4215; A4333; A4338; A4340; A4615; A4620; A5200; A6154; A6212; A6213; A6250; A6258; A6449; A6454; A6590; A7000; A9270; C1713; C1750; C1751; C1752; C1758; C1769; C1776; C1894; E1594; G0257; G0378; J0171; J0282; J0690; J0735; J1171; J1580; J1644; J1885; J1940; J1956; J2003; J2150; J2250; J2270; J2470; J2543; J2765; J2795; J3010; J3260; J3370; J3372; J3490; J7030; J7040; J7120; P9045; P9047; Q4081; Q9963